=== PATIENT | female | born 1970 | race Asian ===

== ENCOUNTER 2017-08-31 12:21 | Inpatient (IN) | payer MEDICARE, MEDICAID ==
[~2017-08-31] VITALS: Ht 154.9 cm; Wt 65.3 kg
[2017-08-31] MEDS ORDERED: ChlorproMAZINE HCL 50 MG TABLET PO PRN (19:00)
[2017-08-31] MEDS: BusPIRone HCL 10 MG TABLET PO SCH (20:40)
[2017-08-31] MEDS: RisperiDONE 1 MG TABLET PO SCH (20:40)
[2017-08-31] MEDS ORDERED: INFLUENZA VIRUS VACCINE QVS 2017-18 (3YR+)/PF 60 MCG/0.5 ML SYRINGE IM ONE (21:15)
[2017-08-31] MEDS ORDERED: PNEUMOCOCCAL VACCINE POLYVALENT 0.5 ML VIAL [PPSV23] IM ONE (21:15)
[2017-08-31 21:21] VITALS: BP 141/93
[2017-09-01 06:21] VITALS: BP 138/91
[2017-09-01 06:29] LABS: BASOPHILS % (AUTO) 1.5 % (0.0-2.0); EOSINOPHILS % (AUTO) 3.6 % (1.0-6.0); HEMATOCRIT 33.2 % (36-46); HEMOGLOBIN 11.2 g/dL (12.0-16.0); LYMPHOCYTES % (AUTO) 33.2 % (22.0-44.0); MEAN CORPUSCULAR HEMOGLOBIN 28.4 pg (26.0-34.0); MEAN CORPUSCULAR HGB CONC 33.9 G/dL (31.0-37.0); MEAN CORPUSCULAR VOLUME 84 fL (80-100); MONOCYTES # (AUTO) 0.4 K/uL (0.1-1.0); MONOCYTES % (AUTO) 6.9 % (2.0-9.0); NEUTROPHILS # (AUTO) 3.2 K/uL (1.8-7.7); NEUTROPHILS % (AUTO) 54.8 % (40.0-70.0); PLATELET COUNT (AUTO) 488 K/uL (150-450); RED BLOOD CELL COUNT(AUTO) 3.95 MIL/uL (4.00-5.20); RED CELL DISTRIBUTION WIDTH 14.4 % (11.5-14.5)
[2017-09-01 07:01] LABS: HEMOGLOBIN A1C 8.2 % (4.5-6.2)
[2017-09-01 07:22] LABS: CHOL/HDL RATIO 3.3 (3.9-5.7); FREE T4 (FREE THYROXINE) 0.97 ng/dL (0.76-1.46); THYROID STIMULATING HORMONE 4.61 uIU/mL (0.36-3.74)
[2017-09-01] MEDS ORDERED: BENZOCAINE/MENTHOL LOZENGE [8 LOZENGES/PACKET] MM PRN (08:00)
[2017-09-01] MEDS ORDERED: CloNIDine HCL 0.1 MG TABLET PO PRN (08:00)
[2017-09-01] MEDS ORDERED: ALBUTEROL SULFATE HFA 90 MCG/PUFF 8 GM INHALER IH PRN (08:00)
[2017-09-01] MEDS ORDERED: MAGNESIUM HYDROXIDE SUSPENSION 30 ML UDCUP PO PRN (08:00)
[2017-09-01] MEDS ORDERED: BACITRACIN 28.4 GM OINTMENT TP PRN (08:00)
[2017-09-01] MEDS ORDERED: ONDANSETRON HCL 4 MG TABLET PO PRN (08:00)
[2017-09-01] MEDS ORDERED: IBUPROFEN 600 MG TABLET PO PRN (08:00)
[2017-09-01] MEDS ORDERED: MAG HYDROX/AL HYDROX/SIMETH ES 30 ML SUSPENSION UDCUP PO PRN (08:00)
[2017-09-01] MEDS ORDERED: LOPERAMIDE HCL 2 MG CAPSULE PO PRN (08:00)
[2017-09-01] MEDS ORDERED: PETROLATUM,WHITE 71 GM JELLY TP PRN (08:00)
[2017-09-01] MEDS ORDERED: ACETAMINOPHEN 325 MG TABLET PO PRN (08:00)
[2017-09-01] MEDS ORDERED: DEXTROSE 50%-WATER 25 GM/50 ML SYRINGE IVP PRN (08:00)
[2017-09-01 08:52] VITALS: BP 147/93
[2017-09-01] MEDS: FLUoxetine HCL 10 MG CAPSULE PO SCH (09:15)
[2017-09-01] MEDS: MetFORMIN HCL 500 MG TABLET PO SCH ×2 (09:15→17:14)
[2017-09-01] MEDS: BusPIRone HCL 10 MG TABLET PO SCH ×2 (09:15→16:11)
[2017-09-01] MEDS: NYSTATIN 30 GM CREAM TP SCH (09:37)
[2017-09-01] MEDS: GlipiZIDE 10 MG TABLET PO SCH ×2 (09:44→16:11)
[2017-09-01] MEDS: INSULIN ASPART 100 UNITS/ML SQ PRN (12:51)
[2017-09-01 12:53] LABS: GLUCOMETER DEV NAME(LOC) 3EI B; GLUCOSE,POINT OF CARE 89 MG/DL (70-110)
[2017-09-01 16:17] LABS: GLUCOMETER DEV NAME(LOC) 3EI B; GLUCOSE,POINT OF CARE 108 MG/DL (70-110)
[2017-09-01 16:30] VITALS: BP 132/75
[2017-09-01] MEDS: RisperiDONE 1 MG TABLET PO SCH (20:44)
[2017-09-01 20:47] LABS: GLUCOMETER DEV NAME(LOC) 3EI B; GLUCOSE,POINT OF CARE 96 MG/DL (70-110)
[2017-09-02 05:37] VITALS: BP 130/71
[2017-09-02 05:49] LABS: GLUCOMETER DEV NAME(LOC) 3EI B; GLUCOSE,POINT OF CARE 112 MG/DL (70-110)
[2017-09-02] MEDS: GlipiZIDE 10 MG TABLET PO SCH ×2 (06:48→16:21)
[2017-09-02] MEDS: LEVOTHYROXINE SODIUM 25 MCG TABLET PO SCH (06:48)
[2017-09-02] MEDS: MetFORMIN HCL 500 MG TABLET PO SCH ×2 (06:48→17:04)
[2017-09-02 08:44] VITALS: BP 144/82
[2017-09-02] MEDS: FLUoxetine HCL 10 MG CAPSULE PO SCH (09:35)
[2017-09-02] MEDS: BusPIRone HCL 10 MG TABLET PO SCH ×2 (09:35→16:21)
[2017-09-02 11:27] LABS: GLUCOMETER DEV NAME(LOC) 3EI B; GLUCOSE,POINT OF CARE 98 MG/DL (70-110)
[2017-09-02 16:27] LABS: GLUCOMETER DEV NAME(LOC) 3EI B; GLUCOSE,POINT OF CARE 142 MG/DL (70-110)
[2017-09-02] MEDS: NYSTATIN 30 GM CREAM TP SCH (17:04)
[2017-09-02] MEDS: INSULIN ASPART 100 UNITS/ML SQ PRN (17:30)
[2017-09-02 19:29] VITALS: BP 140/91
[2017-09-02] MEDS: LORazepam 0.5 MG TABLET PO PRN (20:31)
[2017-09-02] MEDS: RisperiDONE 2 MG TABLET PO SCH (20:32)
[2017-09-02 20:37] LABS: GLUCOMETER DEV NAME(LOC) 3EI B; GLUCOSE,POINT OF CARE 134 MG/DL (70-110)
[2017-09-03 01:40] VITALS: BP 126/96
[2017-09-03 06:18] LABS: GLUCOMETER DEV NAME(LOC) 3EI B; GLUCOSE,POINT OF CARE 138 MG/DL (70-110)
[2017-09-03] MEDS: GlipiZIDE 10 MG TABLET PO SCH ×2 (06:36→16:12)
[2017-09-03] MEDS: LEVOTHYROXINE SODIUM 25 MCG TABLET PO SCH (06:36)
[2017-09-03] MEDS: MetFORMIN HCL 500 MG TABLET PO SCH ×2 (06:36→17:38)
[2017-09-03] MEDS: ASPIRIN 81 MG EC TABLET PO SCH (06:36)
[2017-09-03 06:37] LABS: HEMATOCRIT 34.6 % (36-46); HEMOGLOBIN 11.6 g/dL (12.0-16.0); MEAN CORPUSCULAR HEMOGLOBIN 28.1 pg (26.0-34.0); MEAN CORPUSCULAR HGB CONC 33.4 G/dL (31.0-37.0); MEAN CORPUSCULAR VOLUME 84 fL (80-100); PLATELET COUNT (AUTO) 515 K/uL (150-450); RED BLOOD CELL COUNT(AUTO) 4.11 MIL/uL (4.00-5.20); RED CELL DISTRIBUTION WIDTH 14.3 % (11.5-14.5)
[2017-09-03 07:03] LABS: ANION GAP 8 mmol/L (8-16); CARBON DIOXIDE 28 mmol/L (22-29); CHLORIDE 100 mmol/L (98-107); CREATININE 0.43 mg/dL (0.60-1.30); GLOMERULAR FILTR. RATE CALC > 60 mL/min (>60); GLUCOSE,RANDOM 145 mg/dL (70-110); PHOSPHORUS 3.7 mg/dL (2.5-4.9); POTASSIUM 4.3 mmol/L (3.5-5.1); SODIUM SERUM 136 mmol/L (136-145); UREA NITROGEN, BLOOD 14 mg/dL (7-18)
[2017-09-03 08:38] VITALS: BP 154/97
[2017-09-03 08:50] LABS: BAND NEUTROPHILS % (MANUAL) 2 % (1-5); EOSINOPHILS % (MANUAL) 1 % (1-6); LYMPHOCYTES % (MANUAL) 27 % (22-44); MONOCYTES % (MANUAL) 8 % (2-9); SEGMENTED NEUTROPHILS % 62 % (40-70)
[2017-09-03 08:58] LABS: BILIRUBIN,URINE NEGATIVE (NEGATIVE); GLUCOSE, URINE (UA) NEGATIVE (NEGATIVE); KETONES,URINE NEGATIVE (NEGATIVE); LEUKOCYTE ESTERASE ,URINE NEGATIVE (NEGATIVE); NITRATE,URINE NEGATIVE (NEGATIVE); OCCULT BLOOD,URINE LARGE (NEGATIVE); PH,URINE 5.5 (5.0-8.0); PROTEIN,URINE NEGATIVE (NEGATIVE); UROBILINOGEN,URINE 0.2 mg/dL (<=1.0)
[2017-09-03 08:59] LABS: APPEARANCE,URINE HAZY (CLEAR)
[2017-09-03] MEDS: MULTIVITAMINS WITH IRON TABLET PO SCH (09:09)
[2017-09-03] MEDS: BusPIRone HCL 10 MG TABLET PO SCH ×2 (09:09→16:11)
[2017-09-03] MEDS: FLUoxetine HCL 10 MG CAPSULE PO SCH (09:09)
[2017-09-03] MEDS: NYSTATIN 30 GM CREAM TP SCH ×2 (09:10→16:11)
[2017-09-03 09:27] LABS: BACTERIA,URINE Moderate /HPF (None Seen); SQUAMOUS EPITHELIAL CELL,UR Few /LPF (None Seen)
[2017-09-03 09:35] LABS: HCG,QUAL RESULT NEGATIVE (NEGATIVE)
[2017-09-03 11:13] LABS: GLUCOMETER DEV NAME(LOC) 3EI B; GLUCOSE,POINT OF CARE 118 MG/DL (70-110)
[2017-09-03] MEDS: CIPROFLOXACIN HCL 500 MG TABLET PO SCH (16:12)
[2017-09-03 16:18] LABS: GLUCOMETER DEV NAME(LOC) 3EI B; GLUCOSE,POINT OF CARE 134 MG/DL (70-110)
[2017-09-03 18:00] VITALS: BP 131/88
[2017-09-03] MEDS: RisperiDONE 2 MG TABLET PO SCH (20:26)
[2017-09-03] MEDS: INSULIN ASPART 100 UNITS/ML SQ PRN (20:27)
[2017-09-03 20:28] LABS: GLUCOMETER DEV NAME(LOC) 3EI B; GLUCOSE,POINT OF CARE 152 MG/DL (70-110)
[2017-09-03] MEDS: LORazepam 0.5 MG TABLET PO PRN (20:28)
[2017-09-04 03:00] VITALS: BP 125/95
[2017-09-04 05:17] LABS: GLUCOMETER DEV NAME(LOC) 3EI B; GLUCOSE,POINT OF CARE 134 MG/DL (70-110)
[2017-09-04] MEDS: GlipiZIDE 10 MG TABLET PO SCH ×2 (06:53→16:18)
[2017-09-04] MEDS: LEVOTHYROXINE SODIUM 25 MCG TABLET PO SCH (06:54)
[2017-09-04] MEDS: MetFORMIN HCL 500 MG TABLET PO SCH ×2 (06:54→17:09)
[2017-09-04] MEDS: ASPIRIN 81 MG EC TABLET PO SCH (06:54)
[2017-09-04] MEDS: MULTIVITAMINS WITH IRON TABLET PO SCH (08:38)
[2017-09-04] MEDS: FLUoxetine HCL 10 MG CAPSULE PO SCH (08:38)
[2017-09-04] MEDS: BusPIRone HCL 10 MG TABLET PO SCH ×2 (08:38→16:19)
[2017-09-04] MEDS: CIPROFLOXACIN HCL 500 MG TABLET PO SCH ×2 (08:38→16:19)
[2017-09-04] MEDS: NYSTATIN 30 GM CREAM TP SCH ×2 (08:39→16:20)
[2017-09-04] MEDS: INSULIN ASPART 100 UNITS/ML SQ PRN (11:09)
[2017-09-04 11:13] LABS: GLUCOMETER DEV NAME(LOC) 3EI B; GLUCOSE,POINT OF CARE 144 MG/DL (70-110)
[2017-09-04 11:21] VITALS: BP 144/85
[2017-09-04 17:12] LABS: GLUCOMETER DEV NAME(LOC) 3EI B; GLUCOSE,POINT OF CARE 133 MG/DL (70-110)
[2017-09-04] MEDS: RisperiDONE 3 MG TABLET PO SCH (20:06)
[2017-09-04 20:13] LABS: GLUCOMETER DEV NAME(LOC) 3EI B; GLUCOSE,POINT OF CARE 106 MG/DL (70-110)
[2017-09-04 22:56] VITALS: BP 133/82
[2017-09-05 04:09] VITALS: BP 126/82
[2017-09-05 05:58] LABS: GLUCOMETER DEV NAME(LOC) 3EI B; GLUCOSE,POINT OF CARE 138 MG/DL (70-110)
[2017-09-05] MEDS: GlipiZIDE 10 MG TABLET PO SCH ×2 (06:53→16:17)
[2017-09-05] MEDS: LEVOTHYROXINE SODIUM 25 MCG TABLET PO SCH (06:53)
[2017-09-05] MEDS: ASPIRIN 81 MG EC TABLET PO SCH (06:53)
[2017-09-05] MEDS: MetFORMIN HCL 500 MG TABLET PO SCH ×2 (06:53→16:49)
[2017-09-05 08:15] VITALS: BP 138/94
[2017-09-05] MEDS: CIPROFLOXACIN HCL 500 MG TABLET PO SCH ×2 (08:43→16:16)
[2017-09-05] MEDS: MULTIVITAMINS WITH IRON TABLET PO SCH (08:43)
[2017-09-05] MEDS: FLUoxetine HCL 10 MG CAPSULE PO SCH (08:43)
[2017-09-05] MEDS: BusPIRone HCL 10 MG TABLET PO SCH ×2 (08:44→16:17)
[2017-09-05] MEDS: NYSTATIN 30 GM CREAM TP SCH ×2 (08:44→16:18)
[2017-09-05 11:49] LABS: GLUCOMETER DEV NAME(LOC) 3EI B; GLUCOSE,POINT OF CARE 132 MG/DL (70-110)
[2017-09-05 16:28] LABS: GLUCOMETER DEV NAME(LOC) 3EI B; GLUCOSE,POINT OF CARE 128 MG/DL (70-110)
[2017-09-05 19:57] VITALS: BP 145/97
[2017-09-05] MEDS: RisperiDONE 3 MG TABLET PO SCH (20:38)
[2017-09-05 20:48] LABS: GLUCOMETER DEV NAME(LOC) 3EI B; GLUCOSE,POINT OF CARE 79 MG/DL (70-110)
[2017-09-06 04:33] VITALS: BP 126/76
[2017-09-06 05:34] LABS: GLUCOMETER DEV NAME(LOC) 3EI B; GLUCOSE,POINT OF CARE 113 MG/DL (70-110)
[2017-09-06] MEDS: ASPIRIN 81 MG EC TABLET PO SCH (06:34)
[2017-09-06] MEDS: LEVOTHYROXINE SODIUM 25 MCG TABLET PO SCH (06:34)
[2017-09-06] MEDS: MetFORMIN HCL 500 MG TABLET PO SCH ×2 (06:34→17:30)
[2017-09-06] MEDS: GlipiZIDE 10 MG TABLET PO SCH ×2 (06:34→16:23)
[2017-09-06 08:15] VITALS: BP 144/79
[2017-09-06] MEDS: FLUoxetine HCL 20 MG CAPSULE PO SCH (10:00)
[2017-09-06] MEDS: CIPROFLOXACIN HCL 500 MG TABLET PO SCH ×2 (10:00→16:23)
[2017-09-06] MEDS: MULTIVITAMINS WITH IRON TABLET PO SCH (10:00)
[2017-09-06] MEDS: BusPIRone HCL 15 MG TABLET PO SCH ×2 (10:01→16:23)
[2017-09-06] MEDS: NYSTATIN 30 GM CREAM TP SCH ×2 (10:01→16:23)
[2017-09-06 11:58] LABS: GLUCOMETER DEV NAME(LOC) 3EI B; GLUCOSE,POINT OF CARE 76 MG/DL (70-110)
[2017-09-06 16:17] LABS: GLUCOMETER DEV NAME(LOC) 3EI B; GLUCOSE,POINT OF CARE 152 MG/DL (70-110)
[2017-09-06] MEDS: INSULIN ASPART 100 UNITS/ML SQ PRN (17:31)
[2017-09-06] MEDS: RisperiDONE 4 MG TABLET PO SCH (21:30)
[2017-09-06 21:48] VITALS: BP 132/76
[2017-09-06 21:58] LABS: GLUCOMETER DEV NAME(LOC) 3EI B; GLUCOSE,POINT OF CARE 88 MG/DL (70-110)
[2017-09-07 03:37] VITALS: BP 156/98
[2017-09-07 05:33] LABS: GLUCOMETER DEV NAME(LOC) 3EI B; GLUCOSE,POINT OF CARE 138 MG/DL (70-110)
[2017-09-07] MEDS: LEVOTHYROXINE SODIUM 25 MCG TABLET PO SCH (06:50)
[2017-09-07] MEDS: GlipiZIDE 10 MG TABLET PO SCH ×2 (06:51→17:24)
[2017-09-07] MEDS: INSULIN ASPART 100 UNITS/ML SQ PRN ×2 (06:51→12:35)
[2017-09-07] MEDS: ASPIRIN 81 MG EC TABLET PO SCH (06:51)
[2017-09-07] MEDS: MetFORMIN HCL 500 MG TABLET PO SCH ×2 (06:51→18:39)
[2017-09-07 08:40] VITALS: BP 154/118
[2017-09-07] MEDS: BusPIRone HCL 15 MG TABLET PO SCH ×2 (08:45→17:24)
[2017-09-07] MEDS: FLUoxetine HCL 20 MG CAPSULE PO SCH (08:45)
[2017-09-07] MEDS: MULTIVITAMINS WITH IRON TABLET PO SCH (08:45)
[2017-09-07] MEDS: CIPROFLOXACIN HCL 500 MG TABLET PO SCH ×2 (08:45→17:25)
[2017-09-07 09:45] VITALS: BP 115/66
[2017-09-07] MEDS: NYSTATIN 30 GM CREAM TP SCH ×2 (10:53→17:25)
[2017-09-07 11:37] LABS: GLUCOMETER DEV NAME(LOC) 3EI B; GLUCOSE,POINT OF CARE 168 MG/DL (70-110)
[2017-09-07 16:47] LABS: GLUCOMETER DEV NAME(LOC) 3EI B; GLUCOSE,POINT OF CARE 127 MG/DL (70-110)
[2017-09-07 17:06] VITALS: BP 131/76
[2017-09-07] MEDS: RisperiDONE 4 MG TABLET PO SCH (21:02)
[2017-09-07 21:12] LABS: GLUCOMETER DEV NAME(LOC) 3EI B; GLUCOSE,POINT OF CARE 120 MG/DL (70-110)
[2017-09-08 05:28] LABS: GLUCOMETER DEV NAME(LOC) 3EI B; GLUCOSE,POINT OF CARE 114 MG/DL (70-110)
[2017-09-08] MEDS: LEVOTHYROXINE SODIUM 25 MCG TABLET PO SCH (06:54)
[2017-09-08] MEDS: GlipiZIDE 10 MG TABLET PO SCH ×2 (06:54→16:23)
[2017-09-08] MEDS: MetFORMIN HCL 500 MG TABLET PO SCH ×2 (06:54→17:10)
[2017-09-08] MEDS: ASPIRIN 81 MG EC TABLET PO SCH ×2 (06:54→07:45)
[2017-09-08] MEDS: INSULIN ASPART 100 UNITS/ML SQ PRN (07:04)
[2017-09-08] MEDS: FLUoxetine HCL 20 MG CAPSULE PO SCH (07:45)
[2017-09-08] MEDS: LEVOFLOXACIN 250 MG TABLET PO SCH (07:45)
[2017-09-08] MEDS: NYSTATIN 30 GM CREAM TP SCH ×2 (07:46→16:23)
[2017-09-08] MEDS: BusPIRone HCL 15 MG TABLET PO SCH ×2 (07:46→16:22)
[2017-09-08] MEDS: MULTIVITAMINS WITH IRON TABLET PO SCH (07:46)
[2017-09-08 09:31] VITALS: BP 144/86
[2017-09-08 11:13] LABS: GLUCOMETER DEV NAME(LOC) 3EI B; GLUCOSE,POINT OF CARE 138 MG/DL (70-110)
[2017-09-08 15:53] LABS: GLUCOMETER DEV NAME(LOC) 3EI B; GLUCOSE,POINT OF CARE 131 MG/DL (70-110)
[2017-09-08] MEDS: LORazepam 0.5 MG TABLET PO PRN (17:25)
[2017-09-08] MEDS: RisperiDONE 4 MG TABLET PO SCH (20:56)
[2017-09-08 21:17] VITALS: BP 142/91
[2017-09-08 21:37] LABS: GLUCOMETER DEV NAME(LOC) 3EI B; GLUCOSE,POINT OF CARE 136 MG/DL (70-110)
[2017-09-09] MEDS: LORazepam 0.5 MG TABLET PO PRN (02:32)
[2017-09-09 05:57] LABS: GLUCOMETER DEV NAME(LOC) 3EI B; GLUCOSE,POINT OF CARE 123 MG/DL (70-110)
[2017-09-09] MEDS: GlipiZIDE 10 MG TABLET PO SCH (06:39)
[2017-09-09] MEDS: MetFORMIN HCL 500 MG TABLET PO SCH (06:39)
[2017-09-09] MEDS: LEVOTHYROXINE SODIUM 25 MCG TABLET PO SCH (06:41)
[2017-09-09] MEDS: ASPIRIN 81 MG EC TABLET PO SCH ×2 (06:48→07:30)
[2017-09-09 08:05] VITALS: BP 162/87
[2017-09-09] MEDS: MULTIVITAMINS WITH IRON TABLET PO SCH (08:39)
[2017-09-09] MEDS: FLUoxetine HCL 20 MG CAPSULE PO SCH (08:39)
[2017-09-09] MEDS: NYSTATIN 30 GM CREAM TP SCH (08:40)
[2017-09-09] MEDS: BusPIRone HCL 15 MG TABLET PO SCH (08:40)
[2017-09-09] MEDS: LEVOFLOXACIN 250 MG TABLET PO SCH (08:40)
[2017-09-09 11:23] LABS: GLUCOMETER DEV NAME(LOC) 3EI B; GLUCOSE,POINT OF CARE 101 MG/DL (70-110)
[2017-09-09] MEDS ORDERED: BUSP15 PO (12:26)
[2017-09-09] MEDS ORDERED: ASPI-1182 PO (12:26)
[2017-09-09] MEDS ORDERED: FLUO-191 PO (12:26)
[2017-09-09] MEDS ORDERED: GLIP10 PO (12:27)
[2017-09-09] MEDS ORDERED: LEVO250 PO (12:27)
[2017-09-09] MEDS ORDERED: LEVO25TA9 PO (12:28)
[2017-09-09] MEDS ORDERED: METF500T4 PO (12:29)
[2017-09-09] MEDS ORDERED: MV-M1TAB2 PO (12:29)
[2017-09-09] MEDS ORDERED: RISP4 PO (12:29)
[2017-09-09] MEDS ORDERED: NYST30CR9 TP (12:30)
== END 2017-09-09 14:00 | disposition home or self-care (01) | DRG 885 ==
LOC: 3EI 18:15
PROVIDERS: ADMIT Psychiatry & Neurology Psychiatry; ATTEND Psychiatry & Neurology Psychiatry
DX: F25.0 Schizoaffective disorder, bipolar type (principal); R45.851 Suicidal ideations; E11.65 Type 2 diabetes mellitus with hyperglycemia; B35.6 Tinea cruris; D64.9 Anemia, unspecified; D47.3 Essential (hemorrhagic) thrombocythemia; N39.0 Urinary tract infection, site not specified; E03.9 Hypothyroidism, unspecified; E78.5 Hyperlipidemia, unspecified; K21.9 Gastro-esophageal reflux disease without esophagitis; K59.00 Constipation, unspecified; I10 Essential (primary) hypertension; G47.00 Insomnia, unspecified; F41.9 Anxiety disorder, unspecified; Z59.0 Homelessness; Z91.19 Patient's noncompliance with other medical treatment and regimen
CPT/HCPCS: 82306; 82962; 83036; 83735; 84100; 84439; 84443; 85007; 85049; 87086

== ENCOUNTER 2017-10-17 16:19 | Inpatient (IN) | payer MEDICARE, MEDICAID ==
[~2017-10-17] VITALS: Ht 154.9 cm; Wt 67.0 kg
[~2017-10-17 16:19] MED LIST: ASPI-1182 PO; BUSP15 PO; FLUO-191 PO; GLIP10 PO; LEVO250 PO; LEVO25TA9 PO; METF500T4 PO; MV-M1TAB2 PO; NYST30CR9 TP; RISP4 PO
[2017-10-17] MEDS ORDERED: HALOPERIDOL 5 MG TABLET PO PRN (21:15)
[2017-10-17] MEDS ORDERED: ZOLPIDEM TARTRATE 10 MG TABLET PO PRN (21:15)
[2017-10-17 21:28] VITALS: BP 139/89
[2017-10-17] MEDS ORDERED: INFLUENZA VIRUS VACCINE QVS 2017-18 (3YR+)/PF 60 MCG/0.5 ML SYRINGE IM ONE (21:30)
[2017-10-17] MEDS ORDERED: PNEUMOCOCCAL VACCINE POLYVALENT 0.5 ML VIAL [PPSV23] IM ONE (21:30)
[2017-10-17] MEDS ORDERED: GLUCAGON,HUMAN RECOMBINANT 1 MG VIAL IM PRN (22:15)
[2017-10-17 22:17] LABS: GLUCOMETER DEV NAME(LOC) BV2S; GLUCOSE,POINT OF CARE 192 MG/DL (70-110)
[2017-10-17] MEDS: INSULIN LISPRO 100 UNITS/ML SQ PRN (22:21)
[2017-10-18] VITALS: BP 138/81
[2017-10-18] MEDS: LEVOTHYROXINE SODIUM 25 MCG TABLET PO SCH (06:03)
[2017-10-18 06:39] LABS: GLUCOMETER DEV NAME(LOC) BV2S; GLUCOSE,POINT OF CARE 193 MG/DL (70-110)
[2017-10-18] MEDS: MetFORMIN HCL 500 MG TABLET PO SCH ×2 (06:44→17:12)
[2017-10-18] MEDS: GlipiZIDE 10 MG TABLET PO SCH ×2 (06:44→16:51)
[2017-10-18] MEDS: INSULIN LISPRO 100 UNITS/ML SQ PRN (06:47)
[2017-10-18 08:21] LABS: BASOPHILS % (AUTO) 0.7 % (0.0-2.0); EOSINOPHILS % (AUTO) 2.7 % (1.0-6.0); HEMATOCRIT 34.6 % (36-46); HEMOGLOBIN 11.5 g/dL (12.0-16.0); LYMPHOCYTES # (AUTO) 1.4 K/uL (1.0-4.8); LYMPHOCYTES % (AUTO) 27.4 % (22.0-44.0); MEAN CORPUSCULAR HEMOGLOBIN 27.9 pg (26.0-34.0); MEAN CORPUSCULAR HGB CONC 33.4 G/dL (31.0-37.0); MEAN CORPUSCULAR VOLUME 84 fL (80-100); MONOCYTES # (AUTO) 0.4 K/uL (0.1-1.0); MONOCYTES % (AUTO) 7.5 % (2.0-9.0); NEUTROPHILS # (AUTO) 3.2 K/uL (1.8-7.7); NEUTROPHILS % (AUTO) 61.7 % (40.0-70.0); PLATELET COUNT (AUTO) 382 K/uL (150-450); RED BLOOD CELL COUNT(AUTO) 4.14 MIL/uL (4.00-5.20); RED CELL DISTRIBUTION WIDTH 14.6 % (11.5-14.5)
[2017-10-18 08:35] VITALS: BP 137/81
[2017-10-18 08:58] LABS: ALANINE AMINOTRANSFERASE 17 U/L (12-78); ALBUMIN 3.4 g/dL (3.4-5.0); ALKALINE PHOSPHATASE 76 U/L (46-116); ANION GAP 8 mmol/L (8-16); ASPARTATE AMINOTRANSFERASE 12 U/L (15-37); BILIRUBIN,TOTAL 0.2 mg/dL (0.1-1.0); CARBON DIOXIDE 29 mmol/L (22-29); CHLORIDE 98 mmol/L (98-107); CHOL/HDL RATIO 3.2 (3.9-5.7); CHOLESTEROL 189 mg/dL (131-200); CREATININE 0.49 mg/dL (0.60-1.30); FREE T4 (FREE THYROXINE) 1.03 ng/dL (0.76-1.46); GLOMERULAR FILTR. RATE CALC > 60 mL/min (>60); GLUCOSE,RANDOM 183 mg/dL (70-110); HCG,QUANTITATIVE < 1 mIU/mL (0-6); HDL CHOLESTEROL 60 mg/dL (40-60); LDL CHOL (CALC.) 97 mg/dL (0-130); SODIUM SERUM 135 mmol/L (136-145); THYROID STIMULATING HORMONE 2.24 uIU/mL (0.36-3.74); TOTAL PROTEIN, SERUM 7.4 g/dL (6.4-8.2); TRIGLYCERIDES 158 mg/dL (15-150); UREA NITROGEN, BLOOD 13 mg/dL (7-18)
[2017-10-18] MEDS: MULTIVITAMINS WITH MINERALS, THERAPEUTIC TABLET PO SCH (09:05)
[2017-10-18] MEDS: ASPIRIN 81 MG CHEWABLE TABLET PO SCH (09:05)
[2017-10-18] MEDS: BusPIRone HCL 5 MG TABLET PO SCH ×2 (09:05→17:12)
[2017-10-18] MEDS: FLUoxetine HCL 20 MG CAPSULE PO SCH (09:05)
[2017-10-18 11:52] LABS: GLUCOMETER DEV NAME(LOC) BV2S; GLUCOSE,POINT OF CARE 74 MG/DL (70-110)
[2017-10-18 16:09] VITALS: BP 126/77
[2017-10-18 16:12] LABS: GLUCOMETER DEV NAME(LOC) BV2S; GLUCOSE,POINT OF CARE 131 MG/DL (70-110)
[2017-10-18] MEDS ORDERED: PETROLATUM,WHITE 71 GM JELLY TP PRN (17:15)
[2017-10-18] MEDS ORDERED: ALBUTEROL SULFATE HFA 90 MCG/PUFF 8 GM INHALER IH PRN (17:15)
[2017-10-18] MEDS ORDERED: MAGNESIUM HYDROXIDE SUSPENSION 30 ML UDCUP PO PRN (17:15)
[2017-10-18] MEDS ORDERED: MAG HYDROX/AL HYDROX/SIMETH ES 30 ML SUSPENSION UDCUP PO PRN (17:15)
[2017-10-18] MEDS ORDERED: ONDANSETRON HCL 4 MG TABLET PO PRN (17:15)
[2017-10-18] MEDS ORDERED: LOPERAMIDE HCL 2 MG CAPSULE PO PRN (17:15)
[2017-10-18] MEDS ORDERED: IBUPROFEN 600 MG TABLET PO PRN (17:15)
[2017-10-18] MEDS ORDERED: ACETAMINOPHEN 325 MG TABLET PO PRN (17:15)
[2017-10-18] MEDS ORDERED: BACITRACIN 28.4 GM OINTMENT TP PRN (17:15)
[2017-10-18] MEDS ORDERED: BENZOCAINE/MENTHOL LOZENGE MM PRN (17:15)
[2017-10-18] MEDS ORDERED: CloNIDine HCL 0.1 MG TABLET PO PRN (17:15)
[2017-10-18 20:27] LABS: GLUCOMETER DEV NAME(LOC) BV2S; GLUCOSE,POINT OF CARE 163 MG/DL (70-110)
[2017-10-18] MEDS ORDERED: INSULIN GLARGINE,HUM.REC.ANLOG 100 UNITS/ML SQ SCH (21:00)
[2017-10-18] MEDS: INSULIN GLARGINE,HUM.REC.ANLOG 100 UNITS/ML SQ SCH (21:00)
[2017-10-18] MEDS: RisperiDONE 4 MG TABLET PO SCH (21:30)
[2017-10-19 00:01] VITALS: BP 135/96
[2017-10-19] MEDS: LORazepam 2 MG TABLET PO PRN (00:01)
[2017-10-19] MEDS: LEVOTHYROXINE SODIUM 25 MCG TABLET PO SCH (06:03)
[2017-10-19] MEDS: GlipiZIDE 10 MG TABLET PO SCH ×2 (06:03→16:33)
[2017-10-19] MEDS: MetFORMIN HCL 500 MG TABLET PO SCH ×2 (06:03→16:33)
[2017-10-19 06:07] LABS: GLUCOMETER DEV NAME(LOC) BV2S; GLUCOSE,POINT OF CARE 126 MG/DL (70-110)
[2017-10-19] MEDS: ASPIRIN 81 MG CHEWABLE TABLET PO SCH (08:22)
[2017-10-19] MEDS: BusPIRone HCL 5 MG TABLET PO SCH ×2 (08:22→16:34)
[2017-10-19] MEDS: MULTIVITAMINS WITH MINERALS, THERAPEUTIC TABLET PO SCH (08:22)
[2017-10-19] MEDS: OMEPRAZOLE 20 MG CAPSULE PO SCH (08:22)
[2017-10-19] MEDS: DOCUSATE SODIUM 100 MG CAPSULE PO SCH (08:22)
[2017-10-19] MEDS: FLUoxetine HCL 20 MG CAPSULE PO SCH (08:22)
[2017-10-19 08:36] VITALS: BP 132/79
[2017-10-19] MEDS: INSULIN LISPRO 100 UNITS/ML SQ PRN ×3 (11:05→20:43)
[2017-10-19 11:07] LABS: GLUCOMETER DEV NAME(LOC) BV2S; GLUCOSE,POINT OF CARE 240 MG/DL (70-110)
[2017-10-19 16:11] VITALS: BP 128/74
[2017-10-19 16:22] LABS: GLUCOMETER DEV NAME(LOC) BV2S; GLUCOSE,POINT OF CARE 168 MG/DL (70-110)
[2017-10-19] MEDS ORDERED: SODIUM CHLORIDE 1 GM TABLET PO ONE (19:30)
[2017-10-19 20:22] LABS: GLUCOMETER DEV NAME(LOC) BV2S; GLUCOSE,POINT OF CARE 195 MG/DL (70-110)
[2017-10-19] MEDS: RisperiDONE 4 MG TABLET PO SCH (20:33)
[2017-10-19] MEDS: INSULIN GLARGINE,HUM.REC.ANLOG 100 UNITS/ML SQ SCH (20:42)
[2017-10-20 00:37] VITALS: BP 133/91
[2017-10-20 05:48] LABS: GLUCOMETER DEV NAME(LOC) BV2S; GLUCOSE,POINT OF CARE 97 MG/DL (70-110)
[2017-10-20 06:29] VITALS: BP 128/82
[2017-10-20] MEDS: LEVOTHYROXINE SODIUM 25 MCG TABLET PO SCH (06:31)
[2017-10-20] MEDS: MetFORMIN HCL 500 MG TABLET PO SCH ×2 (06:31→16:22)
[2017-10-20] MEDS: GlipiZIDE 10 MG TABLET PO SCH ×2 (06:31→16:22)
[2017-10-20] MEDS: OMEGA-3/DHA/EPA/FISH OIL 1,000 MG CAPSULE PO SCH (06:43)
[2017-10-20] MEDS: BusPIRone HCL 5 MG TABLET PO SCH ×2 (08:07→16:22)
[2017-10-20] MEDS: CHOLECALCIFEROL (VIT D3) 1,000 UNITS TABLET PO SCH (08:07)
[2017-10-20] MEDS: FLUoxetine HCL 20 MG CAPSULE PO SCH (08:07)
[2017-10-20] MEDS: ASPIRIN 81 MG CHEWABLE TABLET PO SCH (08:07)
[2017-10-20] MEDS: DOCUSATE SODIUM 100 MG CAPSULE PO SCH (08:07)
[2017-10-20] MEDS: MULTIVITAMINS WITH MINERALS, THERAPEUTIC TABLET PO SCH (08:07)
[2017-10-20] MEDS: OMEPRAZOLE 20 MG CAPSULE PO SCH (08:07)
[2017-10-20 08:11] VITALS: BP 152/90
[2017-10-20 09:34] VITALS: BP 128/85
[2017-10-20 10:30] LABS: CHOL/HDL RATIO 3.3 (3.9-5.7); THYROID STIMULATING HORMONE 1.71 uIU/mL (0.36-3.74)
[2017-10-20 10:42] LABS: % IRON SATURATION 12.2 % (22-44)
[2017-10-20 11:02] LABS: GLUCOMETER DEV NAME(LOC) BV2S; GLUCOSE,POINT OF CARE 123 MG/DL (70-110)
[2017-10-20 16:15] VITALS: BP 138/84
[2017-10-20 16:23] LABS: GLUCOMETER DEV NAME(LOC) BV2S; GLUCOSE,POINT OF CARE 137 MG/DL (70-110)
[2017-10-20] MEDS: RisperiDONE 4 MG TABLET PO SCH (20:35)
[2017-10-20] MEDS: INSULIN GLARGINE,HUM.REC.ANLOG 100 UNITS/ML SQ SCH (20:46)
[2017-10-20] MEDS: INSULIN LISPRO 100 UNITS/ML SQ PRN (20:46)
[2017-10-20 20:47] LABS: GLUCOMETER DEV NAME(LOC) BV2S; GLUCOSE,POINT OF CARE 176 MG/DL (70-110)
[2017-10-20] MEDS: LORazepam 2 MG TABLET PO PRN (22:38)
[2017-10-21 00:30] VITALS: BP 138/76
[2017-10-21 06:18] LABS: GLUCOMETER DEV NAME(LOC) BV2S; GLUCOSE,POINT OF CARE 131 MG/DL (70-110)
[2017-10-21] MEDS: LEVOTHYROXINE SODIUM 25 MCG TABLET PO SCH (06:30)
[2017-10-21] MEDS: GlipiZIDE 10 MG TABLET PO SCH ×2 (06:30→16:38)
[2017-10-21] MEDS: MetFORMIN HCL 500 MG TABLET PO SCH ×2 (06:31→16:38)
[2017-10-21] MEDS: OMEGA-3/DHA/EPA/FISH OIL 1,000 MG CAPSULE PO SCH (06:31)
[2017-10-21 08:00] VITALS: BP 141/90
[2017-10-21] MEDS: OMEPRAZOLE 20 MG CAPSULE PO SCH (08:02)
[2017-10-21] MEDS: CHOLECALCIFEROL (VIT D3) 1,000 UNITS TABLET PO SCH (08:02)
[2017-10-21] MEDS: BusPIRone HCL 5 MG TABLET PO SCH ×2 (08:02→16:38)
[2017-10-21] MEDS: ASPIRIN 81 MG CHEWABLE TABLET PO SCH (08:02)
[2017-10-21] MEDS: DOCUSATE SODIUM 100 MG CAPSULE PO SCH (08:02)
[2017-10-21] MEDS: FLUoxetine HCL 20 MG CAPSULE PO SCH (08:02)
[2017-10-21] MEDS: MULTIVITAMINS WITH MINERALS, THERAPEUTIC TABLET PO SCH (08:03)
[2017-10-21] MEDS: INSULIN LISPRO 100 UNITS/ML SQ PRN ×3 (11:07→20:43)
[2017-10-21 11:08] LABS: GLUCOMETER DEV NAME(LOC) BV2S; GLUCOSE,POINT OF CARE 180 MG/DL (70-110)
[2017-10-21 13:39] VITALS: BP 133/76
[2017-10-21 16:17] VITALS: BP 136/81
[2017-10-21 16:43] LABS: GLUCOMETER DEV NAME(LOC) BV2S; GLUCOSE,POINT OF CARE 181 MG/DL (70-110)
[2017-10-21 20:33] LABS: GLUCOMETER DEV NAME(LOC) BV2S; GLUCOSE,POINT OF CARE 159 MG/DL (70-110)
[2017-10-21] MEDS: RisperiDONE 4 MG TABLET PO SCH (20:33)
[2017-10-21] MEDS: INSULIN GLARGINE,HUM.REC.ANLOG 100 UNITS/ML SQ SCH (20:43)
[2017-10-22 00:57] VITALS: BP 130/90
[2017-10-22] MEDS: LEVOTHYROXINE SODIUM 25 MCG TABLET PO SCH (06:17)
[2017-10-22] MEDS: GlipiZIDE 10 MG TABLET PO SCH ×2 (06:17→16:36)
[2017-10-22] MEDS: OMEGA-3/DHA/EPA/FISH OIL 1,000 MG CAPSULE PO SCH (06:17)
[2017-10-22] MEDS: MetFORMIN HCL 500 MG TABLET PO SCH ×2 (06:17→16:36)
[2017-10-22 06:23] LABS: GLUCOMETER DEV NAME(LOC) BV2S; GLUCOSE,POINT OF CARE 138 MG/DL (70-110)
[2017-10-22] MEDS: MULTIVITAMINS WITH IRON TABLET PO SCH (06:34)
[2017-10-22 08:44] VITALS: BP 141/83
[2017-10-22] MEDS: CHOLECALCIFEROL (VIT D3) 1,000 UNITS TABLET PO SCH (08:51)
[2017-10-22] MEDS: OMEPRAZOLE 20 MG CAPSULE PO SCH (08:51)
[2017-10-22] MEDS: FLUoxetine HCL 20 MG CAPSULE PO SCH (08:52)
[2017-10-22] MEDS: DOCUSATE SODIUM 100 MG CAPSULE PO SCH (08:52)
[2017-10-22] MEDS: ASPIRIN 81 MG CHEWABLE TABLET PO SCH (08:52)
[2017-10-22] MEDS: BusPIRone HCL 5 MG TABLET PO SCH ×2 (08:52→16:36)
[2017-10-22] MEDS: INSULIN LISPRO 100 UNITS/ML SQ PRN ×3 (11:02→21:51)
[2017-10-22 11:07] LABS: GLUCOMETER DEV NAME(LOC) BV2S; GLUCOSE,POINT OF CARE 241 MG/DL (70-110)
[2017-10-22] MEDS: HYDROCORTISONE 0.5% 30 GM CREAM TP PRN (15:39)
[2017-10-22 16:23] LABS: GLUCOMETER DEV NAME(LOC) BV2S; GLUCOSE,POINT OF CARE 164 MG/DL (70-110)
[2017-10-22 17:19] VITALS: BP 136/89
[2017-10-22 20:22] LABS: GLUCOMETER DEV NAME(LOC) BV2S; GLUCOSE,POINT OF CARE 182 MG/DL (70-110)
[2017-10-22] MEDS: RisperiDONE 4 MG TABLET PO SCH (20:31)
[2017-10-22] MEDS: INSULIN GLARGINE,HUM.REC.ANLOG 100 UNITS/ML SQ SCH (20:42)
[2017-10-23 06:19] VITALS: BP 139/74
[2017-10-23] MEDS: LEVOTHYROXINE SODIUM 25 MCG TABLET PO SCH (06:23)
[2017-10-23] MEDS: OMEGA-3/DHA/EPA/FISH OIL 1,000 MG CAPSULE PO SCH (06:23)
[2017-10-23] MEDS: MetFORMIN HCL 500 MG TABLET PO SCH ×2 (06:23→16:59)
[2017-10-23] MEDS: MULTIVITAMINS WITH IRON TABLET PO SCH (06:23)
[2017-10-23] MEDS: GlipiZIDE 10 MG TABLET PO SCH ×2 (06:42→16:37)
[2017-10-23 06:47] LABS: GLUCOMETER DEV NAME(LOC) BV2S; GLUCOSE,POINT OF CARE 98 MG/DL (70-110)
[2017-10-23 08:00] VITALS: BP 135/93
[2017-10-23] MEDS: DOCUSATE SODIUM 100 MG CAPSULE PO SCH (08:06)
[2017-10-23] MEDS: CHOLECALCIFEROL (VIT D3) 1,000 UNITS TABLET PO SCH (08:07)
[2017-10-23] MEDS: BusPIRone HCL 5 MG TABLET PO SCH ×2 (08:07→16:59)
[2017-10-23] MEDS: FLUoxetine HCL 20 MG CAPSULE PO SCH (08:07)
[2017-10-23] MEDS: OMEPRAZOLE 20 MG CAPSULE PO SCH (08:07)
[2017-10-23] MEDS: ASPIRIN 81 MG CHEWABLE TABLET PO SCH (08:07)
[2017-10-23] MEDS ORDERED: GuaiFENesin/D-METHORPHAN/PHENYLEPH 5 ML LIQUID ORAL.SYG PO PRN (09:00)
[2017-10-23] MEDS: INSULIN LISPRO 100 UNITS/ML SQ PRN ×2 (11:12→16:49)
[2017-10-23 11:27] LABS: GLUCOMETER DEV NAME(LOC) BV2S; GLUCOSE,POINT OF CARE 229 MG/DL (70-110)
[2017-10-23] MEDS: HYDROCORTISONE 0.5% 30 GM CREAM TP PRN (12:42)
[2017-10-23 16:15] VITALS: BP 139/79
[2017-10-23 17:03] LABS: GLUCOMETER DEV NAME(LOC) BV2S; GLUCOSE,POINT OF CARE 203 MG/DL (70-110)
[2017-10-23] MEDS: RisperiDONE 4 MG TABLET PO SCH (20:18)
[2017-10-23] MEDS: INSULIN GLARGINE,HUM.REC.ANLOG 100 UNITS/ML SQ SCH (20:20)
[2017-10-23 20:32] LABS: GLUCOMETER DEV NAME(LOC) BV2S; GLUCOSE,POINT OF CARE 128 MG/DL (70-110)
[2017-10-24 01:53] VITALS: BP 129/81
[2017-10-24 05:48] LABS: GLUCOMETER DEV NAME(LOC) BV2S; GLUCOSE,POINT OF CARE 139 MG/DL (70-110)
[2017-10-24] MEDS: LEVOTHYROXINE SODIUM 25 MCG TABLET PO SCH (06:17)
[2017-10-24] MEDS: OMEGA-3/DHA/EPA/FISH OIL 1,000 MG CAPSULE PO SCH (06:17)
[2017-10-24] MEDS: MetFORMIN HCL 500 MG TABLET PO SCH ×2 (06:17→16:38)
[2017-10-24] MEDS: TRIAMCINOLONE 0.1% 15 GM OINTMENT TP PRN (06:22)
[2017-10-24] MEDS: GlipiZIDE 10 MG TABLET PO SCH ×2 (06:50→16:38)
[2017-10-24 08:36] VITALS: BP 142/88
[2017-10-24] MEDS: CHOLECALCIFEROL (VIT D3) 1,000 UNITS TABLET PO SCH (08:46)
[2017-10-24] MEDS: ASPIRIN 81 MG CHEWABLE TABLET PO SCH (08:46)
[2017-10-24] MEDS: OMEPRAZOLE 20 MG CAPSULE PO SCH (08:46)
[2017-10-24] MEDS: BusPIRone HCL 5 MG TABLET PO SCH ×2 (08:46→16:38)
[2017-10-24] MEDS: FLUoxetine HCL 20 MG CAPSULE PO SCH (08:46)
[2017-10-24] MEDS: DOCUSATE SODIUM 100 MG CAPSULE PO SCH (08:46)
[2017-10-24] MEDS: MULTIVITAMINS WITH IRON TABLET PO SCH (08:47)
[2017-10-24] MEDS: INSULIN LISPRO 100 UNITS/ML SQ PRN ×3 (11:01→20:29)
[2017-10-24 11:08] LABS: GLUCOMETER DEV NAME(LOC) BV2S; GLUCOSE,POINT OF CARE 200 MG/DL (70-110)
[2017-10-24 16:11] VITALS: BP 142/91
[2017-10-24 17:08] LABS: GLUCOMETER DEV NAME(LOC) BV2S; GLUCOSE,POINT OF CARE 159 MG/DL (70-110)
[2017-10-24 18:26] VITALS: BP 128/76
[2017-10-24] MEDS: RisperiDONE 4 MG TABLET PO SCH (20:07)
[2017-10-24] MEDS: INSULIN GLARGINE,HUM.REC.ANLOG 100 UNITS/ML SQ SCH (20:29)
[2017-10-24 21:13] LABS: GLUCOMETER DEV NAME(LOC) BV2S; GLUCOSE,POINT OF CARE 150 MG/DL (70-110)
[2017-10-25 00:28] VITALS: BP 128/77
[2017-10-25 06:32] LABS: GLUCOMETER DEV NAME(LOC) BV2S; GLUCOSE,POINT OF CARE 126 MG/DL (70-110)
[2017-10-25] MEDS: LEVOTHYROXINE SODIUM 25 MCG TABLET PO SCH (06:43)
[2017-10-25] MEDS: GlipiZIDE 10 MG TABLET PO SCH ×2 (06:46→16:38)
[2017-10-25] MEDS: OMEGA-3/DHA/EPA/FISH OIL 1,000 MG CAPSULE PO SCH (06:46)
[2017-10-25] MEDS: MULTIVITAMINS WITH IRON TABLET PO SCH (06:46)
[2017-10-25] MEDS: MetFORMIN HCL 500 MG TABLET PO SCH ×2 (06:46→16:38)
[2017-10-25] MEDS: CHOLECALCIFEROL (VIT D3) 1,000 UNITS TABLET PO SCH (08:10)
[2017-10-25] MEDS: BusPIRone HCL 5 MG TABLET PO SCH ×2 (08:10→16:38)
[2017-10-25] MEDS: FLUoxetine HCL 20 MG CAPSULE PO SCH (08:10)
[2017-10-25] MEDS: DOCUSATE SODIUM 100 MG CAPSULE PO SCH (08:10)
[2017-10-25] MEDS: OMEPRAZOLE 20 MG CAPSULE PO SCH (08:11)
[2017-10-25] MEDS: ASPIRIN 81 MG CHEWABLE TABLET PO SCH (08:11)
[2017-10-25 08:19] VITALS: BP 123/67
[2017-10-25 11:07] LABS: GLUCOMETER DEV NAME(LOC) BV2S; GLUCOSE,POINT OF CARE 140 MG/DL (70-110)
[2017-10-25 16:07] VITALS: BP 137/85
[2017-10-25 16:17] LABS: GLUCOMETER DEV NAME(LOC) BV2S; GLUCOSE,POINT OF CARE 240 MG/DL (70-110)
[2017-10-25] MEDS: INSULIN LISPRO 100 UNITS/ML SQ PRN ×2 (16:40→20:42)
[2017-10-25 20:17] LABS: GLUCOMETER DEV NAME(LOC) BV2S; GLUCOSE,POINT OF CARE 169 MG/DL (70-110)
[2017-10-25] MEDS: RisperiDONE 4 MG TABLET PO SCH (20:37)
[2017-10-25] MEDS: INSULIN GLARGINE,HUM.REC.ANLOG 100 UNITS/ML SQ SCH (20:42)
[2017-10-26 01:10] VITALS: BP 126/76
[2017-10-26] MEDS: TRIAMCINOLONE 0.1% 15 GM OINTMENT TP PRN (02:59)
[2017-10-26 06:13] LABS: GLUCOMETER DEV NAME(LOC) BV2S; GLUCOSE,POINT OF CARE 131 MG/DL (70-110)
[2017-10-26] MEDS: GlipiZIDE 10 MG TABLET PO SCH (06:36)
[2017-10-26] MEDS: MULTIVITAMINS WITH IRON TABLET PO SCH (06:36)
[2017-10-26] MEDS: LEVOTHYROXINE SODIUM 25 MCG TABLET PO SCH (06:36)
[2017-10-26] MEDS: OMEGA-3/DHA/EPA/FISH OIL 1,000 MG CAPSULE PO SCH (06:36)
[2017-10-26] MEDS: MetFORMIN HCL 500 MG TABLET PO SCH (06:36)
[2017-10-26] MEDS: OMEPRAZOLE 20 MG CAPSULE PO SCH (08:15)
[2017-10-26] MEDS: ASPIRIN 81 MG CHEWABLE TABLET PO SCH (08:15)
[2017-10-26] MEDS: BusPIRone HCL 5 MG TABLET PO SCH (08:15)
[2017-10-26] MEDS: FLUoxetine HCL 20 MG CAPSULE PO SCH (08:15)
[2017-10-26] MEDS: DOCUSATE SODIUM 100 MG CAPSULE PO SCH (08:16)
[2017-10-26] MEDS: CHOLECALCIFEROL (VIT D3) 1,000 UNITS TABLET PO SCH (08:16)
[2017-10-26 08:23] VITALS: BP 141/89
[2017-10-26] MEDS ORDERED: BUSP5TAB20 PO (08:39)
== END 2017-10-26 10:00 | disposition home or self-care (01) | DRG 885 ==
LOC: B2X 21:05
DX: F25.1 Schizoaffective disorder, depressive type (principal); E11.65 Type 2 diabetes mellitus with hyperglycemia; E03.9 Hypothyroidism, unspecified; E78.5 Hyperlipidemia, unspecified; D64.9 Anemia, unspecified; E55.9 Vitamin D deficiency, unspecified; F41.1 Generalized anxiety disorder; G47.00 Insomnia, unspecified; I10 Essential (primary) hypertension; K21.9 Gastro-esophageal reflux disease without esophagitis; Z59.0 Homelessness; Z79.899 Other long term (current) drug therapy; Z28.21 Immunization not carried out because of patient refusal
CPT/HCPCS: 82306; 82962; 83036; 83540; 83550; 84295; 84439; 84443; J1815; J3535

== ENCOUNTER 2018-02-21 05:52 | Emergency (ER) | payer MEDICARE, OTHER ==
[~2018-02-21] VITALS: Ht 154.9 cm; Wt 75.9 kg
[~2018-02-21 05:52] MED LIST changes: -BUSP15 PO; +BUSP5TAB20 PO; -LEVO250 PO; -METF500T4 PO; +METF500T6 PO; -MV-M1TAB2 PO; -NYST30CR9 TP
[2018-02-21] MEDS ORDERED: SIMV40TA5 PO (06:11)
[2018-02-21] MEDS ORDERED: METF850T2 PO (06:11)
[2018-02-21] MEDS ORDERED: DOXY100C2 PO (06:11)
[2018-02-21 06:14] LABS: GLUCOSE,POINT OF CARE 331 MG/DL (70-110)
[2018-02-21] MEDS ORDERED: SODIUM CHLORIDE 0.9% 1,000 ML IV ONE (07:30)
[2018-02-21 07:50] LABS: BASOPHILS % (AUTO) 1.1 % (0.0-2.0); EOSINOPHILS % (AUTO) 1.5 % (1.0-6.0); HEMATOCRIT 34.8 % (36-46); HEMOGLOBIN 11.8 g/dL (12.0-16.0); LYMPHOCYTES # (AUTO) 1.2 K/uL (1.0-4.8); LYMPHOCYTES % (AUTO) 16.2 % (22.0-44.0); MEAN CORPUSCULAR HEMOGLOBIN 27.4 pg (26.0-34.0); MEAN CORPUSCULAR HGB CONC 33.8 G/dL (31.0-37.0); MEAN CORPUSCULAR VOLUME 81 fL (80-100); MONOCYTES # (AUTO) 0.4 K/uL (0.1-1.0); MONOCYTES % (AUTO) 5.6 % (2.0-9.0); NEUTROPHILS # (AUTO) 5.5 K/uL (1.8-7.7); NEUTROPHILS % (AUTO) 75.6 % (40.0-70.0); PLATELET COUNT (AUTO) 452 K/uL (150-450); RED BLOOD CELL COUNT(AUTO) 4.29 MIL/uL (4.00-5.20); RED CELL DISTRIBUTION WIDTH 16.7 % (11.5-14.5)
[2018-02-21 08:05] LABS: ANION GAP 10 mmol/L (8-16); CALCIUM, TOTAL 8.8 mg/dL (8.8-10.5); CARBON DIOXIDE 26 mmol/L (22-29); CHLORIDE 99 mmol/L (98-107); CREATININE 0.64 mg/dL (0.60-1.30); GLOMERULAR FILTR. RATE CALC > 60 mL/min (>60); GLUCOSE,RANDOM 271 mg/dL (70-110); POTASSIUM 3.6 mmol/L (3.5-5.1); SODIUM SERUM 135 mmol/L (136-145); UREA NITROGEN, BLOOD 7 mg/dL (7-18)
[2018-02-21 08:09] LABS: ALANINE AMINOTRANSFERASE 22 U/L (12-78); ALBUMIN 3.6 g/dL (3.4-5.0); ALKALINE PHOSPHATASE 94 U/L (46-116); ASPARTATE AMINOTRANSFERASE 15 U/L (15-37); BILIRUBIN,TOTAL 0.3 mg/dL (0.1-1.0)
[2018-02-21] MEDS ORDERED: MetFORMIN HCL 850 MG TABLET PO ONE (08:30)
[2018-02-21] MEDS ORDERED: GlipiZIDE 5 MG TABLET PO ONE (08:30)
[2018-02-21 09:24] LABS: THYROID STIMULATING HORMONE 1.47 uIU/mL (0.36-3.74)
[2018-02-21 10:38] LABS: GLUCOSE,POINT OF CARE 192 MG/DL (70-110)
[2018-02-21 10:46] VITALS: BP 145/99
[2018-02-21 11:25] LABS: AMPHET/METH SCREEN,URINE NEGATIVE (NEGATIVE); BARBITURATE SCREEN, URINE NEGATIVE (NEGATIVE); BENZODIAZEPINES SCREEN,URINE NEGATIVE (NEGATIVE); CANNABINOID SCREEN,URINE NEGATIVE (NEGATIVE); COCAINE SCREEN,URINE NEGATIVE (NEGATIVE); METHADONE SCREEN, URINE NEGATIVE (NEGATIVE); OPIATE SCREEN,URINE NEGATIVE (NEGATIVE)
[2018-02-21 11:26] LABS: PHENCYCLIDINE SCREEN,URINE NEGATIVE (NEGATIVE)
[2018-02-21 11:39] LABS: APPEARANCE,URINE CLOUDY (CLEAR); BILIRUBIN,URINE NEGATIVE (NEGATIVE); GLUCOSE, URINE (UA) >=1000 mg/dL (NEGATIVE); KETONES,URINE TRACE mg/dL (NEGATIVE); LEUKOCYTE ESTERASE ,URINE SMALL (NEGATIVE); NITRATE,URINE NEGATIVE (NEGATIVE); OCCULT BLOOD,URINE NEGATIVE (NEGATIVE); PROTEIN,URINE POS 1+ (NEGATIVE); UROBILINOGEN,URINE 0.2 mg/dL (<=1.0)
[2018-02-21 11:49] LABS: BACTERIA,URINE Moderate /HPF (None Seen); SQUAMOUS EPITHELIAL CELL,UR Moderate /LPF (None Seen)
== END 2018-02-21 11:00 | disposition home or self-care (01) ==
LOC: EMS 05:53
DX: F41.9 Anxiety disorder, unspecified (principal); F32.9 Major depressive disorder, single episode, unspecified; E11.65 Type 2 diabetes mellitus with hyperglycemia; I10 Essential (primary) hypertension; M21.42 Flat foot [pes planus] (acquired), left foot; M21.41 Flat foot [pes planus] (acquired), right foot; F31.9 Bipolar disorder, unspecified; E78.00 Pure hypercholesterolemia, unspecified; Z91.14 Patient's other noncompliance with medication regimen; Z79.82 Long term (current) use of aspirin; Z79.84 Long term (current) use of oral hypoglycemic drugs
CPT/HCPCS: 36415; 80053; 80307; 81001; 82962; 84443; 85025; 87077; 87086; 87186; 99284; G0480; J7030

== ENCOUNTER 2018-06-13 13:38 | Inpatient (IN) | payer MEDICARE, MEDICAID ==
[~2018-06-13] VITALS: Ht 154.9 cm; Wt 64.9 kg
[~2018-06-13 13:38] MED LIST changes: +DOXY100C2 PO; +METF-445 PO; -METF500T6 PO; +SIMV40TA5 PO
[2018-06-13 13:54] LABS: GLUCOSE,POINT OF CARE 370 MG/DL (70-110)
[2018-06-13 14:37] LABS: BASOPHILS % (AUTO) 0.9 % (0.0-2.0); EOSINOPHILS % (AUTO) 1.2 % (1.0-6.0); HEMATOCRIT 34.8 % (36-46); HEMOGLOBIN 11.5 g/dL (12.0-16.0); LYMPHOCYTES # (AUTO) 1.5 K/uL (1.0-4.8); LYMPHOCYTES % (AUTO) 20.7 % (22.0-44.0); MEAN CORPUSCULAR HEMOGLOBIN 27.3 pg (26.0-34.0); MEAN CORPUSCULAR VOLUME 83 fL (80-100); MONOCYTES # (AUTO) 0.4 K/uL (0.1-1.0); MONOCYTES % (AUTO) 6.1 % (2.0-9.0); NEUTROPHILS # (AUTO) 5.2 K/uL (1.8-7.7); NEUTROPHILS % (AUTO) 71.1 % (40.0-70.0); PLATELET COUNT (AUTO) 487 K/uL (150-450); RED BLOOD CELL COUNT(AUTO) 4.21 MIL/uL (4.00-5.20); RED CELL DISTRIBUTION WIDTH 14.9 % (11.5-14.5)
[2018-06-13 14:54] LABS: ALANINE AMINOTRANSFERASE 22 U/L (12-78); ALBUMIN 3.5 g/dL (3.4-5.0); ALKALINE PHOSPHATASE 164 U/L (46-116); ANION GAP 11 mmol/L (8-16); ASPARTATE AMINOTRANSFERASE 11 U/L (15-37); BILIRUBIN,TOTAL 0.2 mg/dL (0.1-1.0); CARBON DIOXIDE 27 mmol/L (22-29); CHLORIDE 95 mmol/L (98-107); CREATININE 0.73 mg/dL (0.60-1.30); GLOMERULAR FILTR. RATE CALC > 60 mL/min (>60); POTASSIUM 3.8 mmol/L (3.5-5.1); SODIUM SERUM 133 mmol/L (136-145); UREA NITROGEN, BLOOD 8 mg/dL (7-18)
[2018-06-13 14:59] LABS: GLUCOSE,RANDOM 407 mg/dL (70-110)
[2018-06-13] MEDS ORDERED: MetFORMIN HCL 850 MG TABLET PO ONE (15:15)
[2018-06-13] MEDS ORDERED: GlipiZIDE 10 MG TABLET PO ONE (15:15)
[2018-06-13] MEDS ORDERED: GlipiZIDE 5 MG TABLET PO ONE (15:15)
[2018-06-13 15:21] LABS: BILIRUBIN,URINE NEGATIVE (NEGATIVE); GLUCOSE, URINE (UA) >=1000 mg/dL (NEGATIVE); KETONES,URINE NEGATIVE (NEGATIVE); LEUKOCYTE ESTERASE ,URINE NEGATIVE (NEGATIVE); NITRATE,URINE POSITIVE (NEGATIVE); OCCULT BLOOD,URINE NEGATIVE (NEGATIVE); PH,URINE 5.5 (5.0-8.0); PROTEIN,URINE NEGATIVE (NEGATIVE); UROBILINOGEN,URINE 0.2 mg/dL (<=1.0)
[2018-06-13 15:26] LABS: AMPHET/METH SCREEN,URINE NEGATIVE (NEGATIVE); BARBITURATE SCREEN, URINE NEGATIVE (NEGATIVE); BENZODIAZEPINES SCREEN,URINE NEGATIVE (NEGATIVE); CANNABINOID SCREEN,URINE NEGATIVE (NEGATIVE); COCAINE SCREEN,URINE NEGATIVE (NEGATIVE); METHADONE SCREEN, URINE NEGATIVE (NEGATIVE); OPIATE SCREEN,URINE NEGATIVE (NEGATIVE)
[2018-06-13 15:27] LABS: PHENCYCLIDINE SCREEN,URINE NEGATIVE (NEGATIVE)
[2018-06-13 15:41] LABS: APPEARANCE,URINE HAZY (CLEAR)
[2018-06-13 15:42] LABS: BACTERIA,URINE Many /HPF (None Seen); RBC,URINE None Seen /HPF (0-2)
[2018-06-13] MEDS ORDERED: HydrOXYzine PAMOATE 50 MG CAPSULE PO PRN (16:45)
[2018-06-13] MEDS ORDERED: PROMETHAZINE HCL 25 MG TABLET PO PRN (16:45)
[2018-06-13] MEDS ORDERED: LORazepam 2 MG TABLET PO PRN (16:45)
[2018-06-13] MEDS ORDERED: LOPERAMIDE HCL 2 MG CAPSULE PO PRN (16:45)
[2018-06-13] MEDS ORDERED: OLANZapine 5 MG RAPDIS TABLET PO PRN (16:45)
[2018-06-13] MEDS ORDERED: ZOLPIDEM TARTRATE 10 MG TABLET PO PRN (16:45)
[2018-06-13] MEDS ORDERED: TUBERCULIN, PURIFIED PROTEIN DERIVATIVE 5 TU/0.1 ML SYG ID ONE (16:45)
[2018-06-13] MEDS ORDERED: MAG HYDROX/AL HYDROX/SIMETH ES 30 ML SUSPENSION UDCUP PO PRN (16:45)
[2018-06-13] MEDS ORDERED: GuaiFENesin/D-METHORPHAN [SUGAR-FREE] 200-20MG/10 ML SYRUP UDCUP PO PRN (16:45)
[2018-06-13 17:15] LABS: HCG,QUANTITATIVE < 1 mIU/mL (0-6)
[2018-06-13] MEDS ORDERED: CEPHALEXIN MONOHYDRATE 500 MG CAPSULE PO ONE (17:15)
[2018-06-13 17:19] LABS: GLUCOSE,POINT OF CARE 244 MG/DL (70-110)
[2018-06-13 18:13] LABS: GLUCOSE,POINT OF CARE 204 MG/DL (70-110)
[2018-06-13] MEDS ORDERED: OLANZapine 5 MG RAPDIS TABLET PO SCH (21:00)
[2018-06-13 21:23] VITALS: BP 151/91
[2018-06-13] MEDS: THIAMINE HCL 100 MG TABLET PO SCH (21:23)
[2018-06-13 21:39] LABS: GLUCOMETER DEV NAME(LOC) 3EI C; GLUCOSE,POINT OF CARE 132 MG/DL (70-110)
[2018-06-13] MEDS ORDERED: DEXTROSE 50%-WATER 25 GM/50 ML SYRINGE IVP PRN (22:00)
[2018-06-13] MEDS: LISINOPRIL 5 MG TABLET PO SCH (22:17)
[2018-06-14 02:15] VITALS: BP 125/82
[2018-06-14 06:14] LABS: GLUCOMETER DEV NAME(LOC) 3EX 1; GLUCOSE,POINT OF CARE 269 MG/DL (70-110)
[2018-06-14] MEDS: MetFORMIN HCL 500 MG TABLET PO SCH ×2 (06:47→16:27)
[2018-06-14] MEDS: INSULIN LISPRO 100 UNITS/ML SQ PRN ×2 (06:57→16:32)
[2018-06-14 07:27] LABS: BASOPHILS % (AUTO) 0.7 % (0.0-2.0); EOSINOPHILS % (AUTO) 1.9 % (1.0-6.0); HEMATOCRIT 32.6 % (36-46); LYMPHOCYTES # (AUTO) 1.6 K/uL (1.0-4.8); LYMPHOCYTES % (AUTO) 22.8 % (22.0-44.0); MEAN CORPUSCULAR HEMOGLOBIN 27.6 pg (26.0-34.0); MEAN CORPUSCULAR HGB CONC 33.8 G/dL (31.0-37.0); MEAN CORPUSCULAR VOLUME 82 fL (80-100); MONOCYTES # (AUTO) 0.4 K/uL (0.1-1.0); MONOCYTES % (AUTO) 5.2 % (2.0-9.0); NEUTROPHILS % (AUTO) 69.4 % (40.0-70.0); PLATELET COUNT (AUTO) 501 K/uL (150-450)
[2018-06-14 07:49] LABS: ALANINE AMINOTRANSFERASE 21 U/L (12-78); ALBUMIN 3.1 g/dL (3.4-5.0); ALKALINE PHOSPHATASE 105 U/L (46-116); ANION GAP 7 mmol/L (8-16); ASPARTATE AMINOTRANSFERASE 13 U/L (15-37); BILIRUBIN,TOTAL 0.3 mg/dL (0.1-1.0); CALCIUM, TOTAL 8.5 mg/dL (8.8-10.5); CARBON DIOXIDE 29 mmol/L (22-29); CHLORIDE 99 mmol/L (98-107); CHOL/HDL RATIO 3.2 (3.9-5.7); CHOLESTEROL 171 mg/dL (131-200); CREATININE 0.68 mg/dL (0.60-1.30); FREE T4 (FREE THYROXINE) 0.91 ng/dL (0.76-1.46); GLOMERULAR FILTR. RATE CALC > 60 mL/min (>60); GLUCOSE,RANDOM 278 mg/dL (70-110); HDL CHOLESTEROL 53 mg/dL (40-60); LDL CHOL (CALC.) 105 mg/dL (0-130); POTASSIUM 3.8 mmol/L (3.5-5.1); SODIUM SERUM 135 mmol/L (136-145); THYROID STIMULATING HORMONE 0.73 uIU/mL (0.36-3.74); TOTAL PROTEIN, SERUM 7.2 g/dL (6.4-8.2); TRIGLYCERIDES 63 mg/dL (15-150); UREA NITROGEN, BLOOD 12 mg/dL (7-18)
[2018-06-14 08:17] LABS: HEMOGLOBIN A1C 11.5 % (4.5-6.2)
[2018-06-14 08:30] VITALS: BP 113/76
[2018-06-14] MEDS: MULTIVITAMINS WITH MINERALS, THERAPEUTIC TABLET PO SCH (09:28)
[2018-06-14] MEDS: LISINOPRIL 5 MG TABLET PO SCH (09:29)
[2018-06-14] MEDS: FOLIC ACID 1 MG TABLET PO SCH (09:29)
[2018-06-14] MEDS: NALTREXONE HCL 50 MG TABLET PO SCH (09:29)
[2018-06-14] MEDS: SIMVASTATIN 20 MG TABLET PO SCH (09:29)
[2018-06-14] MEDS: FLUoxetine HCL 20 MG CAPSULE PO SCH (09:29)
[2018-06-14] MEDS: THIAMINE HCL 100 MG TABLET PO SCH ×2 (09:29→16:28)
[2018-06-14 10:30] VITALS: BP 134/74
[2018-06-14] MEDS: ACETAMINOPHEN 325 MG TABLET PO PRN (10:35)
[2018-06-14 16:19] VITALS: BP 126/77
[2018-06-14 16:23] LABS: GLUCOMETER DEV NAME(LOC) 3EI C; GLUCOSE,POINT OF CARE 363 MG/DL (70-110)
[2018-06-14] MEDS ORDERED: RisperiDONE 2 MG TABLET PO SCH (21:00)
[2018-06-15 02:17] VITALS: BP 118/75
[2018-06-15] MEDS: ACETAMINOPHEN 325 MG TABLET PO PRN ×2 (02:19→16:07)
[2018-06-15 05:34] LABS: GLUCOMETER DEV NAME(LOC) 3EX 1; GLUCOSE,POINT OF CARE 268 MG/DL (70-110)
[2018-06-15] MEDS: MetFORMIN HCL 500 MG TABLET PO SCH ×2 (07:02→17:14)
[2018-06-15] MEDS: INSULIN LISPRO 100 UNITS/ML SQ PRN (07:10)
[2018-06-15 08:05] VITALS: BP 139/77
[2018-06-15] MEDS: BusPIRone HCL 10 MG TABLET PO SCH ×2 (08:42→16:05)
[2018-06-15] MEDS: FLUoxetine HCL 20 MG CAPSULE PO SCH (08:42)
[2018-06-15] MEDS: MULTIVITAMINS WITH MINERALS, THERAPEUTIC TABLET PO SCH (08:42)
[2018-06-15] MEDS: FOLIC ACID 1 MG TABLET PO SCH (08:43)
[2018-06-15] MEDS: NALTREXONE HCL 50 MG TABLET PO SCH (08:43)
[2018-06-15] MEDS: LISINOPRIL 5 MG TABLET PO SCH (08:43)
[2018-06-15] MEDS: SIMVASTATIN 20 MG TABLET PO SCH (08:43)
[2018-06-15] MEDS: THIAMINE HCL 100 MG TABLET PO SCH ×2 (08:43→16:06)
[2018-06-15] MEDS: SULFAMETHOX/TRIMETH DS 800-160 MG/TABLET PO SCH (16:05)
[2018-06-15] MEDS: GlipiZIDE 10 MG TABLET PO SCH (16:06)
[2018-06-15 16:07] VITALS: BP 137/84
[2018-06-15 16:49] VITALS: BP 137/84
[2018-06-15] MEDS: RisperiDONE 3 MG TABLET PO SCH (20:21)
[2018-06-15 21:33] LABS: GLUCOMETER DEV NAME(LOC) 3EI C; GLUCOSE,POINT OF CARE 284 MG/DL (70-110)
[2018-06-16 00:05] VITALS: BP 122/82
[2018-06-16 05:49] LABS: GLUCOMETER DEV NAME(LOC) 3EX 1; GLUCOSE,POINT OF CARE 263 MG/DL (70-110)
[2018-06-16] MEDS: INSULIN LISPRO 100 UNITS/ML SQ PRN ×4 (06:48→20:39)
[2018-06-16] MEDS: MetFORMIN HCL 500 MG TABLET PO SCH ×2 (07:02→16:54)
[2018-06-16] MEDS: GlipiZIDE 10 MG TABLET PO SCH ×2 (07:02→16:54)
[2018-06-16 08:00] VITALS: BP 145/93
[2018-06-16] MEDS: THIAMINE HCL 100 MG TABLET PO SCH ×2 (08:48→16:54)
[2018-06-16] MEDS: FOLIC ACID 1 MG TABLET PO SCH (08:48)
[2018-06-16] MEDS: SIMVASTATIN 20 MG TABLET PO SCH (08:48)
[2018-06-16] MEDS: MULTIVITAMINS WITH MINERALS, THERAPEUTIC TABLET PO SCH (08:48)
[2018-06-16] MEDS: NALTREXONE HCL 50 MG TABLET PO SCH (08:49)
[2018-06-16] MEDS: SULFAMETHOX/TRIMETH DS 800-160 MG/TABLET PO SCH (08:49)
[2018-06-16] MEDS: BusPIRone HCL 10 MG TABLET PO SCH ×2 (08:49→16:54)
[2018-06-16] MEDS: FLUoxetine HCL 20 MG CAPSULE PO SCH (08:49)
[2018-06-16] MEDS: LISINOPRIL 5 MG TABLET PO SCH (08:49)
[2018-06-16 11:28] LABS: GLUCOMETER DEV NAME(LOC) 3EI C; GLUCOSE,POINT OF CARE 235 MG/DL (70-110)
[2018-06-16 16:39] VITALS: BP 142/76
[2018-06-16] MEDS ORDERED: NALT50TA PO (16:50)
[2018-06-16] MEDS ORDERED: RISP3 PO (16:50)
[2018-06-16] MEDS ORDERED: BUSP10TA23 PO (16:50)
[2018-06-16] MEDS ORDERED: FLUO-191 PO (16:50)
[2018-06-16] MEDS: CIPROFLOXACIN HCL 500 MG TABLET PO SCH (16:54)
[2018-06-16 17:34] LABS: GLUCOMETER DEV NAME(LOC) 3EI C; GLUCOSE,POINT OF CARE 165 MG/DL (70-110)
[2018-06-16] MEDS: RisperiDONE 3 MG TABLET PO SCH (20:31)
[2018-06-16 20:44] LABS: GLUCOMETER DEV NAME(LOC) 3EI C; GLUCOSE,POINT OF CARE 181 MG/DL (70-110)
[2018-06-17 01:21] VITALS: BP 125/84
[2018-06-17 04:43] VITALS: BP 118/69
[2018-06-17] MEDS: ACETAMINOPHEN 325 MG TABLET PO PRN (04:46)
[2018-06-17 05:49] LABS: GLUCOMETER DEV NAME(LOC) 3EX 1; GLUCOSE,POINT OF CARE 248 MG/DL (70-110)
[2018-06-17] MEDS: INSULIN LISPRO 100 UNITS/ML SQ PRN ×2 (06:55→11:25)
[2018-06-17] MEDS: GlipiZIDE 10 MG TABLET PO SCH (07:03)
[2018-06-17] MEDS: MetFORMIN HCL 500 MG TABLET PO SCH (07:03)
[2018-06-17] MEDS: LISINOPRIL 5 MG TABLET PO SCH (08:17)
[2018-06-17] MEDS: FLUoxetine HCL 20 MG CAPSULE PO SCH (08:17)
[2018-06-17] MEDS: FOLIC ACID 1 MG TABLET PO SCH (08:17)
[2018-06-17] MEDS: BusPIRone HCL 10 MG TABLET PO SCH (08:17)
[2018-06-17] MEDS: THIAMINE HCL 100 MG TABLET PO SCH (08:17)
[2018-06-17] MEDS: SIMVASTATIN 20 MG TABLET PO SCH (08:17)
[2018-06-17] MEDS: MULTIVITAMINS WITH MINERALS, THERAPEUTIC TABLET PO SCH (08:17)
[2018-06-17] MEDS: NALTREXONE HCL 50 MG TABLET PO SCH (08:17)
[2018-06-17] MEDS: CIPROFLOXACIN HCL 500 MG TABLET PO SCH (08:18)
[2018-06-17] MEDS ORDERED: METF-960 PO (09:47)
[2018-06-17] MEDS ORDERED: CIPR-278 PO (09:47)
[2018-06-17] MEDS ORDERED: LISI-660 PO (09:47)
[2018-06-17] MEDS ORDERED: SIMV-260 PO (09:51)
[2018-06-17 10:05] VITALS: BP 153/103
[2018-06-17 11:23] LABS: GLUCOMETER DEV NAME(LOC) 3EI C; GLUCOSE,POINT OF CARE 199 MG/DL (70-110)
[2018-06-21 17:04] LABS: GLUCOMETER DEV NAME(LOC) 3EX 1; GLUCOSE,POINT OF CARE 120 MG/DL (70-110)
== END 2018-06-17 11:45 | disposition home or self-care (01) | DRG 885 ==
LOC: EMS 13:40 → 3EX 19:30
PROVIDERS: ADMIT Psychiatry & Neurology Psychiatry; ATTEND Psychiatry & Neurology Psychiatry
DX: F25.9 Schizoaffective disorder, unspecified (principal); R45.851 Suicidal ideations; N39.0 Urinary tract infection, site not specified; E78.5 Hyperlipidemia, unspecified; E78.00 Pure hypercholesterolemia, unspecified; E11.9 Type 2 diabetes mellitus without complications; E03.9 Hypothyroidism, unspecified; I25.2 Old myocardial infarction; F41.9 Anxiety disorder, unspecified; B96.1 Klebsiella pneumoniae [K. pneumoniae] as the cause of diseases classified elsewhere; I10 Essential (primary) hypertension; Z59.0 Homelessness; Z79.84 Long term (current) use of oral hypoglycemic drugs; Z79.899 Other long term (current) drug therapy; Z91.19 Patient's noncompliance with other medical treatment and regimen; Z23 Encounter for immunization
CPT/HCPCS: 83036; 84439; 84443; 86592; 87086; 90686; G0378; G0480

== ENCOUNTER 2018-07-21 20:17 | Inpatient (IN) | payer MEDICARE, MEDICAID ==
[~2018-07-21] VITALS: Ht 154.9 cm; Wt 67.6 kg
[~2018-07-21 20:17] MED LIST changes: -ASPI-1182 PO; -BUSP5TAB20 PO; -DOXY100C2 PO; +GLIM4 PO; -GLIP10 PO; -LEVO25TA9 PO; +LISI-660 PO; -METF-445 PO; +METF-960 PO; +NALT50TA PO; +OLAN5TAB2 PO; +OLAN5TAB30 PO; -RISP4 PO; +SIMV-260 PO; -SIMV40TA5 PO
[2018-07-21 20:40] VITALS: BP 146/85
[2018-07-21] MEDS ORDERED: LORazepam 2 MG TABLET PO PRN (20:45)
[2018-07-21] MEDS ORDERED: ZOLPIDEM TARTRATE 10 MG TABLET PO PRN (20:45)
[2018-07-21] MEDS ORDERED: OLANZapine 5 MG RAPDIS TABLET PO PRN (20:45)
[2018-07-21 20:52] VITALS: BP 141/81
[2018-07-21] MEDS: OLANZapine 7.5 MG TABLET PO SCH (21:32)
[2018-07-21 21:44] LABS: GLUCOMETER DEV NAME(LOC) BV2S.; GLUCOSE,POINT OF CARE 315 MG/DL (70-110)
[2018-07-21 21:49] LABS: GLUCOMETER DEV NAME(LOC) BV2S.; GLUCOSE,POINT OF CARE 112 MG/DL (70-110)
[2018-07-22 02:38] VITALS: BP 142/97
[2018-07-22] MEDS ORDERED: GLUCAGON,HUMAN RECOMBINANT 1 MG VIAL IM PRN (05:15)
[2018-07-22 06:29] LABS: GLUCOMETER DEV NAME(LOC) BV2S.; GLUCOSE,POINT OF CARE 282 MG/DL (70-110)
[2018-07-22] MEDS: INSULIN LISPRO 100 UNITS/ML SQ PRN ×3 (07:00→20:31)
[2018-07-22 08:29] LABS: BASOPHILS % (AUTO) 1.3 % (0.0-2.0); EOSINOPHILS % (AUTO) 2.3 % (1.0-6.0); HEMATOCRIT 38.6 % (36-46); HEMOGLOBIN 12.9 g/dL (12.0-16.0); LYMPHOCYTES # (AUTO) 2.4 K/uL (1.0-4.8); LYMPHOCYTES % (AUTO) 38.5 % (22.0-44.0); MEAN CORPUSCULAR HEMOGLOBIN 27.4 pg (26.0-34.0); MEAN CORPUSCULAR HGB CONC 33.4 G/dL (31.0-37.0); MEAN CORPUSCULAR VOLUME 82 fL (80-100); MONOCYTES # (AUTO) 0.5 K/uL (0.1-1.0); MONOCYTES % (AUTO) 8.4 % (2.0-9.0); NEUTROPHILS # (AUTO) 3.1 K/uL (1.8-7.7); NEUTROPHILS % (AUTO) 49.5 % (40.0-70.0); PLATELET COUNT (AUTO) 430 K/uL (150-450); RED BLOOD CELL COUNT(AUTO) 4.71 MIL/uL (4.00-5.20); RED CELL DISTRIBUTION WIDTH 15.3 % (11.5-14.5)
[2018-07-22 08:41] VITALS: BP 146/87
[2018-07-22] MEDS: FLUoxetine HCL 20 MG CAPSULE PO SCH (08:49)
[2018-07-22 08:53] LABS: ALANINE AMINOTRANSFERASE 29 U/L (12-78); ALBUMIN 4.2 g/dL (3.4-5.0); ALKALINE PHOSPHATASE 114 U/L (46-116); ANION GAP 10 mmol/L (8-16); ASPARTATE AMINOTRANSFERASE 20 U/L (15-37); BILIRUBIN,TOTAL 0.5 mg/dL (0.1-1.0); CALCIUM, TOTAL 9.5 mg/dL (8.8-10.5); CARBON DIOXIDE 29 mmol/L (22-29); CHLORIDE 96 mmol/L (98-107); CHOL/HDL RATIO 3.6 (3.9-5.7); CHOLESTEROL 235 mg/dL (131-200); CREATININE 0.59 mg/dL (0.60-1.30); FREE T4 (FREE THYROXINE) 1.07 ng/dL (0.76-1.46); GLOMERULAR FILTR. RATE CALC > 60 mL/min (>60); GLUCOSE,RANDOM 309 mg/dL (70-110); HCG,QUANTITATIVE < 1 mIU/mL (0-6); HDL CHOLESTEROL 65 mg/dL (40-60); LDL CHOL (CALC.) 144 mg/dL (0-130); POTASSIUM 3.9 mmol/L (3.5-5.1); SODIUM SERUM 135 mmol/L (136-145); THYROID STIMULATING HORMONE 2.73 uIU/mL (0.36-3.74); TOTAL PROTEIN, SERUM 8.4 g/dL (6.4-8.2); TRIGLYCERIDES 128 mg/dL (15-150); UREA NITROGEN, BLOOD 10 mg/dL (7-18)
[2018-07-22 08:57] LABS: HEMOGLOBIN A1C 11.8 % (4.5-6.2)
[2018-07-22] MEDS ORDERED: NALTREXONE HCL 50 MG TABLET PO SCH (09:00)
[2018-07-22] MEDS ORDERED: PROMETHAZINE HCL 25 MG TABLET PO PRN (11:15)
[2018-07-22] MEDS ORDERED: MAG HYDROX/AL HYDROX/SIMETH ES 30 ML SUSPENSION UDCUP PO PRN (11:15)
[2018-07-22] MEDS ORDERED: HydrOXYzine PAMOATE 50 MG CAPSULE PO PRN (11:15)
[2018-07-22] MEDS ORDERED: ACETAMINOPHEN 325 MG TABLET PO PRN (11:15)
[2018-07-22] MEDS ORDERED: INSULIN LISPRO 100 UNITS/ML SQ ONE ×2 (11:15→14:00)
[2018-07-22] MEDS ORDERED: GuaiFENesin/D-METHORPHAN [SUGAR-FREE] 200-20MG/10 ML SYRUP UDCUP PO PRN (11:15)
[2018-07-22] MEDS ORDERED: MAGNESIUM HYDROXIDE SUSPENSION 30 ML UDCUP PO PRN (11:15)
[2018-07-22] MEDS ORDERED: LOPERAMIDE HCL 2 MG CAPSULE PO PRN (11:15)
[2018-07-22 11:24] VITALS: BP 117/85
[2018-07-22] MEDS: LISINOPRIL 10 MG TABLET PO SCH (12:18)
[2018-07-22] MEDS: SODIUM CHLORIDE 1 GM TABLET PO SCH ×2 (12:18→17:03)
[2018-07-22 13:05] LABS: GLUCOMETER DEV NAME(LOC) BV2S.; GLUCOSE,POINT OF CARE 426 MG/DL (70-110)
[2018-07-22 13:05] LABS: GLUCOMETER DEV NAME(LOC) BV2S.; GLUCOSE,POINT OF CARE 385 MG/DL (70-110)
[2018-07-22 13:05] LABS: GLUCOMETER DEV NAME(LOC) BV2S.; GLUCOSE,POINT OF CARE 449 MG/DL (70-110)
[2018-07-22 16:00] VITALS: BP 110/85
[2018-07-22 16:54] LABS: GLUCOMETER DEV NAME(LOC) BV2S.; GLUCOSE,POINT OF CARE 272 MG/DL (70-110)
[2018-07-22] MEDS: MetFORMIN HCL 500 MG TABLET PO SCH (17:03)
[2018-07-22] MEDS: THIAMINE HCL 100 MG TABLET PO SCH (17:03)
[2018-07-22 20:15] VITALS: BP 117/88
[2018-07-22] MEDS: OLANZapine 7.5 MG TABLET PO SCH (20:19)
[2018-07-22] MEDS: ROPINIRole HCL 1 MG TABLET PO SCH (20:19)
[2018-07-22] MEDS: PROPRANOLOL HCL 60 MG SR CAPSULE PO SCH (20:19)
[2018-07-22] MEDS: INSULIN GLARGINE,HUM.REC.ANLOG 100 UNITS/ML SQ SCH (20:31)
[2018-07-22 21:10] LABS: GLUCOMETER DEV NAME(LOC) BV2S.; GLUCOSE,POINT OF CARE 353 MG/DL (70-110)
[2018-07-23 01:12] VITALS: BP 120/86
[2018-07-23 06:49] LABS: GLUCOMETER DEV NAME(LOC) BV2S.; GLUCOSE,POINT OF CARE 250 MG/DL (70-110)
[2018-07-23] MEDS: MetFORMIN HCL 500 MG TABLET PO SCH ×2 (06:56→16:50)
[2018-07-23] MEDS: INSULIN LISPRO 100 UNITS/ML SQ PRN ×4 (06:57→20:31)
[2018-07-23] MEDS: THIAMINE HCL 100 MG TABLET PO SCH ×2 (08:10→16:50)
[2018-07-23] MEDS: FLUoxetine HCL 20 MG CAPSULE PO SCH (08:10)
[2018-07-23] MEDS: LISINOPRIL 10 MG TABLET PO SCH (08:11)
[2018-07-23] MEDS: NALTREXONE HCL 50 MG TABLET PO SCH (08:11)
[2018-07-23] MEDS: FOLIC ACID 1 MG TABLET PO SCH (08:11)
[2018-07-23] MEDS: SODIUM CHLORIDE 1 GM TABLET PO SCH ×3 (08:11→16:50)
[2018-07-23] MEDS: MULTIVITAMINS WITH MINERALS, THERAPEUTIC TABLET PO SCH (08:11)
[2018-07-23 08:22] VITALS: BP 120/74
[2018-07-23 11:09] LABS: GLUCOMETER DEV NAME(LOC) BV2S.; GLUCOSE,POINT OF CARE 320 MG/DL (70-110)
[2018-07-23 16:18] VITALS: BP 106/74
[2018-07-23 16:40] LABS: GLUCOMETER DEV NAME(LOC) BV2S.; GLUCOSE,POINT OF CARE 261 MG/DL (70-110)
[2018-07-23 20:20] VITALS: BP 114/72
[2018-07-23] MEDS: PROPRANOLOL HCL 60 MG SR CAPSULE PO SCH (20:23)
[2018-07-23] MEDS: OLANZapine 7.5 MG TABLET PO SCH (20:23)
[2018-07-23] MEDS: ROPINIRole HCL 1 MG TABLET PO SCH (20:23)
[2018-07-23] MEDS: INSULIN GLARGINE,HUM.REC.ANLOG 100 UNITS/ML SQ SCH (20:31)
[2018-07-23 20:55] LABS: GLUCOMETER DEV NAME(LOC) BV2S.; GLUCOSE,POINT OF CARE 243 MG/DL (70-110)
[2018-07-24 00:20] VITALS: BP 120/86
[2018-07-24] MEDS: MetFORMIN HCL 500 MG TABLET PO SCH ×2 (06:43→16:59)
[2018-07-24] MEDS: INSULIN LISPRO 100 UNITS/ML SQ PRN ×4 (06:48→20:29)
[2018-07-24 06:54] LABS: GLUCOMETER DEV NAME(LOC) BV2S.; GLUCOSE,POINT OF CARE 272 MG/DL (70-110)
[2018-07-24 08:29] VITALS: BP 147/78
[2018-07-24] MEDS: NALTREXONE HCL 50 MG TABLET PO SCH (08:32)
[2018-07-24] MEDS: ATORVASTATIN CALCIUM 40 MG TABLET PO SCH (08:32)
[2018-07-24] MEDS: THIAMINE HCL 100 MG TABLET PO SCH ×2 (08:32→16:59)
[2018-07-24] MEDS: LISINOPRIL 10 MG TABLET PO SCH (08:32)
[2018-07-24] MEDS: MULTIVITAMINS WITH MINERALS, THERAPEUTIC TABLET PO SCH (08:32)
[2018-07-24] MEDS: FLUoxetine HCL 20 MG CAPSULE PO SCH (08:32)
[2018-07-24] MEDS: FOLIC ACID 1 MG TABLET PO SCH (08:32)
[2018-07-24 09:05] LABS: ANION GAP 4 mmol/L (8-16); CALCIUM, TOTAL 9.1 mg/dL (8.8-10.5); CARBON DIOXIDE 33 mmol/L (22-29); CHLORIDE 99 mmol/L (98-107); CREATININE 0.49 mg/dL (0.60-1.30); GLOMERULAR FILTR. RATE CALC > 60 mL/min (>60); GLUCOSE,RANDOM 251 mg/dL (70-110); POTASSIUM 4.3 mmol/L (3.5-5.1); SODIUM SERUM 136 mmol/L (136-145); UREA NITROGEN, BLOOD 12 mg/dL (7-18)
[2018-07-24 09:17] VITALS: BP 116/75
[2018-07-24 11:04] LABS: GLUCOMETER DEV NAME(LOC) BV2S.; GLUCOSE,POINT OF CARE 327 MG/DL (70-110)
[2018-07-24 16:17] VITALS: BP 110/61
[2018-07-24 16:44] LABS: GLUCOMETER DEV NAME(LOC) BV2S.; GLUCOSE,POINT OF CARE 237 MG/DL (70-110)
[2018-07-24 20:20] VITALS: BP 118/80
[2018-07-24] MEDS: ROPINIRole HCL 1 MG TABLET PO SCH (20:22)
[2018-07-24] MEDS: PROPRANOLOL HCL 60 MG SR CAPSULE PO SCH (20:22)
[2018-07-24] MEDS: OLANZapine 7.5 MG TABLET PO SCH (20:22)
[2018-07-24] MEDS: INSULIN GLARGINE,HUM.REC.ANLOG 100 UNITS/ML SQ SCH (20:29)
[2018-07-24 20:53] LABS: GLUCOMETER DEV NAME(LOC) BV2S.; GLUCOSE,POINT OF CARE 298 MG/DL (70-110)
[2018-07-25 04:00] VITALS: BP 133/89
[2018-07-25] MEDS: MetFORMIN HCL 500 MG TABLET PO SCH ×2 (06:46→16:36)
[2018-07-25] MEDS: INSULIN LISPRO 100 UNITS/ML SQ PRN ×4 (06:47→20:46)
[2018-07-25 06:54] LABS: GLUCOMETER DEV NAME(LOC) BV2S.; GLUCOSE,POINT OF CARE 182 MG/DL (70-110)
[2018-07-25 08:12] VITALS: BP 113/88
[2018-07-25] MEDS: MULTIVITAMINS WITH MINERALS, THERAPEUTIC TABLET PO SCH (08:27)
[2018-07-25] MEDS: FOLIC ACID 1 MG TABLET PO SCH (08:27)
[2018-07-25] MEDS: NALTREXONE HCL 50 MG TABLET PO SCH (08:27)
[2018-07-25] MEDS: LISINOPRIL 10 MG TABLET PO SCH (08:27)
[2018-07-25] MEDS: FLUoxetine HCL 20 MG CAPSULE PO SCH (08:27)
[2018-07-25] MEDS: ATORVASTATIN CALCIUM 40 MG TABLET PO SCH (08:27)
[2018-07-25] MEDS: THIAMINE HCL 100 MG TABLET PO SCH ×2 (08:27→16:36)
[2018-07-25 11:44] LABS: GLUCOMETER DEV NAME(LOC) BV2S.; GLUCOSE,POINT OF CARE 266 MG/DL (70-110)
[2018-07-25] MEDS ORDERED: PROP60SR PO (14:32)
[2018-07-25] MEDS ORDERED: NALT50TA PO (14:32)
[2018-07-25] MEDS ORDERED: ROPI1TAB38 PO (14:32)
[2018-07-25] MEDS ORDERED: FLUO-191 PO (14:32)
[2018-07-25] MEDS ORDERED: OLAN7.5T9 PO (14:32)
[2018-07-25 16:00] VITALS: BP 114/65
[2018-07-25 16:15] LABS: GLUCOMETER DEV NAME(LOC) BV2S.; GLUCOSE,POINT OF CARE 277 MG/DL (70-110)
[2018-07-25 20:23] LABS: GLUCOMETER DEV NAME(LOC) BV2S.; GLUCOSE,POINT OF CARE 274 MG/DL (70-110)
[2018-07-25 20:37] VITALS: BP 124/72
[2018-07-25] MEDS: ROPINIRole HCL 1 MG TABLET PO SCH (20:38)
[2018-07-25] MEDS: PROPRANOLOL HCL 60 MG SR CAPSULE PO SCH (20:38)
[2018-07-25] MEDS: OLANZapine 7.5 MG TABLET PO SCH (20:39)
[2018-07-25] MEDS: INSULIN GLARGINE,HUM.REC.ANLOG 100 UNITS/ML SQ SCH (20:46)
[2018-07-26 01:42] VITALS: BP 123/76
[2018-07-26 06:24] LABS: GLUCOMETER DEV NAME(LOC) BV2S.; GLUCOSE,POINT OF CARE 161 MG/DL (70-110)
[2018-07-26] MEDS: MetFORMIN HCL 500 MG TABLET PO SCH (06:47)
[2018-07-26] MEDS: INSULIN LISPRO 100 UNITS/ML SQ PRN (06:48)
[2018-07-26] MEDS ORDERED: PROP20TA18 PO (08:09)
[2018-07-26] MEDS ORDERED: ATOR40TA28 PO (08:09)
[2018-07-26] MEDS ORDERED: INSLAN SQ (08:10)
[2018-07-26 08:32] VITALS: BP 123/78
[2018-07-26] MEDS: MULTIVITAMINS WITH MINERALS, THERAPEUTIC TABLET PO SCH (08:53)
[2018-07-26] MEDS: LISINOPRIL 10 MG TABLET PO SCH (08:53)
[2018-07-26] MEDS: FLUoxetine HCL 20 MG CAPSULE PO SCH (08:53)
[2018-07-26] MEDS: ATORVASTATIN CALCIUM 40 MG TABLET PO SCH (08:53)
[2018-07-26] MEDS: THIAMINE HCL 100 MG TABLET PO SCH (08:53)
[2018-07-26] MEDS: FOLIC ACID 1 MG TABLET PO SCH (08:53)
[2018-07-26] MEDS: NALTREXONE HCL 50 MG TABLET PO SCH (08:53)
== END 2018-07-26 10:15 | disposition home or self-care (01) | DRG 885 ==
LOC: B2X 20:36
PROVIDERS: ADMIT Psychiatry & Neurology Psychiatry; ATTEND Psychiatry & Neurology Psychiatry
DX: F25.0 Schizoaffective disorder, bipolar type (principal); E78.5 Hyperlipidemia, unspecified; F41.9 Anxiety disorder, unspecified; F17.200 Nicotine dependence, unspecified, uncomplicated; E11.9 Type 2 diabetes mellitus without complications
CPT/HCPCS: 83036; 84439; 84443; 87081; J1815

== ENCOUNTER 2018-08-08 14:11 | Emergency (ER) | payer MEDICARE, MEDICAID ==
[~2018-08-08] VITALS: Ht 154.9 cm; Wt 68.2 kg
[~2018-08-08 14:11] MED LIST changes: +ATOR40TA28 PO; -GLIM4 PO; +INSLAN SQ; -OLAN5TAB2 PO; -OLAN5TAB30 PO; +OLAN7.5T9 PO; +PROP60SR PO; +ROPI1TAB38 PO; -SIMV-260 PO
[2018-08-08 14:48] LABS: GLUCOSE,POINT OF CARE 284 MG/DL (70-110)
[2018-08-08 14:57] LABS: BASOPHILS % (AUTO) 0.9 % (0.0-2.0); EOSINOPHILS % (AUTO) 1.5 % (1.0-6.0); HEMATOCRIT 34.6 % (36-46); HEMOGLOBIN 11.5 g/dL (12.0-16.0); LYMPHOCYTES # (AUTO) 1.6 K/uL (1.0-4.8); LYMPHOCYTES % (AUTO) 20.7 % (22.0-44.0); MEAN CORPUSCULAR HEMOGLOBIN 27.3 pg (26.0-34.0); MEAN CORPUSCULAR HGB CONC 33.3 G/dL (31.0-37.0); MEAN CORPUSCULAR VOLUME 82 fL (80-100); MONOCYTES # (AUTO) 0.5 K/uL (0.1-1.0); MONOCYTES % (AUTO) 6.8 % (2.0-9.0); NEUTROPHILS # (AUTO) 5.5 K/uL (1.8-7.7); NEUTROPHILS % (AUTO) 70.1 % (40.0-70.0); PLATELET COUNT (AUTO) 369 K/uL (150-450); RED BLOOD CELL COUNT(AUTO) 4.22 MIL/uL (4.00-5.20); RED CELL DISTRIBUTION WIDTH 14.7 % (11.5-14.5)
[2018-08-08 15:10] LABS: ANION GAP 7 mmol/L (8-16); CALCIUM, TOTAL 8.9 mg/dL (8.8-10.5); CARBON DIOXIDE 30 mmol/L (22-29); CHLORIDE 97 mmol/L (98-107); CREATININE 0.55 mg/dL (0.60-1.30); GLOMERULAR FILTR. RATE CALC > 60 mL/min (>60); GLUCOSE,RANDOM 324 mg/dL (70-110); POTASSIUM 3.9 mmol/L (3.5-5.1); SODIUM SERUM 134 mmol/L (136-145); UREA NITROGEN, BLOOD 10 mg/dL (7-18)
[2018-08-08 15:23] LABS: ALANINE AMINOTRANSFERASE 23 U/L (12-78); ALBUMIN 3.2 g/dL (3.4-5.0); ALKALINE PHOSPHATASE 111 U/L (46-116); ASPARTATE AMINOTRANSFERASE 12 U/L (15-37); BILIRUBIN,TOTAL 0.2 mg/dL (0.1-1.0); HCG,QUANTITATIVE 1 mIU/mL (0-6); LIPASE 165 U/L (73-393); TOTAL PROTEIN, SERUM 7.5 g/dL (6.4-8.2)
[2018-08-08 15:34] LABS: APPEARANCE,URINE CLEAR (CLEAR); BILIRUBIN,URINE NEGATIVE (NEGATIVE); GLUCOSE, URINE (UA) >=1000 mg/dL (NEGATIVE); KETONES,URINE NEGATIVE (NEGATIVE); LEUKOCYTE ESTERASE ,URINE NEGATIVE (NEGATIVE); NITRATE,URINE NEGATIVE (NEGATIVE); OCCULT BLOOD,URINE NEGATIVE (NEGATIVE); PROTEIN,URINE NEGATIVE (NEGATIVE); UROBILINOGEN,URINE 0.2 mg/dL (<=1.0)
[2018-08-08 15:54] LABS: BACTERIA,URINE Moderate /HPF (None Seen); RBC,URINE None Seen /HPF (0-2); SQUAMOUS EPITHELIAL CELL,UR Few /LPF (None Seen)
[2018-08-08 16:10] VITALS: BP 121/88
== END 2018-08-08 17:18 | disposition left against medical advice (07) ==
LOC: EMS 14:12
DX: R10.13 Epigastric pain (principal); F25.9 Schizoaffective disorder, unspecified; R11.0 Nausea; F41.9 Anxiety disorder, unspecified; F31.9 Bipolar disorder, unspecified; E11.9 Type 2 diabetes mellitus without complications; E78.00 Pure hypercholesterolemia, unspecified; I10 Essential (primary) hypertension; Z79.4 Long term (current) use of insulin; Z79.84 Long term (current) use of oral hypoglycemic drugs; Z79.899 Other long term (current) drug therapy; Z53.21 Procedure and treatment not carried out due to patient leaving prior to being seen by health care provider
CPT/HCPCS: 87086

== ENCOUNTER 2018-09-19 19:25 | Inpatient (IN) | payer MEDICARE, MEDICAID ==
[~2018-09-19] VITALS: Ht 154.9 cm; Wt 154.0 kg
[~2018-09-19 19:25] MED LIST changes: +BUSP5TAB3 PO; +CLON0.5T12 PO; -INSLAN SQ; -NALT50TA PO; -OLAN7.5T9 PO; +PIOG45TA64 PO
[2018-09-19] MEDS ORDERED: LISI-661 PO (19:56)
[2018-09-19 19:58] VITALS: BP 131/54
[2018-09-19] MEDS ORDERED: LORazepam 2 MG TABLET PO PRN (20:00)
[2018-09-19] MEDS ORDERED: OLANZapine 5 MG RAPDIS TABLET PO PRN (20:00)
[2018-09-19] MEDS ORDERED: ZOLPIDEM TARTRATE 10 MG TABLET PO PRN (20:00)
[2018-09-19 21:38] LABS: GLUCOMETER DEV NAME(LOC) BV2X.; GLUCOSE,POINT OF CARE 193 MG/DL (70-110)
[2018-09-19 21:39] VITALS: BP 145/89
[2018-09-19] MEDS: OLANZapine 7.5 MG TABLET PO SCH (21:43)
[2018-09-19] MEDS: ROPINIRole HCL 1 MG TABLET PO SCH (21:44)
[2018-09-20 07:00] VITALS: BP 140/68
[2018-09-20] MEDS: ClonazePAM 0.5 MG TABLET PO SCH (08:12)
[2018-09-20 08:14] VITALS: BP 122/70
[2018-09-20 08:53] LABS: BASOPHILS % (AUTO) 1.9 % (0.0-2.0); EOSINOPHILS % (AUTO) 3.8 % (1.0-6.0); HEMATOCRIT 34.6 % (36-46); HEMOGLOBIN 11.4 g/dL (12.0-16.0); LYMPHOCYTES # (AUTO) 1.9 K/uL (1.0-4.8); LYMPHOCYTES % (AUTO) 46.3 % (22.0-44.0); MEAN CORPUSCULAR HEMOGLOBIN 26.6 pg (26.0-34.0); MEAN CORPUSCULAR HGB CONC 32.9 G/dL (31.0-37.0); MEAN CORPUSCULAR VOLUME 81 fL (80-100); MONOCYTES # (AUTO) 0.4 K/uL (0.1-1.0); MONOCYTES % (AUTO) 9.5 % (2.0-9.0); NEUTROPHILS # (AUTO) 1.6 K/uL (1.8-7.7); NEUTROPHILS % (AUTO) 38.5 % (40.0-70.0); PLATELET COUNT (AUTO) 379 K/uL (150-450); RED BLOOD CELL COUNT(AUTO) 4.28 MIL/uL (4.00-5.20)
[2018-09-20] MEDS ORDERED: BusPIRone HCL 5 MG TABLET PO SCH (09:00)
[2018-09-20] MEDS ORDERED: FLUoxetine HCL 20 MG CAPSULE PO SCH (09:00)
[2018-09-20 09:08] LABS: HEMOGLOBIN A1C 10.3 % (4.5-6.2)
[2018-09-20 10:00] LABS: ALANINE AMINOTRANSFERASE 16 U/L (12-78); ALBUMIN 3.2 g/dL (3.4-5.0); ALKALINE PHOSPHATASE 89 U/L (46-116); ANION GAP 9 mmol/L (8-16); ASPARTATE AMINOTRANSFERASE 18 U/L (15-37); BILIRUBIN,TOTAL 0.2 mg/dL (0.1-1.0); CALCIUM, TOTAL 8.8 mg/dL (8.8-10.5); CARBON DIOXIDE 28 mmol/L (22-29); CHLORIDE 102 mmol/L (98-107); CHOL/HDL RATIO 3.1 (3.9-5.7); CHOLESTEROL 157 mg/dL (131-200); CREATININE 0.58 mg/dL (0.60-1.30); FREE T4 (FREE THYROXINE) 1.04 ng/dL (0.76-1.46); GLOMERULAR FILTR. RATE CALC > 60 mL/min (>60); GLUCOSE,RANDOM 118 mg/dL (70-110); HDL CHOLESTEROL 50 mg/dL (40-60); LDL CHOL (CALC.) 89 mg/dL (0-130); SODIUM SERUM 139 mmol/L (136-145); THYROID STIMULATING HORMONE 2.26 uIU/mL (0.36-3.74); TOTAL PROTEIN, SERUM 6.9 g/dL (6.4-8.2); TRIGLYCERIDES 90 mg/dL (15-150); UREA NITROGEN, BLOOD 6 mg/dL (7-18)
[2018-09-20] MEDS ORDERED: LOPERAMIDE HCL 2 MG CAPSULE PO PRN (13:00)
[2018-09-20] MEDS ORDERED: PROMETHAZINE HCL 25 MG TABLET PO PRN (13:00)
[2018-09-20] MEDS ORDERED: MAG HYDROX/AL HYDROX/SIMETH ES 30 ML SUSPENSION UDCUP PO PRN (13:00)
[2018-09-20] MEDS ORDERED: MAGNESIUM HYDROXIDE SUSPENSION 30 ML UDCUP PO PRN (13:00)
[2018-09-20] MEDS ORDERED: HydrOXYzine PAMOATE 50 MG CAPSULE PO PRN (13:00)
[2018-09-20] MEDS ORDERED: ACETAMINOPHEN 325 MG TABLET PO PRN (13:00)
[2018-09-20] MEDS ORDERED: GuaiFENesin/D-METHORPHAN [SUGAR-FREE] 200-20MG/10 ML SYRUP UDCUP PO PRN (13:00)
[2018-09-20 16:03] VITALS: BP 119/83
[2018-09-20] MEDS: GABAPENTIN 100 MG CAPSULE PO SCH (16:15)
[2018-09-20] MEDS: THIAMINE HCL 100 MG TABLET PO SCH (16:16)
[2018-09-20] MEDS ORDERED: DEXTROSE 50%-WATER 25 GM/50 ML SYRINGE IVP PRN (16:45)
[2018-09-20] MEDS ORDERED: GLUCAGON,HUMAN RECOMBINANT 1 MG VIAL IM PRN (17:00)
[2018-09-20] MEDS: MetFORMIN HCL 500 MG TABLET PO SCH (17:08)
[2018-09-20 17:10] LABS: GLUCOMETER DEV NAME(LOC) BV2X.; GLUCOSE,POINT OF CARE 204 MG/DL (70-110)
[2018-09-20] MEDS: INSULIN LISPRO 100 UNITS/ML SQ PRN ×2 (17:12→22:14)
[2018-09-20] MEDS: OLANZapine 7.5 MG TABLET PO SCH (19:36)
[2018-09-20] MEDS: ROPINIRole HCL 1 MG TABLET PO SCH (19:36)
[2018-09-20] MEDS: INSULIN GLARGINE,HUM.REC.ANLOG 100 UNITS/ML SQ SCH (21:17)
[2018-09-20 21:44] LABS: GLUCOMETER DEV NAME(LOC) BV2X.; GLUCOSE,POINT OF CARE 248 MG/DL (70-110)
[2018-09-21 00:44] VITALS: BP 124/74
[2018-09-21 06:29] LABS: GLUCOMETER DEV NAME(LOC) BV2X.; GLUCOSE,POINT OF CARE 138 MG/DL (70-110)
[2018-09-21] MEDS: MetFORMIN HCL 500 MG TABLET PO SCH ×2 (07:23→16:31)
[2018-09-21] MEDS: FOLIC ACID 1 MG TABLET PO SCH (08:20)
[2018-09-21] MEDS: ClonazePAM 0.5 MG TABLET PO SCH (08:20)
[2018-09-21] MEDS: MULTIVITAMINS WITH MINERALS, THERAPEUTIC TABLET PO SCH (08:20)
[2018-09-21] MEDS: THIAMINE HCL 100 MG TABLET PO SCH ×2 (08:21→16:31)
[2018-09-21] MEDS: GABAPENTIN 100 MG CAPSULE PO SCH ×3 (08:22→16:31)
[2018-09-21] MEDS: CHOLECALCIFEROL (VIT D3) 5,000 UNITS CAPSULE PO SCH (08:22)
[2018-09-21] MEDS ORDERED: DULoxetine HCL 20 MG CAPSULE PO SCH (09:00)
[2018-09-21 09:03] VITALS: BP 124/77
[2018-09-21 11:08] LABS: GLUCOMETER DEV NAME(LOC) BV2X.; GLUCOSE,POINT OF CARE 173 MG/DL (70-110)
[2018-09-21] MEDS: INSULIN LISPRO 100 UNITS/ML SQ PRN ×3 (11:26→20:52)
[2018-09-21 16:42] VITALS: BP 122/81
[2018-09-21 16:59] LABS: GLUCOMETER DEV NAME(LOC) BV2X.; GLUCOSE,POINT OF CARE 170 MG/DL (70-110)
[2018-09-21] MEDS: ROPINIRole HCL 1 MG TABLET PO SCH (20:44)
[2018-09-21] MEDS: OLANZapine 7.5 MG TABLET PO SCH (20:45)
[2018-09-21] MEDS: INSULIN GLARGINE,HUM.REC.ANLOG 100 UNITS/ML SQ SCH (20:51)
[2018-09-21 21:08] LABS: GLUCOMETER DEV NAME(LOC) BV2X.; GLUCOSE,POINT OF CARE 260 MG/DL (70-110)
[2018-09-21 21:56] VITALS: BP 145/87
[2018-09-22 00:45] VITALS: BP 118/70
[2018-09-22] MEDS: MetFORMIN HCL 500 MG TABLET PO SCH ×2 (06:33→16:37)
[2018-09-22] MEDS: INSULIN LISPRO 100 UNITS/ML SQ PRN ×4 (06:34→21:07)
[2018-09-22 06:59] LABS: GLUCOMETER DEV NAME(LOC) BV2X.; GLUCOSE,POINT OF CARE 186 MG/DL (70-110)
[2018-09-22 08:29] VITALS: BP 124/90
[2018-09-22] MEDS: ClonazePAM 0.5 MG TABLET PO SCH (08:38)
[2018-09-22] MEDS: FOLIC ACID 1 MG TABLET PO SCH (08:38)
[2018-09-22] MEDS: DULoxetine HCL 20 MG CAPSULE PO SCH (08:38)
[2018-09-22] MEDS: MULTIVITAMINS WITH MINERALS, THERAPEUTIC TABLET PO SCH (08:38)
[2018-09-22] MEDS: THIAMINE HCL 100 MG TABLET PO SCH ×2 (08:38→16:36)
[2018-09-22] MEDS: CHOLECALCIFEROL (VIT D3) 5,000 UNITS CAPSULE PO SCH (08:38)
[2018-09-22] MEDS: GABAPENTIN 100 MG CAPSULE PO SCH ×3 (08:38→16:36)
[2018-09-22] MEDS ORDERED: CLON.5 PO (13:58)
[2018-09-22] MEDS ORDERED: OLAN7.5T9 PO (13:58)
[2018-09-22] MEDS ORDERED: ROPI1TAB11 PO (13:58)
[2018-09-22] MEDS ORDERED: DULO20CA30 PO (13:58)
[2018-09-22] MEDS ORDERED: GABA-529 PO (13:58)
[2018-09-22 14:49] LABS: GLUCOMETER DEV NAME(LOC) BV2X.; GLUCOSE,POINT OF CARE 251 MG/DL (70-110)
[2018-09-22 16:03] VITALS: BP 123/77
[2018-09-22 18:03] LABS: GLUCOMETER DEV NAME(LOC) BV2X.; GLUCOSE,POINT OF CARE 200 MG/DL (70-110)
[2018-09-22] MEDS: ROPINIRole HCL 1 MG TABLET PO SCH (20:08)
[2018-09-22] MEDS: OLANZapine 7.5 MG TABLET PO SCH (20:08)
[2018-09-22] MEDS: INSULIN GLARGINE,HUM.REC.ANLOG 100 UNITS/ML SQ SCH (21:08)
[2018-09-23 00:45] VITALS: BP 118/72
[2018-09-23 01:08] LABS: GLUCOMETER DEV NAME(LOC) BV2X.; GLUCOSE,POINT OF CARE 182 MG/DL (70-110)
[2018-09-23] MEDS: MetFORMIN HCL 500 MG TABLET PO SCH (06:36)
[2018-09-23] MEDS: INSULIN LISPRO 100 UNITS/ML SQ PRN (06:42)
[2018-09-23 06:59] LABS: GLUCOMETER DEV NAME(LOC) BV2X.; GLUCOSE,POINT OF CARE 143 MG/DL (70-110)
[2018-09-23] MEDS ORDERED: METF-960 PO (08:07)
[2018-09-23] MEDS ORDERED: CHOL50004 PO (08:10)
[2018-09-23] MEDS ORDERED: INSLAN SQ (08:10)
[2018-09-23 08:23] VITALS: BP 131/83
[2018-09-23] MEDS: THIAMINE HCL 100 MG TABLET PO SCH (09:19)
[2018-09-23] MEDS: MULTIVITAMINS WITH MINERALS, THERAPEUTIC TABLET PO SCH (09:19)
[2018-09-23] MEDS: FOLIC ACID 1 MG TABLET PO SCH (09:19)
[2018-09-23] MEDS: ClonazePAM 0.5 MG TABLET PO SCH (09:20)
[2018-09-23] MEDS: DULoxetine HCL 20 MG CAPSULE PO SCH (09:20)
[2018-09-23] MEDS: CHOLECALCIFEROL (VIT D3) 5,000 UNITS CAPSULE PO SCH (09:20)
[2018-09-23] MEDS: GABAPENTIN 100 MG CAPSULE PO SCH (09:20)
== END 2018-09-23 09:45 | disposition home or self-care (01) | DRG 885 ==
LOC: B2S 19:55 → EDSTATUS 19:58
PROVIDERS: ADMIT Psychiatry & Neurology Psychiatry; ATTEND Psychiatry & Neurology Psychiatry
DX: F20.9 Schizophrenia, unspecified (principal); D64.9 Anemia, unspecified; E03.9 Hypothyroidism, unspecified; E78.5 Hyperlipidemia, unspecified; F41.0 Panic disorder [episodic paroxysmal anxiety]; I10 Essential (primary) hypertension; Z91.19 Patient's noncompliance with other medical treatment and regimen; Z79.84 Long term (current) use of oral hypoglycemic drugs; Z79.899 Other long term (current) drug therapy; Z81.8 Family history of other mental and behavioral disorders
CPT/HCPCS: 83036; 84439; 84443; J1815

== ENCOUNTER 2018-10-24 12:39 | Emergency (ER) | payer MEDICARE, OTHER ==
[~2018-10-24] VITALS: Ht 154.9 cm; Wt 69.1 kg
[~2018-10-24 12:39] MED LIST changes: -BUSP5TAB3 PO; +CHOL50004 PO; +CLON.5 PO; -CLON0.5T12 PO; +DULO20CA30 PO; -FLUO-191 PO; +INSLAN SQ; -LISI-660 PO; +LISI-661 PO; +METO25 PO; +OLAN10TA20 PO; +OLAN7.5T9 PO; -PIOG45TA64 PO; -PROP60SR PO; -ROPI1TAB38 PO
[2018-10-24 12:54] LABS: GLUCOSE,POINT OF CARE 526 MG/DL (70-110)
[2018-10-24] MEDS ORDERED: INSULIN REGULAR, HUMAN 100 UNITS/ML IVP ONE (13:15)
[2018-10-24] MEDS ORDERED: SODIUM CHLORIDE 0.9% 1,000 ML IV ONE (13:15)
[2018-10-24 13:59] LABS: ANION GAP 10 mmol/L (8-16); CALCIUM, TOTAL 9.8 mg/dL (8.8-10.5); CARBON DIOXIDE 30 mmol/L (22-29); CHLORIDE 93 mmol/L (98-107); CREATININE 0.96 mg/dL (0.60-1.30); GLOMERULAR FILTR. RATE CALC > 60 mL/min (>60); SODIUM SERUM 133 mmol/L (136-145); UREA NITROGEN, BLOOD 15 mg/dL (7-18)
[2018-10-24 14:02] LABS: GLUCOSE,RANDOM 488 mg/dL (70-110)
[2018-10-24 14:54] LABS: GLUCOSE,POINT OF CARE 285 MG/DL (70-110)
[2018-10-24 15:18] VITALS: BP 129/77
== END 2018-10-24 15:18 | disposition home or self-care (01) ==
LOC: EMS 12:41
DX: E11.65 Type 2 diabetes mellitus with hyperglycemia (principal); E78.00 Pure hypercholesterolemia, unspecified; I10 Essential (primary) hypertension; F41.9 Anxiety disorder, unspecified; F31.9 Bipolar disorder, unspecified; Z79.899 Other long term (current) drug therapy; Z79.4 Long term (current) use of insulin; Z88.1 Allergy status to other antibiotic agents
CPT/HCPCS: 36415; 80048; 82962; 96361; 96374; 99283; J1815; J7030

== ENCOUNTER 2018-12-27 15:16 | Inpatient (IN) | payer MEDICARE, MEDICAID ==
[~2018-12-27] VITALS: Ht 154.9 cm; Wt 68.5 kg
[~2018-12-27 15:16] MED LIST changes: -OLAN10TA20 PO
[2018-12-27] MEDS ORDERED: MAGNESIUM HYDROXIDE SUSPENSION 30 ML UDCUP PO PRN (17:15)
[2018-12-27] MEDS ORDERED: LORazepam 2 MG TABLET PO PRN (17:15)
[2018-12-27] MEDS ORDERED: ZOLPIDEM TARTRATE 10 MG TABLET PO PRN (17:15)
[2018-12-27] MEDS ORDERED: MAG HYDROX/AL HYDROX/SIMETH ES 30 ML SUSPENSION UDCUP PO PRN (17:15)
[2018-12-27] MEDS ORDERED: GuaiFENesin/D-METHORPHAN [SUGAR-FREE] 200-20MG/10 ML SYRUP UDCUP PO PRN (17:15)
[2018-12-27] MEDS ORDERED: HydrOXYzine PAMOATE 50 MG CAPSULE PO PRN (17:15)
[2018-12-27] MEDS ORDERED: LOPERAMIDE HCL 2 MG CAPSULE PO PRN (17:15)
[2018-12-27] MEDS ORDERED: PROMETHAZINE HCL 25 MG TABLET PO PRN (17:15)
[2018-12-27] MEDS ORDERED: ACETAMINOPHEN 325 MG TABLET PO PRN (17:15)
[2018-12-27 17:48] VITALS: BP 142/93
[2018-12-27 18:17] VITALS: BP 173/99
[2018-12-27] MEDS ORDERED: GLUCAGON,HUMAN RECOMBINANT 1 MG VIAL IM PRN (19:00)
[2018-12-27] MEDS ORDERED: INSULIN LISPRO 100 UNITS/ML SQ PRN (19:00)
[2018-12-27] MEDS: THIAMINE HCL 100 MG TABLET PO SCH (19:57)
[2018-12-27] MEDS: LISINOPRIL 10 MG TABLET PO SCH (19:57)
[2018-12-27] MEDS: GABAPENTIN 100 MG CAPSULE PO SCH (19:57)
[2018-12-27 20:45] VITALS: BP 140/89
[2018-12-27] MEDS: INSULIN GLARGINE,HUM.REC.ANLOG 100 UNITS/ML SQ SCH (21:00)
[2018-12-27] MEDS: ROPINIRole HCL 1 MG TABLET PO SCH ×2 (21:00→21:44)
[2018-12-27] MEDS: OLANZapine 5 MG RAPDIS TABLET PO SCH (21:23)
[2018-12-27] MEDS: METOPROLOL TARTRATE 25 MG TABLET PO SCH (21:23)
[2018-12-28] MEDS ORDERED: DEXTROSE 50%-WATER 25 GM/50 ML SYG IVP PRN (01:45)
[2018-12-28 06:27] LABS: BASOPHILS % (AUTO) 0.6 % (0.0-2.0); EOSINOPHILS % (AUTO) 1.5 % (1.0-6.0); HEMATOCRIT 36.1 % (36-46); LYMPHOCYTES # (AUTO) 2.1 K/uL (1.0-4.8); LYMPHOCYTES % (AUTO) 33.2 % (22.0-44.0); MEAN CORPUSCULAR HGB CONC 33.3 G/dL (31.0-37.0); MEAN CORPUSCULAR VOLUME 81 fL (80-100); MONOCYTES # (AUTO) 0.5 K/uL (0.1-1.0); MONOCYTES % (AUTO) 7.1 % (2.0-9.0); NEUTROPHILS # (AUTO) 3.7 K/uL (1.8-7.7); NEUTROPHILS % (AUTO) 57.6 % (40.0-70.0); PLATELET COUNT (AUTO) 412 K/uL (150-450); RED BLOOD CELL COUNT(AUTO) 4.45 MIL/uL (4.00-5.20); RED CELL DISTRIBUTION WIDTH 15.7 % (11.5-14.5)
[2018-12-28 06:54] LABS: GLUCOMETER DEV NAME(LOC) 3E.C; GLUCOSE,POINT OF CARE 252 MG/DL (70-110)
[2018-12-28] MEDS: INSULIN LISPRO 100 UNITS/ML SQ PRN ×4 (06:59→21:55)
[2018-12-28 07:00] LABS: HEMOGLOBIN A1C 10.1 % (4.5-6.2)
[2018-12-28] MEDS: MetFORMIN HCL 500 MG TABLET PO SCH ×2 (07:00→16:18)
[2018-12-28 07:15] LABS: ALANINE AMINOTRANSFERASE 22 U/L (12-78); ALBUMIN 3.3 g/dL (3.4-5.0); ALKALINE PHOSPHATASE 84 U/L (46-116); ANION GAP 11 mmol/L (8-16); ASPARTATE AMINOTRANSFERASE 17 U/L (15-37); BILIRUBIN,TOTAL 0.3 mg/dL (0.1-1.0); CALCIUM, TOTAL 8.8 mg/dL (8.8-10.5); CARBON DIOXIDE 29 mmol/L (22-29); CHLORIDE 101 mmol/L (98-107); CHOL/HDL RATIO 4.3 (3.9-5.7); CHOLESTEROL 220 mg/dL (131-200); CREATININE 0.59 mg/dL (0.60-1.30); FREE T4 (FREE THYROXINE) 1.31 ng/dL (0.76-1.46); GLOMERULAR FILTR. RATE CALC > 60 mL/min (>60); GLUCOSE,RANDOM 253 mg/dL (70-110); HDL CHOLESTEROL 51 mg/dL (40-60); LDL CHOL (CALC.) 144 mg/dL (0-130); POTASSIUM 3.4 mmol/L (3.5-5.1); SODIUM SERUM 141 mmol/L (136-145); THYROID STIMULATING HORMONE 1.59 uIU/mL (0.36-3.74); TOTAL PROTEIN, SERUM 7.3 g/dL (6.4-8.2); TRIGLYCERIDES 123 mg/dL (15-150); UREA NITROGEN, BLOOD 13 mg/dL (7-18)
[2018-12-28] MEDS ORDERED: DULoxetine HCL 30 MG CAPSULE PO SCH (09:00)
[2018-12-28] MEDS: LISINOPRIL 10 MG TABLET PO SCH (09:11)
[2018-12-28] MEDS: GABAPENTIN 100 MG CAPSULE PO SCH ×3 (09:11→16:18)
[2018-12-28] MEDS: ATORVASTATIN CALCIUM 40 MG TABLET PO SCH (09:11)
[2018-12-28] MEDS: MULTIVITAMINS WITH MINERALS, THERAPEUTIC TABLET PO SCH (09:11)
[2018-12-28] MEDS: ClonazePAM 0.5 MG TABLET PO SCH (09:11)
[2018-12-28] MEDS: FOLIC ACID 1 MG TABLET PO SCH (09:12)
[2018-12-28] MEDS: CHOLECALCIFEROL (VIT D3) 5,000 UNITS CAPSULE PO SCH (09:13)
[2018-12-28] MEDS: THIAMINE HCL 100 MG TABLET PO SCH ×2 (09:20→16:18)
[2018-12-28 09:54] VITALS: BP 146/63
[2018-12-28 12:30] LABS: GLUCOMETER DEV NAME(LOC) 3E.C; GLUCOSE,POINT OF CARE 289 MG/DL (70-110)
[2018-12-28 17:00] LABS: GLUCOMETER DEV NAME(LOC) 3E.C; GLUCOSE,POINT OF CARE 295 MG/DL (70-110)
[2018-12-28] MEDS: OLANZapine 5 MG RAPDIS TABLET PO SCH (20:20)
[2018-12-28] MEDS: ROPINIRole HCL 1 MG TABLET PO SCH (20:21)
[2018-12-28] MEDS: METOPROLOL TARTRATE 25 MG TABLET PO SCH (20:21)
[2018-12-28 20:37] VITALS: BP 136/80
[2018-12-28] MEDS: INSULIN GLARGINE,HUM.REC.ANLOG 100 UNITS/ML SQ SCH (21:55)
[2018-12-28 21:59] LABS: GLUCOMETER DEV NAME(LOC) 3E.C; GLUCOSE,POINT OF CARE 306 MG/DL (70-110)
[2018-12-29 03:20] VITALS: BP 100/66
[2018-12-29 06:14] LABS: GLUCOMETER DEV NAME(LOC) 3E.C; GLUCOSE,POINT OF CARE 331 MG/DL (70-110)
[2018-12-29] MEDS: MetFORMIN HCL 500 MG TABLET PO SCH ×2 (06:56→16:47)
[2018-12-29] MEDS: INSULIN LISPRO 100 UNITS/ML SQ PRN ×4 (07:04→20:42)
[2018-12-29 08:00] VITALS: BP 135/73
[2018-12-29] MEDS: ClonazePAM 0.5 MG TABLET PO SCH (09:27)
[2018-12-29] MEDS: FOLIC ACID 1 MG TABLET PO SCH (09:27)
[2018-12-29] MEDS: THIAMINE HCL 100 MG TABLET PO SCH ×2 (09:27→16:39)
[2018-12-29] MEDS: CHOLECALCIFEROL (VIT D3) 5,000 UNITS CAPSULE PO SCH (09:28)
[2018-12-29] MEDS: DULoxetine HCL 60 MG CAPSULE PO SCH (09:28)
[2018-12-29] MEDS: ATORVASTATIN CALCIUM 40 MG TABLET PO SCH (09:28)
[2018-12-29] MEDS: GABAPENTIN 100 MG CAPSULE PO SCH ×3 (09:28→16:39)
[2018-12-29] MEDS: MULTIVITAMINS WITH MINERALS, THERAPEUTIC TABLET PO SCH (09:28)
[2018-12-29] MEDS: LISINOPRIL 10 MG TABLET PO SCH (09:29)
[2018-12-29 11:44] LABS: GLUCOMETER DEV NAME(LOC) 3E.C; GLUCOSE,POINT OF CARE 234 MG/DL (70-110)
[2018-12-29] MEDS ORDERED: FLUCONAZOLE 200 MG TABLET PO ONE (13:00)
[2018-12-29 16:35] VITALS: BP 116/69
[2018-12-29 17:44] LABS: GLUCOMETER DEV NAME(LOC) 3E.C; GLUCOSE,POINT OF CARE 295 MG/DL (70-110)
[2018-12-29] MEDS: METOPROLOL TARTRATE 25 MG TABLET PO SCH (20:34)
[2018-12-29] MEDS: OLANZapine 5 MG RAPDIS TABLET PO SCH (20:34)
[2018-12-29] MEDS: ROPINIRole HCL 1 MG TABLET PO SCH (20:34)
[2018-12-29 20:39] LABS: GLUCOMETER DEV NAME(LOC) 3E.C; GLUCOSE,POINT OF CARE 294 MG/DL (70-110)
[2018-12-29] MEDS: INSULIN GLARGINE,HUM.REC.ANLOG 100 UNITS/ML SQ SCH (20:41)
[2018-12-30 04:17] VITALS: BP 118/72
[2018-12-30 06:25] LABS: GLUCOMETER DEV NAME(LOC) 3E.C; GLUCOSE,POINT OF CARE 245 MG/DL (70-110)
[2018-12-30] MEDS: MetFORMIN HCL 500 MG TABLET PO SCH ×2 (07:05→16:39)
[2018-12-30] MEDS: INSULIN LISPRO 100 UNITS/ML SQ PRN ×4 (07:07→22:28)
[2018-12-30 08:15] VITALS: BP 123/86
[2018-12-30] MEDS: CHOLECALCIFEROL (VIT D3) 5,000 UNITS CAPSULE PO SCH (08:41)
[2018-12-30] MEDS: LISINOPRIL 10 MG TABLET PO SCH (08:41)
[2018-12-30] MEDS: THIAMINE HCL 100 MG TABLET PO SCH ×2 (08:41→16:39)
[2018-12-30] MEDS: ATORVASTATIN CALCIUM 40 MG TABLET PO SCH (08:41)
[2018-12-30] MEDS: MULTIVITAMINS WITH MINERALS, THERAPEUTIC TABLET PO SCH (08:41)
[2018-12-30] MEDS: GABAPENTIN 100 MG CAPSULE PO SCH ×2 (08:41→12:46)
[2018-12-30] MEDS: ClonazePAM 0.5 MG TABLET PO SCH (08:41)
[2018-12-30] MEDS: DULoxetine HCL 60 MG CAPSULE PO SCH (08:41)
[2018-12-30] MEDS: FOLIC ACID 1 MG TABLET PO SCH (08:41)
[2018-12-30 11:44] LABS: GLUCOMETER DEV NAME(LOC) 3E.C; GLUCOSE,POINT OF CARE 290 MG/DL (70-110)
[2018-12-30] MEDS: GABAPENTIN 300 MG CAPSULE PO SCH (16:39)
[2018-12-30 16:45] VITALS: BP 114/73
[2018-12-30 16:48] LABS: GLUCOMETER DEV NAME(LOC) 3E.C; GLUCOSE,POINT OF CARE 338 MG/DL (70-110)
[2018-12-30] MEDS: METOPROLOL TARTRATE 25 MG TABLET PO SCH (20:10)
[2018-12-30] MEDS: ROPINIRole HCL 1 MG TABLET PO SCH (20:10)
[2018-12-30] MEDS: OLANZapine 5 MG RAPDIS TABLET PO SCH (20:10)
[2018-12-30 20:28] LABS: GLUCOMETER DEV NAME(LOC) 3E.C; GLUCOSE,POINT OF CARE 291 MG/DL (70-110)
[2018-12-30] MEDS: INSULIN GLARGINE,HUM.REC.ANLOG 100 UNITS/ML SQ SCH (21:30)
[2018-12-31 05:19] VITALS: BP 135/79
[2018-12-31 06:19] LABS: GLUCOMETER DEV NAME(LOC) 3E.C; GLUCOSE,POINT OF CARE 187 MG/DL (70-110)
[2018-12-31] MEDS: MetFORMIN HCL 500 MG TABLET PO SCH ×2 (07:03→16:41)
[2018-12-31] MEDS: INSULIN LISPRO 100 UNITS/ML SQ PRN ×4 (07:07→21:41)
[2018-12-31] MEDS: CHOLECALCIFEROL (VIT D3) 5,000 UNITS CAPSULE PO SCH (09:07)
[2018-12-31] MEDS: FOLIC ACID 1 MG TABLET PO SCH (09:08)
[2018-12-31] MEDS: DULoxetine HCL 60 MG CAPSULE PO SCH (09:08)
[2018-12-31] MEDS: ATORVASTATIN CALCIUM 40 MG TABLET PO SCH (09:08)
[2018-12-31] MEDS: ClonazePAM 0.5 MG TABLET PO SCH (09:08)
[2018-12-31] MEDS: GABAPENTIN 300 MG CAPSULE PO SCH ×3 (09:10→16:41)
[2018-12-31] MEDS: LISINOPRIL 10 MG TABLET PO SCH (09:10)
[2018-12-31] MEDS: MULTIVITAMINS WITH MINERALS, THERAPEUTIC TABLET PO SCH (09:10)
[2018-12-31] MEDS: THIAMINE HCL 100 MG TABLET PO SCH ×2 (09:11→16:41)
[2018-12-31 09:52] VITALS: BP 132/109
[2018-12-31 11:59] LABS: GLUCOMETER DEV NAME(LOC) 3E.C; GLUCOSE,POINT OF CARE 279 MG/DL (70-110)
[2018-12-31 16:28] VITALS: BP 123/75
[2018-12-31 16:39] LABS: GLUCOMETER DEV NAME(LOC) 3E.C; GLUCOSE,POINT OF CARE 370 MG/DL (70-110)
[2018-12-31] MEDS: OLANZapine 5 MG RAPDIS TABLET PO SCH (20:10)
[2018-12-31] MEDS: METOPROLOL TARTRATE 25 MG TABLET PO SCH (20:10)
[2018-12-31] MEDS: ROPINIRole HCL 1 MG TABLET PO SCH (20:10)
[2018-12-31 20:13] LABS: GLUCOMETER DEV NAME(LOC) 3E.C; GLUCOSE,POINT OF CARE 283 MG/DL (70-110)
[2018-12-31] MEDS: INSULIN GLARGINE,HUM.REC.ANLOG 100 UNITS/ML SQ SCH (21:41)
[2019-01-01 06:24] LABS: GLUCOMETER DEV NAME(LOC) 3E.C; GLUCOSE,POINT OF CARE 223 MG/DL (70-110)
[2019-01-01] MEDS: MetFORMIN HCL 500 MG TABLET PO SCH ×2 (07:09→16:50)
[2019-01-01] MEDS: INSULIN LISPRO 100 UNITS/ML SQ PRN ×4 (07:11→20:27)
[2019-01-01] MEDS: THIAMINE HCL 100 MG TABLET PO SCH ×2 (07:44→16:50)
[2019-01-01] MEDS: OLANZapine 5 MG RAPDIS TABLET PO PRN (07:44)
[2019-01-01] MEDS: FOLIC ACID 1 MG TABLET PO SCH (07:44)
[2019-01-01] MEDS: GABAPENTIN 300 MG CAPSULE PO SCH ×3 (07:44→16:50)
[2019-01-01] MEDS: ATORVASTATIN CALCIUM 40 MG TABLET PO SCH (07:44)
[2019-01-01] MEDS: ClonazePAM 0.5 MG TABLET PO SCH (07:44)
[2019-01-01] MEDS: DULoxetine HCL 60 MG CAPSULE PO SCH (07:44)
[2019-01-01] MEDS: CHOLECALCIFEROL (VIT D3) 5,000 UNITS CAPSULE PO SCH (07:44)
[2019-01-01] MEDS: MULTIVITAMINS WITH MINERALS, THERAPEUTIC TABLET PO SCH (07:44)
[2019-01-01] MEDS: LISINOPRIL 10 MG TABLET PO SCH (07:44)
[2019-01-01 09:22] VITALS: BP 118/76
[2019-01-01 11:39] LABS: GLUCOMETER DEV NAME(LOC) 3E.C; GLUCOSE,POINT OF CARE 237 MG/DL (70-110)
[2019-01-01 16:54] LABS: GLUCOMETER DEV NAME(LOC) 3E.C; GLUCOSE,POINT OF CARE 288 MG/DL (70-110)
[2019-01-01 18:25] VITALS: BP 110/79
[2019-01-01] MEDS: ROPINIRole HCL 1 MG TABLET PO SCH (20:08)
[2019-01-01] MEDS: OLANZapine 5 MG RAPDIS TABLET PO SCH (20:08)
[2019-01-01] MEDS: METOPROLOL TARTRATE 25 MG TABLET PO SCH (20:13)
[2019-01-01 20:24] LABS: GLUCOMETER DEV NAME(LOC) 3E.C; GLUCOSE,POINT OF CARE 255 MG/DL (70-110)
[2019-01-01] MEDS: INSULIN GLARGINE,HUM.REC.ANLOG 100 UNITS/ML SQ SCH (20:27)
[2019-01-02 06:35] LABS: GLUCOMETER DEV NAME(LOC) 3E.C; GLUCOSE,POINT OF CARE 194 MG/DL (70-110)
[2019-01-02] MEDS: MetFORMIN HCL 500 MG TABLET PO SCH (06:43)
[2019-01-02] MEDS: INSULIN LISPRO 100 UNITS/ML SQ PRN ×2 (06:47→11:51)
[2019-01-02] MEDS: OLANZapine 5 MG RAPDIS TABLET PO PRN (08:20)
[2019-01-02] MEDS: MULTIVITAMINS WITH MINERALS, THERAPEUTIC TABLET PO SCH (08:20)
[2019-01-02] MEDS: DULoxetine HCL 60 MG CAPSULE PO SCH (08:20)
[2019-01-02] MEDS: LISINOPRIL 10 MG TABLET PO SCH (08:20)
[2019-01-02] MEDS: ATORVASTATIN CALCIUM 40 MG TABLET PO SCH (08:20)
[2019-01-02] MEDS: THIAMINE HCL 100 MG TABLET PO SCH (08:20)
[2019-01-02] MEDS: FOLIC ACID 1 MG TABLET PO SCH (08:20)
[2019-01-02] MEDS: ClonazePAM 0.5 MG TABLET PO SCH (08:20)
[2019-01-02] MEDS: GABAPENTIN 300 MG CAPSULE PO SCH ×2 (08:21→14:04)
[2019-01-02] MEDS: CHOLECALCIFEROL (VIT D3) 5,000 UNITS CAPSULE PO SCH (08:22)
[2019-01-02 09:09] VITALS: BP 143/88
[2019-01-02 11:35] LABS: GLUCOMETER DEV NAME(LOC) 3E.C; GLUCOSE,POINT OF CARE 285 MG/DL (70-110)
[2019-01-02] MEDS ORDERED: CLON.5 PO (12:59)
[2019-01-02] MEDS ORDERED: GABA-531 PO (12:59)
[2019-01-02] MEDS ORDERED: ROPI1TAB11 PO (12:59)
[2019-01-02] MEDS ORDERED: DULO60CA44 PO (12:59)
[2019-01-02] MEDS ORDERED: OLAN5TAB30 PO (12:59)
[2019-01-02] MEDS ORDERED: CHOL50004 PO (13:43)
[2019-01-02] MEDS ORDERED: FOLI1 PO (13:44)
[2019-01-02] MEDS ORDERED: LISI-661 PO (13:44)
[2019-01-02] MEDS ORDERED: INSLAN SQ (13:44)
[2019-01-02] MEDS ORDERED: MULT-1239 PO (13:47)
[2019-01-02] MEDS ORDERED: METO25 PO (13:47)
[2019-01-02] MEDS ORDERED: THIA100T67 PO (13:48)
[2019-01-02] MEDS ORDERED: METF-960 PO (13:48)
== END 2019-01-02 15:15 | disposition home or self-care (01) | DRG 885 ==
LOC: B3A 17:28 → 3EC 21:39
PROVIDERS: ADMIT Psychiatry & Neurology Psychiatry; ATTEND Psychiatry & Neurology Psychiatry
DX: F25.1 Schizoaffective disorder, depressive type (principal); E78.5 Hyperlipidemia, unspecified; E11.9 Type 2 diabetes mellitus without complications; E03.9 Hypothyroidism, unspecified; I10 Essential (primary) hypertension; Z79.4 Long term (current) use of insulin; Z79.899 Other long term (current) drug therapy; Z91.19 Patient's noncompliance with other medical treatment and regimen; Z88.1 Allergy status to other antibiotic agents
CPT/HCPCS: 82306; 83036; 84439; 84443; 86592; J1815

== ENCOUNTER 2019-01-09 10:13 | Inpatient (IN) | payer MEDICARE, MEDICAID ==
[~2019-01-09] VITALS: Ht 154.9 cm; Wt 67.1 kg
[~2019-01-09 10:13] MED LIST changes: -DULO20CA30 PO; +DULO60CA44 PO; +GABA-531 PO; +OLAN5TAB30 PO; -OLAN7.5T9 PO; +ROPI1TAB11 PO
[2019-01-09 10:34] VITALS: BP 141/94
[2019-01-09] MEDS ORDERED: LOPERAMIDE HCL 2 MG CAPSULE PO PRN (11:00)
[2019-01-09] MEDS ORDERED: ZOLPIDEM TARTRATE 10 MG TABLET PO PRN (11:00)
[2019-01-09] MEDS ORDERED: PROMETHAZINE HCL 25 MG TABLET PO PRN (11:00)
[2019-01-09] MEDS ORDERED: MAGNESIUM HYDROXIDE SUSPENSION 30 ML UDCUP PO PRN (11:00)
[2019-01-09] MEDS ORDERED: HydrOXYzine PAMOATE 50 MG CAPSULE PO PRN (11:00)
[2019-01-09] MEDS ORDERED: MAG HYDROX/AL HYDROX/SIMETH ES 30 ML SUSPENSION UDCUP PO PRN (11:00)
[2019-01-09] MEDS ORDERED: GuaiFENesin/D-METHORPHAN [SUGAR-FREE] 200-20MG/10 ML SYRUP UDCUP PO PRN (11:00)
[2019-01-09] MEDS ORDERED: ACETAMINOPHEN 325 MG TABLET PO PRN (11:00)
[2019-01-09] MEDS ORDERED: OLANZapine 5 MG RAPDIS TABLET PO PRN (11:00)
[2019-01-09 12:33] VITALS: BP 144/90
[2019-01-09 13:24] LABS: GLUCOMETER DEV NAME(LOC) BV2S.; GLUCOSE,POINT OF CARE 291 MG/DL (70-110)
[2019-01-09] MEDS: GABAPENTIN 300 MG CAPSULE PO SCH ×2 (13:31→16:35)
[2019-01-09] MEDS ORDERED: GLUCAGON,HUMAN RECOMBINANT 1 MG VIAL IM PRN (14:30)
[2019-01-09] MEDS: LISINOPRIL 10 MG TABLET PO SCH (14:38)
[2019-01-09 16:00] VITALS: BP 124/72
[2019-01-09 16:22] VITALS: BP 124/72
[2019-01-09 16:30] LABS: GLUCOMETER DEV NAME(LOC) BV2S.; GLUCOSE,POINT OF CARE 260 MG/DL (70-110)
[2019-01-09] MEDS: MetFORMIN HCL 500 MG TABLET PO SCH (16:35)
[2019-01-09] MEDS: THIAMINE HCL 100 MG TABLET PO SCH (16:35)
[2019-01-09] MEDS: INSULIN LISPRO 100 UNITS/ML SQ PRN ×2 (16:37→21:06)
[2019-01-09 20:19] LABS: GLUCOMETER DEV NAME(LOC) BV2S.; GLUCOSE,POINT OF CARE 303 MG/DL (70-110)
[2019-01-09] MEDS: ROPINIRole HCL 1 MG TABLET PO SCH (20:41)
[2019-01-09] MEDS: METOPROLOL TARTRATE 25 MG TABLET PO SCH (20:41)
[2019-01-09 20:53] VITALS: BP 121/89
[2019-01-09] MEDS ORDERED: OLANZapine 5 MG RAPDIS TABLET PO SCH (21:00)
[2019-01-09] MEDS: INSULIN GLARGINE,HUM.REC.ANLOG 100 UNITS/ML SQ SCH (21:05)
[2019-01-10 00:01] VITALS: BP 117/66
[2019-01-10] MEDS: LORazepam 2 MG TABLET PO PRN (00:13)
[2019-01-10] MEDS ORDERED: PNEUMOCOCCAL VACCINE POLYVALENT 0.5 ML VIAL [PPSV23] IM ONE (00:15)
[2019-01-10 00:20] VITALS: BP 117/66
[2019-01-10] MEDS: INSULIN LISPRO 100 UNITS/ML SQ PRN ×4 (06:42→20:19)
[2019-01-10] MEDS: MetFORMIN HCL 500 MG TABLET PO SCH ×2 (06:53→17:03)
[2019-01-10 06:54] LABS: GLUCOMETER DEV NAME(LOC) BV2S.; GLUCOSE,POINT OF CARE 236 MG/DL (70-110)
[2019-01-10 07:50] LABS: BASOPHILS % (AUTO) 0.6 % (0.0-2.0); EOSINOPHILS % (AUTO) 1.1 % (1.0-6.0); HEMATOCRIT 34.7 % (36-46); HEMOGLOBIN 11.5 g/dL (12.0-16.0); LYMPHOCYTES # (AUTO) 1.6 K/uL (1.0-4.8); LYMPHOCYTES % (AUTO) 31.9 % (22.0-44.0); MEAN CORPUSCULAR VOLUME 82 fL (80-100); MONOCYTES # (AUTO) 0.3 K/uL (0.1-1.0); MONOCYTES % (AUTO) 5.2 % (2.0-9.0); NEUTROPHILS # (AUTO) 3.1 K/uL (1.8-7.7); NEUTROPHILS % (AUTO) 61.2 % (40.0-70.0); PLATELET COUNT (AUTO) 464 K/uL (150-450); RED BLOOD CELL COUNT(AUTO) 4.24 MIL/uL (4.00-5.20); RED CELL DISTRIBUTION WIDTH 15.7 % (11.5-14.5)
[2019-01-10] MEDS: THIAMINE HCL 100 MG TABLET PO SCH ×2 (08:10→17:03)
[2019-01-10] MEDS: CHOLECALCIFEROL (VIT D3) 5,000 UNITS CAPSULE PO SCH (08:10)
[2019-01-10] MEDS: DULoxetine HCL 60 MG CAPSULE PO SCH (08:10)
[2019-01-10] MEDS: ATORVASTATIN CALCIUM 40 MG TABLET PO SCH (08:10)
[2019-01-10] MEDS: ClonazePAM 0.5 MG TABLET PO SCH (08:10)
[2019-01-10] MEDS: MULTIVITAMINS WITH MINERALS, THERAPEUTIC TABLET PO SCH (08:10)
[2019-01-10] MEDS: GABAPENTIN 300 MG CAPSULE PO SCH ×3 (08:10→17:03)
[2019-01-10] MEDS: FOLIC ACID 1 MG TABLET PO SCH (08:10)
[2019-01-10] MEDS: LISINOPRIL 10 MG TABLET PO SCH (08:10)
[2019-01-10 08:12] VITALS: BP 126/89
[2019-01-10 08:34] LABS: ALANINE AMINOTRANSFERASE 20 U/L (12-78); ALBUMIN 3.1 g/dL (3.4-5.0); ALKALINE PHOSPHATASE 97 U/L (46-116); ANION GAP 8 mmol/L (8-16); ASPARTATE AMINOTRANSFERASE 14 U/L (15-37); BILIRUBIN,TOTAL 0.2 mg/dL (0.1-1.0); CALCIUM, TOTAL 9.1 mg/dL (8.8-10.5); CARBON DIOXIDE 28 mmol/L (22-29); CHLORIDE 102 mmol/L (98-107); CHOL/HDL RATIO 4.5 (3.9-5.7); CHOLESTEROL 196 mg/dL (131-200); CREATININE 0.55 mg/dL (0.60-1.30); FREE T4 (FREE THYROXINE) 1.06 ng/dL (0.76-1.46); GLOMERULAR FILTR. RATE CALC > 60 mL/min (>60); GLUCOSE,RANDOM 233 mg/dL (70-110); HDL CHOLESTEROL 44 mg/dL (40-60); LDL CHOL (CALC.) 117 mg/dL (0-130); POTASSIUM 4.6 mmol/L (3.5-5.1); SODIUM SERUM 138 mmol/L (136-145); THYROID STIMULATING HORMONE 1.23 uIU/mL (0.36-3.74); TOTAL PROTEIN, SERUM 6.5 g/dL (6.4-8.2); TRIGLYCERIDES 176 mg/dL (15-150); UREA NITROGEN, BLOOD 12 mg/dL (7-18)
[2019-01-10 10:59] LABS: GLUCOMETER DEV NAME(LOC) BV2S.; GLUCOSE,POINT OF CARE 286 MG/DL (70-110)
[2019-01-10] MEDS ORDERED: PALIPERIDONE 1.5 MG ER TABLET PO PRN (16:00)
[2019-01-10 16:23] VITALS: BP 138/81
[2019-01-10 18:49] LABS: GLUCOMETER DEV NAME(LOC) BV2S.; GLUCOSE,POINT OF CARE 240 MG/DL (70-110)
[2019-01-10 20:15] VITALS: BP 142/80
[2019-01-10] MEDS: METOPROLOL TARTRATE 25 MG TABLET PO SCH (20:17)
[2019-01-10] MEDS: ROPINIRole HCL 1 MG TABLET PO SCH (20:17)
[2019-01-10] MEDS: INSULIN GLARGINE,HUM.REC.ANLOG 100 UNITS/ML SQ SCH (20:19)
[2019-01-10 20:32] LABS: GLUCOMETER DEV NAME(LOC) BV2S.; GLUCOSE,POINT OF CARE 292 MG/DL (70-110)
[2019-01-10] MEDS ORDERED: PALIPERIDONE PALMITATE 234 MG/1.5 ML SYRINGE IM ONE (21:00)
[2019-01-10] MEDS ORDERED: PALIPERIDONE 3 MG ER TABLET PO SCH (21:00)
[2019-01-11 00:20] VITALS: BP 128/85
[2019-01-11 05:54] LABS: GLUCOMETER DEV NAME(LOC) BV2S.; GLUCOSE,POINT OF CARE 215 MG/DL (70-110)
[2019-01-11] MEDS: MetFORMIN HCL 500 MG TABLET PO SCH ×2 (06:29→17:01)
[2019-01-11] MEDS: INSULIN LISPRO 100 UNITS/ML SQ PRN ×4 (06:30→20:14)
[2019-01-11 08:05] LABS: AMPHET/METH SCREEN,URINE NEGATIVE (NEGATIVE); BARBITURATE SCREEN, URINE NEGATIVE (NEGATIVE); BENZODIAZEPINES SCREEN,URINE NEGATIVE (NEGATIVE); CANNABINOID SCREEN,URINE NEGATIVE (NEGATIVE); COCAINE SCREEN,URINE NEGATIVE (NEGATIVE); METHADONE SCREEN, URINE NEGATIVE (NEGATIVE); OPIATE SCREEN,URINE NEGATIVE (NEGATIVE)
[2019-01-11 08:29] LABS: PHENCYCLIDINE SCREEN,URINE NEGATIVE (NEGATIVE)
[2019-01-11] MEDS: MULTIVITAMINS WITH MINERALS, THERAPEUTIC TABLET PO SCH (08:36)
[2019-01-11] MEDS: GABAPENTIN 300 MG CAPSULE PO SCH ×3 (08:36→17:01)
[2019-01-11] MEDS: ClonazePAM 0.5 MG TABLET PO SCH (08:36)
[2019-01-11] MEDS: CHOLECALCIFEROL (VIT D3) 5,000 UNITS CAPSULE PO SCH (08:36)
[2019-01-11] MEDS: ATORVASTATIN CALCIUM 40 MG TABLET PO SCH (08:36)
[2019-01-11] MEDS: LISINOPRIL 10 MG TABLET PO SCH (08:36)
[2019-01-11] MEDS: THIAMINE HCL 100 MG TABLET PO SCH ×2 (08:36→17:01)
[2019-01-11] MEDS: DULoxetine HCL 60 MG CAPSULE PO SCH (08:36)
[2019-01-11] MEDS: FOLIC ACID 1 MG TABLET PO SCH (08:36)
[2019-01-11 08:43] VITALS: BP 126/30
[2019-01-11 08:48] LABS: APPEARANCE,URINE CLEAR (CLEAR); BILIRUBIN,URINE NEGATIVE (NEGATIVE); GLUCOSE, URINE (UA) >=1000 mg/dL (NEGATIVE); KETONES,URINE NEGATIVE (NEGATIVE); LEUKOCYTE ESTERASE ,URINE NEGATIVE (NEGATIVE); NITRATE,URINE NEGATIVE (NEGATIVE); OCCULT BLOOD,URINE NEGATIVE (NEGATIVE); PH,URINE 5.5 (5.0-8.0); PROTEIN,URINE NEGATIVE (NEGATIVE); UROBILINOGEN,URINE 0.2 mg/dL (<=1.0)
[2019-01-11 09:09] LABS: BACTERIA,URINE None Seen /HPF (None Seen); RBC,URINE None Seen /HPF (0-2); SQUAMOUS EPITHELIAL CELL,UR Rare /LPF (None Seen); WBC,URINE 0-2 /HPF (0-5)
[2019-01-11 11:04] LABS: GLUCOMETER DEV NAME(LOC) BV2S.; GLUCOSE,POINT OF CARE 213 MG/DL (70-110)
[2019-01-11 16:04] VITALS: BP 115/74
[2019-01-11 16:44] LABS: GLUCOMETER DEV NAME(LOC) BV2S.; GLUCOSE,POINT OF CARE 386 MG/DL (70-110)
[2019-01-11 20:10] VITALS: BP 122/88
[2019-01-11] MEDS: METOPROLOL TARTRATE 25 MG TABLET PO SCH (20:12)
[2019-01-11] MEDS: ROPINIRole HCL 1 MG TABLET PO SCH (20:12)
[2019-01-11] MEDS: INSULIN GLARGINE,HUM.REC.ANLOG 100 UNITS/ML SQ SCH (20:14)
[2019-01-11 20:44] LABS: GLUCOMETER DEV NAME(LOC) BV2S.; GLUCOSE,POINT OF CARE 371 MG/DL (70-110)
[2019-01-12 01:05] VITALS: BP 109/73
[2019-01-12 06:05] LABS: GLUCOMETER DEV NAME(LOC) BV2S.; GLUCOSE,POINT OF CARE 262 MG/DL (70-110)
[2019-01-12] MEDS: MetFORMIN HCL 500 MG TABLET PO SCH ×2 (06:26→16:48)
[2019-01-12] MEDS: INSULIN LISPRO 100 UNITS/ML SQ PRN ×4 (06:33→20:42)
[2019-01-12 08:22] VITALS: BP 133/85
[2019-01-12] MEDS: GABAPENTIN 300 MG CAPSULE PO SCH ×3 (08:23→16:48)
[2019-01-12] MEDS: ATORVASTATIN CALCIUM 40 MG TABLET PO SCH (08:23)
[2019-01-12] MEDS: FOLIC ACID 1 MG TABLET PO SCH (08:23)
[2019-01-12] MEDS: MULTIVITAMINS WITH MINERALS, THERAPEUTIC TABLET PO SCH (08:23)
[2019-01-12] MEDS: LISINOPRIL 10 MG TABLET PO SCH (08:23)
[2019-01-12] MEDS: ClonazePAM 0.5 MG TABLET PO SCH (08:24)
[2019-01-12] MEDS: ATOMOXETINE HCL 10 MG CAPSULE PO SCH (08:24)
[2019-01-12] MEDS: DULoxetine HCL 60 MG CAPSULE PO SCH (08:24)
[2019-01-12] MEDS: THIAMINE HCL 100 MG TABLET PO SCH ×2 (08:24→16:48)
[2019-01-12] MEDS: CHOLECALCIFEROL (VIT D3) 5,000 UNITS CAPSULE PO SCH (08:24)
[2019-01-12 11:03] LABS: GLUCOMETER DEV NAME(LOC) BV2S.; GLUCOSE,POINT OF CARE 297 MG/DL (70-110)
[2019-01-12 16:37] VITALS: BP 121/69
[2019-01-12 16:39] LABS: GLUCOMETER DEV NAME(LOC) BV2S.; GLUCOSE,POINT OF CARE 323 MG/DL (70-110)
[2019-01-12 20:19] LABS: GLUCOMETER DEV NAME(LOC) BV2X.; GLUCOSE,POINT OF CARE 399 MG/DL (70-110)
[2019-01-12 20:40] VITALS: BP 118/71
[2019-01-12] MEDS: METOPROLOL TARTRATE 25 MG TABLET PO SCH (20:41)
[2019-01-12] MEDS: ROPINIRole HCL 1 MG TABLET PO SCH (20:41)
[2019-01-12] MEDS: INSULIN GLARGINE,HUM.REC.ANLOG 100 UNITS/ML SQ SCH (20:42)
[2019-01-13 01:10] VITALS: BP 116/78
[2019-01-13] MEDS: MetFORMIN HCL 500 MG TABLET PO SCH ×2 (06:42→17:05)
[2019-01-13 06:44] LABS: GLUCOMETER DEV NAME(LOC) BV2S.; GLUCOSE,POINT OF CARE 268 MG/DL (70-110)
[2019-01-13] MEDS: INSULIN LISPRO 100 UNITS/ML SQ PRN ×4 (06:55→20:52)
[2019-01-13] MEDS: ATOMOXETINE HCL 10 MG CAPSULE PO SCH (08:36)
[2019-01-13] MEDS: DULoxetine HCL 60 MG CAPSULE PO SCH (08:36)
[2019-01-13] MEDS: ATORVASTATIN CALCIUM 40 MG TABLET PO SCH (08:36)
[2019-01-13] MEDS: CHOLECALCIFEROL (VIT D3) 5,000 UNITS CAPSULE PO SCH (08:36)
[2019-01-13] MEDS: THIAMINE HCL 100 MG TABLET PO SCH ×2 (08:36→17:05)
[2019-01-13] MEDS: MULTIVITAMINS WITH MINERALS, THERAPEUTIC TABLET PO SCH (08:36)
[2019-01-13] MEDS: LISINOPRIL 10 MG TABLET PO SCH (08:36)
[2019-01-13] MEDS: ClonazePAM 0.5 MG TABLET PO SCH (08:36)
[2019-01-13] MEDS: FOLIC ACID 1 MG TABLET PO SCH (08:36)
[2019-01-13] MEDS: GABAPENTIN 300 MG CAPSULE PO SCH ×3 (08:36→17:05)
[2019-01-13 08:52] VITALS: BP 117/73
[2019-01-13 11:04] LABS: GLUCOMETER DEV NAME(LOC) BV2S.; GLUCOSE,POINT OF CARE 278 MG/DL (70-110)
[2019-01-13 16:49] VITALS: BP 109/71
[2019-01-13 16:54] LABS: GLUCOMETER DEV NAME(LOC) BV2S.; GLUCOSE,POINT OF CARE 299 MG/DL (70-110)
[2019-01-13 20:50] VITALS: BP 114/71
[2019-01-13] MEDS: ROPINIRole HCL 1 MG TABLET PO SCH (20:50)
[2019-01-13] MEDS: METOPROLOL TARTRATE 25 MG TABLET PO SCH (20:50)
[2019-01-13] MEDS: INSULIN GLARGINE,HUM.REC.ANLOG 100 UNITS/ML SQ SCH (20:53)
[2019-01-13 21:08] LABS: GLUCOMETER DEV NAME(LOC) BV2S.; GLUCOSE,POINT OF CARE 315 MG/DL (70-110)
[2019-01-14 00:44] VITALS: BP 129/60
[2019-01-14] MEDS: MetFORMIN HCL 500 MG TABLET PO SCH ×2 (06:54→16:51)
[2019-01-14] MEDS: INSULIN LISPRO 100 UNITS/ML SQ PRN ×4 (07:12→20:23)
[2019-01-14 07:13] LABS: GLUCOMETER DEV NAME(LOC) BV2S.; GLUCOSE,POINT OF CARE 221 MG/DL (70-110)
[2019-01-14] MEDS: ClonazePAM 0.5 MG TABLET PO SCH (08:32)
[2019-01-14] MEDS: GABAPENTIN 300 MG CAPSULE PO SCH ×3 (08:32→16:51)
[2019-01-14] MEDS: ATORVASTATIN CALCIUM 40 MG TABLET PO SCH (08:32)
[2019-01-14] MEDS: CHOLECALCIFEROL (VIT D3) 5,000 UNITS CAPSULE PO SCH (08:32)
[2019-01-14] MEDS: MULTIVITAMINS WITH MINERALS, THERAPEUTIC TABLET PO SCH (08:32)
[2019-01-14] MEDS: THIAMINE HCL 100 MG TABLET PO SCH ×2 (08:32→16:51)
[2019-01-14] MEDS: ATOMOXETINE HCL 25 MG CAPSULE PO SCH (08:32)
[2019-01-14] MEDS: LISINOPRIL 10 MG TABLET PO SCH (08:32)
[2019-01-14] MEDS: FOLIC ACID 1 MG TABLET PO SCH (08:32)
[2019-01-14] MEDS: DULoxetine HCL 60 MG CAPSULE PO SCH (08:32)
[2019-01-14 08:37] VITALS: BP 122/69
[2019-01-14] MEDS ORDERED: PALIPERIDONE PALMITATE 156 MG/ML SYRINGE IM ONE (09:00)
[2019-01-14 11:09] LABS: GLUCOMETER DEV NAME(LOC) BV2S.; GLUCOSE,POINT OF CARE 296 MG/DL (70-110)
[2019-01-14 16:33] VITALS: BP 118/79
[2019-01-14 20:20] VITALS: BP 104/67
[2019-01-14] MEDS: METOPROLOL TARTRATE 25 MG TABLET PO SCH (20:21)
[2019-01-14] MEDS: ROPINIRole HCL 1 MG TABLET PO SCH (20:21)
[2019-01-14] MEDS: INSULIN GLARGINE,HUM.REC.ANLOG 100 UNITS/ML SQ SCH (20:23)
[2019-01-14 20:54] LABS: GLUCOMETER DEV NAME(LOC) BV2S.; GLUCOSE,POINT OF CARE 319 MG/DL (70-110)
[2019-01-14 20:54] LABS: GLUCOMETER DEV NAME(LOC) BV2S.; GLUCOSE,POINT OF CARE 265 MG/DL (70-110)
[2019-01-15 01:47] VITALS: BP 110/68
[2019-01-15 06:04] LABS: GLUCOMETER DEV NAME(LOC) BV2S.; GLUCOSE,POINT OF CARE 202 MG/DL (70-110)
[2019-01-15] MEDS: MetFORMIN HCL 500 MG TABLET PO SCH ×2 (07:02→16:51)
[2019-01-15] MEDS: INSULIN LISPRO 100 UNITS/ML SQ PRN ×4 (07:05→20:41)
[2019-01-15] MEDS: DULoxetine HCL 60 MG CAPSULE PO SCH (08:12)
[2019-01-15] MEDS: MULTIVITAMINS WITH MINERALS, THERAPEUTIC TABLET PO SCH (08:12)
[2019-01-15] MEDS: ATOMOXETINE HCL 25 MG CAPSULE PO SCH (08:12)
[2019-01-15] MEDS: LISINOPRIL 10 MG TABLET PO SCH (08:12)
[2019-01-15] MEDS: FOLIC ACID 1 MG TABLET PO SCH (08:12)
[2019-01-15] MEDS: THIAMINE HCL 100 MG TABLET PO SCH ×2 (08:12→16:51)
[2019-01-15] MEDS: ATORVASTATIN CALCIUM 40 MG TABLET PO SCH (08:12)
[2019-01-15] MEDS: CHOLECALCIFEROL (VIT D3) 5,000 UNITS CAPSULE PO SCH (08:12)
[2019-01-15] MEDS: ClonazePAM 0.5 MG TABLET PO SCH (08:12)
[2019-01-15] MEDS: GABAPENTIN 300 MG CAPSULE PO SCH ×3 (08:12→16:51)
[2019-01-15 08:13] VITALS: BP 134/80
[2019-01-15 11:03] LABS: GLUCOMETER DEV NAME(LOC) BV2S.; GLUCOSE,POINT OF CARE 279 MG/DL (70-110)
[2019-01-15 16:10] VITALS: BP 115/72
[2019-01-15 16:49] LABS: GLUCOMETER DEV NAME(LOC) BV2S.; GLUCOSE,POINT OF CARE 313 MG/DL (70-110)
[2019-01-15] MEDS: ROPINIRole HCL 1 MG TABLET PO SCH (20:29)
[2019-01-15] MEDS: METOPROLOL TARTRATE 25 MG TABLET PO SCH (20:29)
[2019-01-15] MEDS: INSULIN GLARGINE,HUM.REC.ANLOG 100 UNITS/ML SQ SCH (20:41)
[2019-01-15 21:14] LABS: GLUCOMETER DEV NAME(LOC) BV2S.; GLUCOSE,POINT OF CARE 337 MG/DL (70-110)
[2019-01-16 01:51] VITALS: BP 105/69
[2019-01-16 06:14] LABS: GLUCOMETER DEV NAME(LOC) BV2S.; GLUCOSE,POINT OF CARE 285 MG/DL (70-110)
[2019-01-16] MEDS: MetFORMIN HCL 500 MG TABLET PO SCH ×2 (06:31→16:34)
[2019-01-16] MEDS: INSULIN LISPRO 100 UNITS/ML SQ PRN ×4 (06:33→20:48)
[2019-01-16 08:29] VITALS: BP 140/83
[2019-01-16] MEDS: ATOMOXETINE HCL 25 MG CAPSULE PO SCH (09:31)
[2019-01-16] MEDS: FOLIC ACID 1 MG TABLET PO SCH (09:32)
[2019-01-16] MEDS: ClonazePAM 0.5 MG TABLET PO SCH (09:32)
[2019-01-16] MEDS: DULoxetine HCL 60 MG CAPSULE PO SCH (09:32)
[2019-01-16] MEDS: ATORVASTATIN CALCIUM 40 MG TABLET PO SCH (09:32)
[2019-01-16] MEDS: CHOLECALCIFEROL (VIT D3) 5,000 UNITS CAPSULE PO SCH (09:32)
[2019-01-16] MEDS: GABAPENTIN 300 MG CAPSULE PO SCH ×3 (09:32→16:34)
[2019-01-16] MEDS: THIAMINE HCL 100 MG TABLET PO SCH ×2 (09:32→16:34)
[2019-01-16] MEDS: LISINOPRIL 10 MG TABLET PO SCH (09:32)
[2019-01-16] MEDS: MULTIVITAMINS WITH MINERALS, THERAPEUTIC TABLET PO SCH (09:33)
[2019-01-16 11:55] LABS: GLUCOMETER DEV NAME(LOC) BV2S.; GLUCOSE,POINT OF CARE 203 MG/DL (70-110)
[2019-01-16] MEDS ORDERED: ROPI1TAB11 PO (15:30)
[2019-01-16] MEDS ORDERED: CLON.5 PO (15:30)
[2019-01-16] MEDS ORDERED: DULO60CA44 PO (15:30)
[2019-01-16] MEDS ORDERED: ATOM25 PO ×2 (15:30→23:46)
[2019-01-16] MEDS ORDERED: PALI117D IM (15:30)
[2019-01-16] MEDS ORDERED: GABA-531 PO (15:30)
[2019-01-16 16:26] VITALS: BP 132/83
[2019-01-16 17:14] LABS: GLUCOMETER DEV NAME(LOC) BV2S.; GLUCOSE,POINT OF CARE 316 MG/DL (70-110)
[2019-01-16] MEDS: LORazepam 2 MG TABLET PO PRN (17:54)
[2019-01-16] MEDS: METOPROLOL TARTRATE 25 MG TABLET PO SCH (20:35)
[2019-01-16] MEDS: ROPINIRole HCL 1 MG TABLET PO SCH (20:35)
[2019-01-16] MEDS: INSULIN GLARGINE,HUM.REC.ANLOG 100 UNITS/ML SQ SCH (20:47)
[2019-01-16 21:29] LABS: GLUCOMETER DEV NAME(LOC) BV2S.; GLUCOSE,POINT OF CARE 348 MG/DL (70-110)
[2019-01-17 00:10] VITALS: BP 142/79
[2019-01-17 06:29] LABS: GLUCOMETER DEV NAME(LOC) BV2S.; GLUCOSE,POINT OF CARE 254 MG/DL (70-110)
[2019-01-17] MEDS: INSULIN LISPRO 100 UNITS/ML SQ PRN (06:58)
[2019-01-17] MEDS: MetFORMIN HCL 500 MG TABLET PO SCH (07:01)
== END 2019-01-17 07:23 | disposition home or self-care (01) | DRG 885 ==
LOC: B2S 11:46
PROVIDERS: ADMIT Psychiatry & Neurology Psychiatry; ATTEND Psychiatry & Neurology Psychiatry
PROC: 3E0234Z Introduction of Serum, Toxoid and Vaccine into Muscle, Percutaneous Approach (ICD-10-PCS; principal; 2019-01-10)
DX: F25.1 Schizoaffective disorder, depressive type (principal); E78.5 Hyperlipidemia, unspecified; R41.843 Psychomotor deficit; E11.9 Type 2 diabetes mellitus without complications; E03.9 Hypothyroidism, unspecified; G47.00 Insomnia, unspecified; Z79.899 Other long term (current) drug therapy; Z91.19 Patient's noncompliance with other medical treatment and regimen; Z91.14 Patient's other noncompliance with medication regimen; Z23 Encounter for immunization; Z88.0 Allergy status to penicillin; Z88.1 Allergy status to other antibiotic agents
CPT/HCPCS: 80307; 84439; 84443; 87081; 90732; J1815

== ENCOUNTER 2019-01-21 08:46 | Inpatient (IN) | payer MEDICARE, MEDICAID ==
[~2019-01-21] VITALS: Ht 154.9 cm; Wt 70.3 kg
[~2019-01-21 08:46] MED LIST changes: +ATOM25 PO; -CHOL50004 PO; -OLAN5TAB30 PO; +PALI117D IM
[2019-01-21 11:00] VITALS: BP 142/104
[2019-01-21] MEDS ORDERED: ZOLPIDEM TARTRATE 10 MG TABLET PO PRN (11:15)
[2019-01-21] MEDS ORDERED: OLANZapine 5 MG RAPDIS TABLET PO PRN (11:15)
[2019-01-21] MEDS: ATOMOXETINE HCL 25 MG CAPSULE PO SCH (11:30)
[2019-01-21 12:54] LABS: GLUCOMETER DEV NAME(LOC) BV2X.; GLUCOSE,POINT OF CARE 455 MG/DL (70-110)
[2019-01-21] MEDS: DULoxetine HCL 60 MG CAPSULE PO SCH (13:15)
[2019-01-21] MEDS: ClonazePAM 0.5 MG TABLET PO SCH (13:15)
[2019-01-21] MEDS: GABAPENTIN 300 MG CAPSULE PO SCH ×2 (13:17→16:45)
[2019-01-21 13:22] VITALS: BP 144/88
[2019-01-21] MEDS ORDERED: GLUCAGON,HUMAN RECOMBINANT 1 MG VIAL IM PRN (13:30)
[2019-01-21] MEDS ORDERED: INSULIN LISPRO 100 UNITS/ML SQ ONE ×2 (13:30→21:00)
[2019-01-21] MEDS: FOLIC ACID 1 MG TABLET PO SCH (14:22)
[2019-01-21] MEDS: MULTIVITAMINS WITH IRON TABLET PO SCH (14:23)
[2019-01-21] MEDS: LISINOPRIL 10 MG TABLET PO SCH (14:23)
[2019-01-21] MEDS: ATORVASTATIN CALCIUM 40 MG TABLET PO SCH (15:08)
[2019-01-21] MEDS: CHOLECALCIFEROL (VIT D3) 5,000 UNITS CAPSULE PO SCH (16:16)
[2019-01-21 16:33] VITALS: BP 134/80
[2019-01-21 16:43] LABS: GLUCOMETER DEV NAME(LOC) BV2X.; GLUCOSE,POINT OF CARE 366 MG/DL (70-110)
[2019-01-21] MEDS: THIAMINE HCL 100 MG TABLET PO SCH (16:45)
[2019-01-21] MEDS: MetFORMIN HCL 500 MG TABLET PO SCH (16:45)
[2019-01-21] MEDS: INSULIN LISPRO 100 UNITS/ML SQ PRN (16:51)
[2019-01-21 20:34] LABS: GLUCOMETER DEV NAME(LOC) BV2X.; GLUCOSE,POINT OF CARE 441 MG/DL (70-110)
[2019-01-21 20:48] VITALS: BP 119/74
[2019-01-21] MEDS: METOPROLOL TARTRATE 25 MG TABLET PO SCH (20:53)
[2019-01-21] MEDS: ROPINIRole HCL 1 MG TABLET PO SCH (20:53)
[2019-01-21] MEDS ORDERED: INSULIN GLARGINE,HUM.REC.ANLOG 100 UNITS/ML SQ SCH (21:00)
[2019-01-22 00:50] VITALS: BP 108/67
[2019-01-22] MEDS: INSULIN LISPRO 100 UNITS/ML SQ PRN ×4 (06:17→21:03)
[2019-01-22 06:20] LABS: GLUCOMETER DEV NAME(LOC) BV2X.; GLUCOSE,POINT OF CARE 268 MG/DL (70-110)
[2019-01-22] MEDS: MetFORMIN HCL 500 MG TABLET PO SCH ×2 (07:09→16:42)
[2019-01-22 07:51] LABS: BASOPHILS % (AUTO) 0.8 % (0.0-2.0); HEMATOCRIT 34.1 % (36-46); HEMOGLOBIN 11.2 g/dL (12.0-16.0); LYMPHOCYTES # (AUTO) 1.6 K/uL (1.0-4.8); LYMPHOCYTES % (AUTO) 26.7 % (22.0-44.0); MEAN CORPUSCULAR HEMOGLOBIN 27.6 pg (26.0-34.0); MEAN CORPUSCULAR HGB CONC 32.8 G/dL (31.0-37.0); MEAN CORPUSCULAR VOLUME 84 fL (80-100); MONOCYTES # (AUTO) 0.3 K/uL (0.1-1.0); MONOCYTES % (AUTO) 5.4 % (2.0-9.0); NEUTROPHILS # (AUTO) 3.9 K/uL (1.8-7.7); NEUTROPHILS % (AUTO) 65.1 % (40.0-70.0); PLATELET COUNT (AUTO) 421 K/uL (150-450); RED BLOOD CELL COUNT(AUTO) 4.07 MIL/uL (4.00-5.20); RED CELL DISTRIBUTION WIDTH 15.8 % (11.5-14.5)
[2019-01-22 08:03] LABS: HEMOGLOBIN A1C 11.4 % (4.5-6.2)
[2019-01-22 08:12] LABS: ALANINE AMINOTRANSFERASE 24 U/L (12-78); ALBUMIN 3.1 g/dL (3.4-5.0); ALKALINE PHOSPHATASE 134 U/L (46-116); ANION GAP 9 mmol/L (8-16); ASPARTATE AMINOTRANSFERASE 12 U/L (15-37); BILIRUBIN,TOTAL 0.3 mg/dL (0.1-1.0); CARBON DIOXIDE 28 mmol/L (22-29); CHLORIDE 99 mmol/L (98-107); CHOL/HDL RATIO 2.7 (3.9-5.7); CHOLESTEROL 173 mg/dL (131-200); CREATININE 0.57 mg/dL (0.60-1.30); GLOMERULAR FILTR. RATE CALC > 60 mL/min (>60); GLUCOSE,RANDOM 263 mg/dL (70-110); HCG,QUANTITATIVE < 1 mIU/mL (0-6); HDL CHOLESTEROL 63 mg/dL (40-60); LDL CHOL (CALC.) 100 mg/dL (0-130); SODIUM SERUM 136 mmol/L (136-145); TOTAL PROTEIN, SERUM 7.3 g/dL (6.4-8.2); TRIGLYCERIDES 50 mg/dL (15-150); UREA NITROGEN, BLOOD 12 mg/dL (7-18)
[2019-01-22] MEDS: ATORVASTATIN CALCIUM 40 MG TABLET PO SCH (08:36)
[2019-01-22] MEDS: LISINOPRIL 10 MG TABLET PO SCH (08:36)
[2019-01-22] MEDS: ClonazePAM 0.5 MG TABLET PO SCH (08:36)
[2019-01-22] MEDS: MULTIVITAMINS WITH IRON TABLET PO SCH (08:36)
[2019-01-22] MEDS: FOLIC ACID 1 MG TABLET PO SCH (08:36)
[2019-01-22] MEDS: ATOMOXETINE HCL 25 MG CAPSULE PO SCH (08:37)
[2019-01-22] MEDS: GABAPENTIN 300 MG CAPSULE PO SCH ×3 (08:37→16:41)
[2019-01-22] MEDS: THIAMINE HCL 100 MG TABLET PO SCH ×2 (08:37→16:41)
[2019-01-22] MEDS: CHOLECALCIFEROL (VIT D3) 5,000 UNITS CAPSULE PO SCH (08:37)
[2019-01-22] MEDS: DULoxetine HCL 60 MG CAPSULE PO SCH (08:37)
[2019-01-22 08:39] VITALS: BP 107/60
[2019-01-22 12:49] LABS: GLUCOMETER DEV NAME(LOC) BV2X.; GLUCOSE,POINT OF CARE 333 MG/DL (70-110)
[2019-01-22 16:14] LABS: GLUCOMETER DEV NAME(LOC) BV2X.; GLUCOSE,POINT OF CARE 358 MG/DL (70-110)
[2019-01-22 16:30] VITALS: BP 114/67
[2019-01-22 20:54] LABS: GLUCOMETER DEV NAME(LOC) BV2X.; GLUCOSE,POINT OF CARE 327 MG/DL (70-110)
[2019-01-22] MEDS: ROPINIRole HCL 1 MG TABLET PO SCH (20:59)
[2019-01-22] MEDS: METOPROLOL TARTRATE 25 MG TABLET PO SCH (20:59)
[2019-01-22] MEDS: INSULIN GLARGINE,HUM.REC.ANLOG 100 UNITS/ML SQ SCH (21:04)
[2019-01-23 00:13] VITALS: BP 112/68
[2019-01-23 06:14] LABS: GLUCOMETER DEV NAME(LOC) BV2X.; GLUCOSE,POINT OF CARE 248 MG/DL (70-110)
[2019-01-23] MEDS: MetFORMIN HCL 500 MG TABLET PO SCH ×2 (07:00→17:17)
[2019-01-23] MEDS: INSULIN LISPRO 100 UNITS/ML SQ PRN ×3 (07:01→18:35)
[2019-01-23 08:33] VITALS: BP 109/68
[2019-01-23] MEDS: THIAMINE HCL 100 MG TABLET PO SCH ×2 (09:00→17:12)
[2019-01-23] MEDS: FOLIC ACID 1 MG TABLET PO SCH (09:00)
[2019-01-23] MEDS: GABAPENTIN 300 MG CAPSULE PO SCH ×3 (09:00→17:12)
[2019-01-23] MEDS: LISINOPRIL 10 MG TABLET PO SCH (09:00)
[2019-01-23] MEDS: ClonazePAM 0.5 MG TABLET PO SCH (09:00)
[2019-01-23] MEDS: MULTIVITAMINS WITH IRON TABLET PO SCH (09:00)
[2019-01-23] MEDS: CHOLECALCIFEROL (VIT D3) 5,000 UNITS CAPSULE PO SCH (09:01)
[2019-01-23] MEDS: DULoxetine HCL 60 MG CAPSULE PO SCH (09:01)
[2019-01-23] MEDS: ATOMOXETINE HCL 25 MG CAPSULE PO SCH (09:01)
[2019-01-23] MEDS: ATORVASTATIN CALCIUM 40 MG TABLET PO SCH (09:01)
[2019-01-23 11:09] LABS: GLUCOMETER DEV NAME(LOC) BV2X.; GLUCOSE,POINT OF CARE 359 MG/DL (70-110)
[2019-01-23] MEDS ORDERED: OLANZapine 5 MG RAPDIS TABLET PO PRN (13:00)
[2019-01-23 16:00] VITALS: BP 115/68
[2019-01-23 19:03] LABS: GLUCOMETER DEV NAME(LOC) BV2X.; GLUCOSE,POINT OF CARE 385 MG/DL (70-110)
[2019-01-23] MEDS: OLANZapine 5 MG RAPDIS TABLET PO SCH (20:35)
[2019-01-23] MEDS: METOPROLOL TARTRATE 25 MG TABLET PO SCH (20:35)
[2019-01-23 20:39] LABS: GLUCOMETER DEV NAME(LOC) BV2X.; GLUCOSE,POINT OF CARE 385 MG/DL (70-110)
[2019-01-23] MEDS: ROPINIRole HCL 1 MG TABLET PO SCH (20:41)
[2019-01-23] MEDS: INSULIN GLARGINE,HUM.REC.ANLOG 100 UNITS/ML SQ SCH (20:46)
[2019-01-23] MEDS: LORazepam 2 MG TABLET PO PRN (23:05)
[2019-01-24 01:51] VITALS: BP 116/74
[2019-01-24 06:10] LABS: GLUCOMETER DEV NAME(LOC) BV2X.; GLUCOSE,POINT OF CARE 179 MG/DL (70-110)
[2019-01-24] MEDS: MetFORMIN HCL 500 MG TABLET PO SCH ×2 (06:55→16:58)
[2019-01-24] MEDS: INSULIN LISPRO 100 UNITS/ML SQ PRN ×4 (06:56→21:46)
[2019-01-24 08:17] VITALS: BP 115/72
[2019-01-24] MEDS: LISINOPRIL 10 MG TABLET PO SCH (09:16)
[2019-01-24] MEDS: GABAPENTIN 300 MG CAPSULE PO SCH ×3 (09:16→16:58)
[2019-01-24] MEDS: ClonazePAM 0.5 MG TABLET PO SCH (09:16)
[2019-01-24] MEDS: FOLIC ACID 1 MG TABLET PO SCH (09:16)
[2019-01-24] MEDS: MULTIVITAMINS WITH IRON TABLET PO SCH (09:16)
[2019-01-24] MEDS: THIAMINE HCL 100 MG TABLET PO SCH ×2 (09:16→16:58)
[2019-01-24] MEDS: ATOMOXETINE HCL 25 MG CAPSULE PO SCH (09:17)
[2019-01-24] MEDS: CHOLECALCIFEROL (VIT D3) 5,000 UNITS CAPSULE PO SCH (09:17)
[2019-01-24] MEDS: DULoxetine HCL 60 MG CAPSULE PO SCH (09:21)
[2019-01-24] MEDS: ATORVASTATIN CALCIUM 40 MG TABLET PO SCH (09:23)
[2019-01-24 12:20] LABS: GLUCOMETER DEV NAME(LOC) BV2X.; GLUCOSE,POINT OF CARE 299 MG/DL (70-110)
[2019-01-24 16:09] VITALS: BP 124/80
[2019-01-24 16:14] LABS: GLUCOMETER DEV NAME(LOC) BV2X.; GLUCOSE,POINT OF CARE 355 MG/DL (70-110)
[2019-01-24] MEDS: LORazepam 2 MG TABLET PO PRN (16:58)
[2019-01-24] MEDS: INSULIN GLARGINE,HUM.REC.ANLOG 100 UNITS/ML SQ SCH (21:46)
[2019-01-24] MEDS: ROPINIRole HCL 1 MG TABLET PO SCH (21:49)
[2019-01-24] MEDS: METOPROLOL TARTRATE 25 MG TABLET PO SCH (21:49)
[2019-01-24] MEDS: OLANZapine 5 MG RAPDIS TABLET PO SCH (21:49)
[2019-01-25 00:26] VITALS: BP 112/76
[2019-01-25 00:50] LABS: GLUCOMETER DEV NAME(LOC) BV2X.; GLUCOSE,POINT OF CARE 297 MG/DL (70-110)
[2019-01-25 06:19] LABS: GLUCOMETER DEV NAME(LOC) BV2X.; GLUCOSE,POINT OF CARE 201 MG/DL (70-110)
[2019-01-25] MEDS: MetFORMIN HCL 500 MG TABLET PO SCH ×2 (07:10→16:52)
[2019-01-25] MEDS: INSULIN LISPRO 100 UNITS/ML SQ PRN ×4 (07:13→21:58)
[2019-01-25 08:24] VITALS: BP 123/74
[2019-01-25] MEDS: GABAPENTIN 300 MG CAPSULE PO SCH ×3 (08:51→16:52)
[2019-01-25] MEDS: LISINOPRIL 10 MG TABLET PO SCH (08:51)
[2019-01-25] MEDS: FOLIC ACID 1 MG TABLET PO SCH (08:51)
[2019-01-25] MEDS: ClonazePAM 0.5 MG TABLET PO SCH (08:51)
[2019-01-25] MEDS: DULoxetine HCL 60 MG CAPSULE PO SCH (08:51)
[2019-01-25] MEDS: MULTIVITAMINS WITH IRON TABLET PO SCH (08:51)
[2019-01-25] MEDS: THIAMINE HCL 100 MG TABLET PO SCH ×2 (08:52→16:52)
[2019-01-25] MEDS: CHOLECALCIFEROL (VIT D3) 5,000 UNITS CAPSULE PO SCH (08:52)
[2019-01-25] MEDS: ATOMOXETINE HCL 25 MG CAPSULE PO SCH (08:52)
[2019-01-25] MEDS: ATORVASTATIN CALCIUM 40 MG TABLET PO SCH (08:54)
[2019-01-25 12:00] LABS: GLUCOMETER DEV NAME(LOC) BV2X.; GLUCOSE,POINT OF CARE 344 MG/DL (70-110)
[2019-01-25 16:11] VITALS: BP 103/79
[2019-01-25 16:59] LABS: GLUCOMETER DEV NAME(LOC) BV2X.; GLUCOSE,POINT OF CARE 337 MG/DL (70-110)
[2019-01-25] MEDS ORDERED: OLAN5TAB30 PO (17:43)
[2019-01-25] MEDS ORDERED: CLON.5 PO (17:43)
[2019-01-25] MEDS ORDERED: ATOM25 PO (17:43)
[2019-01-25] MEDS ORDERED: DULO60CA44 PO (17:43)
[2019-01-25] MEDS ORDERED: GABA-531 PO (17:43)
[2019-01-25] MEDS ORDERED: ROPI1TAB11 PO (17:43)
[2019-01-25] MEDS: OLANZapine 5 MG RAPDIS TABLET PO SCH (21:01)
[2019-01-25] MEDS: METOPROLOL TARTRATE 25 MG TABLET PO SCH (21:01)
[2019-01-25] MEDS: ROPINIRole HCL 1 MG TABLET PO SCH (21:01)
[2019-01-25 21:09] LABS: GLUCOMETER DEV NAME(LOC) BV2X.; GLUCOSE,POINT OF CARE 401 MG/DL (70-110)
[2019-01-25] MEDS: INSULIN GLARGINE,HUM.REC.ANLOG 100 UNITS/ML SQ SCH (21:35)
[2019-01-25 22:39] LABS: GLUCOMETER DEV NAME(LOC) BV2X.; GLUCOSE,POINT OF CARE 305 MG/DL (70-110)
[2019-01-26 00:34] VITALS: BP 121/71
[2019-01-26] MEDS: LORazepam 2 MG TABLET PO PRN (01:06)
[2019-01-26 06:25] LABS: GLUCOMETER DEV NAME(LOC) BV2X.; GLUCOSE,POINT OF CARE 131 MG/DL (70-110)
[2019-01-26] MEDS: MetFORMIN HCL 500 MG TABLET PO SCH (06:41)
[2019-01-26] MEDS ORDERED: INSLAN SQ (08:02)
[2019-01-26 08:28] VITALS: BP 127/73
[2019-01-26] MEDS ORDERED: OLAN5TAB40 PO ×2 (08:28→08:29)
[2019-01-26] MEDS: ATOMOXETINE HCL 25 MG CAPSULE PO SCH (08:58)
[2019-01-26] MEDS: LISINOPRIL 10 MG TABLET PO SCH (08:58)
[2019-01-26] MEDS: THIAMINE HCL 100 MG TABLET PO SCH (08:58)
[2019-01-26] MEDS: ClonazePAM 0.5 MG TABLET PO SCH (09:00)
[2019-01-26] MEDS: GABAPENTIN 300 MG CAPSULE PO SCH (09:00)
[2019-01-26] MEDS: MULTIVITAMINS WITH IRON TABLET PO SCH (09:00)
[2019-01-26] MEDS: CHOLECALCIFEROL (VIT D3) 5,000 UNITS CAPSULE PO SCH (09:00)
[2019-01-26] MEDS: FOLIC ACID 1 MG TABLET PO SCH (09:00)
[2019-01-26] MEDS: DULoxetine HCL 60 MG CAPSULE PO SCH (09:00)
[2019-01-26] MEDS: ATORVASTATIN CALCIUM 40 MG TABLET PO SCH (09:02)
[2019-01-26 11:59] LABS: GLUCOMETER DEV NAME(LOC) BV2X.; GLUCOSE,POINT OF CARE 252 MG/DL (70-110)
[2019-01-26] MEDS: INSULIN LISPRO 100 UNITS/ML SQ PRN (12:55)
== END 2019-01-26 12:50 | disposition home or self-care (01) | DRG 885 ==
LOC: B2X 11:24
PROVIDERS: ADMIT Psychiatry & Neurology Psychiatry; ATTEND Psychiatry & Neurology Psychiatry
DX: F25.1 Schizoaffective disorder, depressive type (principal); R45.851 Suicidal ideations; E11.9 Type 2 diabetes mellitus without complications; E78.5 Hyperlipidemia, unspecified; I10 Essential (primary) hypertension; Z91.14 Patient's other noncompliance with medication regimen; Z91.19 Patient's noncompliance with other medical treatment and regimen
CPT/HCPCS: 83036; J1815

== ENCOUNTER 2019-01-28 13:42 | Emergency (ER) | payer MEDICARE, OTHER ==
[~2019-01-28] VITALS: Ht 154.9 cm; Wt 155.0 kg
[~2019-01-28 13:42] MED LIST changes: +OLAN5TAB30 PO; +OLAN5TAB40 PO
[2019-01-28 14:28] LABS: BASOPHILS % (AUTO) 0.7 % (0.0-2.0); EOSINOPHILS % (AUTO) 2.3 % (1.0-6.0); HEMATOCRIT 34.4 % (36-46); LYMPHOCYTES # (AUTO) 1.5 K/uL (1.0-4.8); LYMPHOCYTES % (AUTO) 19.9 % (22.0-44.0); MEAN CORPUSCULAR HEMOGLOBIN 27.2 pg (26.0-34.0); MEAN CORPUSCULAR HGB CONC 31.9 G/dL (31.0-37.0); MEAN CORPUSCULAR VOLUME 85 fL (80-100); MONOCYTES # (AUTO) 0.6 K/uL (0.1-1.0); MONOCYTES % (AUTO) 7.4 % (2.0-9.0); NEUTROPHILS # (AUTO) 5.4 K/uL (1.8-7.7); NEUTROPHILS % (AUTO) 69.7 % (40.0-70.0); PLATELET COUNT (AUTO) 368 K/uL (150-450); RED BLOOD CELL COUNT(AUTO) 4.02 MIL/uL (4.00-5.20); RED CELL DISTRIBUTION WIDTH 16.2 % (11.5-14.5)
[2019-01-28 14:39] LABS: ANION GAP 7 mmol/L (8-16); CALCIUM, TOTAL 8.7 mg/dL (8.8-10.5); CARBON DIOXIDE 27 mmol/L (22-29); CHLORIDE 100 mmol/L (98-107); CREATININE 0.63 mg/dL (0.60-1.30); GLOMERULAR FILTR. RATE CALC > 60 mL/min (>60); GLUCOSE,RANDOM 354 mg/dL (70-110); POTASSIUM 4.1 mmol/L (3.5-5.1); SODIUM SERUM 134 mmol/L (136-145); UREA NITROGEN, BLOOD 11 mg/dL (7-18)
[2019-01-28 15:04] LABS: ALANINE AMINOTRANSFERASE 26 U/L (12-78); ALBUMIN 3.2 g/dL (3.4-5.0); ALKALINE PHOSPHATASE 151 U/L (46-116); ASPARTATE AMINOTRANSFERASE 18 U/L (15-37); BILIRUBIN,TOTAL 0.2 mg/dL (0.1-1.0); CREATINE KINASE, TOTAL ONLY 284 U/L (26-192); HCG,QUANTITATIVE 1 mIU/mL (0-6); TOTAL PROTEIN, SERUM 7.4 g/dL (6.4-8.2)
[2019-01-28 15:46] LABS: AMPHET/METH SCREEN,URINE NEGATIVE (NEGATIVE); BARBITURATE SCREEN, URINE NEGATIVE (NEGATIVE); BENZODIAZEPINES SCREEN,URINE NEGATIVE (NEGATIVE); CANNABINOID SCREEN,URINE NEGATIVE (NEGATIVE); COCAINE SCREEN,URINE NEGATIVE (NEGATIVE); METHADONE SCREEN, URINE NEGATIVE (NEGATIVE); OPIATE SCREEN,URINE NEGATIVE (NEGATIVE)
[2019-01-28 15:51] LABS: PHENCYCLIDINE SCREEN,URINE NEGATIVE (NEGATIVE)
[2019-01-28 15:52] LABS: APPEARANCE,URINE CLEAR (CLEAR); BILIRUBIN,URINE NEGATIVE (NEGATIVE); GLUCOSE, URINE (UA) >=1000 mg/dL (NEGATIVE); KETONES,URINE NEGATIVE (NEGATIVE); LEUKOCYTE ESTERASE ,URINE NEGATIVE (NEGATIVE); NITRATE,URINE NEGATIVE (NEGATIVE); OCCULT BLOOD,URINE NEGATIVE (NEGATIVE); PROTEIN,URINE NEGATIVE (NEGATIVE); UROBILINOGEN,URINE 0.2 mg/dL (<=1.0)
[2019-01-28 16:01] LABS: BACTERIA,URINE None Seen /HPF (None Seen); RBC,URINE None Seen /HPF (0-2); SQUAMOUS EPITHELIAL CELL,UR Few /LPF (None Seen)
[2019-01-28] MEDS ORDERED: LORazepam 1 MG TABLET PO ONE (17:00)
[2019-01-28 18:59] VITALS: BP 120/63
== END 2019-01-28 19:04 | disposition home or self-care (01) ==
LOC: EMS 13:46
DX: F41.9 Anxiety disorder, unspecified (principal); F25.9 Schizoaffective disorder, unspecified; R06.02 Shortness of breath; F31.9 Bipolar disorder, unspecified; I10 Essential (primary) hypertension; E78.00 Pure hypercholesterolemia, unspecified; E11.9 Type 2 diabetes mellitus without complications; Z88.0 Allergy status to penicillin; Z79.4 Long term (current) use of insulin; Z79.899 Other long term (current) drug therapy; Z79.84 Long term (current) use of oral hypoglycemic drugs
CPT/HCPCS: 36415; 80053; 80307; 81001; 82550; 84484; 84702; 85025; 99284; G0480

== ENCOUNTER 2019-01-31 11:11 | Emergency (ER) | payer MEDICARE, OTHER ==
[~2019-01-31] VITALS: Ht 154.9 cm; Wt 69.0 kg
[~2019-01-31 11:11] MED LIST changes: -OLAN5TAB30 PO; -PALI117D IM
[2019-01-31 12:45] LABS: GLUCOSE,POINT OF CARE 311 MG/DL (70-110)
[2019-01-31 13:27] LABS: BASOPHILS % (AUTO) 0.6 % (0.0-2.0); EOSINOPHILS % (AUTO) 1.5 % (1.0-6.0); HEMATOCRIT 38.4 % (36-46); HEMOGLOBIN 12.3 g/dL (12.0-16.0); LYMPHOCYTES # (AUTO) 1.5 K/uL (1.0-4.8); LYMPHOCYTES % (AUTO) 21.1 % (22.0-44.0); MEAN CORPUSCULAR HEMOGLOBIN 27.3 pg (26.0-34.0); MEAN CORPUSCULAR VOLUME 85 fL (80-100); MONOCYTES # (AUTO) 0.3 K/uL (0.1-1.0); MONOCYTES % (AUTO) 4.8 % (2.0-9.0); NEUTROPHILS # (AUTO) 5.3 K/uL (1.8-7.7); PLATELET COUNT (AUTO) 384 K/uL (150-450); RED BLOOD CELL COUNT(AUTO) 4.51 MIL/uL (4.00-5.20); RED CELL DISTRIBUTION WIDTH 15.6 % (11.5-14.5)
[2019-01-31 13:38] LABS: ANION GAP 9 mmol/L (8-16); CALCIUM, TOTAL 9.7 mg/dL (8.8-10.5); CARBON DIOXIDE 28 mmol/L (22-29); CHLORIDE 97 mmol/L (98-107); CREATININE 0.76 mg/dL (0.60-1.30); GLOMERULAR FILTR. RATE CALC > 60 mL/min (>60); GLUCOSE,RANDOM 298 mg/dL (70-110); POTASSIUM 3.7 mmol/L (3.5-5.1); SODIUM SERUM 134 mmol/L (136-145); UREA NITROGEN, BLOOD 9 mg/dL (7-18)
[2019-01-31 13:43] LABS: ALANINE AMINOTRANSFERASE 31 U/L (12-78); ALBUMIN 3.4 g/dL (3.4-5.0); ALKALINE PHOSPHATASE 134 U/L (46-116); ASPARTATE AMINOTRANSFERASE 18 U/L (15-37); BILIRUBIN,TOTAL 0.3 mg/dL (0.1-1.0)
[2019-01-31 14:08] LABS: AMPHET/METH SCREEN,URINE NEGATIVE (NEGATIVE); BARBITURATE SCREEN, URINE NEGATIVE (NEGATIVE); BENZODIAZEPINES SCREEN,URINE NEGATIVE (NEGATIVE); CANNABINOID SCREEN,URINE NEGATIVE (NEGATIVE); COCAINE SCREEN,URINE NEGATIVE (NEGATIVE); METHADONE SCREEN, URINE NEGATIVE (NEGATIVE); OPIATE SCREEN,URINE NEGATIVE (NEGATIVE)
[2019-01-31 14:10] LABS: PHENCYCLIDINE SCREEN,URINE NEGATIVE (NEGATIVE)
[2019-01-31] MEDS ORDERED: LORazepam 1 MG TABLET PO ONE (14:45)
[2019-01-31 16:00] VITALS: BP 131/84
== END 2019-01-31 16:19 | disposition home or self-care (01) ==
LOC: EMS 11:13
DX: F41.9 Anxiety disorder, unspecified (principal); F31.9 Bipolar disorder, unspecified; E11.9 Type 2 diabetes mellitus without complications; E78.00 Pure hypercholesterolemia, unspecified; I10 Essential (primary) hypertension; Z88.0 Allergy status to penicillin; Z79.84 Long term (current) use of oral hypoglycemic drugs; Z79.899 Other long term (current) drug therapy; Z79.4 Long term (current) use of insulin
CPT/HCPCS: 36415; 80053; 80307; 82962; 85025; 99284; G0480

== ENCOUNTER 2019-02-01 20:21 | Inpatient (IN) | payer MEDICARE, MEDICAID ==
[~2019-02-01] VITALS: Ht 154.9 cm; Wt 72.6 kg
[2019-02-01] MEDS ORDERED: OLANZapine 5 MG RAPDIS TABLET PO PRN (21:00)
[2019-02-01 21:28] VITALS: BP 123/70
[2019-02-01 22:02] VITALS: BP 125/80
[2019-02-01] MEDS: ROPINIRole HCL 1 MG TABLET PO SCH (22:04)
[2019-02-01 22:09] LABS: GLUCOMETER DEV NAME(LOC) BV2S.; GLUCOSE,POINT OF CARE 395 MG/DL (70-110)
[2019-02-02] MEDS ORDERED: GLUCAGON,HUMAN RECOMBINANT 1 MG VIAL IM PRN (01:15)
[2019-02-02 01:56] VITALS: BP 136/75
[2019-02-02] MEDS ORDERED: PNEUMOCOCCAL VACCINE POLYVALENT 0.5 ML VIAL [PPSV23] IM ONE (02:15)
[2019-02-02 06:10] LABS: GLUCOMETER DEV NAME(LOC) BV2S.; GLUCOSE,POINT OF CARE 299 MG/DL (70-110)
[2019-02-02] MEDS: MetFORMIN HCL 500 MG TABLET PO SCH ×2 (06:43→16:57)
[2019-02-02] MEDS: INSULIN LISPRO 100 UNITS/ML SQ PRN ×4 (06:44→20:39)
[2019-02-02] MEDS: THIAMINE HCL 100 MG TABLET PO SCH ×2 (08:04→16:57)
[2019-02-02] MEDS: ATORVASTATIN CALCIUM 10 MG TABLET PO SCH (08:04)
[2019-02-02] MEDS: MULTIVITAMINS WITH IRON TABLET PO SCH (08:04)
[2019-02-02] MEDS: CHOLECALCIFEROL (VIT D3) 5,000 UNITS CAPSULE PO SCH (08:04)
[2019-02-02] MEDS: LISINOPRIL 10 MG TABLET PO SCH (08:04)
[2019-02-02] MEDS: GABAPENTIN 300 MG CAPSULE PO SCH ×3 (08:04→16:57)
[2019-02-02] MEDS: DULoxetine HCL 60 MG CAPSULE PO SCH (08:04)
[2019-02-02] MEDS: FOLIC ACID 1 MG TABLET PO SCH (08:04)
[2019-02-02] MEDS: ATOMOXETINE HCL 25 MG CAPSULE PO SCH (08:04)
[2019-02-02 08:05] VITALS: BP 118/76
[2019-02-02 08:15] LABS: BASOPHILS % (AUTO) 0.9 % (0.0-2.0); EOSINOPHILS % (AUTO) 2.1 % (1.0-6.0); HEMATOCRIT 36.5 % (36-46); HEMOGLOBIN 11.8 g/dL (12.0-16.0); LYMPHOCYTES # (AUTO) 1.6 K/uL (1.0-4.8); LYMPHOCYTES % (AUTO) 24.2 % (22.0-44.0); MEAN CORPUSCULAR HEMOGLOBIN 27.6 pg (26.0-34.0); MEAN CORPUSCULAR HGB CONC 32.4 G/dL (31.0-37.0); MEAN CORPUSCULAR VOLUME 85 fL (80-100); MONOCYTES # (AUTO) 0.4 K/uL (0.1-1.0); MONOCYTES % (AUTO) 5.4 % (2.0-9.0); NEUTROPHILS # (AUTO) 4.6 K/uL (1.8-7.7); NEUTROPHILS % (AUTO) 67.4 % (40.0-70.0); PLATELET COUNT (AUTO) 385 K/uL (150-450); RED BLOOD CELL COUNT(AUTO) 4.28 MIL/uL (4.00-5.20); RED CELL DISTRIBUTION WIDTH 15.5 % (11.5-14.5)
[2019-02-02 08:35] LABS: HEMOGLOBIN A1C 11.3 % (4.5-6.2)
[2019-02-02 08:46] LABS: ALANINE AMINOTRANSFERASE 25 U/L (12-78); ALBUMIN 3.3 g/dL (3.4-5.0); ALKALINE PHOSPHATASE 175 U/L (46-116); ANION GAP 8 mmol/L (8-16); ASPARTATE AMINOTRANSFERASE 11 U/L (15-37); BILIRUBIN,TOTAL 0.3 mg/dL (0.1-1.0); CALCIUM, TOTAL 9.2 mg/dL (8.8-10.5); CARBON DIOXIDE 28 mmol/L (22-29); CHLORIDE 96 mmol/L (98-107); CHOLESTEROL 183 mg/dL (131-200); CREATININE 0.55 mg/dL (0.60-1.30); FREE T4 (FREE THYROXINE) 1.06 ng/dL (0.76-1.46); GLOMERULAR FILTR. RATE CALC > 60 mL/min (>60); GLUCOSE,RANDOM 289 mg/dL (70-110); HDL CHOLESTEROL 61 mg/dL (40-60); LDL CHOL (CALC.) 101 mg/dL (0-130); POTASSIUM 3.9 mmol/L (3.5-5.1); SODIUM SERUM 132 mmol/L (136-145); TOTAL PROTEIN, SERUM 7.8 g/dL (6.4-8.2); TRIGLYCERIDES 105 mg/dL (15-150); UREA NITROGEN, BLOOD 13 mg/dL (7-18)
[2019-02-02 10:59] LABS: GLUCOMETER DEV NAME(LOC) BV2S.; GLUCOSE,POINT OF CARE 254 MG/DL (70-110)
[2019-02-02 16:25] VITALS: BP 131/86
[2019-02-02 16:39] LABS: GLUCOMETER DEV NAME(LOC) BV2S.; GLUCOSE,POINT OF CARE 259 MG/DL (70-110)
[2019-02-02 20:35] VITALS: BP 126/62
[2019-02-02] MEDS: LORazepam 2 MG TABLET PO PRN (20:37)
[2019-02-02] MEDS: METOPROLOL TARTRATE 25 MG TABLET PO SCH (20:37)
[2019-02-02] MEDS: ROPINIRole HCL 1 MG TABLET PO SCH (20:37)
[2019-02-02] MEDS: INSULIN GLARGINE,HUM.REC.ANLOG 100 UNITS/ML SQ SCH (20:38)
[2019-02-02 20:59] LABS: GLUCOMETER DEV NAME(LOC) BV2S.; GLUCOSE,POINT OF CARE 359 MG/DL (70-110)
[2019-02-03 00:29] VITALS: BP 112/68
[2019-02-03] MEDS: ZOLPIDEM TARTRATE 10 MG TABLET PO PRN (01:22)
[2019-02-03] MEDS: MetFORMIN HCL 500 MG TABLET PO SCH ×2 (06:13→16:57)
[2019-02-03 06:14] LABS: GLUCOMETER DEV NAME(LOC) BV2S.; GLUCOSE,POINT OF CARE 238 MG/DL (70-110)
[2019-02-03] MEDS: INSULIN LISPRO 100 UNITS/ML SQ PRN ×4 (06:36→20:27)
[2019-02-03] MEDS: ATOMOXETINE HCL 25 MG CAPSULE PO SCH (08:07)
[2019-02-03] MEDS: ATORVASTATIN CALCIUM 10 MG TABLET PO SCH (08:07)
[2019-02-03] MEDS: CHOLECALCIFEROL (VIT D3) 5,000 UNITS CAPSULE PO SCH (08:07)
[2019-02-03] MEDS: MULTIVITAMINS WITH IRON TABLET PO SCH (08:08)
[2019-02-03] MEDS: THIAMINE HCL 100 MG TABLET PO SCH ×2 (08:08→16:57)
[2019-02-03] MEDS: DULoxetine HCL 60 MG CAPSULE PO SCH (08:08)
[2019-02-03] MEDS: LISINOPRIL 10 MG TABLET PO SCH (08:08)
[2019-02-03] MEDS: FOLIC ACID 1 MG TABLET PO SCH (08:08)
[2019-02-03] MEDS: GABAPENTIN 300 MG CAPSULE PO SCH ×3 (08:08→16:57)
[2019-02-03 08:17] VITALS: BP 123/76
[2019-02-03 11:14] LABS: GLUCOMETER DEV NAME(LOC) BV2S.; GLUCOSE,POINT OF CARE 365 MG/DL (70-110)
[2019-02-03 16:10] VITALS: BP 105/66
[2019-02-03 17:20] LABS: GLUCOMETER DEV NAME(LOC) BV2S.; GLUCOSE,POINT OF CARE 322 MG/DL (70-110)
[2019-02-03 20:25] VITALS: BP 116/77
[2019-02-03] MEDS: ROPINIRole HCL 1 MG TABLET PO SCH (20:26)
[2019-02-03] MEDS: METOPROLOL TARTRATE 25 MG TABLET PO SCH (20:26)
[2019-02-03] MEDS: INSULIN GLARGINE,HUM.REC.ANLOG 100 UNITS/ML SQ SCH (20:26)
[2019-02-03 20:44] LABS: GLUCOMETER DEV NAME(LOC) BV2S.; GLUCOSE,POINT OF CARE 260 MG/DL (70-110)
[2019-02-04] VITALS: BP 105/67
[2019-02-04 06:29] LABS: GLUCOMETER DEV NAME(LOC) BV2S.; GLUCOSE,POINT OF CARE 218 MG/DL (70-110)
[2019-02-04] MEDS: MetFORMIN HCL 500 MG TABLET PO SCH ×2 (06:56→17:05)
[2019-02-04] MEDS: INSULIN LISPRO 100 UNITS/ML SQ PRN ×4 (06:58→20:15)
[2019-02-04 08:30] VITALS: BP 116/75
[2019-02-04] MEDS: ATORVASTATIN CALCIUM 10 MG TABLET PO SCH (08:30)
[2019-02-04] MEDS: FOLIC ACID 1 MG TABLET PO SCH (08:30)
[2019-02-04] MEDS: CHOLECALCIFEROL (VIT D3) 5,000 UNITS CAPSULE PO SCH (08:30)
[2019-02-04] MEDS: MULTIVITAMINS WITH IRON TABLET PO SCH (08:30)
[2019-02-04] MEDS: THIAMINE HCL 100 MG TABLET PO SCH ×2 (08:30→17:05)
[2019-02-04] MEDS: GABAPENTIN 300 MG CAPSULE PO SCH ×3 (08:30→17:05)
[2019-02-04] MEDS: LISINOPRIL 10 MG TABLET PO SCH (08:30)
[2019-02-04] MEDS: DULoxetine HCL 60 MG CAPSULE PO SCH (08:30)
[2019-02-04] MEDS: ATOMOXETINE HCL 25 MG CAPSULE PO SCH (08:30)
[2019-02-04 11:05] LABS: GLUCOMETER DEV NAME(LOC) BV2S.; GLUCOSE,POINT OF CARE 261 MG/DL (70-110)
[2019-02-04 16:15] VITALS: BP 101/73
[2019-02-04 16:34] LABS: GLUCOMETER DEV NAME(LOC) BV2S.; GLUCOSE,POINT OF CARE 209 MG/DL (70-110)
[2019-02-04 20:10] VITALS: BP 104/69
[2019-02-04] MEDS: METOPROLOL TARTRATE 25 MG TABLET PO SCH (20:12)
[2019-02-04] MEDS: ROPINIRole HCL 1 MG TABLET PO SCH (20:12)
[2019-02-04] MEDS: INSULIN GLARGINE,HUM.REC.ANLOG 100 UNITS/ML SQ SCH (20:14)
[2019-02-04 20:39] LABS: GLUCOMETER DEV NAME(LOC) BV2S.; GLUCOSE,POINT OF CARE 288 MG/DL (70-110)
[2019-02-05 00:39] VITALS: BP 114/64
[2019-02-05 06:14] LABS: GLUCOMETER DEV NAME(LOC) BV2S.; GLUCOSE,POINT OF CARE 128 MG/DL (70-110)
[2019-02-05] MEDS: MetFORMIN HCL 500 MG TABLET PO SCH ×2 (06:44→17:09)
[2019-02-05] MEDS: THIAMINE HCL 100 MG TABLET PO SCH ×2 (08:23→17:09)
[2019-02-05] MEDS: DULoxetine HCL 60 MG CAPSULE PO SCH (08:23)
[2019-02-05] MEDS: GABAPENTIN 300 MG CAPSULE PO SCH ×3 (08:24→17:09)
[2019-02-05] MEDS: ATORVASTATIN CALCIUM 10 MG TABLET PO SCH (08:24)
[2019-02-05] MEDS: FOLIC ACID 1 MG TABLET PO SCH (08:24)
[2019-02-05] MEDS: CHOLECALCIFEROL (VIT D3) 5,000 UNITS CAPSULE PO SCH (08:24)
[2019-02-05] MEDS: ATOMOXETINE HCL 25 MG CAPSULE PO SCH (08:24)
[2019-02-05] MEDS: MULTIVITAMINS WITH IRON TABLET PO SCH (08:24)
[2019-02-05 08:26] VITALS: BP 102/61
[2019-02-05 08:30] VITALS: BP 129/77
[2019-02-05] MEDS: LISINOPRIL 10 MG TABLET PO SCH (08:30)
[2019-02-05] MEDS: INSULIN LISPRO 100 UNITS/ML SQ PRN ×3 (10:55→20:11)
[2019-02-05 11:05] LABS: GLUCOMETER DEV NAME(LOC) BV2S.; GLUCOSE,POINT OF CARE 313 MG/DL (70-110)
[2019-02-05] MEDS: LORazepam 2 MG TABLET PO PRN (12:24)
[2019-02-05 16:38] VITALS: BP 122/69
[2019-02-05 16:40] LABS: GLUCOMETER DEV NAME(LOC) BV2S.; GLUCOSE,POINT OF CARE 281 MG/DL (70-110)
[2019-02-05 20:05] VITALS: BP 139/82
[2019-02-05] MEDS: ROPINIRole HCL 1 MG TABLET PO SCH (20:07)
[2019-02-05] MEDS: METOPROLOL TARTRATE 25 MG TABLET PO SCH (20:07)
[2019-02-05] MEDS: INSULIN GLARGINE,HUM.REC.ANLOG 100 UNITS/ML SQ SCH (20:11)
[2019-02-05 20:24] LABS: GLUCOMETER DEV NAME(LOC) BV2S.; GLUCOSE,POINT OF CARE 335 MG/DL (70-110)
[2019-02-06 00:19] VITALS: BP 120/77
[2019-02-06 06:20] LABS: GLUCOMETER DEV NAME(LOC) BV2S.; GLUCOSE,POINT OF CARE 167 MG/DL (70-110)
[2019-02-06] MEDS: MetFORMIN HCL 500 MG TABLET PO SCH ×2 (06:36→17:16)
[2019-02-06] MEDS: INSULIN LISPRO 100 UNITS/ML SQ PRN ×4 (06:38→21:39)
[2019-02-06 08:28] VITALS: BP 139/85
[2019-02-06] MEDS: THIAMINE HCL 100 MG TABLET PO SCH ×2 (09:11→17:16)
[2019-02-06] MEDS: FOLIC ACID 1 MG TABLET PO SCH (09:11)
[2019-02-06] MEDS: LISINOPRIL 10 MG TABLET PO SCH (09:11)
[2019-02-06] MEDS: MULTIVITAMINS WITH IRON TABLET PO SCH (09:11)
[2019-02-06] MEDS: DULoxetine HCL 60 MG CAPSULE PO SCH (09:12)
[2019-02-06] MEDS: ATOMOXETINE HCL 25 MG CAPSULE PO SCH (09:12)
[2019-02-06] MEDS: CHOLECALCIFEROL (VIT D3) 5,000 UNITS CAPSULE PO SCH (09:12)
[2019-02-06] MEDS: GABAPENTIN 300 MG CAPSULE PO SCH ×3 (09:12→17:16)
[2019-02-06] MEDS: ATORVASTATIN CALCIUM 10 MG TABLET PO SCH (09:12)
[2019-02-06 11:35] LABS: GLUCOMETER DEV NAME(LOC) BV2S.; GLUCOSE,POINT OF CARE 292 MG/DL (70-110)
[2019-02-06 16:43] VITALS: BP 122/89
[2019-02-06 17:25] LABS: GLUCOMETER DEV NAME(LOC) BV2S.; GLUCOSE,POINT OF CARE 324 MG/DL (70-110)
[2019-02-06] MEDS: METOPROLOL TARTRATE 25 MG TABLET PO SCH (20:48)
[2019-02-06] MEDS: ROPINIRole HCL 1 MG TABLET PO SCH (21:05)
[2019-02-06 21:14] LABS: GLUCOMETER DEV NAME(LOC) BV2S.; GLUCOSE,POINT OF CARE 326 MG/DL (70-110)
[2019-02-06] MEDS: INSULIN GLARGINE,HUM.REC.ANLOG 100 UNITS/ML SQ SCH (21:37)
[2019-02-07 01:16] VITALS: BP 100/64
[2019-02-07 06:40] LABS: GLUCOMETER DEV NAME(LOC) BV2S.; GLUCOSE,POINT OF CARE 184 MG/DL (70-110)
[2019-02-07] MEDS: MetFORMIN HCL 500 MG TABLET PO SCH ×2 (07:01→17:02)
[2019-02-07] MEDS: INSULIN LISPRO 100 UNITS/ML SQ PRN ×4 (07:02→21:29)
[2019-02-07] MEDS: ATORVASTATIN CALCIUM 10 MG TABLET PO SCH (08:47)
[2019-02-07] MEDS: ATOMOXETINE HCL 25 MG CAPSULE PO SCH (08:47)
[2019-02-07] MEDS: MULTIVITAMINS WITH IRON TABLET PO SCH (08:47)
[2019-02-07] MEDS: THIAMINE HCL 100 MG TABLET PO SCH ×2 (08:47→17:02)
[2019-02-07] MEDS: GABAPENTIN 300 MG CAPSULE PO SCH ×3 (08:47→17:03)
[2019-02-07] MEDS: FOLIC ACID 1 MG TABLET PO SCH (08:47)
[2019-02-07] MEDS: LISINOPRIL 10 MG TABLET PO SCH (08:47)
[2019-02-07] MEDS: CHOLECALCIFEROL (VIT D3) 5,000 UNITS CAPSULE PO SCH (08:47)
[2019-02-07] MEDS: DULoxetine HCL 60 MG CAPSULE PO SCH (08:56)
[2019-02-07 09:06] VITALS: BP 112/71
[2019-02-07 12:50] LABS: GLUCOMETER DEV NAME(LOC) BV2S.; GLUCOSE,POINT OF CARE 261 MG/DL (70-110)
[2019-02-07 16:28] VITALS: BP 103/68
[2019-02-07 17:15] LABS: GLUCOMETER DEV NAME(LOC) BV2S.; GLUCOSE,POINT OF CARE 233 MG/DL (70-110)
[2019-02-07] MEDS: ROPINIRole HCL 1 MG TABLET PO SCH (21:15)
[2019-02-07] MEDS: METOPROLOL TARTRATE 25 MG TABLET PO SCH (21:15)
[2019-02-07 21:19] LABS: GLUCOMETER DEV NAME(LOC) BV2S.; GLUCOSE,POINT OF CARE 263 MG/DL (70-110)
[2019-02-07] MEDS: INSULIN GLARGINE,HUM.REC.ANLOG 100 UNITS/ML SQ SCH (21:39)
[2019-02-08 05:55] VITALS: BP 123/79
[2019-02-08] MEDS: MetFORMIN HCL 500 MG TABLET PO SCH ×2 (06:02→17:06)
[2019-02-08 06:05] LABS: GLUCOMETER DEV NAME(LOC) BV2S.; GLUCOSE,POINT OF CARE 125 MG/DL (70-110)
[2019-02-08 08:40] VITALS: BP 110/70
[2019-02-08] MEDS: DULoxetine HCL 60 MG CAPSULE PO SCH (08:42)
[2019-02-08] MEDS: THIAMINE HCL 100 MG TABLET PO SCH ×2 (08:42→17:06)
[2019-02-08] MEDS: ATORVASTATIN CALCIUM 10 MG TABLET PO SCH (08:42)
[2019-02-08] MEDS: FOLIC ACID 1 MG TABLET PO SCH (08:42)
[2019-02-08] MEDS: GABAPENTIN 300 MG CAPSULE PO SCH ×3 (08:42→17:05)
[2019-02-08] MEDS: CHOLECALCIFEROL (VIT D3) 5,000 UNITS CAPSULE PO SCH (08:42)
[2019-02-08] MEDS: ATOMOXETINE HCL 25 MG CAPSULE PO SCH (08:42)
[2019-02-08] MEDS: MULTIVITAMINS WITH IRON TABLET PO SCH (08:42)
[2019-02-08] MEDS: LISINOPRIL 10 MG TABLET PO SCH (08:42)
[2019-02-08 08:49] VITALS: BP 106/70
[2019-02-08] MEDS: INSULIN LISPRO 100 UNITS/ML SQ PRN ×3 (10:58→21:11)
[2019-02-08 11:55] LABS: GLUCOMETER DEV NAME(LOC) BV2S.; GLUCOSE,POINT OF CARE 269 MG/DL (70-110)
[2019-02-08 16:43] VITALS: BP 120/77
[2019-02-08 16:49] LABS: GLUCOMETER DEV NAME(LOC) BV2S.; GLUCOSE,POINT OF CARE 314 MG/DL (70-110)
[2019-02-08 20:43] VITALS: BP 104/63
[2019-02-08] MEDS: ROPINIRole HCL 1 MG TABLET PO SCH (20:59)
[2019-02-08] MEDS: METOPROLOL TARTRATE 25 MG TABLET PO SCH (21:00)
[2019-02-08 21:04] LABS: GLUCOMETER DEV NAME(LOC) BV2S.; GLUCOSE,POINT OF CARE 267 MG/DL (70-110)
[2019-02-08] MEDS: INSULIN GLARGINE,HUM.REC.ANLOG 100 UNITS/ML SQ SCH (21:12)
[2019-02-09 03:12] VITALS: BP_SYST 135; BP_DIAS 83; BP_DIAS 84
[2019-02-09] MEDS: LORazepam 2 MG TABLET PO PRN (04:59)
[2019-02-09 06:40] LABS: GLUCOMETER DEV NAME(LOC) BV2S.; GLUCOSE,POINT OF CARE 186 MG/DL (70-110)
[2019-02-09] MEDS: MetFORMIN HCL 500 MG TABLET PO SCH ×2 (06:54→16:07)
[2019-02-09] MEDS: INSULIN LISPRO 100 UNITS/ML SQ PRN ×4 (06:55→21:16)
[2019-02-09 08:27] VITALS: BP 134/76
[2019-02-09] MEDS: LISINOPRIL 10 MG TABLET PO SCH (09:32)
[2019-02-09] MEDS: GABAPENTIN 300 MG CAPSULE PO SCH ×3 (09:32→16:07)
[2019-02-09] MEDS: MULTIVITAMINS WITH IRON TABLET PO SCH (09:32)
[2019-02-09] MEDS: CHOLECALCIFEROL (VIT D3) 5,000 UNITS CAPSULE PO SCH (09:32)
[2019-02-09] MEDS: THIAMINE HCL 100 MG TABLET PO SCH ×2 (09:33→16:07)
[2019-02-09] MEDS: DULoxetine HCL 60 MG CAPSULE PO SCH (09:33)
[2019-02-09] MEDS: ATOMOXETINE HCL 25 MG CAPSULE PO SCH (09:33)
[2019-02-09] MEDS: FOLIC ACID 1 MG TABLET PO SCH (09:33)
[2019-02-09] MEDS: ATORVASTATIN CALCIUM 10 MG TABLET PO SCH (10:26)
[2019-02-09 11:19] LABS: GLUCOMETER DEV NAME(LOC) BV2S.; GLUCOSE,POINT OF CARE 224 MG/DL (70-110)
[2019-02-09 16:25] VITALS: BP 120/76
[2019-02-09 16:30] LABS: GLUCOMETER DEV NAME(LOC) BV2S.; GLUCOSE,POINT OF CARE 238 MG/DL (70-110)
[2019-02-09] MEDS: ROPINIRole HCL 1 MG TABLET PO SCH (21:05)
[2019-02-09] MEDS: METOPROLOL TARTRATE 25 MG TABLET PO SCH (21:05)
[2019-02-09 21:09] LABS: GLUCOMETER DEV NAME(LOC) BV2S.; GLUCOSE,POINT OF CARE 295 MG/DL (70-110)
[2019-02-09] MEDS: INSULIN GLARGINE,HUM.REC.ANLOG 100 UNITS/ML SQ SCH (21:16)
[2019-02-10 00:40] VITALS: BP 109/72
[2019-02-10 06:25] LABS: GLUCOMETER DEV NAME(LOC) BV2S.; GLUCOSE,POINT OF CARE 239 MG/DL (70-110)
[2019-02-10] MEDS: INSULIN LISPRO 100 UNITS/ML SQ PRN ×4 (06:48→20:31)
[2019-02-10] MEDS: MetFORMIN HCL 500 MG TABLET PO SCH ×2 (06:48→16:47)
[2019-02-10 08:56] VITALS: BP 139/89
[2019-02-10] MEDS: THIAMINE HCL 100 MG TABLET PO SCH ×2 (09:09→16:47)
[2019-02-10] MEDS: DULoxetine HCL 60 MG CAPSULE PO SCH (09:09)
[2019-02-10] MEDS: MULTIVITAMINS WITH IRON TABLET PO SCH (09:09)
[2019-02-10] MEDS: CHOLECALCIFEROL (VIT D3) 5,000 UNITS CAPSULE PO SCH (09:10)
[2019-02-10] MEDS: GABAPENTIN 300 MG CAPSULE PO SCH ×3 (09:10→16:47)
[2019-02-10] MEDS: FOLIC ACID 1 MG TABLET PO SCH (09:10)
[2019-02-10] MEDS: ATOMOXETINE HCL 25 MG CAPSULE PO SCH (09:10)
[2019-02-10] MEDS: LISINOPRIL 10 MG TABLET PO SCH (09:10)
[2019-02-10] MEDS: ATORVASTATIN CALCIUM 10 MG TABLET PO SCH (09:10)
[2019-02-10 11:40] LABS: GLUCOMETER DEV NAME(LOC) BV2S.; GLUCOSE,POINT OF CARE 316 MG/DL (70-110)
[2019-02-10 16:26] VITALS: BP 135/94
[2019-02-10 17:05] LABS: GLUCOMETER DEV NAME(LOC) BV2S.; GLUCOSE,POINT OF CARE 267 MG/DL (70-110)
[2019-02-10 20:25] VITALS: BP 121/78
[2019-02-10] MEDS: METOPROLOL TARTRATE 25 MG TABLET PO SCH (20:25)
[2019-02-10] MEDS: ROPINIRole HCL 1 MG TABLET PO SCH (20:25)
[2019-02-10] MEDS: INSULIN GLARGINE,HUM.REC.ANLOG 100 UNITS/ML SQ SCH (20:32)
[2019-02-10 20:43] LABS: GLUCOMETER DEV NAME(LOC) BV2S.; GLUCOSE,POINT OF CARE 287 MG/DL (70-110)
[2019-02-11] MEDS: INSULIN LISPRO 100 UNITS/ML SQ PRN ×4 (06:07→20:19)
[2019-02-11 06:14] LABS: GLUCOMETER DEV NAME(LOC) BV2S.; GLUCOSE,POINT OF CARE 177 MG/DL (70-110)
[2019-02-11 06:25] VITALS: BP 117/70
[2019-02-11] MEDS: MetFORMIN HCL 500 MG TABLET PO SCH ×2 (07:17→16:21)
[2019-02-11 08:34] VITALS: BP 121/60
[2019-02-11] MEDS: ATOMOXETINE HCL 25 MG CAPSULE PO SCH (08:46)
[2019-02-11] MEDS: GABAPENTIN 300 MG CAPSULE PO SCH ×3 (08:47→16:21)
[2019-02-11] MEDS: LISINOPRIL 10 MG TABLET PO SCH (08:47)
[2019-02-11] MEDS: DULoxetine HCL 60 MG CAPSULE PO SCH (08:47)
[2019-02-11] MEDS: MULTIVITAMINS WITH IRON TABLET PO SCH (08:47)
[2019-02-11] MEDS: CHOLECALCIFEROL (VIT D3) 5,000 UNITS CAPSULE PO SCH (08:47)
[2019-02-11] MEDS: ATORVASTATIN CALCIUM 10 MG TABLET PO SCH (08:47)
[2019-02-11] MEDS: FOLIC ACID 1 MG TABLET PO SCH (08:47)
[2019-02-11] MEDS: THIAMINE HCL 100 MG TABLET PO SCH ×2 (08:47→16:21)
[2019-02-11 08:54] VITALS: BP 119/78
[2019-02-11 11:05] LABS: GLUCOMETER DEV NAME(LOC) BV2S.; GLUCOSE,POINT OF CARE 281 MG/DL (70-110)
[2019-02-11 16:25] LABS: GLUCOMETER DEV NAME(LOC) BV2S.; GLUCOSE,POINT OF CARE 255 MG/DL (70-110)
[2019-02-11 16:30] VITALS: BP 110/68
[2019-02-11 19:55] VITALS: BP 110/67
[2019-02-11 20:10] LABS: GLUCOMETER DEV NAME(LOC) BV2S.; GLUCOSE,POINT OF CARE 246 MG/DL (70-110)
[2019-02-11] MEDS: ROPINIRole HCL 1 MG TABLET PO SCH (20:18)
[2019-02-11] MEDS: INSULIN GLARGINE,HUM.REC.ANLOG 100 UNITS/ML SQ SCH (20:19)
[2019-02-11] MEDS: METOPROLOL TARTRATE 25 MG TABLET PO SCH (20:21)
[2019-02-12 00:21] VITALS: BP 116/66
[2019-02-12] MEDS: ZOLPIDEM TARTRATE 10 MG TABLET PO PRN (00:27)
[2019-02-12 06:25] LABS: GLUCOMETER DEV NAME(LOC) BV2S.; GLUCOSE,POINT OF CARE 202 MG/DL (70-110)
[2019-02-12] MEDS: INSULIN LISPRO 100 UNITS/ML SQ PRN ×4 (06:27→20:44)
[2019-02-12] MEDS: MetFORMIN HCL 500 MG TABLET PO SCH ×2 (06:46→16:03)
[2019-02-12 08:19] VITALS: BP 118/67
[2019-02-12] MEDS: LISINOPRIL 10 MG TABLET PO SCH (08:43)
[2019-02-12] MEDS: ATOMOXETINE HCL 25 MG CAPSULE PO SCH (08:43)
[2019-02-12] MEDS: CHOLECALCIFEROL (VIT D3) 5,000 UNITS CAPSULE PO SCH (08:43)
[2019-02-12] MEDS: MULTIVITAMINS WITH IRON TABLET PO SCH (08:43)
[2019-02-12] MEDS: GABAPENTIN 300 MG CAPSULE PO SCH ×3 (08:43→16:03)
[2019-02-12] MEDS: DULoxetine HCL 60 MG CAPSULE PO SCH (08:43)
[2019-02-12] MEDS: FOLIC ACID 1 MG TABLET PO SCH (08:43)
[2019-02-12] MEDS: THIAMINE HCL 100 MG TABLET PO SCH ×2 (08:43→16:03)
[2019-02-12] MEDS: ATORVASTATIN CALCIUM 10 MG TABLET PO SCH (08:43)
[2019-02-12 11:24] LABS: GLUCOMETER DEV NAME(LOC) BV2S.; GLUCOSE,POINT OF CARE 215 MG/DL (70-110)
[2019-02-12 16:09] LABS: GLUCOMETER DEV NAME(LOC) BV2S.; GLUCOSE,POINT OF CARE 178 MG/DL (70-110)
[2019-02-12 16:34] VITALS: BP 138/63
[2019-02-12] MEDS: ROPINIRole HCL 1 MG TABLET PO SCH (20:36)
[2019-02-12] MEDS: METOPROLOL TARTRATE 25 MG TABLET PO SCH (20:36)
[2019-02-12 20:45] LABS: GLUCOMETER DEV NAME(LOC) BV2S.; GLUCOSE,POINT OF CARE 220 MG/DL (70-110)
[2019-02-12] MEDS: INSULIN GLARGINE,HUM.REC.ANLOG 100 UNITS/ML SQ SCH (20:45)
[2019-02-13 01:15] VITALS: BP 119/73
[2019-02-13] MEDS: ZOLPIDEM TARTRATE 10 MG TABLET PO PRN (01:15)
[2019-02-13 06:01] LABS: GLUCOMETER DEV NAME(LOC) BV2S.; GLUCOSE,POINT OF CARE 224 MG/DL (70-110)
[2019-02-13] MEDS: MetFORMIN HCL 500 MG TABLET PO SCH ×2 (06:01→16:50)
[2019-02-13] MEDS: INSULIN LISPRO 100 UNITS/ML SQ PRN ×3 (06:37→17:00)
[2019-02-13] MEDS: ATORVASTATIN CALCIUM 10 MG TABLET PO SCH (08:15)
[2019-02-13] MEDS: THIAMINE HCL 100 MG TABLET PO SCH ×2 (08:15→16:50)
[2019-02-13] MEDS: GABAPENTIN 300 MG CAPSULE PO SCH ×3 (08:15→16:50)
[2019-02-13] MEDS: LISINOPRIL 10 MG TABLET PO SCH (08:15)
[2019-02-13] MEDS: DULoxetine HCL 60 MG CAPSULE PO SCH (08:15)
[2019-02-13] MEDS: FOLIC ACID 1 MG TABLET PO SCH (08:15)
[2019-02-13] MEDS: ATOMOXETINE HCL 25 MG CAPSULE PO SCH (08:16)
[2019-02-13] MEDS: CHOLECALCIFEROL (VIT D3) 5,000 UNITS CAPSULE PO SCH (08:16)
[2019-02-13 08:19] VITALS: BP 117/60
[2019-02-13] MEDS: MULTIVITAMINS WITH IRON TABLET PO SCH (08:50)
[2019-02-13] MEDS ORDERED: ATOR10TA84 PO ×2 (09:11→09:18)
[2019-02-13] MEDS ORDERED: THIA100T67 PO (09:18)
[2019-02-13] MEDS ORDERED: DULO30CA2 PO (09:18)
[2019-02-13] MEDS ORDERED: CHOL50004 PO (09:18)
[2019-02-13] MEDS ORDERED: MULT-1078 PO (09:18)
[2019-02-13] MEDS ORDERED: ROPI1TAB11 PO (11:05)
[2019-02-13] MEDS ORDERED: ATOM25 PO (11:05)
[2019-02-13] MEDS ORDERED: DULO60CA44 PO ×2 (11:05→16:04)
[2019-02-13] MEDS ORDERED: GABA-531 PO (11:05)
[2019-02-13] MEDS ORDERED: PALI117D IM ×2 (11:05→16:09)
[2019-02-13 11:25] LABS: GLUCOMETER DEV NAME(LOC) BV2S.; GLUCOSE,POINT OF CARE 176 MG/DL (70-110)
[2019-02-13] MEDS ORDERED: PALIPERIDONE PALMITATE 117 MG/0.75 ML SYRINGE IM ONE (16:00)
[2019-02-13 16:21] VITALS: BP 115/71
[2019-02-13 17:00] LABS: GLUCOMETER DEV NAME(LOC) BV2S.; GLUCOSE,POINT OF CARE 258 MG/DL (70-110)
== END 2019-02-13 17:16 | disposition home or self-care (01) | DRG 885 ==
LOC: B2S 21:27
PROVIDERS: ADMIT Psychiatry & Neurology Psychiatry; ATTEND Psychiatry & Neurology Psychiatry
DX: F25.1 Schizoaffective disorder, depressive type (principal); E78.00 Pure hypercholesterolemia, unspecified; E55.9 Vitamin D deficiency, unspecified; E11.9 Type 2 diabetes mellitus without complications; I10 Essential (primary) hypertension; Z88.0 Allergy status to penicillin; Z79.4 Long term (current) use of insulin; Z91.19 Patient's noncompliance with other medical treatment and regimen; Z65.3 Problems related to other legal circumstances; Z59.9 Problem related to housing and economic circumstances, unspecified
CPT/HCPCS: 83036; 84439; 84443; 87081; 90732; G0480; J1815

== ENCOUNTER 2019-04-10 18:03 | Emergency (ER) | payer MEDICARE, OTHER ==
[~2019-04-10] VITALS: Ht 154.9 cm; Wt 74.5 kg
[~2019-04-10 18:03] MED LIST changes: +ATOR10TA84 PO; -ATOR40TA28 PO; +CHOL50004 PO; -CLON.5 PO; -METF-960 PO; +MULT-1078 PO; -OLAN5TAB40 PO; +THIA100T67 PO
[2019-04-10 18:20] LABS: GLUCOSE,POINT OF CARE 240 MG/DL (70-110)
[2019-04-10 18:53] LABS: APPEARANCE,URINE CLEAR (CLEAR); BILIRUBIN,URINE NEGATIVE (NEGATIVE); GLUCOSE, URINE (UA) NEGATIVE (NEGATIVE); KETONES,URINE NEGATIVE (NEGATIVE); LEUKOCYTE ESTERASE ,URINE NEGATIVE (NEGATIVE); NITRATE,URINE NEGATIVE (NEGATIVE); OCCULT BLOOD,URINE NEGATIVE (NEGATIVE); PROTEIN,URINE NEGATIVE (NEGATIVE); UROBILINOGEN,URINE 0.2 mg/dL (<=1.0)
[2019-04-10] MEDS ORDERED: FLUCONAZOLE 150 MG TABLET PO ONE (19:15)
[2019-04-10] MEDS ORDERED: ACETAMINOPHEN 500 MG TABLET PO ONE (19:15)
[2019-04-10 19:25] VITALS: BP 128/86
== END 2019-04-10 19:43 | disposition home or self-care (01) ==
LOC: EMS 18:05
DX: N89.8 Other specified noninflammatory disorders of vagina (principal); F41.9 Anxiety disorder, unspecified; F31.9 Bipolar disorder, unspecified; E11.9 Type 2 diabetes mellitus without complications; E78.00 Pure hypercholesterolemia, unspecified; I10 Essential (primary) hypertension; Z88.0 Allergy status to penicillin; Z79.4 Long term (current) use of insulin; Z79.899 Other long term (current) drug therapy

== ENCOUNTER 2019-04-17 13:17 | Emergency (ER) | payer MEDICARE, OTHER ==
[~2019-04-17] VITALS: Ht 162.6 cm; Wt 72.7 kg
[~2019-04-17 13:17] MED LIST changes: -ATOM25 PO; +ATOM25CA8 PO; -THIA100T67 PO
[2019-04-17] MEDS ORDERED: METF-960 PO (13:23)
[2019-04-17 14:04] LABS: EOSINOPHILS % (AUTO) 2.3 % (1.0-6.0); HEMATOCRIT 35.9 % (36-46); LYMPHOCYTES # (AUTO) 1.6 K/uL (1.0-4.8); LYMPHOCYTES % (AUTO) 23.6 % (22.0-44.0); MEAN CORPUSCULAR HEMOGLOBIN 27.9 pg (26.0-34.0); MEAN CORPUSCULAR HGB CONC 33.5 G/dL (31.0-37.0); MEAN CORPUSCULAR VOLUME 83 fL (80-100); MONOCYTES # (AUTO) 0.4 K/uL (0.1-1.0); MONOCYTES % (AUTO) 6.1 % (2.0-9.0); NEUTROPHILS # (AUTO) 4.4 K/uL (1.8-7.7); PLATELET COUNT (AUTO) 386 K/uL (150-450); RED BLOOD CELL COUNT(AUTO) 4.31 MIL/uL (4.00-5.20); RED CELL DISTRIBUTION WIDTH 14.5 % (11.5-14.5)
[2019-04-17 14:15] LABS: ANION GAP 9 mmol/L (8-16); CALCIUM, TOTAL 8.7 mg/dL (8.8-10.5); CARBON DIOXIDE 28 mmol/L (22-29); CHLORIDE 97 mmol/L (98-107); CREATININE 0.72 mg/dL (0.60-1.30); GLOMERULAR FILTR. RATE CALC > 60 mL/min (>60); GLUCOSE,RANDOM 311 mg/dL (70-110); POTASSIUM 3.9 mmol/L (3.5-5.1); SODIUM SERUM 134 mmol/L (136-145); UREA NITROGEN, BLOOD 9 mg/dL (7-18)
[2019-04-17 14:20] LABS: ALANINE AMINOTRANSFERASE 24 U/L (12-78); ALBUMIN 3.7 g/dL (3.4-5.0); ALKALINE PHOSPHATASE 121 U/L (46-116); ASPARTATE AMINOTRANSFERASE 16 U/L (15-37); BILIRUBIN,TOTAL 0.3 mg/dL (0.1-1.0); TOTAL PROTEIN, SERUM 7.9 g/dL (6.4-8.2)
[2019-04-17 15:10] VITALS: BP 125/77
== END 2019-04-17 15:18 | disposition home or self-care (01) ==
LOC: EMS 13:18
DX: M94.0 Chondrocostal junction syndrome [Tietze] (principal); E11.65 Type 2 diabetes mellitus with hyperglycemia; F41.9 Anxiety disorder, unspecified; F31.9 Bipolar disorder, unspecified; I10 Essential (primary) hypertension; E78.00 Pure hypercholesterolemia, unspecified; F25.9 Schizoaffective disorder, unspecified; Z79.899 Other long term (current) drug therapy; Z79.4 Long term (current) use of insulin; Z79.84 Long term (current) use of oral hypoglycemic drugs; Z88.0 Allergy status to penicillin
CPT/HCPCS: 93005

== ENCOUNTER 2019-05-02 18:35 | Inpatient (IN) | payer MEDICARE, MEDICAID ==
[~2019-05-02] VITALS: Ht 154.9 cm; Wt 75.8 kg
[~2019-05-02 18:35] MED LIST changes: +ATOM25 PO; -ATOM25CA8 PO; +METF-960 PO
[2019-05-02 19:36] VITALS: BP 121/84
[2019-05-02] MEDS ORDERED: OLANZapine 5 MG RAPDIS TABLET PO PRN (19:45)
[2019-05-02] MEDS ORDERED: ZOLPIDEM TARTRATE 10 MG TABLET PO PRN (19:45)
[2019-05-02] MEDS ORDERED: LORazepam 1 MG TABLET PO PRN (19:45)
[2019-05-02] MEDS ORDERED: INFLUENZA VIRUS VACCINE QVS 2019-20 (3YR+)/PF 60 MCG/0.5 ML SYRINGE IM ONE (20:30)
[2019-05-02 21:00] LABS: GLUCOMETER DEV NAME(LOC) BV2X.; GLUCOSE,POINT OF CARE 277 MG/DL (70-110)
[2019-05-02] MEDS: GABAPENTIN 300 MG CAPSULE PO SCH (21:13)
[2019-05-02] MEDS: ROPINIRole HCL 1 MG TABLET PO SCH (21:54)
[2019-05-03 03:52] VITALS: BP 120/81
[2019-05-03 06:25] LABS: GLUCOMETER DEV NAME(LOC) BV2X.; GLUCOSE,POINT OF CARE 206 MG/DL (70-110)
[2019-05-03] MEDS: MetFORMIN HCL 500 MG TABLET PO SCH ×2 (06:37→16:33)
[2019-05-03] MEDS: INSULIN LISPRO 100 UNITS/ML SQ PRN ×4 (06:38→21:06)
[2019-05-03 07:58] LABS: BASOPHILS % (AUTO) 0.9 % (0.0-2.0); EOSINOPHILS % (AUTO) 3.1 % (1.0-6.0); HEMATOCRIT 36.3 % (36-46); MEAN CORPUSCULAR HEMOGLOBIN 27.3 pg (26.0-34.0); MEAN CORPUSCULAR VOLUME 83 fL (80-100); MONOCYTES # (AUTO) 0.4 K/uL (0.1-1.0); MONOCYTES % (AUTO) 8.8 % (2.0-9.0); NEUTROPHILS % (AUTO) 65.2 % (40.0-70.0); PLATELET COUNT (AUTO) 350 K/uL (150-450); RED BLOOD CELL COUNT(AUTO) 4.39 MIL/uL (4.00-5.20); RED CELL DISTRIBUTION WIDTH 15.1 % (11.5-14.5)
[2019-05-03 08:18] LABS: HEMOGLOBIN A1C 11.8 % (4.5-6.2)
[2019-05-03 08:22] LABS: ALANINE AMINOTRANSFERASE 41 U/L (12-78); ALBUMIN 3.3 g/dL (3.4-5.0); ALKALINE PHOSPHATASE 126 U/L (46-116); ANION GAP 7 mmol/L (8-16); ASPARTATE AMINOTRANSFERASE 35 U/L (15-37); BILIRUBIN,TOTAL 0.3 mg/dL (0.1-1.0); CALCIUM, TOTAL 8.7 mg/dL (8.8-10.5); CARBON DIOXIDE 29 mmol/L (22-29); CHLORIDE 98 mmol/L (98-107); CHOL/HDL RATIO 3.4 (3.9-5.7); CHOLESTEROL 117 mg/dL (131-200); CREATININE 0.57 mg/dL (0.60-1.30); GLOMERULAR FILTR. RATE CALC > 60 mL/min (>60); GLUCOSE,RANDOM 306 mg/dL (70-110); HCG,QUANTITATIVE 2 mIU/mL (0-6); HDL CHOLESTEROL 34 mg/dL (40-60); LDL CHOL (CALC.) 66 mg/dL (0-130); POTASSIUM 3.8 mmol/L (3.5-5.1); SODIUM SERUM 134 mmol/L (136-145); TOTAL PROTEIN, SERUM 7.2 g/dL (6.4-8.2); TRIGLYCERIDES 84 mg/dL (15-150); UREA NITROGEN, BLOOD 10 mg/dL (7-18)
[2019-05-03] MEDS: LISINOPRIL 10 MG TABLET PO SCH (08:31)
[2019-05-03] MEDS: ATORVASTATIN CALCIUM 10 MG TABLET PO SCH (08:31)
[2019-05-03] MEDS: DULoxetine HCL 60 MG CAPSULE PO SCH (08:31)
[2019-05-03] MEDS: GABAPENTIN 300 MG CAPSULE PO SCH ×3 (08:31→16:33)
[2019-05-03] MEDS: NYSTATIN 15 GM POWDER BOTTLE TP SCH ×2 (08:32→16:33)
[2019-05-03] MEDS: CHOLECALCIFEROL (VIT D3) 5,000 UNITS CAPSULE PO SCH (08:32)
[2019-05-03 08:35] VITALS: BP 137/94
[2019-05-03 12:56] LABS: GLUCOMETER DEV NAME(LOC) BV2X.; GLUCOSE,POINT OF CARE 335 MG/DL (70-110)
[2019-05-03 16:02] VITALS: BP 110/65
[2019-05-03 16:32] LABS: GLUCOMETER DEV NAME(LOC) BV2X.; GLUCOSE,POINT OF CARE 327 MG/DL (70-110)
[2019-05-03 20:51] LABS: GLUCOMETER DEV NAME(LOC) BV2X.; GLUCOSE,POINT OF CARE 374 MG/DL (70-110)
[2019-05-03 20:57] VITALS: BP 122/78
[2019-05-03] MEDS: ROPINIRole HCL 1 MG TABLET PO SCH (20:58)
[2019-05-03] MEDS: METOPROLOL TARTRATE 25 MG TABLET PO SCH (20:58)
[2019-05-03] MEDS ORDERED: ROPINIRole HCL 1 MG TABLET PO SCH (21:00)
[2019-05-03] MEDS: INSULIN GLARGINE,HUM.REC.ANLOG 100 UNITS/ML SQ SCH (21:57)
[2019-05-04 03:51] VITALS: BP 120/81
[2019-05-04 06:26] LABS: GLUCOMETER DEV NAME(LOC) BV2X.; GLUCOSE,POINT OF CARE 312 MG/DL (70-110)
[2019-05-04] MEDS: MetFORMIN HCL 500 MG TABLET PO SCH ×2 (07:18→16:00)
[2019-05-04] MEDS: INSULIN LISPRO 100 UNITS/ML SQ PRN ×4 (07:19→21:15)
[2019-05-04 08:12] VITALS: BP 133/80
[2019-05-04] MEDS: GABAPENTIN 300 MG CAPSULE PO SCH ×3 (08:31→16:00)
[2019-05-04] MEDS: DULoxetine HCL 60 MG CAPSULE PO SCH (08:31)
[2019-05-04] MEDS: LISINOPRIL 10 MG TABLET PO SCH (08:31)
[2019-05-04] MEDS: ATORVASTATIN CALCIUM 10 MG TABLET PO SCH (08:31)
[2019-05-04] MEDS: CHOLECALCIFEROL (VIT D3) 5,000 UNITS CAPSULE PO SCH (08:31)
[2019-05-04] MEDS: NYSTATIN 15 GM POWDER BOTTLE TP SCH ×2 (08:33→16:58)
[2019-05-04 11:51] LABS: GLUCOMETER DEV NAME(LOC) BV2X.; GLUCOSE,POINT OF CARE 313 MG/DL (70-110)
[2019-05-04 16:03] VITALS: BP 115/67
[2019-05-04 17:12] LABS: GLUCOMETER DEV NAME(LOC) BV2X.; GLUCOSE,POINT OF CARE 392 MG/DL (70-110)
[2019-05-04] MEDS: METOPROLOL TARTRATE 25 MG TABLET PO SCH (20:15)
[2019-05-04] MEDS: ROPINIRole HCL 1 MG TABLET PO SCH (20:15)
[2019-05-04] MEDS: INSULIN GLARGINE,HUM.REC.ANLOG 100 UNITS/ML SQ SCH (21:11)
[2019-05-04 21:21] LABS: GLUCOMETER DEV NAME(LOC) BV2X.; GLUCOSE,POINT OF CARE 306 MG/DL (70-110)
[2019-05-05 00:57] VITALS: BP 112/73
[2019-05-05 06:27] LABS: GLUCOMETER DEV NAME(LOC) BV2X.; GLUCOSE,POINT OF CARE 296 MG/DL (70-110)
[2019-05-05] MEDS: MetFORMIN HCL 500 MG TABLET PO SCH ×2 (06:38→16:06)
[2019-05-05] MEDS: INSULIN LISPRO 100 UNITS/ML SQ PRN ×3 (06:41→16:48)
[2019-05-05 08:09] VITALS: BP 135/88
[2019-05-05] MEDS: LISINOPRIL 10 MG TABLET PO SCH (08:12)
[2019-05-05] MEDS: DULoxetine HCL 60 MG CAPSULE PO SCH (08:12)
[2019-05-05] MEDS: ATORVASTATIN CALCIUM 10 MG TABLET PO SCH (08:12)
[2019-05-05] MEDS: CHOLECALCIFEROL (VIT D3) 5,000 UNITS CAPSULE PO SCH (08:12)
[2019-05-05] MEDS: GABAPENTIN 300 MG CAPSULE PO SCH ×3 (08:12→16:06)
[2019-05-05] MEDS: NYSTATIN 15 GM POWDER BOTTLE TP SCH ×2 (08:13→16:06)
[2019-05-05 11:25] LABS: GLUCOMETER DEV NAME(LOC) BV2X.; GLUCOSE,POINT OF CARE 348 MG/DL (70-110)
[2019-05-05 16:00] VITALS: BP 122/60
[2019-05-05 16:19] LABS: GLUCOMETER DEV NAME(LOC) BV2X.; GLUCOSE,POINT OF CARE 366 MG/DL (70-110)
[2019-05-05 20:20] LABS: GLUCOMETER DEV NAME(LOC) BV2X.; GLUCOSE,POINT OF CARE 365 MG/DL (70-110)
[2019-05-05] MEDS: INSULIN GLARGINE,HUM.REC.ANLOG 100 UNITS/ML SQ SCH (20:57)
[2019-05-05] MEDS: METOPROLOL TARTRATE 25 MG TABLET PO SCH (21:01)
[2019-05-05] MEDS: ROPINIRole HCL 1 MG TABLET PO SCH (21:02)
[2019-05-06 01:10] VITALS: BP 119/60
[2019-05-06] MEDS: INSULIN LISPRO 100 UNITS/ML SQ PRN ×4 (06:14→20:33)
[2019-05-06 06:21] LABS: GLUCOMETER DEV NAME(LOC) BV2X.; GLUCOSE,POINT OF CARE 300 MG/DL (70-110)
[2019-05-06] MEDS: MetFORMIN HCL 500 MG TABLET PO SCH ×2 (07:13→16:03)
[2019-05-06] MEDS: DULoxetine HCL 60 MG CAPSULE PO SCH (08:19)
[2019-05-06] MEDS: GABAPENTIN 300 MG CAPSULE PO SCH ×3 (08:19→16:03)
[2019-05-06] MEDS: ATORVASTATIN CALCIUM 10 MG TABLET PO SCH (08:19)
[2019-05-06] MEDS: LISINOPRIL 10 MG TABLET PO SCH (08:19)
[2019-05-06] MEDS: CHOLECALCIFEROL (VIT D3) 5,000 UNITS CAPSULE PO SCH (08:20)
[2019-05-06] MEDS: NYSTATIN 15 GM POWDER BOTTLE TP SCH ×2 (08:20→16:09)
[2019-05-06] MEDS: DOCUSATE SODIUM 250 MG CAPSULE PO SCH (08:24)
[2019-05-06 08:39] VITALS: BP 121/78
[2019-05-06 11:16] LABS: GLUCOMETER DEV NAME(LOC) BV2X.; GLUCOSE,POINT OF CARE 409 MG/DL (70-110)
[2019-05-06 16:01] VITALS: BP 119/77
[2019-05-06 16:10] LABS: GLUCOMETER DEV NAME(LOC) BV2X.; GLUCOSE,POINT OF CARE 347 MG/DL (70-110)
[2019-05-06] MEDS: METOPROLOL TARTRATE 25 MG TABLET PO SCH (20:00)
[2019-05-06] MEDS: ROPINIRole HCL 1 MG TABLET PO SCH (20:00)
[2019-05-06] MEDS: INSULIN GLARGINE,HUM.REC.ANLOG 100 UNITS/ML SQ SCH (20:29)
[2019-05-06 20:31] LABS: GLUCOMETER DEV NAME(LOC) BV2X.; GLUCOSE,POINT OF CARE 334 MG/DL (70-110)
[2019-05-07 06:22] LABS: GLUCOMETER DEV NAME(LOC) BV2X.; GLUCOSE,POINT OF CARE 165 MG/DL (70-110)
[2019-05-07] MEDS: MetFORMIN HCL 500 MG TABLET PO SCH ×2 (06:53→16:22)
[2019-05-07] MEDS: INSULIN LISPRO 100 UNITS/ML SQ PRN ×4 (06:55→21:29)
[2019-05-07] MEDS: INSULIN GLARGINE,HUM.REC.ANLOG 100 UNITS/ML SQ SCH ×2 (06:58→21:29)
[2019-05-07 07:22] VITALS: BP 114/72
[2019-05-07 08:15] VITALS: BP 122/78
[2019-05-07] MEDS: NYSTATIN 15 GM POWDER BOTTLE TP SCH (08:20)
[2019-05-07] MEDS: GABAPENTIN 300 MG CAPSULE PO SCH ×3 (08:20→16:22)
[2019-05-07] MEDS: CHOLECALCIFEROL (VIT D3) 5,000 UNITS CAPSULE PO SCH (08:20)
[2019-05-07] MEDS: DULoxetine HCL 60 MG CAPSULE PO SCH (08:20)
[2019-05-07] MEDS: LISINOPRIL 10 MG TABLET PO SCH (08:20)
[2019-05-07] MEDS: ATORVASTATIN CALCIUM 10 MG TABLET PO SCH (08:20)
[2019-05-07] MEDS: DOCUSATE SODIUM 250 MG CAPSULE PO SCH (09:00)
[2019-05-07] MEDS ORDERED: FLUCONAZOLE 200 MG TABLET PO ONE (10:30)
[2019-05-07 11:26] LABS: GLUCOMETER DEV NAME(LOC) BV2X.; GLUCOSE,POINT OF CARE 326 MG/DL (70-110)
[2019-05-07 16:02] VITALS: BP 118/73
[2019-05-07 16:21] LABS: GLUCOMETER DEV NAME(LOC) BV2X.; GLUCOSE,POINT OF CARE 310 MG/DL (70-110)
[2019-05-07] MEDS: ACETAMINOPHEN 325 MG TABLET PO PRN (17:24)
[2019-05-07] MEDS: NYSTATIN 30 GM CREAM TP SCH (17:25)
[2019-05-07 20:21] LABS: GLUCOMETER DEV NAME(LOC) BV2X.; GLUCOSE,POINT OF CARE 333 MG/DL (70-110)
[2019-05-07] MEDS: METOPROLOL TARTRATE 25 MG TABLET PO SCH (21:22)
[2019-05-07] MEDS: ROPINIRole HCL 1 MG TABLET PO SCH (21:22)
[2019-05-08 01:06] VITALS: BP 102/58
[2019-05-08] MEDS: INSULIN LISPRO 100 UNITS/ML SQ PRN ×3 (06:46→16:25)
[2019-05-08] MEDS: MetFORMIN HCL 500 MG TABLET PO SCH ×2 (06:48→16:25)
[2019-05-08 06:52] LABS: GLUCOMETER DEV NAME(LOC) BV2X.; GLUCOSE,POINT OF CARE 233 MG/DL (70-110)
[2019-05-08] MEDS: INSULIN GLARGINE,HUM.REC.ANLOG 100 UNITS/ML SQ SCH (06:52)
[2019-05-08 08:00] VITALS: BP 142/92
[2019-05-08] MEDS: NYSTATIN 30 GM CREAM TP SCH (08:17)
[2019-05-08] MEDS: DOCUSATE SODIUM 250 MG CAPSULE PO SCH (08:17)
[2019-05-08] MEDS: ATORVASTATIN CALCIUM 10 MG TABLET PO SCH (08:17)
[2019-05-08] MEDS: DULoxetine HCL 60 MG CAPSULE PO SCH (08:17)
[2019-05-08] MEDS: GABAPENTIN 300 MG CAPSULE PO SCH ×3 (08:21→16:25)
[2019-05-08] MEDS: CHOLECALCIFEROL (VIT D3) 5,000 UNITS CAPSULE PO SCH (08:21)
[2019-05-08] MEDS: LISINOPRIL 10 MG TABLET PO SCH (08:22)
[2019-05-08] MEDS: ACETAMINOPHEN 325 MG TABLET PO PRN (09:39)
[2019-05-08 11:41] LABS: GLUCOMETER DEV NAME(LOC) BV2X.; GLUCOSE,POINT OF CARE 251 MG/DL (70-110)
[2019-05-08] MEDS ORDERED: PALI117D IM (13:44)
[2019-05-08] MEDS ORDERED: DULO60CA44 PO (13:44)
[2019-05-08] MEDS ORDERED: GABA-531 PO (13:44)
[2019-05-08] MEDS ORDERED: ROPI1TAB11 PO (13:44)
[2019-05-08 16:02] VITALS: BP 125/73
[2019-05-08 16:16] LABS: GLUCOMETER DEV NAME(LOC) BV2X.; GLUCOSE,POINT OF CARE 337 MG/DL (70-110)
[2019-05-08] MEDS ORDERED: NYST30CR9 TP (16:28)
[2019-05-08] MEDS ORDERED: INSLAN SQ (16:28)
[2019-05-08] MEDS ORDERED: DOCU-342 PO (16:28)
[2019-06-02] MEDS ORDERED: PALIPERIDONE PALMITATE 117 MG/0.75 ML SYRINGE IM SCH (09:00)
== END 2019-05-08 17:30 | disposition home or self-care (01) | DRG 885 ==
LOC: B2X 20:00
PROVIDERS: ADMIT Psychiatry & Neurology Psychiatry; ATTEND Psychiatry & Neurology Psychiatry
DX: F25.1 Schizoaffective disorder, depressive type (principal); E46 Unspecified protein-calorie malnutrition; R32 Unspecified urinary incontinence; E11.9 Type 2 diabetes mellitus without complications; Z79.899 Other long term (current) drug therapy; Z68.31 Body mass index [BMI] 31.0-31.9, adult
CPT/HCPCS: 83036; J1815

== ENCOUNTER 2019-06-03 17:23 | Emergency (ER) | payer MEDICARE, OTHER ==
[~2019-06-03] VITALS: Ht 154.9 cm; Wt 73.6 kg
[~2019-06-03 17:23] MED LIST changes: -ATOM25 PO; +DOCU-342 PO; -MULT-1078 PO; +NYST30CR9 TP; +PALI117D IM
[2019-06-03 17:35] VITALS: BP 139/85
[2019-06-03 17:44] LABS: GLUCOSE,POINT OF CARE 412 MG/DL (70-110)
== END 2019-06-03 19:00 | disposition left against medical advice (07) ==
LOC: EMS 17:30
DX: Z53.21 Procedure and treatment not carried out due to patient leaving prior to being seen by health care provider (principal)

== ENCOUNTER 2019-06-07 17:16 | Inpatient (IN) | payer MEDICARE, MEDICAID ==
[~2019-06-07] VITALS: Ht 154.9 cm; Wt 73.6 kg
[2019-06-07] MEDS ORDERED: GABA-531 PO (17:22)
[2019-06-07] MEDS ORDERED: ROPI1TAB11 PO (17:22)
[2019-06-07] MEDS ORDERED: GuaiFENesin/D-METHORPHAN [SUGAR-FREE] 200-20MG/10 ML SYRUP UDCUP PO PRN (18:00)
[2019-06-07] MEDS ORDERED: PALIPERIDONE 3 MG ER TABLET PO PRN (18:00)
[2019-06-07] MEDS ORDERED: ZOLPIDEM TARTRATE 10 MG TABLET PO PRN (18:00)
[2019-06-07] MEDS ORDERED: LOPERAMIDE HCL 2 MG CAPSULE PO PRN (18:00)
[2019-06-07] MEDS ORDERED: LORazepam 2 MG TABLET PO PRN (18:00)
[2019-06-07] MEDS ORDERED: CYANOCOBALAMIN 1,000 MCG/ML VIAL IM ONE (18:00)
[2019-06-07] MEDS ORDERED: HydrOXYzine PAMOATE 50 MG CAPSULE PO PRN (18:00)
[2019-06-07] MEDS ORDERED: MAGNESIUM HYDROXIDE SUSPENSION 30 ML UDCUP PO PRN (18:00)
[2019-06-07] MEDS ORDERED: PROMETHAZINE HCL 25 MG TABLET PO PRN (18:00)
[2019-06-07] MEDS ORDERED: MAG HYDROX/AL HYDROX/SIMETH ES 30 ML SUSPENSION UDCUP PO PRN (18:00)
[2019-06-07 18:18] VITALS: BP 130/89
[2019-06-07 20:33] VITALS: BP 118/71
[2019-06-07] MEDS: THIAMINE HCL 100 MG TABLET PO SCH (20:37)
[2019-06-07] MEDS: ROPINIRole HCL 1 MG TABLET PO SCH (20:37)
[2019-06-07] MEDS: GABAPENTIN 300 MG CAPSULE PO SCH (20:37)
[2019-06-07] MEDS ORDERED: PALIPERIDONE PALMITATE 234 MG/1.5 ML SYRINGE IM ONE (21:00)
[2019-06-07] MEDS ORDERED: GLUCAGON,HUMAN RECOMBINANT 1 MG VIAL IM PRN (21:00)
[2019-06-07 21:03] LABS: GLUCOMETER DEV NAME(LOC) BV2X.; GLUCOSE,POINT OF CARE 450 MG/DL (70-110)
[2019-06-07] MEDS: INSULIN GLARGINE,HUM.REC.ANLOG 100 UNITS/ML SQ SCH (21:45)
[2019-06-08 01:07] VITALS: BP 114/67
[2019-06-08 06:19] LABS: GLUCOMETER DEV NAME(LOC) BV2X.; GLUCOSE,POINT OF CARE 188 MG/DL (70-110)
[2019-06-08] MEDS: MetFORMIN HCL 500 MG TABLET PO SCH ×2 (06:32→16:36)
[2019-06-08] MEDS: INSULIN LISPRO 100 UNITS/ML SQ PRN ×4 (06:40→20:28)
[2019-06-08] MEDS: GABAPENTIN 300 MG CAPSULE PO SCH ×3 (08:13→16:37)
[2019-06-08] MEDS: MULTIVITAMINS WITH MINERALS, THERAPEUTIC TABLET PO SCH (08:13)
[2019-06-08] MEDS: THIAMINE HCL 100 MG TABLET PO SCH ×2 (08:13→16:37)
[2019-06-08] MEDS: DULoxetine HCL 20 MG CAPSULE PO SCH (08:13)
[2019-06-08] MEDS: ATORVASTATIN CALCIUM 10 MG TABLET PO SCH (08:13)
[2019-06-08] MEDS: DOCUSATE SODIUM 250 MG CAPSULE PO SCH (08:13)
[2019-06-08] MEDS: FOLIC ACID 1 MG TABLET PO SCH (08:13)
[2019-06-08 08:15] VITALS: BP 148/95
[2019-06-08 08:54] LABS: BASOPHILS % (AUTO) 0.8 % (0.0-2.0); EOSINOPHILS % (AUTO) 2.6 % (1.0-6.0); HEMATOCRIT 38.9 % (36-46); HEMOGLOBIN 12.8 g/dL (12.0-16.0); LYMPHOCYTES # (AUTO) 1.3 K/uL (1.0-4.8); LYMPHOCYTES % (AUTO) 22.8 % (22.0-44.0); MEAN CORPUSCULAR HEMOGLOBIN 27.2 pg (26.0-34.0); MEAN CORPUSCULAR VOLUME 82 fL (80-100); MONOCYTES # (AUTO) 0.4 K/uL (0.1-1.0); MONOCYTES % (AUTO) 6.2 % (2.0-9.0); NEUTROPHILS % (AUTO) 67.6 % (40.0-70.0); PLATELET COUNT (AUTO) 381 K/uL (150-450); RED BLOOD CELL COUNT(AUTO) 4.73 MIL/uL (4.00-5.20); RED CELL DISTRIBUTION WIDTH 14.8 % (11.5-14.5)
[2019-06-08 09:17] LABS: ALANINE AMINOTRANSFERASE 24 U/L (12-78); ALBUMIN 3.4 g/dL (3.4-5.0); ALKALINE PHOSPHATASE 116 U/L (46-116); ANION GAP 9 mmol/L (8-16); ASPARTATE AMINOTRANSFERASE 15 U/L (15-37); BILIRUBIN,TOTAL 0.4 mg/dL (0.1-1.0); CALCIUM, TOTAL 8.8 mg/dL (8.8-10.5); CARBON DIOXIDE 28 mmol/L (22-29); CHLORIDE 100 mmol/L (98-107); CHOL/HDL RATIO 3.1 (3.9-5.7); CHOLESTEROL 150 mg/dL (131-200); CREATININE 0.55 mg/dL (0.60-1.30); GLOMERULAR FILTR. RATE CALC > 60 mL/min (>60); GLUCOSE,RANDOM 229 mg/dL (70-110); HDL CHOLESTEROL 49 mg/dL (40-60); LDL CHOL (CALC.) 88 mg/dL (0-130); POTASSIUM 3.6 mmol/L (3.5-5.1); SODIUM SERUM 137 mmol/L (136-145); TOTAL PROTEIN, SERUM 7.7 g/dL (6.4-8.2); TRIGLYCERIDES 67 mg/dL (15-150); UREA NITROGEN, BLOOD 10 mg/dL (7-18)
[2019-06-08 09:37] LABS: FREE T4 (FREE THYROXINE) 1.06 ng/dL (0.76-1.46); THYROID STIMULATING HORMONE 1.66 uIU/mL (0.36-3.74)
[2019-06-08 11:15] LABS: GLUCOMETER DEV NAME(LOC) BV2X.; GLUCOSE,POINT OF CARE 348 MG/DL (70-110)
[2019-06-08 16:04] VITALS: BP 121/90
[2019-06-08 16:20] LABS: GLUCOMETER DEV NAME(LOC) BV2X.; GLUCOSE,POINT OF CARE 300 MG/DL (70-110)
[2019-06-08 20:26] VITALS: BP 118/71
[2019-06-08] MEDS: ROPINIRole HCL 1 MG TABLET PO SCH (20:27)
[2019-06-08] MEDS: METOPROLOL TARTRATE 25 MG TABLET PO SCH (20:27)
[2019-06-08] MEDS: INSULIN GLARGINE,HUM.REC.ANLOG 100 UNITS/ML SQ SCH (20:28)
[2019-06-08 20:37] LABS: GLUCOMETER DEV NAME(LOC) BV2X.; GLUCOSE,POINT OF CARE 315 MG/DL (70-110)
[2019-06-09 02:40] VITALS: BP 136/79
[2019-06-09] MEDS: MetFORMIN HCL 500 MG TABLET PO SCH ×2 (06:40→16:04)
[2019-06-09 06:42] LABS: GLUCOMETER DEV NAME(LOC) BV2X.; GLUCOSE,POINT OF CARE 249 MG/DL (70-110)
[2019-06-09] MEDS: INSULIN LISPRO 100 UNITS/ML SQ PRN ×4 (06:52→21:15)
[2019-06-09] MEDS: MULTIVITAMINS WITH MINERALS, THERAPEUTIC TABLET PO SCH (08:15)
[2019-06-09] MEDS: THIAMINE HCL 100 MG TABLET PO SCH ×2 (08:15→16:04)
[2019-06-09] MEDS: DULoxetine HCL 20 MG CAPSULE PO SCH (08:15)
[2019-06-09] MEDS: ATORVASTATIN CALCIUM 10 MG TABLET PO SCH (08:15)
[2019-06-09] MEDS: GABAPENTIN 300 MG CAPSULE PO SCH (08:15)
[2019-06-09] MEDS: DOCUSATE SODIUM 250 MG CAPSULE PO SCH (08:15)
[2019-06-09] MEDS: FOLIC ACID 1 MG TABLET PO SCH (08:15)
[2019-06-09 08:16] VITALS: BP 138/80
[2019-06-09] MEDS: CHOLECALCIFEROL (VIT D3) 5,000 UNITS CAPSULE PO SCH (08:16)
[2019-06-09 11:33] LABS: GLUCOMETER DEV NAME(LOC) BV2X.; GLUCOSE,POINT OF CARE 256 MG/DL (70-110)
[2019-06-09] MEDS: GABAPENTIN 400 MG CAPSULE PO SCH ×2 (12:16→16:04)
[2019-06-09 16:04] VITALS: BP 119/75
[2019-06-09 16:24] LABS: GLUCOMETER DEV NAME(LOC) BV2X.; GLUCOSE,POINT OF CARE 293 MG/DL (70-110)
[2019-06-09 20:57] LABS: GLUCOMETER DEV NAME(LOC) BV2X.; GLUCOSE,POINT OF CARE 353 MG/DL (70-110)
[2019-06-09] MEDS: METOPROLOL TARTRATE 25 MG TABLET PO SCH (21:13)
[2019-06-09] MEDS: ROPINIRole HCL 1 MG TABLET PO SCH (21:13)
[2019-06-09] MEDS: INSULIN GLARGINE,HUM.REC.ANLOG 100 UNITS/ML SQ SCH (21:16)
[2019-06-10 00:18] VITALS: BP 112/71
[2019-06-10 05:15] VITALS: BP 120/81
[2019-06-10] MEDS: ACETAMINOPHEN 325 MG TABLET PO PRN (05:16)
[2019-06-10] MEDS: MetFORMIN HCL 500 MG TABLET PO SCH ×2 (06:41→16:30)
[2019-06-10] MEDS: INSULIN LISPRO 100 UNITS/ML SQ PRN ×4 (06:45→20:29)
[2019-06-10 06:48] LABS: GLUCOMETER DEV NAME(LOC) BV2X.; GLUCOSE,POINT OF CARE 217 MG/DL (70-110)
[2019-06-10 08:24] VITALS: BP 120/94
[2019-06-10] MEDS: MULTIVITAMINS WITH MINERALS, THERAPEUTIC TABLET PO SCH (08:35)
[2019-06-10] MEDS: THIAMINE HCL 100 MG TABLET PO SCH ×2 (08:35→16:30)
[2019-06-10] MEDS: ATORVASTATIN CALCIUM 10 MG TABLET PO SCH (08:35)
[2019-06-10] MEDS: DULoxetine HCL 20 MG CAPSULE PO SCH (08:36)
[2019-06-10] MEDS: GABAPENTIN 400 MG CAPSULE PO SCH ×3 (08:36→16:30)
[2019-06-10] MEDS: FOLIC ACID 1 MG TABLET PO SCH (08:36)
[2019-06-10] MEDS: DOCUSATE SODIUM 250 MG CAPSULE PO SCH (08:36)
[2019-06-10] MEDS: CHOLECALCIFEROL (VIT D3) 5,000 UNITS CAPSULE PO SCH (08:36)
[2019-06-10 11:19] LABS: GLUCOMETER DEV NAME(LOC) BV2X.; GLUCOSE,POINT OF CARE 382 MG/DL (70-110)
[2019-06-10 16:26] VITALS: BP 120/82
[2019-06-10 18:11] LABS: GLUCOMETER DEV NAME(LOC) BV2X.; GLUCOSE,POINT OF CARE 289 MG/DL (70-110)
[2019-06-10 20:20] LABS: GLUCOMETER DEV NAME(LOC) BV2X.; GLUCOSE,POINT OF CARE 333 MG/DL (70-110)
[2019-06-10 20:21] VITALS: BP 123/78
[2019-06-10] MEDS: METOPROLOL TARTRATE 25 MG TABLET PO SCH (20:23)
[2019-06-10] MEDS: ROPINIRole HCL 1 MG TABLET PO SCH (20:23)
[2019-06-10] MEDS: INSULIN GLARGINE,HUM.REC.ANLOG 100 UNITS/ML SQ SCH (20:30)
[2019-06-11 00:05] VITALS: BP 117/74
[2019-06-11 06:19] LABS: GLUCOMETER DEV NAME(LOC) BV2X.; GLUCOSE,POINT OF CARE 152 MG/DL (70-110)
[2019-06-11] MEDS: INSULIN LISPRO 100 UNITS/ML SQ PRN ×4 (06:41→20:34)
[2019-06-11] MEDS: MetFORMIN HCL 500 MG TABLET PO SCH ×2 (06:42→16:18)
[2019-06-11 08:11] VITALS: BP 136/99
[2019-06-11] MEDS: CHOLECALCIFEROL (VIT D3) 5,000 UNITS CAPSULE PO SCH (08:32)
[2019-06-11] MEDS: THIAMINE HCL 100 MG TABLET PO SCH ×2 (08:32→16:18)
[2019-06-11] MEDS: GABAPENTIN 400 MG CAPSULE PO SCH ×3 (08:32→16:18)
[2019-06-11] MEDS: FOLIC ACID 1 MG TABLET PO SCH (08:32)
[2019-06-11] MEDS: MULTIVITAMINS WITH MINERALS, THERAPEUTIC TABLET PO SCH (08:32)
[2019-06-11] MEDS: DULoxetine HCL 20 MG CAPSULE PO SCH (08:32)
[2019-06-11] MEDS: DOCUSATE SODIUM 250 MG CAPSULE PO SCH (08:32)
[2019-06-11] MEDS: ATORVASTATIN CALCIUM 10 MG TABLET PO SCH (08:32)
[2019-06-11] MEDS ORDERED: PALIPERIDONE PALMITATE 156 MG/ML SYRINGE IM ONE (09:00)
[2019-06-11 11:43] LABS: GLUCOMETER DEV NAME(LOC) BV2X.; GLUCOSE,POINT OF CARE 301 MG/DL (70-110)
[2019-06-11 16:13] VITALS: BP 121/79
[2019-06-11 16:29] LABS: GLUCOMETER DEV NAME(LOC) BV2X.; GLUCOSE,POINT OF CARE 301 MG/DL (70-110)
[2019-06-11] MEDS: ROPINIRole HCL 1 MG TABLET PO SCH (20:28)
[2019-06-11 20:33] LABS: GLUCOMETER DEV NAME(LOC) BV2X.; GLUCOSE,POINT OF CARE 303 MG/DL (70-110)
[2019-06-11] MEDS: INSULIN GLARGINE,HUM.REC.ANLOG 100 UNITS/ML SQ SCH (20:37)
[2019-06-11] MEDS: METOPROLOL TARTRATE 25 MG TABLET PO SCH (21:00)
[2019-06-12 00:15] VITALS: BP 119/60
[2019-06-12] MEDS: INSULIN LISPRO 100 UNITS/ML SQ PRN ×4 (06:24→20:40)
[2019-06-12] MEDS: MetFORMIN HCL 500 MG TABLET PO SCH ×2 (06:24→16:34)
[2019-06-12 06:46] LABS: GLUCOMETER DEV NAME(LOC) BV2X.; GLUCOSE,POINT OF CARE 211 MG/DL (70-110)
[2019-06-12 08:20] VITALS: BP 122/82
[2019-06-12] MEDS: CHOLECALCIFEROL (VIT D3) 5,000 UNITS CAPSULE PO SCH (08:35)
[2019-06-12] MEDS: DULoxetine HCL 20 MG CAPSULE PO SCH (08:35)
[2019-06-12] MEDS: ATORVASTATIN CALCIUM 10 MG TABLET PO SCH (08:35)
[2019-06-12] MEDS: GABAPENTIN 400 MG CAPSULE PO SCH ×3 (08:35→16:34)
[2019-06-12] MEDS: DOCUSATE SODIUM 250 MG CAPSULE PO SCH (08:35)
[2019-06-12] MEDS: FOLIC ACID 1 MG TABLET PO SCH (08:36)
[2019-06-12] MEDS: THIAMINE HCL 100 MG TABLET PO SCH ×2 (08:36→16:34)
[2019-06-12] MEDS: MULTIVITAMINS WITH MINERALS, THERAPEUTIC TABLET PO SCH (08:36)
[2019-06-12 11:41] LABS: GLUCOMETER DEV NAME(LOC) BV2X.; GLUCOSE,POINT OF CARE 310 MG/DL (70-110)
[2019-06-12 16:20] VITALS: BP 125/76
[2019-06-12 16:31] LABS: GLUCOMETER DEV NAME(LOC) BV2X.; GLUCOSE,POINT OF CARE 313 MG/DL (70-110)
[2019-06-12 20:28] LABS: GLUCOMETER DEV NAME(LOC) BV2X.; GLUCOSE,POINT OF CARE 300 MG/DL (70-110)
[2019-06-12 20:29] VITALS: BP 134/83
[2019-06-12] MEDS: ROPINIRole HCL 1 MG TABLET PO SCH (20:30)
[2019-06-12] MEDS: METOPROLOL TARTRATE 25 MG TABLET PO SCH (20:30)
[2019-06-12] MEDS: INSULIN GLARGINE,HUM.REC.ANLOG 100 UNITS/ML SQ SCH (20:40)
[2019-06-13 02:53] VITALS: BP 139/97
[2019-06-13 06:29] LABS: GLUCOMETER DEV NAME(LOC) BV2X.; GLUCOSE,POINT OF CARE 207 MG/DL (70-110)
[2019-06-13] MEDS: INSULIN LISPRO 100 UNITS/ML SQ PRN ×4 (06:53→21:07)
[2019-06-13] MEDS: MetFORMIN HCL 500 MG TABLET PO SCH ×2 (07:02→16:30)
[2019-06-13 08:11] VITALS: BP 140/76
[2019-06-13 08:13] LABS: BASOPHILS % (AUTO) 0.8 % (0.0-2.0); EOSINOPHILS % (AUTO) 1.9 % (1.0-6.0); HEMATOCRIT 38.7 % (36-46); HEMOGLOBIN 13.1 g/dL (12.0-16.0); LYMPHOCYTES # (AUTO) 1.5 K/uL (1.0-4.8); LYMPHOCYTES % (AUTO) 26.6 % (22.0-44.0); MEAN CORPUSCULAR HEMOGLOBIN 28.1 pg (26.0-34.0); MEAN CORPUSCULAR HGB CONC 33.9 G/dL (31.0-37.0); MEAN CORPUSCULAR VOLUME 83 fL (80-100); MONOCYTES # (AUTO) 0.4 K/uL (0.1-1.0); MONOCYTES % (AUTO) 7.4 % (2.0-9.0); NEUTROPHILS # (AUTO) 3.5 K/uL (1.8-7.7); NEUTROPHILS % (AUTO) 63.3 % (40.0-70.0); PLATELET COUNT (AUTO) 374 K/uL (150-450); RED BLOOD CELL COUNT(AUTO) 4.66 MIL/uL (4.00-5.20); RED CELL DISTRIBUTION WIDTH 14.9 % (11.5-14.5)
[2019-06-13 08:48] LABS: ALBUMIN 3.5 g/dL (3.4-5.0); BILIRUBIN,DIRECT 0.1 mg/dL (0.00-0.20); BILIRUBIN,TOTAL 0.2 mg/dL (0.1-1.0); THYROID STIMULATING HORMONE 2.55 uIU/mL (0.36-3.74); TOTAL PROTEIN, SERUM 8.1 g/dL (6.4-8.2)
[2019-06-13] MEDS: CHOLECALCIFEROL (VIT D3) 5,000 UNITS CAPSULE PO SCH (08:56)
[2019-06-13] MEDS: DOCUSATE SODIUM 250 MG CAPSULE PO SCH (09:01)
[2019-06-13] MEDS: MULTIVITAMINS WITH MINERALS, THERAPEUTIC TABLET PO SCH (09:01)
[2019-06-13] MEDS: FOLIC ACID 1 MG TABLET PO SCH (09:02)
[2019-06-13] MEDS: ATORVASTATIN CALCIUM 10 MG TABLET PO SCH (09:02)
[2019-06-13] MEDS: THIAMINE HCL 100 MG TABLET PO SCH ×2 (09:02→16:30)
[2019-06-13] MEDS: GABAPENTIN 400 MG CAPSULE PO SCH ×3 (09:02→16:30)
[2019-06-13] MEDS: DULoxetine HCL 20 MG CAPSULE PO SCH (09:49)
[2019-06-13 11:28] LABS: GLUCOMETER DEV NAME(LOC) BV2X.; GLUCOSE,POINT OF CARE 239 MG/DL (70-110)
[2019-06-13 16:12] VITALS: BP 123/63
[2019-06-13 16:21] LABS: GLUCOMETER DEV NAME(LOC) BV2X.; GLUCOSE,POINT OF CARE 334 MG/DL (70-110)
[2019-06-13 20:25] LABS: GLUCOMETER DEV NAME(LOC) BV2X.; GLUCOSE,POINT OF CARE 313 MG/DL (70-110)
[2019-06-13] MEDS: METOPROLOL TARTRATE 25 MG TABLET PO SCH (20:38)
[2019-06-13] MEDS: ROPINIRole HCL 1 MG TABLET PO SCH (20:39)
[2019-06-13 20:45] VITALS: BP 116/76
[2019-06-13] MEDS: INSULIN GLARGINE,HUM.REC.ANLOG 100 UNITS/ML SQ SCH (21:07)
[2019-06-14 00:57] VITALS: BP 123/77
[2019-06-14 05:15] VITALS: BP 128/80
[2019-06-14] MEDS: ACETAMINOPHEN 325 MG TABLET PO PRN (05:19)
[2019-06-14] MEDS: MetFORMIN HCL 500 MG TABLET PO SCH (06:42)
[2019-06-14 06:43] LABS: GLUCOMETER DEV NAME(LOC) BV2X.; GLUCOSE,POINT OF CARE 267 MG/DL (70-110)
[2019-06-14] MEDS: INSULIN LISPRO 100 UNITS/ML SQ PRN (06:46)
[2019-06-14 08:09] VITALS: BP 108/72
[2019-06-14] MEDS: DULoxetine HCL 20 MG CAPSULE PO SCH (08:49)
[2019-06-14] MEDS: FOLIC ACID 1 MG TABLET PO SCH (08:49)
[2019-06-14] MEDS: GABAPENTIN 400 MG CAPSULE PO SCH (08:49)
[2019-06-14] MEDS: ATORVASTATIN CALCIUM 10 MG TABLET PO SCH (08:49)
[2019-06-14] MEDS: CHOLECALCIFEROL (VIT D3) 5,000 UNITS CAPSULE PO SCH (08:49)
[2019-06-14] MEDS: DOCUSATE SODIUM 250 MG CAPSULE PO SCH (08:49)
[2019-06-14] MEDS: THIAMINE HCL 100 MG TABLET PO SCH (08:49)
[2019-06-14] MEDS: MULTIVITAMINS WITH MINERALS, THERAPEUTIC TABLET PO SCH (08:49)
[2019-06-14] MEDS ORDERED: MULT-1239 PO (09:39)
[2019-06-14] MEDS ORDERED: DULO20CA30 PO (09:39)
[2019-06-14] MEDS ORDERED: FOLI1 PO (09:39)
[2019-06-14] MEDS ORDERED: GABA-533 PO (09:39)
[2019-06-14] MEDS ORDERED: THIA100T67 PO (09:45)
[2019-06-14] MEDS ORDERED: INSLAN SQ (09:47)
== END 2019-06-14 10:45 | disposition home or self-care (01) | DRG 885 ==
LOC: B2X 18:16
PROVIDERS: ADMIT Psychiatry & Neurology Psychiatry; ATTEND Psychiatry & Neurology Psychiatry
DX: F25.0 Schizoaffective disorder, bipolar type (principal); R45.851 Suicidal ideations; F41.9 Anxiety disorder, unspecified; R32 Unspecified urinary incontinence; E11.42 Type 2 diabetes mellitus with diabetic polyneuropathy; Z82.49 Family history of ischemic heart disease and other diseases of the circulatory system; Z91.19 Patient's noncompliance with other medical treatment and regimen; Z83.3 Family history of diabetes mellitus; Z88.1 Allergy status to other antibiotic agents
CPT/HCPCS: 83036; 84439; 84443; 86592; 93005; J1815; J3420

== ENCOUNTER 2019-10-26 13:53 | Inpatient (IN) | payer MEDICARE, MEDICAID ==
[~2019-10-26] VITALS: Ht 162.6 cm; Wt 76.2 kg
[~2019-10-26 13:53] MED LIST changes: +CHOL125C2 PO; -CHOL50004 PO; +DULO20CA30 PO; -DULO60CA44 PO; +FOLI1 PO; -GABA-531 PO; +GABA-533 PO; -LISI-661 PO; +MULT-1239 PO; -NYST30CR9 TP; -PALI117D IM; -ROPI1TAB11 PO; +ROPI1TAB13 PO; +THIA100T67 PO
[2019-10-26] MEDS ORDERED: LORazepam 2 MG/ML VIAL IVP ONE (14:30)
[2019-10-26] MEDS ORDERED: ACETAMINOPHEN 500 MG TABLET PO ONE (14:30)
[2019-10-26] MEDS ORDERED: SODIUM CHLORIDE 0.9% 1,000 ML IV ONE (14:30)
[2019-10-26] MEDS ORDERED: INSULIN REGULAR, HUMAN 100 UNITS/ML IVP ONE (14:30)
[2019-10-26 14:47] LABS: EOSINOPHILS % (AUTO) 2.2 % (1.0-6.0); HEMATOCRIT 35.5 % (36-46); HEMOGLOBIN 11.6 g/dL (12.0-16.0); LYMPHOCYTES # (AUTO) 1.7 K/uL (1.0-4.8); LYMPHOCYTES % (AUTO) 26.8 % (22.0-44.0); MEAN CORPUSCULAR HEMOGLOBIN 27.2 pg (26.0-34.0); MEAN CORPUSCULAR HGB CONC 32.6 G/dL (31.0-37.0); MEAN CORPUSCULAR VOLUME 83 fL (80-100); MONOCYTES # (AUTO) 0.4 K/uL (0.1-1.0); MONOCYTES % (AUTO) 6.5 % (2.0-9.0); NEUTROPHILS # (AUTO) 4.1 K/uL (1.8-7.7); NEUTROPHILS % (AUTO) 63.5 % (40.0-70.0); PLATELET COUNT (AUTO) 359 K/uL (150-450); RED BLOOD CELL COUNT(AUTO) 4.26 MIL/uL (4.00-5.20); RED CELL DISTRIBUTION WIDTH 14.8 % (11.5-14.5)
[2019-10-26 15:04] LABS: GLUCOSE,POINT OF CARE 441 MG/DL (70-110)
[2019-10-26 15:07] LABS: ALANINE AMINOTRANSFERASE 23 U/L (12-78); ALBUMIN 3.3 g/dL (3.4-5.0); ALKALINE PHOSPHATASE 162 U/L (46-116); ANION GAP 8 mmol/L (8-16); ASPARTATE AMINOTRANSFERASE 14 U/L (15-37); BILIRUBIN,TOTAL 0.1 mg/dL (0.1-1.0); CALCIUM, TOTAL 8.6 mg/dL (8.8-10.5); CARBON DIOXIDE 28 mmol/L (22-29); CHLORIDE 97 mmol/L (98-107); CREATININE 0.74 mg/dL (0.60-1.30); GLOMERULAR FILTR. RATE CALC > 60 mL/min (>60); HCG,QUANTITATIVE 1 mIU/mL (0-6); LIPASE 174 U/L (73-393); SODIUM SERUM 133 mmol/L (136-145); UREA NITROGEN, BLOOD 12 mg/dL (7-18)
[2019-10-26 15:14] LABS: GLUCOSE,RANDOM 456 mg/dL (70-110)
[2019-10-26 15:20] LABS: APPEARANCE,URINE CLEAR (CLEAR); BILIRUBIN,URINE NEGATIVE (NEGATIVE); GLUCOSE, URINE (UA) >=1000 mg/dL (NEGATIVE); KETONES,URINE NEGATIVE (NEGATIVE); LEUKOCYTE ESTERASE ,URINE NEGATIVE (NEGATIVE); NITRATE,URINE NEGATIVE (NEGATIVE); OCCULT BLOOD,URINE SMALL (NEGATIVE); PROTEIN,URINE NEGATIVE (NEGATIVE); UROBILINOGEN,URINE 0.2 mg/dL (<=1.0)
[2019-10-26 15:33] LABS: WBC,URINE 0-2 /HPF (0-5)
[2019-10-26 15:34] LABS: BACTERIA,URINE None Seen /HPF (None Seen); SQUAMOUS EPITHELIAL CELL,UR Rare /LPF (None Seen)
[2019-10-26 15:36] LABS: AMPHET/METH SCREEN,URINE NEGATIVE (NEGATIVE); BARBITURATE SCREEN, URINE NEGATIVE (NEGATIVE); BENZODIAZEPINES SCREEN,URINE NEGATIVE (NEGATIVE); CANNABINOID SCREEN,URINE NEGATIVE (NEGATIVE); COCAINE SCREEN,URINE NEGATIVE (NEGATIVE); METHADONE SCREEN, URINE NEGATIVE (NEGATIVE); OPIATE SCREEN,URINE NEGATIVE (NEGATIVE)
[2019-10-26 15:40] LABS: PHENCYCLIDINE SCREEN,URINE NEGATIVE (NEGATIVE)
[2019-10-26] MEDS ORDERED: MAG HYDROX/AL HYDROX/SIMETH ES 30 ML SUSPENSION UDCUP PO PRN (16:45)
[2019-10-26] MEDS ORDERED: ZOLPIDEM TARTRATE 10 MG TABLET PO PRN (16:45)
[2019-10-26] MEDS ORDERED: GuaiFENesin/D-METHORPHAN [SUGAR-FREE] 200-20MG/10 ML SYRUP UDCUP PO PRN (16:45)
[2019-10-26] MEDS ORDERED: PROMETHAZINE HCL 25 MG TABLET PO PRN (16:45)
[2019-10-26] MEDS ORDERED: LOPERAMIDE HCL 2 MG CAPSULE PO PRN (16:45)
[2019-10-26] MEDS ORDERED: HydrOXYzine PAMOATE 50 MG CAPSULE PO PRN (16:45)
[2019-10-26] MEDS ORDERED: MAGNESIUM HYDROXIDE SUSPENSION 30 ML UDCUP PO PRN (16:45)
[2019-10-26] MEDS ORDERED: LORazepam 2 MG TABLET PO PRN (16:45)
[2019-10-26] MEDS ORDERED: ACETAMINOPHEN 325 MG TABLET PO PRN (16:45)
[2019-10-26 17:26] LABS: GLUCOSE,POINT OF CARE 343 MG/DL (70-110)
[2019-10-26] MEDS ORDERED: PALIPERIDONE PALMITATE 234 MG/1.5 ML SYRINGE IM ONE (20:00)
[2019-10-26 20:13] LABS: GLUCOSE,POINT OF CARE 291 MG/DL (70-110)
[2019-10-26] MEDS: THIAMINE HCL 100 MG TABLET PO SCH (20:31)
[2019-10-26] MEDS: GABAPENTIN 300 MG CAPSULE PO SCH (20:31)
[2019-10-26] MEDS: ROPINIRole HCL 1 MG TABLET PO SCH (20:32)
[2019-10-26 20:52] VITALS: BP 153/98
[2019-10-26] MEDS ORDERED: GLUCAGON,HUMAN RECOMBINANT 1 MG VIAL IM PRN (21:00)
[2019-10-26] MEDS ORDERED: INSULIN GLARGINE,HUM.REC.ANLOG 100 UNITS/ML SQ SCH (21:00)
[2019-10-26 21:13] LABS: GLUCOMETER DEV NAME(LOC) 3EX.; GLUCOSE,POINT OF CARE 296 MG/DL (70-110)
[2019-10-26] MEDS: METOPROLOL TARTRATE 25 MG TABLET PO SCH (21:18)
[2019-10-26] MEDS: INSULIN LISPRO 100 UNITS/ML SQ PRN (21:20)
[2019-10-26] MEDS ORDERED: -PHARMACY VACCINE NOTE- MISC ONE (23:30)
[2019-10-26] MEDS ORDERED: INFLUENZA VIRUS VACCINE QVS 2019-20 (3YR+)/PF 60 MCG/0.5 ML SYRINGE IM ONE (23:30)
[2019-10-27 01:00] VITALS: BP 148/92
[2019-10-27 06:03] LABS: GLUCOMETER DEV NAME(LOC) 3E.I 2; GLUCOSE,POINT OF CARE 289 MG/DL (70-110)
[2019-10-27] MEDS: MetFORMIN HCL 500 MG TABLET PO SCH ×2 (07:01→16:43)
[2019-10-27] MEDS: INSULIN LISPRO 100 UNITS/ML SQ PRN ×5 (07:15→20:49)
[2019-10-27 08:00] VITALS: BP 126/67
[2019-10-27] MEDS: GABAPENTIN 300 MG CAPSULE PO SCH ×3 (08:54→16:21)
[2019-10-27] MEDS: THIAMINE HCL 100 MG TABLET PO SCH ×2 (08:54→16:21)
[2019-10-27] MEDS: DULoxetine HCL 20 MG CAPSULE PO SCH (08:54)
[2019-10-27] MEDS: MULTIVITAMINS WITH MINERALS, THERAPEUTIC TABLET PO SCH (08:54)
[2019-10-27] MEDS: FOLIC ACID 1 MG TABLET PO SCH (08:54)
[2019-10-27 11:15] LABS: GLUCOMETER DEV NAME(LOC) 3EX.; GLUCOSE,POINT OF CARE 317 MG/DL (70-110)
[2019-10-27] MEDS ORDERED: DEXTROSE 50%-WATER 25 GM/50 ML SYRINGE IVP PRN (14:00)
[2019-10-27] MEDS: CHOLECALCIFEROL (VIT D3) 5,000 [125 MCG] UNITS CAPSULE PO SCH (15:07)
[2019-10-27 16:55] LABS: GLUCOMETER DEV NAME(LOC) 3EX.; GLUCOSE,POINT OF CARE 302 MG/DL (70-110)
[2019-10-27 19:18] VITALS: BP 139/77
[2019-10-27 20:50] VITALS: BP 131/81
[2019-10-27] MEDS: METOPROLOL TARTRATE 25 MG TABLET PO SCH (20:57)
[2019-10-27] MEDS: ROPINIRole HCL 1 MG TABLET PO SCH (20:58)
[2019-10-27] MEDS ORDERED: INSULIN GLARGINE,HUM.REC.ANLOG 100 UNITS/ML SQ SCH (21:00)
[2019-10-27 21:22] LABS: GLUCOMETER DEV NAME(LOC) 3EX.; GLUCOSE,POINT OF CARE 273 MG/DL (70-110)
[2019-10-28 04:47] VITALS: BP 144/94
[2019-10-28 05:59] LABS: GLUCOMETER DEV NAME(LOC) 3E.I 2; GLUCOSE,POINT OF CARE 221 MG/DL (70-110)
[2019-10-28] MEDS: INSULIN LISPRO 100 UNITS/ML SQ PRN ×4 (06:28→20:48)
[2019-10-28] MEDS: MetFORMIN HCL 500 MG TABLET PO SCH ×2 (06:36→17:04)
[2019-10-28] MEDS: GABAPENTIN 300 MG CAPSULE PO SCH ×3 (09:29→17:03)
[2019-10-28] MEDS: CHOLECALCIFEROL (VIT D3) 5,000 [125 MCG] UNITS CAPSULE PO SCH (09:30)
[2019-10-28] MEDS: DULoxetine HCL 20 MG CAPSULE PO SCH (09:30)
[2019-10-28] MEDS: THIAMINE HCL 100 MG TABLET PO SCH ×2 (09:30→17:02)
[2019-10-28] MEDS: FOLIC ACID 1 MG TABLET PO SCH (09:30)
[2019-10-28] MEDS: MULTIVITAMINS WITH MINERALS, THERAPEUTIC TABLET PO SCH (09:31)
[2019-10-28 10:04] VITALS: BP 149/75
[2019-10-28 11:35] LABS: GLUCOMETER DEV NAME(LOC) 3EX.; GLUCOSE,POINT OF CARE 268 MG/DL (70-110)
[2019-10-28 17:33] LABS: GLUCOMETER DEV NAME(LOC) 3EX.; GLUCOSE,POINT OF CARE 273 MG/DL (70-110)
[2019-10-28 18:16] VITALS: BP 131/79
[2019-10-28] MEDS: INSULIN GLARGINE,HUM.REC.ANLOG 100 UNITS/ML SQ SCH (20:48)
[2019-10-28] MEDS: METOPROLOL TARTRATE 25 MG TABLET PO SCH (20:49)
[2019-10-28] MEDS: ROPINIRole HCL 1 MG TABLET PO SCH (20:49)
[2019-10-28 21:11] LABS: GLUCOMETER DEV NAME(LOC) 3EX.; GLUCOSE,POINT OF CARE 267 MG/DL (70-110)
[2019-10-29 04:35] VITALS: BP 130/73
[2019-10-29 05:31] LABS: GLUCOMETER DEV NAME(LOC) 3E.I 2; GLUCOSE,POINT OF CARE 149 MG/DL (70-110)
[2019-10-29] MEDS: MetFORMIN HCL 500 MG TABLET PO SCH ×2 (06:49→16:45)
[2019-10-29] MEDS: FOLIC ACID 1 MG TABLET PO SCH (07:56)
[2019-10-29] MEDS: GABAPENTIN 300 MG CAPSULE PO SCH ×3 (07:56→16:45)
[2019-10-29] MEDS: THIAMINE HCL 100 MG TABLET PO SCH ×2 (07:56→16:45)
[2019-10-29] MEDS: MULTIVITAMINS WITH MINERALS, THERAPEUTIC TABLET PO SCH (07:56)
[2019-10-29] MEDS: DULoxetine HCL 20 MG CAPSULE PO SCH (07:56)
[2019-10-29] MEDS: CHOLECALCIFEROL (VIT D3) 5,000 [125 MCG] UNITS CAPSULE PO SCH (07:56)
[2019-10-29 10:25] VITALS: BP 130/82
[2019-10-29] MEDS: INSULIN LISPRO 100 UNITS/ML SQ PRN ×3 (11:59→20:58)
[2019-10-29 12:04] LABS: GLUCOMETER DEV NAME(LOC) 3EX.; GLUCOSE,POINT OF CARE 264 MG/DL (70-110)
[2019-10-29 17:49] VITALS: BP 129/88
[2019-10-29] MEDS: ROPINIRole HCL 1 MG TABLET PO SCH (20:51)
[2019-10-29] MEDS: METOPROLOL TARTRATE 25 MG TABLET PO SCH (20:51)
[2019-10-29] MEDS: INSULIN GLARGINE,HUM.REC.ANLOG 100 UNITS/ML SQ SCH (20:57)
[2019-10-30 06:16] LABS: GLUCOMETER DEV NAME(LOC) 3E.I 2; GLUCOSE,POINT OF CARE 218 MG/DL (70-110)
[2019-10-30] MEDS: MetFORMIN HCL 500 MG TABLET PO SCH ×2 (06:39→16:48)
[2019-10-30] MEDS: INSULIN LISPRO 100 UNITS/ML SQ PRN ×4 (06:57→21:13)
[2019-10-30] MEDS ORDERED: PALIPERIDONE PALMITATE 156 MG/ML SYRINGE IM ONE (09:00)
[2019-10-30] MEDS: DULoxetine HCL 20 MG CAPSULE PO SCH (10:02)
[2019-10-30] MEDS: GABAPENTIN 300 MG CAPSULE PO SCH ×3 (10:03→16:26)
[2019-10-30] MEDS: MULTIVITAMINS WITH MINERALS, THERAPEUTIC TABLET PO SCH (10:03)
[2019-10-30] MEDS: FOLIC ACID 1 MG TABLET PO SCH (10:03)
[2019-10-30] MEDS: CHOLECALCIFEROL (VIT D3) 5,000 [125 MCG] UNITS CAPSULE PO SCH (10:04)
[2019-10-30] MEDS: THIAMINE HCL 100 MG TABLET PO SCH ×2 (10:04→16:27)
[2019-10-30 10:46] VITALS: BP 114/76
[2019-10-30 12:48] LABS: GLUCOMETER DEV NAME(LOC) 3EX.; GLUCOSE,POINT OF CARE 227 MG/DL (70-110)
[2019-10-30 16:50] VITALS: BP 129/78
[2019-10-30 21:00] VITALS: BP 117/77
[2019-10-30] MEDS ORDERED: INSULIN GLARGINE,HUM.REC.ANLOG 100 UNITS/ML SQ SCH (21:00)
[2019-10-30] MEDS: METOPROLOL TARTRATE 25 MG TABLET PO SCH (21:04)
[2019-10-30] MEDS: ROPINIRole HCL 1 MG TABLET PO SCH (21:05)
[2019-10-30] MEDS ORDERED: DULO20CA30 PO (21:15)
[2019-10-30] MEDS ORDERED: PALI117D IM (21:15)
[2019-10-30] MEDS ORDERED: GABA-531 PO (21:15)
[2019-10-30] MEDS ORDERED: ROPI1TAB13 PO (21:15)
[2019-10-30 21:16] LABS: GLUCOMETER DEV NAME(LOC) 3EX.; GLUCOSE,POINT OF CARE 265 MG/DL (70-110)
[2019-10-30 21:16] LABS: GLUCOMETER DEV NAME(LOC) 3EX.; GLUCOSE,POINT OF CARE 233 MG/DL (70-110)
[2019-10-31] MEDS: MetFORMIN HCL 500 MG TABLET PO SCH (06:38)
[2019-10-31 06:42] LABS: GLUCOMETER DEV NAME(LOC) 3E.I 2; GLUCOSE,POINT OF CARE 230 MG/DL (70-110)
[2019-10-31] MEDS: INSULIN LISPRO 100 UNITS/ML SQ PRN (06:47)
[2019-10-31 08:00] VITALS: BP 116/72
[2019-10-31] MEDS ORDERED: INSLAN SQ (09:31)
[2019-10-31] MEDS ORDERED: METO25 PO (09:32)
[2019-10-31] MEDS ORDERED: METF-960 PO (09:33)
[2019-10-31] MEDS: FOLIC ACID 1 MG TABLET PO SCH (09:55)
[2019-10-31] MEDS: DULoxetine HCL 20 MG CAPSULE PO SCH (09:55)
[2019-10-31] MEDS: CHOLECALCIFEROL (VIT D3) 5,000 [125 MCG] UNITS CAPSULE PO SCH (09:56)
[2019-10-31] MEDS: THIAMINE HCL 100 MG TABLET PO SCH (09:56)
[2019-10-31] MEDS: MULTIVITAMINS WITH MINERALS, THERAPEUTIC TABLET PO SCH (09:56)
[2019-10-31] MEDS: GABAPENTIN 300 MG CAPSULE PO SCH (09:56)
== END 2019-10-31 11:45 | disposition home or self-care (01) | DRG 885 ==
LOC: EMS 13:56 → 3EX 18:20
PROVIDERS: ADMIT Psychiatry & Neurology Psychiatry; ATTEND Psychiatry & Neurology Psychiatry
DX: F25.9 Schizoaffective disorder, unspecified (principal); E11.65 Type 2 diabetes mellitus with hyperglycemia; I10 Essential (primary) hypertension; E78.00 Pure hypercholesterolemia, unspecified; E55.9 Vitamin D deficiency, unspecified; E11.42 Type 2 diabetes mellitus with diabetic polyneuropathy; E78.5 Hyperlipidemia, unspecified; K59.00 Constipation, unspecified; F41.9 Anxiety disorder, unspecified; D64.9 Anemia, unspecified; Z79.4 Long term (current) use of insulin; Z91.14 Patient's other noncompliance with medication regimen; Z28.21 Immunization not carried out because of patient refusal
CPT/HCPCS: 82948; 83036; 83735; 93005; G0378; J1815; J2060; J7030

== ENCOUNTER 2019-11-26 20:19 | Emergency (ER) | payer MEDICARE, OTHER ==
[~2019-11-26] VITALS: Ht 154.9 cm; Wt 77.3 kg
[~2019-11-26 20:19] MED LIST changes: -ATOR10TA84 PO; -CHOL125C2 PO; -DOCU-342 PO; -FOLI1 PO; +GABA-531 PO; -GABA-533 PO; -MULT-1239 PO; +PALI117D IM; -THIA100T67 PO
[2019-11-26 21:15] VITALS: BP 132/98
[2019-11-26] MEDS ORDERED: LORazepam 1 MG TABLET PO ONE (21:30)
== END 2019-11-26 21:41 | disposition home or self-care (01) ==
LOC: EMS 20:19
DX: F41.9 Anxiety disorder, unspecified (principal); R20.0 Anesthesia of skin; F31.9 Bipolar disorder, unspecified; E11.9 Type 2 diabetes mellitus without complications; E78.00 Pure hypercholesterolemia, unspecified; I10 Essential (primary) hypertension; Z79.4 Long term (current) use of insulin; Z88.1 Allergy status to other antibiotic agents; Z79.84 Long term (current) use of oral hypoglycemic drugs

== ENCOUNTER 2019-12-09 14:54 | Emergency (ER) | payer MEDICARE, OTHER ==
[~2019-12-09] VITALS: Ht 157.5 cm; Wt 75.0 kg
[~2019-12-09 14:54] MED LIST changes: +GABA-1181 PO; +ROPI2 PO
[2019-12-09 15:40] LABS: BASOPHILS % (AUTO) 0.6 % (0.0-2.0); EOSINOPHILS % (AUTO) 0.8 % (1.0-6.0); HEMATOCRIT 38.2 % (36-46); HEMOGLOBIN 12.7 g/dL (12.0-16.0); LYMPHOCYTES # (AUTO) 1.7 K/uL (1.0-4.8); LYMPHOCYTES % (AUTO) 15.5 % (22.0-44.0); MEAN CORPUSCULAR HEMOGLOBIN 27.4 pg (26.0-34.0); MEAN CORPUSCULAR HGB CONC 33.2 G/dL (31.0-37.0); MEAN CORPUSCULAR VOLUME 82 fL (80-100); MONOCYTES # (AUTO) 0.5 K/uL (0.1-1.0); MONOCYTES % (AUTO) 4.7 % (2.0-9.0); NEUTROPHILS # (AUTO) 8.5 K/uL (1.8-7.7); NEUTROPHILS % (AUTO) 78.4 % (40.0-70.0); PLATELET COUNT (AUTO) 423 K/uL (150-450); RED BLOOD CELL COUNT(AUTO) 4.63 MIL/uL (4.00-5.20); RED CELL DISTRIBUTION WIDTH 14.4 % (11.5-14.5)
[2019-12-09 16:01] LABS: ANION GAP 11 mmol/L (8-16); CALCIUM, TOTAL 9.7 mg/dL (8.8-10.5); CARBON DIOXIDE 28 mmol/L (22-29); CHLORIDE 94 mmol/L (98-107); CREATININE 0.74 mg/dL (0.60-1.30); GLOMERULAR FILTR. RATE CALC > 60 mL/min (>60); GLUCOSE,RANDOM 209 mg/dL (70-110); POTASSIUM 3.7 mmol/L (3.5-5.1); SODIUM SERUM 133 mmol/L (136-145); UREA NITROGEN, BLOOD 8 mg/dL (7-18)
[2019-12-09 16:26] LABS: ALANINE AMINOTRANSFERASE 34 U/L (12-78); ALKALINE PHOSPHATASE 139 U/L (46-116); ASPARTATE AMINOTRANSFERASE 15 U/L (15-37); BILIRUBIN,TOTAL 0.3 mg/dL (0.1-1.0); CREATINE KINASE, TOTAL ONLY 191 U/L (26-192); HCG,QUANTITATIVE 3 mIU/mL (0-6); LIPASE 90 U/L (73-393); TOTAL PROTEIN, SERUM 9.2 g/dL (6.4-8.2)
[2019-12-09 16:32] LABS: ALBUMIN 4.3 g/dL (3.4-5.0)
[2019-12-09] MEDS ORDERED: IOVERSOL 350 MG/ML 150 ML VIAL ONE (16:53)
[2019-12-09] MEDS ORDERED: SODIUM CHLORIDE 0.9% 100 ML ONE (16:53)
[2019-12-09 21:00] VITALS: BP 131/80
== END 2019-12-09 22:10 | disposition home or self-care (01) ==
LOC: EMS 14:59
DX: R07.9 Chest pain, unspecified (principal); R11.0 Nausea; F41.9 Anxiety disorder, unspecified; F31.9 Bipolar disorder, unspecified; E11.9 Type 2 diabetes mellitus without complications; E78.00 Pure hypercholesterolemia, unspecified; I10 Essential (primary) hypertension; F25.9 Schizoaffective disorder, unspecified; Z88.0 Allergy status to penicillin; Z79.84 Long term (current) use of oral hypoglycemic drugs; Z79.4 Long term (current) use of insulin
CPT/HCPCS: 36415; 71045; 71275; 74175; 80053; 82550; 83690; 84484; 84702; 85025; 93005; 99285; J7050; Q9967

== ENCOUNTER 2019-12-20 17:21 | Emergency (ER) | payer MEDICARE, OTHER ==
[~2019-12-20] VITALS: Ht 157.5 cm; Wt 77.3 kg
[~2019-12-20 17:21] MED LIST changes: -ROPI2 PO; +ROPI2TAB26 PO
[2019-12-20] MEDS ORDERED: LISI-660 PO (17:27)
[2019-12-20] MEDS ORDERED: GABA-1181 PO (17:27)
[2019-12-20 17:58] LABS: BASOPHILS % (AUTO) 1.1 % (0.0-2.0); EOSINOPHILS % (AUTO) 3.9 % (1.0-6.0); HEMOGLOBIN 11.4 g/dL (12.0-16.0); LYMPHOCYTES # (AUTO) 1.9 K/uL (1.0-4.8); LYMPHOCYTES % (AUTO) 30.4 % (22.0-44.0); MEAN CORPUSCULAR HEMOGLOBIN 26.4 pg (26.0-34.0); MEAN CORPUSCULAR HGB CONC 31.7 G/dL (31.0-37.0); MEAN CORPUSCULAR VOLUME 83 fL (80-100); MONOCYTES # (AUTO) 0.4 K/uL (0.1-1.0); MONOCYTES % (AUTO) 6.1 % (2.0-9.0); NEUTROPHILS # (AUTO) 3.6 K/uL (1.8-7.7); NEUTROPHILS % (AUTO) 58.5 % (40.0-70.0); PLATELET COUNT (AUTO) 392 K/uL (150-450); RED BLOOD CELL COUNT(AUTO) 4.33 MIL/uL (4.00-5.20); RED CELL DISTRIBUTION WIDTH 14.3 % (11.5-14.5)
[2019-12-20] MEDS ORDERED: LORazepam 1 MG TABLET PO ONE (18:30)
[2019-12-20] MEDS ORDERED: HALOPERIDOL 5 MG TABLET PO ONE (18:30)
[2019-12-20 18:32] LABS: ANION GAP 12 mmol/L (8-16); CALCIUM, TOTAL 8.9 mg/dL (8.8-10.5); CARBON DIOXIDE 26 mmol/L (22-29); CHLORIDE 99 mmol/L (98-107); CREATININE 0.59 mg/dL (0.60-1.30); GLOMERULAR FILTR. RATE CALC > 60 mL/min (>60); GLUCOSE,RANDOM 236 mg/dL (70-110); POTASSIUM 3.7 mmol/L (3.5-5.1); SODIUM SERUM 137 mmol/L (136-145); UREA NITROGEN, BLOOD 7 mg/dL (7-18)
[2019-12-20 18:38] LABS: ALANINE AMINOTRANSFERASE 28 U/L (12-78); ALBUMIN 3.5 g/dL (3.4-5.0); ALKALINE PHOSPHATASE 112 U/L (46-116); ASPARTATE AMINOTRANSFERASE 18 U/L (15-37); BILIRUBIN,TOTAL 0.2 mg/dL (0.1-1.0); TOTAL PROTEIN, SERUM 7.4 g/dL (6.4-8.2)
[2019-12-20 18:39] VITALS: BP 149/88
[2019-12-20 20:29] LABS: GLUCOMETER DEV NAME(LOC) AHU.; GLUCOSE,POINT OF CARE 251 MG/DL (70-110)
== END 2019-12-20 19:23 | disposition home or self-care (01) ==
LOC: EMS 17:23
DX: F25.9 Schizoaffective disorder, unspecified (principal); E11.9 Type 2 diabetes mellitus without complications; E78.00 Pure hypercholesterolemia, unspecified; I10 Essential (primary) hypertension; Z79.4 Long term (current) use of insulin; Z79.84 Long term (current) use of oral hypoglycemic drugs; Z88.0 Allergy status to penicillin
CPT/HCPCS: 36415; 80053; 82962; 85025; 99284; G0480

== ENCOUNTER 2019-12-24 10:59 | Emergency (ER) | payer MEDICARE, OTHER ==
[~2019-12-24] VITALS: Ht 157.5 cm; Wt 77.3 kg
[~2019-12-24 10:59] MED LIST changes: -GABA-531 PO; +LISI-660 PO; -METO25 PO; -ROPI2TAB26 PO
[2019-12-24] MEDS ORDERED: ATOR10TA84 PO (11:14)
[2019-12-24 13:15] LABS: BASOPHILS % (AUTO) 0.9 % (0.0-2.0); EOSINOPHILS % (AUTO) 1.3 % (1.0-6.0); HEMATOCRIT 35.6 % (36-46); HEMOGLOBIN 11.8 g/dL (12.0-16.0); LYMPHOCYTES # (AUTO) 1.4 K/uL (1.0-4.8); MEAN CORPUSCULAR HEMOGLOBIN 27.2 pg (26.0-34.0); MEAN CORPUSCULAR HGB CONC 33.2 G/dL (31.0-37.0); MEAN CORPUSCULAR VOLUME 82 fL (80-100); MONOCYTES # (AUTO) 0.5 K/uL (0.1-1.0); MONOCYTES % (AUTO) 6.9 % (2.0-9.0); NEUTROPHILS % (AUTO) 70.9 % (40.0-70.0); PLATELET COUNT (AUTO) 422 K/uL (150-450); RED BLOOD CELL COUNT(AUTO) 4.33 MIL/uL (4.00-5.20); RED CELL DISTRIBUTION WIDTH 14.4 % (11.5-14.5)
[2019-12-24 13:28] LABS: ANION GAP 10 mmol/L (8-16); CALCIUM, TOTAL 9.1 mg/dL (8.8-10.5); CARBON DIOXIDE 29 mmol/L (22-29); CHLORIDE 100 mmol/L (98-107); CREATININE 0.74 mg/dL (0.60-1.30); GLOMERULAR FILTR. RATE CALC > 60 mL/min (>60); GLUCOSE,RANDOM 386 mg/dL (70-110); SODIUM SERUM 139 mmol/L (136-145); UREA NITROGEN, BLOOD 10 mg/dL (7-18)
[2019-12-24 13:34] LABS: ALANINE AMINOTRANSFERASE 37 U/L (12-78); ALBUMIN 3.5 g/dL (3.4-5.0); ALKALINE PHOSPHATASE 139 U/L (46-116); ASPARTATE AMINOTRANSFERASE 23 U/L (15-37); BILIRUBIN,TOTAL 0.2 mg/dL (0.1-1.0); TOTAL PROTEIN, SERUM 7.7 g/dL (6.4-8.2)
[2019-12-24 14:02] VITALS: BP 123/81
== END 2019-12-24 14:11 | disposition home or self-care (01) ==
LOC: EMS 11:09
DX: F32.9 Major depressive disorder, single episode, unspecified (principal); F41.9 Anxiety disorder, unspecified; E11.9 Type 2 diabetes mellitus without complications; E78.00 Pure hypercholesterolemia, unspecified; I10 Essential (primary) hypertension; F25.9 Schizoaffective disorder, unspecified; Z79.84 Long term (current) use of oral hypoglycemic drugs; Z79.4 Long term (current) use of insulin; Z88.1 Allergy status to other antibiotic agents
CPT/HCPCS: 80053; 85025; 99284; G0480

== ENCOUNTER 2019-12-28 09:15 | Inpatient (IN) | payer MEDICARE, MEDICAID ==
[~2019-12-28] VITALS: Ht 157.5 cm; Wt 78.4 kg
[~2019-12-28 09:15] MED LIST changes: +ATOR10TA84 PO
[2019-12-28] MEDS ORDERED: MAG HYDROX/AL HYDROX/SIMETH ES 30 ML SUSPENSION UDCUP PO PRN (10:00)
[2019-12-28] MEDS ORDERED: LORazepam 2 MG TABLET PO PRN (10:00)
[2019-12-28] MEDS ORDERED: TUBERCULIN, PURIFIED PROTEIN DERIVATIVE 5 TU/0.1 ML SYRINGE ID ONE ×2 (10:00→14:45)
[2019-12-28] MEDS ORDERED: PALIPERIDONE 1.5 MG ER TABLET PO PRN (10:00)
[2019-12-28] MEDS ORDERED: GuaiFENesin/D-METHORPHAN [SUGAR-FREE] 200-20MG/10 ML SYRUP UDCUP PO PRN (10:00)
[2019-12-28] MEDS ORDERED: ACETAMINOPHEN 325 MG TABLET PO PRN (10:00)
[2019-12-28] MEDS ORDERED: ZOLPIDEM TARTRATE 10 MG TABLET PO PRN (10:00)
[2019-12-28] MEDS ORDERED: MAGNESIUM HYDROXIDE SUSPENSION 30 ML UDCUP PO PRN (10:00)
[2019-12-28] MEDS ORDERED: PROMETHAZINE HCL 25 MG TABLET PO PRN (10:00)
[2019-12-28] MEDS ORDERED: HydrOXYzine PAMOATE 50 MG CAPSULE PO PRN (10:00)
[2019-12-28] MEDS ORDERED: LOPERAMIDE HCL 2 MG CAPSULE PO PRN (10:00)
[2019-12-28 10:22] VITALS: BP 140/78
[2019-12-28 11:00] VITALS: BP 138/81
[2019-12-28 11:48] LABS: GLUCOMETER DEV NAME(LOC) BV2X.; GLUCOSE,POINT OF CARE 332 MG/DL (70-110)
[2019-12-28] MEDS ORDERED: GABAPENTIN 300 MG CAPSULE PO SCH (13:00)
[2019-12-28] MEDS: GABAPENTIN 300 MG CAPSULE PO SCH ×2 (13:08→16:29)
[2019-12-28] MEDS: INSULIN LISPRO 100 UNITS/ML SQ PRN ×3 (13:27→20:43)
[2019-12-28] MEDS ORDERED: DEXTROSE 50%-WATER 25 GM/50 ML SYRINGE IVP PRN (13:30)
[2019-12-28 16:09] VITALS: BP 142/78
[2019-12-28 16:25] LABS: GLUCOMETER DEV NAME(LOC) BV2X.; GLUCOSE,POINT OF CARE 386 MG/DL (70-110)
[2019-12-28] MEDS: THIAMINE 100 MG TABLET PO SCH (16:29)
[2019-12-28] MEDS: MetFORMIN HCL 500 MG TABLET PO SCH (16:29)
[2019-12-28 20:13] LABS: GLUCOMETER DEV NAME(LOC) BV2X.; GLUCOSE,POINT OF CARE 267 MG/DL (70-110)
[2019-12-28 20:37] VITALS: BP 144/82
[2019-12-28] MEDS ORDERED: ROPINIRole HCL 1 MG TABLET PO SCH ×2 (21:00)
[2019-12-28] MEDS ORDERED: METOPROLOL TARTRATE 25 MG TABLET PO SCH (21:00)
[2019-12-28] MEDS ORDERED: PALIPERIDONE 3 MG ER TABLET PO SCH (21:00)
[2019-12-28] MEDS ORDERED: INSULIN GLARGINE,HUM.REC.ANLOG 100 UNITS/ML SQ SCH (21:00)
[2019-12-29 00:11] VITALS: BP 139/82
[2019-12-29] MEDS ORDERED: GLUCAGON,HUMAN RECOMBINANT 1 MG VIAL IM PRN (04:45)
[2019-12-29 06:02] LABS: GLUCOMETER DEV NAME(LOC) BV2X.; GLUCOSE,POINT OF CARE 194 MG/DL (70-110)
[2019-12-29] MEDS: MetFORMIN HCL 500 MG TABLET PO SCH ×2 (06:23→16:22)
[2019-12-29] MEDS: INSULIN LISPRO 100 UNITS/ML SQ PRN ×3 (06:25→16:27)
[2019-12-29 08:01] VITALS: BP 135/78
[2019-12-29 08:06] LABS: BASOPHILS % (AUTO) 1.1 % (0.0-2.0); EOSINOPHILS % (AUTO) 2.4 % (1.0-6.0); HEMATOCRIT 35.6 % (36-46); HEMOGLOBIN 11.8 g/dL (12.0-16.0); LYMPHOCYTES # (AUTO) 1.7 K/uL (1.0-4.8); LYMPHOCYTES % (AUTO) 32.6 % (22.0-44.0); MEAN CORPUSCULAR HEMOGLOBIN 27.3 pg (26.0-34.0); MEAN CORPUSCULAR HGB CONC 33.1 G/dL (31.0-37.0); MEAN CORPUSCULAR VOLUME 83 fL (80-100); MONOCYTES # (AUTO) 0.3 K/uL (0.1-1.0); MONOCYTES % (AUTO) 6.1 % (2.0-9.0); NEUTROPHILS # (AUTO) 3.1 K/uL (1.8-7.7); NEUTROPHILS % (AUTO) 57.8 % (40.0-70.0); PLATELET COUNT (AUTO) 458 K/uL (150-450); RED BLOOD CELL COUNT(AUTO) 4.32 MIL/uL (4.00-5.20); RED CELL DISTRIBUTION WIDTH 14.3 % (11.5-14.5)
[2019-12-29] MEDS: GABAPENTIN 300 MG CAPSULE PO SCH ×3 (08:15→16:22)
[2019-12-29] MEDS: THIAMINE 100 MG TABLET PO SCH ×2 (08:15→16:22)
[2019-12-29 08:28] LABS: HEMOGLOBIN A1C 11.1 % (3.8-5.6)
[2019-12-29 08:46] LABS: ALANINE AMINOTRANSFERASE 29 U/L (12-78); ALBUMIN 3.6 g/dL (3.4-5.0); ALKALINE PHOSPHATASE 120 U/L (46-116); ANION GAP 11 mmol/L (8-16); ASPARTATE AMINOTRANSFERASE 16 U/L (15-37); BILIRUBIN,TOTAL 0.3 mg/dL (0.1-1.0); CARBON DIOXIDE 26 mmol/L (22-29); CHLORIDE 100 mmol/L (98-107); CHOL/HDL RATIO 3.5 (3.9-5.7); CHOLESTEROL 163 mg/dL (131-200); GLOMERULAR FILTR. RATE CALC > 60 mL/min (>60); GLUCOSE,RANDOM 236 mg/dL (70-110); HDL CHOLESTEROL 46 mg/dL (40-60); LDL CHOL (CALC.) 95 mg/dL (0-130); POTASSIUM 3.9 mmol/L (3.5-5.1); SODIUM SERUM 137 mmol/L (136-145); THYROID STIMULATING HORMONE 3.42 uIU/mL (0.36-3.74); TRIGLYCERIDES 110 mg/dL (15-150); UREA NITROGEN, BLOOD 13 mg/dL (7-18)
[2019-12-29] MEDS ORDERED: LISINOPRIL 5 MG TABLET PO SCH (09:00)
[2019-12-29] MEDS ORDERED: FOLIC ACID 1 MG TABLET PO SCH (09:00)
[2019-12-29] MEDS ORDERED: DULoxetine HCL 20 MG CAPSULE PO SCH ×3 (09:00)
[2019-12-29] MEDS ORDERED: MULTIVITAMINS WITH MINERALS, THERAPEUTIC TABLET PO SCH (09:00)
[2019-12-29 12:15] LABS: GLUCOMETER DEV NAME(LOC) BV2X.; GLUCOSE,POINT OF CARE 293 MG/DL (70-110)
[2019-12-29] MEDS ORDERED: DULO20CA30 PO (14:34)
[2019-12-29] MEDS ORDERED: PALI3TAB14 PO (14:34)
[2019-12-29] MEDS ORDERED: ROPI1TAB46 PO (14:34)
[2019-12-29] MEDS ORDERED: PALI117D IM (14:34)
[2019-12-29] MEDS ORDERED: GABA-1181 PO (14:34)
[2019-12-29] MEDS ORDERED: LISI-660 PO (14:39)
[2019-12-29] MEDS ORDERED: METO25 PO (14:39)
[2019-12-29] MEDS ORDERED: CHOL125C2 PO (14:52)
[2019-12-29] MEDS ORDERED: MAGN64TA13 PO (14:52)
[2019-12-29 16:12] LABS: GLUCOMETER DEV NAME(LOC) BV2X.; GLUCOSE,POINT OF CARE 231 MG/DL (70-110)
[2019-12-29 16:21] VITALS: BP 108/74
[2019-12-30] MEDS ORDERED: MAGNESIUM CHLORIDE 64 MG ER TABLET PO SCH (09:00)
[2019-12-30] MEDS ORDERED: CHOLECALCIFEROL (VIT D3) 5,000 [125 MCG] UNITS CAPSULE PO SCH (09:00)
[2020-01-25] MEDS ORDERED: PALIPERIDONE PALMITATE 117 MG/0.75 ML SYRINGE IM SCH ×2 (09:00)
== END 2019-12-29 21:42 | disposition home or self-care (01) | DRG 885 ==
LOC: B2X 09:52
PROVIDERS: ADMIT Psychiatry & Neurology Psychiatry; ATTEND Psychiatry & Neurology Psychiatry
DX: F25.0 Schizoaffective disorder, bipolar type (principal); R45.851 Suicidal ideations; Z88.1 Allergy status to other antibiotic agents; E11.42 Type 2 diabetes mellitus with diabetic polyneuropathy; Z79.84 Long term (current) use of oral hypoglycemic drugs; Z79.899 Other long term (current) drug therapy; Z91.19 Patient's noncompliance with other medical treatment and regimen; R03.0 Elevated blood-pressure reading, without diagnosis of hypertension
CPT/HCPCS: 83036; 84439; 84443; J1815

== ENCOUNTER 2020-03-10 18:01 | Emergency (ER) | payer MEDICARE, OTHER ==
[~2020-03-10] VITALS: Ht 157.5 cm; Wt 80.5 kg
[~2020-03-10 18:01] MED LIST changes: -ATOR10TA84 PO; +CHOL125C2 PO; +DULO20CA27 PO; -DULO20CA30 PO; +MAGN64TA13 PO; +METO25 PO; +PALI3TAB14 PO; -ROPI1TAB13 PO; +ROPI1TAB46 PO
[2020-03-10] MEDS ORDERED: GLIP5 PO (18:09)
[2020-03-10] MEDS ORDERED: CEPH-581 PO (18:09)
[2020-03-10 19:31] LABS: EOSINOPHILS % (AUTO) 3.1 % (1.0-6.0); HEMATOCRIT 35.6 % (36-46); HEMOGLOBIN 11.4 g/dL (12.0-16.0); LYMPHOCYTES # (AUTO) 1.8 K/uL (1.0-4.8); LYMPHOCYTES % (AUTO) 28.1 % (22.0-44.0); MEAN CORPUSCULAR HEMOGLOBIN 26.2 pg (26.0-34.0); MEAN CORPUSCULAR VOLUME 82 fL (80-100); MONOCYTES # (AUTO) 0.5 K/uL (0.1-1.0); MONOCYTES % (AUTO) 8.4 % (2.0-9.0); NEUTROPHILS # (AUTO) 3.7 K/uL (1.8-7.7); NEUTROPHILS % (AUTO) 58.4 % (40.0-70.0); PLATELET COUNT (AUTO) 406 K/uL (150-450); RED BLOOD CELL COUNT(AUTO) 4.36 MIL/uL (4.00-5.20); RED CELL DISTRIBUTION WIDTH 15.5 % (11.5-14.5)
[2020-03-10 19:41] LABS: ANION GAP 11 mmol/L (8-16); CALCIUM, TOTAL 8.9 mg/dL (8.8-10.5); CARBON DIOXIDE 25 mmol/L (22-29); CHLORIDE 99 mmol/L (98-107); CREATININE 0.67 mg/dL (0.60-1.30); GLOMERULAR FILTR. RATE CALC > 60 mL/min (>60); GLUCOSE,RANDOM 181 mg/dL (70-110); POTASSIUM 3.5 mmol/L (3.5-5.1); SODIUM SERUM 135 mmol/L (136-145); UREA NITROGEN, BLOOD 10 mg/dL (7-18)
[2020-03-10 19:54] LABS: ALANINE AMINOTRANSFERASE 37 U/L (12-78); ALBUMIN 3.8 g/dL (3.4-5.0); ALKALINE PHOSPHATASE 104 U/L (46-116); ASPARTATE AMINOTRANSFERASE 25 U/L (15-37); BILIRUBIN,TOTAL 0.2 mg/dL (0.1-1.0); HCG,QUANTITATIVE 3 mIU/mL (0-6); TOTAL PROTEIN, SERUM 7.5 g/dL (6.4-8.2)
[2020-03-10] MEDS ORDERED: DiphenhydrAMINE HCL 50 MG CAPSULE PO ONE (20:15)
[2020-03-10 20:52] LABS: APPEARANCE,URINE CLEAR (CLEAR); BILIRUBIN,URINE NEGATIVE (NEGATIVE); GLUCOSE, URINE (UA) NEGATIVE (NEGATIVE); KETONES,URINE NEGATIVE (NEGATIVE); LEUKOCYTE ESTERASE ,URINE NEGATIVE (NEGATIVE); NITRATE,URINE NEGATIVE (NEGATIVE); OCCULT BLOOD,URINE NEGATIVE (NEGATIVE); PH,URINE 5.5 (5.0-8.0); PROTEIN,URINE NEGATIVE (NEGATIVE); UROBILINOGEN,URINE 0.2 mg/dL (<=1.0)
[2020-03-10 21:00] LABS: AMPHET/METH SCREEN,URINE NEGATIVE (NEGATIVE); BARBITURATE SCREEN, URINE NEGATIVE (NEGATIVE); BENZODIAZEPINES SCREEN,URINE NEGATIVE (NEGATIVE); CANNABINOID SCREEN,URINE NEGATIVE (NEGATIVE); COCAINE SCREEN,URINE NEGATIVE (NEGATIVE); METHADONE SCREEN, URINE NEGATIVE (NEGATIVE); OPIATE SCREEN,URINE NEGATIVE (NEGATIVE)
[2020-03-10 21:01] LABS: PHENCYCLIDINE SCREEN,URINE NEGATIVE (NEGATIVE)
[2020-03-10 21:04] VITALS: BP 129/76
== END 2020-03-10 21:22 | disposition home or self-care (01) ==
LOC: EMS 18:02
DX: F25.9 Schizoaffective disorder, unspecified (principal); F32.9 Major depressive disorder, single episode, unspecified; F41.9 Anxiety disorder, unspecified; E11.9 Type 2 diabetes mellitus without complications; E78.00 Pure hypercholesterolemia, unspecified; I10 Essential (primary) hypertension; Z88.1 Allergy status to other antibiotic agents; Z79.899 Other long term (current) drug therapy; Z79.84 Long term (current) use of oral hypoglycemic drugs; Z79.4 Long term (current) use of insulin
CPT/HCPCS: 36415; 80053; 80307; 81003; 82962; 84702; 85025; 99284; G0480

== ENCOUNTER 2020-04-27 13:11 | Inpatient (IN) | payer MEDICARE, MEDICAID ==
[~2020-04-27] VITALS: Ht 162.6 cm; Wt 79.9 kg
[~2020-04-27 13:11] MED LIST changes: -CHOL125C2 PO; -MAGN64TA13 PO; -METO25 PO; +OMEG-135 PO
[2020-04-27] MEDS ORDERED: ZOLPIDEM TARTRATE 5 MG TABLET PO PRN (14:00)
[2020-04-27] MEDS ORDERED: LORazepam 0.5 MG TABLET PO PRN (14:00)
[2020-04-27] MEDS ORDERED: ChlorproMAZINE HCL 100 MG TABLET PO PRN (14:00)
[2020-04-27 19:13] VITALS: BP 149/89
[2020-04-27] MEDS ORDERED: INFLUENZA VIRUS VACCINE QVS 2020-21 (6MO+)/PF 60 MCG/0.5 ML SYRINGE IM ONE (19:30)
[2020-04-27] MEDS ORDERED: -PHARMACY VACCINE NOTE- MISC ONE (19:30)
[2020-04-27 19:47] LABS: GLUCOMETER DEV NAME(LOC) BV2X.; GLUCOSE,POINT OF CARE 139 MG/DL (70-110)
[2020-04-27] MEDS ORDERED: GLUCAGON,HUMAN RECOMBINANT 1 MG VIAL IM PRN (20:00)
[2020-04-27] MEDS: METOPROLOL SUCCINATE 25 MG ER TABLET PO SCH (21:24)
[2020-04-28] VITALS: BP 116/61
[2020-04-28 06:31] LABS: GLUCOMETER DEV NAME(LOC) BV2X.; GLUCOSE,POINT OF CARE 251 MG/DL (70-110)
[2020-04-28] MEDS: MetFORMIN HCL 500 MG TABLET PO SCH ×2 (06:48→16:45)
[2020-04-28] MEDS: INSULIN LISPRO 100 UNITS/ML SQ PRN ×4 (06:50→20:30)
[2020-04-28 07:48] LABS: EOSINOPHILS % (AUTO) 3.6 % (1.0-6.0); HEMATOCRIT 40.8 % (36-46); HEMOGLOBIN 13.1 g/dL (12.0-16.0); LYMPHOCYTES # (AUTO) 1.1 K/uL (1.0-4.8); LYMPHOCYTES % (AUTO) 19.2 % (22.0-44.0); MEAN CORPUSCULAR HEMOGLOBIN 26.2 pg (26.0-34.0); MEAN CORPUSCULAR HGB CONC 32.2 G/dL (31.0-37.0); MEAN CORPUSCULAR VOLUME 82 fL (80-100); MONOCYTES # (AUTO) 0.3 K/uL (0.1-1.0); MONOCYTES % (AUTO) 5.5 % (2.0-9.0); NEUTROPHILS # (AUTO) 4.1 K/uL (1.8-7.7); NEUTROPHILS % (AUTO) 70.7 % (40.0-70.0); PLATELET COUNT (AUTO) 394 K/uL (150-450); RED BLOOD CELL COUNT(AUTO) 5.01 MIL/uL (4.00-5.20); RED CELL DISTRIBUTION WIDTH 15.1 % (11.5-14.5)
[2020-04-28 08:10] LABS: ALANINE AMINOTRANSFERASE 38 U/L (12-78); ALBUMIN 3.9 g/dL (3.4-5.0); ALKALINE PHOSPHATASE 132 U/L (46-116); ANION GAP 7 mmol/L (8-16); ASPARTATE AMINOTRANSFERASE 24 U/L (15-37); BILIRUBIN,TOTAL 0.4 mg/dL (0.1-1.0); CALCIUM, TOTAL 9.6 mg/dL (8.8-10.5); CARBON DIOXIDE 29 mmol/L (22-29); CHLORIDE 96 mmol/L (98-107); CHOL/HDL RATIO 3.7 (3.9-5.7); CHOLESTEROL 179 mg/dL (131-200); CREATININE 0.76 mg/dL (0.60-1.30); FREE T4 (FREE THYROXINE) 1.11 ng/dL (0.76-1.46); GLOMERULAR FILTR. RATE CALC > 60 mL/min (>60); GLUCOSE,RANDOM 270 mg/dL (70-110); HCG,QUANTITATIVE 4 mIU/mL (0-6); HDL CHOLESTEROL 48 mg/dL (40-60); LDL CHOL (CALC.) 109 mg/dL (0-130); POTASSIUM 4.1 mmol/L (3.5-5.1); SODIUM SERUM 132 mmol/L (136-145); THYROID STIMULATING HORMONE 1.99 uIU/mL (0.36-3.74); TRIGLYCERIDES 109 mg/dL (15-150); UREA NITROGEN, BLOOD 10 mg/dL (7-18)
[2020-04-28 08:49] VITALS: BP 134/87
[2020-04-28] MEDS: LISINOPRIL 5 MG TABLET PO SCH (08:58)
[2020-04-28] MEDS: DULoxetine HCL 20 MG CAPSULE PO SCH (08:58)
[2020-04-28] MEDS: GABAPENTIN 300 MG CAPSULE PO SCH ×3 (08:58→16:45)
[2020-04-28 11:56] LABS: GLUCOMETER DEV NAME(LOC) BV2X.; GLUCOSE,POINT OF CARE 370 MG/DL (70-110)
[2020-04-28] MEDS ORDERED: ACETAMINOPHEN 325 MG TABLET PO PRN (14:30)
[2020-04-28 16:19] LABS: GLUCOMETER DEV NAME(LOC) BV2X.; GLUCOSE,POINT OF CARE 302 MG/DL (70-110)
[2020-04-28 16:40] VITALS: BP 119/78
[2020-04-28 20:19] LABS: GLUCOMETER DEV NAME(LOC) BV2X.; GLUCOSE,POINT OF CARE 310 MG/DL (70-110)
[2020-04-28 20:26] VITALS: BP 128/79
[2020-04-28] MEDS: METOPROLOL SUCCINATE 25 MG ER TABLET PO SCH (20:27)
[2020-04-28] MEDS ORDERED: ROPINIRole HCL 1 MG TABLET PO SCH (21:00)
[2020-04-28] MEDS ORDERED: INSULIN GLARGINE,HUM.REC.ANLOG 100 UNITS/ML SQ SCH (21:00)
[2020-04-28] MEDS ORDERED: PALIPERIDONE 3 MG ER TABLET PO SCH (21:00)
[2020-04-29 00:03] VITALS: BP 124/76
[2020-04-29] MEDS: MetFORMIN HCL 500 MG TABLET PO SCH ×2 (06:33→16:27)
[2020-04-29] MEDS: INSULIN LISPRO 100 UNITS/ML SQ PRN ×3 (06:35→16:28)
[2020-04-29 06:41] LABS: GLUCOMETER DEV NAME(LOC) BV2X.; GLUCOSE,POINT OF CARE 301 MG/DL (70-110)
[2020-04-29 08:07] VITALS: BP 124/71
[2020-04-29] MEDS: DULoxetine HCL 20 MG CAPSULE PO SCH (10:30)
[2020-04-29] MEDS: LISINOPRIL 5 MG TABLET PO SCH (10:31)
[2020-04-29] MEDS: GABAPENTIN 300 MG CAPSULE PO SCH ×3 (10:31→16:27)
[2020-04-29 11:51] LABS: GLUCOMETER DEV NAME(LOC) BV2X.; GLUCOSE,POINT OF CARE 307 MG/DL (70-110)
[2020-04-29] MEDS ORDERED: PALIPERIDONE 1.5 MG ER TABLET PO PRN (12:00)
[2020-04-29] MEDS ORDERED: PALI3TAB14 PO (15:01)
[2020-04-29] MEDS ORDERED: ROPI1TAB46 PO (15:01)
[2020-04-29] MEDS ORDERED: GABA-1181 PO (15:01)
[2020-04-29] MEDS ORDERED: OMEG-135 PO (15:01)
[2020-04-29] MEDS ORDERED: DULO20CA27 PO (15:01)
[2020-04-29 16:01] VITALS: BP 129/78
[2020-04-29 16:22] LABS: GLUCOMETER DEV NAME(LOC) BV2X.; GLUCOSE,POINT OF CARE 359 MG/DL (70-110)
[2020-04-29] MEDS ORDERED: METO25XL PO (17:03)
== END 2020-04-29 18:15 | disposition home or self-care (01) | DRG 885 ==
LOC: B2X 19:18
PROVIDERS: ADMIT Psychiatry & Neurology Psychiatry; ATTEND Psychiatry & Neurology Psychiatry
DX: F25.9 Schizoaffective disorder, unspecified (principal); R45.851 Suicidal ideations; E78.5 Hyperlipidemia, unspecified; E03.9 Hypothyroidism, unspecified; K21.9 Gastro-esophageal reflux disease without esophagitis; E10.9 Type 1 diabetes mellitus without complications; Z88.0 Allergy status to penicillin; Z91.14 Patient's other noncompliance with medication regimen; Z23 Encounter for immunization; Z79.899 Other long term (current) drug therapy; Z88.8 Allergy status to other drugs, medicaments and biological substances
CPT/HCPCS: 84436; 84439; 84443; 90686; J1815

== ENCOUNTER 2020-04-27 15:07 | Emergency (ER) | payer MEDICARE, MEDICAID ==
[~2020-04-27] VITALS: Ht 157.5 cm; Wt 77.3 kg
[2020-04-27 15:45] LABS: GLUCOSE,POINT OF CARE 318 MG/DL (70-110)
[2020-04-27] MEDS ORDERED: INSULIN REGULAR, HUMAN 100 UNITS/ML SQ ONE (16:00)
[2020-04-27 16:21] LABS: COVID AG,FIA SOURCE NASOPHARYNGEAL
[2020-04-27 17:49] VITALS: BP 144/90
== END 2020-04-27 17:49 | disposition home or self-care (01) ==
LOC: EMS 15:09
DX: Z20.828 Contact with and (suspected) exposure to other viral communicable diseases (principal); F41.9 Anxiety disorder, unspecified; F31.9 Bipolar disorder, unspecified; E11.9 Type 2 diabetes mellitus without complications; E78.00 Pure hypercholesterolemia, unspecified; I10 Essential (primary) hypertension; Z79.4 Long term (current) use of insulin; Z79.899 Other long term (current) drug therapy; Z88.1 Allergy status to other antibiotic agents
CPT/HCPCS: 82962; 87426; 96372; 99283; J1815

== ENCOUNTER 2020-07-27 11:01 | Inpatient (IN) | payer MEDICARE, MEDICAID, SELFPAY ==
[~2020-07-27] VITALS: Ht 157.5 cm; Wt 78.2 kg
[~2020-07-27 11:01] MED LIST changes: -INSLAN SQ; +METO25XL PO; -PALI117D IM
[2020-07-27] MEDS ORDERED: ZOLPIDEM TARTRATE 10 MG TABLET PO PRN (12:45)
[2020-07-27] MEDS ORDERED: ChlorproMAZINE HCL 100 MG TABLET PO PRN (12:45)
[2020-07-27] MEDS: LORazepam 0.5 MG TABLET PO PRN (18:09)
[2020-07-27 18:15] VITALS: BP 132/80
[2020-07-27 18:26] LABS: GLUCOMETER DEV NAME(LOC) BV2X.; GLUCOSE,POINT OF CARE 153 MG/DL (70-110)
[2020-07-27] MEDS ORDERED: GLUCAGON,HUMAN RECOMBINANT 1 MG VIAL IM PRN (19:15)
[2020-07-27] MEDS: GABAPENTIN 300 MG CAPSULE PO SCH (19:40)
[2020-07-27] MEDS: ROPINIRole HCL 1 MG TABLET PO SCH (20:20)
[2020-07-27] MEDS: PALIPERIDONE 3 MG ER TABLET PO SCH (20:20)
[2020-07-27] MEDS: METOPROLOL SUCCINATE 25 MG ER TABLET PO SCH (20:21)
[2020-07-27] MEDS: ACETAMINOPHEN 325 MG TABLET PO PRN (20:21)
[2020-07-27] MEDS: INSULIN LISPRO 100 UNITS/ML SQ PRN (20:40)
[2020-07-27 20:59] LABS: GLUCOMETER DEV NAME(LOC) BV2X.; GLUCOSE,POINT OF CARE 267 MG/DL (70-110)
[2020-07-27] MEDS ORDERED: INSULIN GLARGINE,HUM.REC.ANLOG 100 UNITS/ML SQ SCH (21:00)
[2020-07-28 00:15] VITALS: BP 138/90
[2020-07-28] MEDS: MetFORMIN HCL 500 MG TABLET PO SCH ×2 (05:55→16:40)
[2020-07-28] MEDS: ACETAMINOPHEN 325 MG TABLET PO PRN (06:07)
[2020-07-28 06:11] LABS: GLUCOMETER DEV NAME(LOC) BV2X.; GLUCOSE,POINT OF CARE 292 MG/DL (70-110)
[2020-07-28] MEDS: INSULIN LISPRO 100 UNITS/ML SQ PRN ×4 (06:25→20:57)
[2020-07-28 08:07] VITALS: BP 140/90
[2020-07-28] MEDS: LISINOPRIL 5 MG TABLET PO SCH (08:31)
[2020-07-28] MEDS: DULoxetine HCL 20 MG CAPSULE PO SCH (08:31)
[2020-07-28] MEDS: GABAPENTIN 300 MG CAPSULE PO SCH ×3 (08:31→16:39)
[2020-07-28 11:24] LABS: GLUCOMETER DEV NAME(LOC) BV2X.; GLUCOSE,POINT OF CARE 328 MG/DL (70-110)
[2020-07-28 16:13] VITALS: BP 127/82
[2020-07-28 18:14] LABS: GLUCOMETER DEV NAME(LOC) BV2X.; GLUCOSE,POINT OF CARE 290 MG/DL (70-110)
[2020-07-28] MEDS: ROPINIRole HCL 1 MG TABLET PO SCH (20:32)
[2020-07-28] MEDS: PALIPERIDONE 3 MG ER TABLET PO SCH (20:32)
[2020-07-28] MEDS: METOPROLOL SUCCINATE 25 MG ER TABLET PO SCH (20:34)
[2020-07-28] MEDS: INSULIN GLARGINE,HUM.REC.ANLOG 100 UNITS/ML SQ SCH (20:58)
[2020-07-28 21:26] LABS: GLUCOMETER DEV NAME(LOC) BV2X.; GLUCOSE,POINT OF CARE 310 MG/DL (70-110)
[2020-07-29 05:42] VITALS: BP 134/83
[2020-07-29 06:24] LABS: GLUCOMETER DEV NAME(LOC) BV2X.; GLUCOSE,POINT OF CARE 306 MG/DL (70-110)
[2020-07-29] MEDS: INSULIN LISPRO 100 UNITS/ML SQ PRN ×4 (06:36→20:46)
[2020-07-29] MEDS: MetFORMIN HCL 500 MG TABLET PO SCH ×2 (06:36→16:31)
[2020-07-29 08:14] VITALS: BP 120/80
[2020-07-29] MEDS: LISINOPRIL 5 MG TABLET PO SCH (09:47)
[2020-07-29] MEDS: DULoxetine HCL 20 MG CAPSULE PO SCH (09:47)
[2020-07-29] MEDS: GABAPENTIN 300 MG CAPSULE PO SCH ×3 (09:47→16:32)
[2020-07-29] MEDS: CHOLECALCIFEROL (VIT D3) 5,000 [125 MCG] UNITS CAPSULE PO SCH (09:48)
[2020-07-29 11:45] LABS: GLUCOMETER DEV NAME(LOC) BV2X.; GLUCOSE,POINT OF CARE 266 MG/DL (70-110)
[2020-07-29] MEDS: ACETAMINOPHEN 325 MG TABLET PO PRN (13:03)
[2020-07-29 13:04] VITALS: BP 125/71
[2020-07-29] MEDS: LORazepam 0.5 MG TABLET PO PRN (13:04)
[2020-07-29 16:10] VITALS: BP 120/80
[2020-07-29 16:29] LABS: GLUCOMETER DEV NAME(LOC) BV2X.; GLUCOSE,POINT OF CARE 326 MG/DL (70-110)
[2020-07-29] MEDS ORDERED: ACETAMINOPHEN 325 MG TABLET PO PRN (18:00)
[2020-07-29] MEDS ORDERED: HydrOXYzine PAMOATE 50 MG CAPSULE PO PRN (18:00)
[2020-07-29] MEDS ORDERED: MAG HYDROX/AL HYDROX/SIMETH ES 30 ML SUSPENSION UDCUP PO PRN (18:00)
[2020-07-29] MEDS ORDERED: LOPERAMIDE HCL 2 MG CAPSULE PO PRN (18:00)
[2020-07-29] MEDS ORDERED: PROMETHAZINE HCL 25 MG TABLET PO PRN (18:00)
[2020-07-29] MEDS ORDERED: GuaiFENesin/D-METHORPHAN [SUGAR-FREE] 200-20MG/10 ML SYRUP UDCUP PO PRN (18:00)
[2020-07-29] MEDS ORDERED: MAGNESIUM HYDROXIDE SUSPENSION 30 ML UDCUP PO PRN (18:00)
[2020-07-29 20:20] VITALS: BP 122/72
[2020-07-29 20:38] LABS: GLUCOMETER DEV NAME(LOC) BV2X.; GLUCOSE,POINT OF CARE 284 MG/DL (70-110)
[2020-07-29] MEDS: METOPROLOL SUCCINATE 25 MG ER TABLET PO SCH (20:39)
[2020-07-29] MEDS: ROPINIRole HCL 1 MG TABLET PO SCH (20:39)
[2020-07-29] MEDS: INSULIN GLARGINE,HUM.REC.ANLOG 100 UNITS/ML SQ SCH (20:46)
[2020-07-29] MEDS ORDERED: MELATONIN 5 MG TABLET PO SCH (21:00)
[2020-07-29] MEDS ORDERED: PALIPERIDONE 6 MG ER TABLET PO SCH (21:00)
[2020-07-30 06:16] LABS: GLUCOMETER DEV NAME(LOC) BV2X.; GLUCOSE,POINT OF CARE 297 MG/DL (70-110)
[2020-07-30 06:30] VITALS: BP 108/66
[2020-07-30] MEDS: MetFORMIN HCL 500 MG TABLET PO SCH ×2 (06:41→16:23)
[2020-07-30] MEDS: INSULIN LISPRO 100 UNITS/ML SQ PRN ×3 (06:43→16:31)
[2020-07-30 07:33] LABS: BASOPHILS % (AUTO) 0.9 % (0.0-2.0); EOSINOPHILS % (AUTO) 2.3 % (1.0-6.0); HEMATOCRIT 34.6 % (36-46); HEMOGLOBIN 11.3 g/dL (12.0-16.0); LYMPHOCYTES # (AUTO) 1.6 K/uL (1.0-4.8); LYMPHOCYTES % (AUTO) 21.5 % (22.0-44.0); MEAN CORPUSCULAR HEMOGLOBIN 26.5 pg (26.0-34.0); MEAN CORPUSCULAR HGB CONC 32.6 G/dL (31.0-37.0); MEAN CORPUSCULAR VOLUME 81 fL (80-100); MONOCYTES # (AUTO) 0.4 K/uL (0.1-1.0); MONOCYTES % (AUTO) 5.6 % (2.0-9.0); NEUTROPHILS # (AUTO) 5.2 K/uL (1.8-7.7); NEUTROPHILS % (AUTO) 69.7 % (40.0-70.0); PLATELET COUNT (AUTO) 433 K/uL (150-450); RED BLOOD CELL COUNT(AUTO) 4.25 MIL/uL (4.00-5.20); RED CELL DISTRIBUTION WIDTH 14.8 % (11.5-14.5)
[2020-07-30 07:56] LABS: FREE T4 (FREE THYROXINE) 1.03 ng/dL (0.76-1.46); THYROID STIMULATING HORMONE 2.11 uIU/mL (0.36-3.74)
[2020-07-30 08:14] VITALS: BP 125/73
[2020-07-30] MEDS: THIAMINE 100 MG TABLET PO SCH ×2 (08:56→16:24)
[2020-07-30] MEDS: DULoxetine HCL 20 MG CAPSULE PO SCH (08:57)
[2020-07-30] MEDS: GABAPENTIN 300 MG CAPSULE PO SCH ×3 (08:57→16:24)
[2020-07-30] MEDS: LISINOPRIL 5 MG TABLET PO SCH (08:57)
[2020-07-30] MEDS: CHOLECALCIFEROL (VIT D3) 5,000 [125 MCG] UNITS CAPSULE PO SCH (08:57)
[2020-07-30] MEDS ORDERED: FOLIC ACID 1 MG TABLET PO SCH (09:00)
[2020-07-30] MEDS ORDERED: MULTIVITAMINS WITH MINERALS, THERAPEUTIC TABLET PO SCH (09:00)
[2020-07-30] MEDS ORDERED: OMEGA-3/DHA/EPA/FISH OIL 1,000 MG CAPSULE PO SCH (09:00)
[2020-07-30 12:00] LABS: GLUCOMETER DEV NAME(LOC) BV2X.; GLUCOSE,POINT OF CARE 281 MG/DL (70-110)
[2020-07-30] MEDS ORDERED: ROPI1TAB46 PO (15:43)
[2020-07-30] MEDS ORDERED: DULO20CA27 PO (15:43)
[2020-07-30] MEDS ORDERED: GABA-1181 PO (15:43)
[2020-07-30] MEDS ORDERED: PALI6TAB15 PO (15:43)
[2020-07-30] MEDS ORDERED: OMEG-135 PO (15:43)
[2020-07-30] MEDS ORDERED: MELA5TAB3 PO (15:43)
[2020-07-30 16:20] LABS: GLUCOMETER DEV NAME(LOC) BV2X.; GLUCOSE,POINT OF CARE 298 MG/DL (70-110)
[2020-07-30 16:25] VITALS: BP 120/76
[2020-07-30] MEDS ORDERED: INSULIN GLARGINE,HUM.REC.ANLOG 100 UNITS/ML SQ SCH (21:00)
== END 2020-07-30 17:00 | disposition home or self-care (01) | DRG 885 ==
LOC: B2X 15:14
PROVIDERS: ADMIT Psychiatry & Neurology Psychiatry; ATTEND Psychiatry & Neurology Psychiatry
DX: F25.1 Schizoaffective disorder, depressive type (principal); R45.851 Suicidal ideations; I10 Essential (primary) hypertension; E11.9 Type 2 diabetes mellitus without complications; F41.9 Anxiety disorder, unspecified; Z88.0 Allergy status to penicillin; Z91.19 Patient's noncompliance with other medical treatment and regimen; Z55.9 Problems related to education and literacy, unspecified; Z59.9 Problem related to housing and economic circumstances, unspecified; Z65.3 Problems related to other legal circumstances
CPT/HCPCS: 84436; 84439; 84443; J1815

== ENCOUNTER 2020-07-27 13:34 | Emergency (ER) | payer MEDICARE, OTHER ==
[~2020-07-27] VITALS: Ht 157.5 cm; Wt 77.3 kg
[2020-07-27 15:03] VITALS: BP 173/99
[2020-07-27 15:31] LABS: COVID AG,FIA SOURCE NASOPHARYNGEAL
[2020-07-27 17:16] LABS: GLUCOSE,POINT OF CARE 182 MG/DL (70-110)
== END 2020-07-27 17:08 | disposition short-term general hospital (02) ==
LOC: EMS 13:38
DX: Z20.822 Contact with and (suspected) exposure to COVID-19 (principal); F41.9 Anxiety disorder, unspecified; F31.9 Bipolar disorder, unspecified; E11.9 Type 2 diabetes mellitus without complications; E78.00 Pure hypercholesterolemia, unspecified; I10 Essential (primary) hypertension; F25.9 Schizoaffective disorder, unspecified; Z88.1 Allergy status to other antibiotic agents; Z79.84 Long term (current) use of oral hypoglycemic drugs; Z79.899 Other long term (current) drug therapy
CPT/HCPCS: 87426

== ENCOUNTER 2020-12-26 06:23 | Emergency (ER) | payer MEDICARE, OTHER ==
[~2020-12-26] VITALS: Ht 157.5 cm; Wt 80.0 kg
[~2020-12-26 06:23] MED LIST changes: -LISI-660 PO; +LISI-892 PO; +MELA5TAB3 PO; -PALI3TAB14 PO; +PALI6TAB15 PO
[2020-12-26] MEDS ORDERED: ACETAMINOPHEN 500 MG TABLET PO ONE (06:45)
[2020-12-26 07:06] LABS: BASOPHILS % (AUTO) 1.2 % (0.0-2.0); HEMATOCRIT 37.5 % (36-46); HEMOGLOBIN 12.3 g/dL (12.0-16.0); LYMPHOCYTES % (AUTO) 15.7 % (22.0-44.0); MEAN CORPUSCULAR HEMOGLOBIN 26.8 pg (26.0-34.0); MEAN CORPUSCULAR HGB CONC 32.8 G/dL (31.0-37.0); MEAN CORPUSCULAR VOLUME 82 fL (80-100); MONOCYTES # (AUTO) 0.4 K/uL (0.1-1.0); MONOCYTES % (AUTO) 6.9 % (2.0-9.0); NEUTROPHILS # (AUTO) 4.7 K/uL (1.8-7.7); NEUTROPHILS % (AUTO) 73.2 % (40.0-70.0); PLATELET COUNT (AUTO) 389 K/uL (150-450); RED BLOOD CELL COUNT(AUTO) 4.59 MIL/uL (4.00-5.20)
[2020-12-26 07:14] LABS: ANION GAP 10 mmol/L (8-16); CALCIUM, TOTAL 9.5 mg/dL (8.8-10.5); CARBON DIOXIDE 29 mmol/L (22-29); CHLORIDE 98 mmol/L (98-107); CREATININE 0.77 mg/dL (0.60-1.30); GLOMERULAR FILTR. RATE CALC > 60 mL/min (>60); GLUCOSE,RANDOM 177 mg/dL (70-110); POTASSIUM 3.9 mmol/L (3.5-5.1); SODIUM SERUM 137 mmol/L (136-145); UREA NITROGEN, BLOOD 11 mg/dL (7-18)
[2020-12-26 07:18] VITALS: BP 134/77
[2020-12-26 07:43] LABS: CREATINE KINASE, TOTAL ONLY 165 U/L (26-192)
== END 2020-12-26 08:04 | disposition home or self-care (01) ==
LOC: EMS 06:25
DX: R53.1 Weakness (principal); R51.9 Headache, unspecified; F41.9 Anxiety disorder, unspecified; F31.9 Bipolar disorder, unspecified; E11.9 Type 2 diabetes mellitus without complications; E78.00 Pure hypercholesterolemia, unspecified; I10 Essential (primary) hypertension; Z88.1 Allergy status to other antibiotic agents; Z88.8 Allergy status to other drugs, medicaments and biological substances; Z79.899 Other long term (current) drug therapy; Z79.84 Long term (current) use of oral hypoglycemic drugs
CPT/HCPCS: 70450; 80048; 82550; 82962; 85025; 99284

== ENCOUNTER 2021-05-23 17:30 | Emergency (ER) | payer MEDICARE, MEDICAID ==
[~2021-05-23] VITALS: Ht 157.5 cm; Wt 77.3 kg
[~2021-05-23 17:30] MED LIST changes: -DULO20CA27 PO; +DULO60CA45 PO; -GABA-1181 PO; +GABA-1201 PO; +GLIP10 PO; -LISI-892 PO; -MELA5TAB3 PO; +MELA5TAB40 PO; +METF-1211 PO; -METF-960 PO; -METO25XL PO; +PRAZ2 PO; -ROPI1TAB46 PO; +ROPI2TAB26 PO; +SITA50 PO
[2021-05-23 18:00] LABS: GLUCOSE,POINT OF CARE 201 MG/DL (70-110)
[2021-05-23 18:18] LABS: BASOPHILS % (AUTO) 0.7 % (0.0-2.0); EOSINOPHILS % (AUTO) 2.4 % (1.0-6.0); HEMATOCRIT 34.7 % (36-46); HEMOGLOBIN 11.3 g/dL (12.0-16.0); LYMPHOCYTES # (AUTO) 2.3 K/uL (1.0-4.8); LYMPHOCYTES % (AUTO) 30.1 % (22.0-44.0); MEAN CORPUSCULAR HGB CONC 32.7 G/dL (31.0-37.0); MEAN CORPUSCULAR VOLUME 83 fL (80-100); MONOCYTES # (AUTO) 0.5 K/uL (0.1-1.0); MONOCYTES % (AUTO) 6.1 % (2.0-9.0); NEUTROPHILS # (AUTO) 4.7 K/uL (1.8-7.7); NEUTROPHILS % (AUTO) 60.7 % (40.0-70.0); PLATELET COUNT (AUTO) 393 K/uL (150-450); RED CELL DISTRIBUTION WIDTH 15.3 % (11.5-14.5)
[2021-05-23 18:43] LABS: ANION GAP 9 mmol/L (8-16); CALCIUM, TOTAL 8.8 mg/dL (8.8-10.5); CARBON DIOXIDE 29 mmol/L (22-29); CHLORIDE 102 mmol/L (98-107); CREATININE 0.76 mg/dL (0.60-1.30); GLOMERULAR FILTR. RATE CALC > 60 mL/min (>60); GLUCOSE,RANDOM 211 mg/dL (70-110); POTASSIUM 3.9 mmol/L (3.5-5.1); SODIUM SERUM 140 mmol/L (136-145); UREA NITROGEN, BLOOD 8 mg/dL (7-18)
[2021-05-23 18:49] LABS: ALANINE AMINOTRANSFERASE 38 U/L (12-78); ALBUMIN 3.6 g/dL (3.4-5.0); ALKALINE PHOSPHATASE 114 U/L (46-116); ASPARTATE AMINOTRANSFERASE 27 U/L (15-37); BILIRUBIN,TOTAL 0.2 mg/dL (0.1-1.0); TOTAL PROTEIN, SERUM 7.3 g/dL (6.4-8.2)
[2021-05-23 19:47] VITALS: BP 171/90
== END 2021-05-23 20:43 | disposition home or self-care (01) ==
LOC: EMS 20:38
DX: R07.9 Chest pain, unspecified (principal); R14.0 Abdominal distension (gaseous)
CPT/HCPCS: 71046; 80053; 82962; 84484; 85025; 93005; 99284; 99285; 36415-L1; 36415-TC

== ENCOUNTER 2021-06-07 10:43 | Inpatient (IN) | payer MEDICARE, OTHER ==
[~2021-06-07] VITALS: Ht 157.5 cm; Wt 65.0 kg
[2021-06-07] MEDS ORDERED: ACETAMINOPHEN 500 MG TABLET PO ONE (11:00)
[2021-06-07] MEDS ORDERED: SODIUM CHLORIDE 0.9% 1,000 ML IV ONE (11:00)
[2021-06-07] MEDS ORDERED: DEXAMETHASONE SOD PHOS 4 MG/ML 5 ML VIAL IVP ONE (11:00)
[2021-06-07] MEDS ORDERED: KETOROLAC TROMETHAMINE 30 MG/ML VIAL IVP ONE (11:00)
[2021-06-07] MEDS ORDERED: METOCLOPRAMIDE HCL 5 MG/ML 2 ML VIAL IVP ONE (11:00)
[2021-06-07 11:06] LABS: COVID AG,FIA SOURCE NASOPHARYNGEAL
[2021-06-07 11:30] LABS: BASOPHILS % (AUTO) 1.4 % (0.0-2.0); EOSINOPHILS % (AUTO) 2.5 % (1.0-6.0); HEMATOCRIT 37.9 % (36-46); HEMOGLOBIN 12.2 g/dL (12.0-16.0); LYMPHOCYTES # (AUTO) 1.4 K/uL (1.0-4.8); LYMPHOCYTES % (AUTO) 25.5 % (22.0-44.0); MEAN CORPUSCULAR HGB CONC 32.3 G/dL (31.0-37.0); MEAN CORPUSCULAR VOLUME 84 fL (80-100); MONOCYTES # (AUTO) 0.3 K/uL (0.1-1.0); MONOCYTES % (AUTO) 5.3 % (2.0-9.0); NEUTROPHILS # (AUTO) 3.6 K/uL (1.8-7.7); NEUTROPHILS % (AUTO) 65.3 % (40.0-70.0); PLATELET COUNT (AUTO) 380 K/uL (150-450); RED BLOOD CELL COUNT(AUTO) 4.52 MIL/uL (4.00-5.20); RED CELL DISTRIBUTION WIDTH 15.4 % (11.5-14.5)
[2021-06-07 11:36] LABS: INFLUENZA TYPE A NEGATIVE FOR TYPE A (NEGATIVE); INFLUENZA TYPE B NEGATIVE FOR TYPE B (NEGATIVE)
[2021-06-07 12:27] LABS: ANION GAP 9 mmol/L (8-16); CARBON DIOXIDE 28 mmol/L (22-29); CHLORIDE 102 mmol/L (98-107); CREATININE 0.69 mg/dL (0.60-1.30); GLOMERULAR FILTR. RATE CALC > 60 mL/min (>60); GLUCOSE,RANDOM 199 mg/dL (70-110); LIPASE 104 U/L (73-393); POTASSIUM 3.8 mmol/L (3.5-5.1); SODIUM SERUM 139 mmol/L (136-145); UREA NITROGEN, BLOOD 6 mg/dL (7-18)
[2021-06-07] MEDS ORDERED: ASPIRIN 325 MG TABLET PO ONE (12:30)
[2021-06-07] MEDS ORDERED: MORPHINE SULFATE 2 MG/ML SYRINGE IVP PRN (12:45)
[2021-06-07] MEDS ORDERED: ACETAMINOPHEN 325 MG TABLET PO PRN (12:45)
[2021-06-07] MEDS ORDERED: IPRATROPIUM BROMIDE 0.5 MG/2.5 ML NEB SOLUTION NEB PRN (12:45)
[2021-06-07] MEDS ORDERED: 0.9% SODIUM CHLORIDE 10 ML SYRINGE IVP PRN (12:45)
[2021-06-07] MEDS ORDERED: INSULIN LISPRO 100 UNITS/ML SQ PRN (12:45)
[2021-06-07] MEDS ORDERED: ALBUTEROL SULFATE 2.5 MG/0.5 ML NEB SOLUTION NEB PRN (12:45)
[2021-06-07] MEDS ORDERED: ONDANSETRON HCL 4 MG/2 ML VIAL IVP PRN (12:45)
[2021-06-07] MEDS ORDERED: BISACODYL 10 MG RECTAL RECTAL SUPPOSITORY PR PRN (12:45)
[2021-06-07] MEDS ORDERED: DEXTROSE 50%-WATER 25 GM/50 ML SYRINGE IVP PRN (12:45)
[2021-06-07] MEDS ORDERED: NITROGLYCERIN 0.4 MG SUBLINGUAL TABLET #25 SL PRN (13:00)
[2021-06-07 13:26] LABS: HEMOGLOBIN A1C 9.5 % (3.8-5.6)
[2021-06-07] MEDS: PANTOPRAZOLE SODIUM 40 MG DR TABLET PO SCH (13:33)
[2021-06-07 13:58] VITALS: BP 142/96
[2021-06-07] MEDS ORDERED: BARIUM SULFATE 0.1% SUSPENSION 450 ML BOTTLE ONE (14:12)
[2021-06-07 14:34] LABS: APPEARANCE,URINE CLEAR (CLEAR); BILIRUBIN,URINE NEGATIVE (NEGATIVE); GLUCOSE, URINE (UA) NEGATIVE (NEGATIVE); KETONES,URINE NEGATIVE (NEGATIVE); LEUKOCYTE ESTERASE ,URINE NEGATIVE (NEGATIVE); NITRATE,URINE NEGATIVE (NEGATIVE); OCCULT BLOOD,URINE NEGATIVE (NEGATIVE); PROTEIN,URINE NEGATIVE (NEGATIVE); UROBILINOGEN,URINE 0.2 mg/dL (<=1.0)
[2021-06-07 14:35] LABS: BACTERIA,URINE None Seen /HPF (None Seen); RBC,URINE None Seen /HPF (0-2); WBC,URINE None Seen /HPF (0-5)
[2021-06-07 15:51] VITALS: BP 155/89
[2021-06-07] MEDS: GABAPENTIN 300 MG CAPSULE PO SCH ×2 (17:10→21:10)
[2021-06-07] MEDS: HEPARIN SODIUM,PORCINE 5,000 UNITS/ML VIAL SQ SCH ×2 (17:11→23:39)
[2021-06-07 18:41] LABS: GLUCOMETER DEV NAME(LOC) 5S.1; GLUCOSE,POINT OF CARE 380 MG/DL (70-110)
[2021-06-07 19:20] VITALS: BP 149/85
[2021-06-07] MEDS ORDERED: MELATONIN 5 MG TABLET PO SCH (21:00)
[2021-06-07] MEDS ORDERED: LISINOPRIL 5 MG TABLET PO SCH (21:00)
[2021-06-07] MEDS: DOCUSATE SODIUM 100 MG CAPSULE PO SCH (21:00)
[2021-06-07] MEDS ORDERED: PALIPERIDONE 6 MG ER TABLET PO SCH (21:00)
[2021-06-07] MEDS ORDERED: METOPROLOL TARTRATE 25 MG TABLET PO SCH (21:00)
[2021-06-07] MEDS: METOPROLOL TARTRATE 25 MG TABLET PO SCH (21:10)
[2021-06-07] MEDS: LISINOPRIL 10 MG TABLET PO SCH (21:10)
[2021-06-07] MEDS ORDERED: INSULIN GLARGINE,HUM.REC.ANLOG 100 UNITS/ML SQ SCH (22:45)
[2021-06-07] MEDS ORDERED: INSULIN LISPRO 100 UNITS/ML SQ ONE (22:45)
[2021-06-07 23:47] VITALS: BP 134/66
[2021-06-08 03:59] VITALS: BP 154/95
[2021-06-08] MEDS ORDERED: DEXTROSE 50%-WATER 25 GM/50 ML SYRINGE IVP PRN (06:00)
[2021-06-08] MEDS: INSULIN LISPRO 100 UNITS/ML SQ PRN ×2 (06:03→12:05)
[2021-06-08 06:42] LABS: BASOPHILS % (AUTO) 0.1 % (0.0-2.0); EOSINOPHILS % (AUTO) 0 % (1.0-6.0); HEMATOCRIT 35.9 % (36-46); LYMPHOCYTES # (AUTO) 1.3 K/uL (1.0-4.8); LYMPHOCYTES % (AUTO) 12.2 % (22.0-44.0); MEAN CORPUSCULAR HEMOGLOBIN 27.7 pg (26.0-34.0); MEAN CORPUSCULAR HGB CONC 33.3 G/dL (31.0-37.0); MEAN CORPUSCULAR VOLUME 83 fL (80-100); MONOCYTES # (AUTO) 0.5 K/uL (0.1-1.0); MONOCYTES % (AUTO) 4.9 % (2.0-9.0); NEUTROPHILS # (AUTO) 8.7 K/uL (1.8-7.7); NEUTROPHILS % (AUTO) 82.8 % (40.0-70.0); PLATELET COUNT (AUTO) 443 K/uL (150-450); RED BLOOD CELL COUNT(AUTO) 4.33 MIL/uL (4.00-5.20); RED CELL DISTRIBUTION WIDTH 15.8 % (11.5-14.5)
[2021-06-08 06:47] LABS: ALANINE AMINOTRANSFERASE 37 U/L (12-78); ALBUMIN 3.5 g/dL (3.4-5.0); ALKALINE PHOSPHATASE 121 U/L (46-116); ANION GAP 10 mmol/L (8-16); ASPARTATE AMINOTRANSFERASE 20 U/L (15-37); BILIRUBIN,TOTAL 0.3 mg/dL (0.1-1.0); CALCIUM, TOTAL 9.4 mg/dL (8.8-10.5); CARBON DIOXIDE 28 mmol/L (22-29); CHLORIDE 98 mmol/L (98-107); CHOL/HDL RATIO 2.7 (3.9-5.7); CHOLESTEROL 152 mg/dL (131-200); CREATININE 0.81 mg/dL (0.60-1.30); GLOMERULAR FILTR. RATE CALC > 60 mL/min (>60); GLUCOSE,RANDOM 317 mg/dL (70-110); HDL CHOLESTEROL 57 mg/dL (40-60); LDL CHOL (CALC.) 79 mg/dL (0-130); POTASSIUM 4.1 mmol/L (3.5-5.1); SODIUM SERUM 136 mmol/L (136-145); TOTAL PROTEIN, SERUM 7.7 g/dL (6.4-8.2); TRIGLYCERIDES 78 mg/dL (15-150); UREA NITROGEN, BLOOD 12 mg/dL (7-18)
[2021-06-08 07:39] VITALS: BP 142/80
[2021-06-08] MEDS: DOCUSATE SODIUM 100 MG CAPSULE PO SCH (09:00)
[2021-06-08] MEDS ORDERED: DULoxetine HCL 60 MG CAPSULE PO SCH (09:00)
[2021-06-08] MEDS ORDERED: OMEGA-3/DHA/EPA/FISH OIL 1,000 MG CAPSULE PO SCH (09:00)
[2021-06-08] MEDS ORDERED: ASPIRIN 81 MG CHEWABLE TABLET PO SCH (09:00)
[2021-06-08] MEDS: HEPARIN SODIUM,PORCINE 5,000 UNITS/ML VIAL SQ SCH (09:37)
[2021-06-08] MEDS: METOPROLOL TARTRATE 25 MG TABLET PO SCH (09:38)
[2021-06-08] MEDS: LISINOPRIL 10 MG TABLET PO SCH (09:38)
[2021-06-08] MEDS: PANTOPRAZOLE SODIUM 40 MG DR TABLET PO SCH (09:38)
[2021-06-08] MEDS: GABAPENTIN 300 MG CAPSULE PO SCH (09:38)
[2021-06-08 11:09] VITALS: BP 139/60
[2021-06-08 11:52] VITALS: BP 155/82
[2021-06-08 12:04] LABS: GLUCOMETER DEV NAME(LOC) 5N.3; GLUCOSE,POINT OF CARE 260 MG/DL (70-110)
[2021-06-08 12:04] LABS: GLUCOMETER DEV NAME(LOC) 5N.3; GLUCOSE,POINT OF CARE 296 MG/DL (70-110)
[2021-06-08 12:04] LABS: GLUCOMETER DEV NAME(LOC) 5N.3; GLUCOSE,POINT OF CARE 428 MG/DL (70-110)
[2021-06-08 12:04] LABS: GLUCOMETER DEV NAME(LOC) 5N.3; GLUCOSE,POINT OF CARE 344 MG/DL (70-110)
[2021-06-08] MEDS ORDERED: GLIP10 PO (12:32)
[2021-06-08] MEDS ORDERED: METO25 PO (12:32)
[2021-06-08] MEDS ORDERED: LISI-893 PO (12:32)
[2021-06-08] MEDS ORDERED: PRAZ2 PO (12:33)
[2021-06-08] MEDS ORDERED: SITA50 PO (12:33)
[2021-06-08] MEDS ORDERED: METF-1211 PO (12:33)
[2021-06-08] MEDS ORDERED: OMEG-136 PO (12:34)
[2021-06-08] MEDS ORDERED: MELA1TAB16 PO (12:34)
[2021-06-08] MEDS ORDERED: PALI6TAB15 PO (12:34)
[2021-06-08] MEDS ORDERED: ROPI2TAB26 PO (12:34)
[2021-06-08] MEDS ORDERED: DULO60CA98 PO (12:35)
[2021-06-08] MEDS ORDERED: GABA-1181 PO (12:35)
[2021-06-08 14:09] LABS: GLUCOMETER DEV NAME(LOC) 5S.1; GLUCOSE,POINT OF CARE 361 MG/DL (70-110)
== END 2021-06-08 13:20 | disposition home or self-care (01) | DRG 311 ==
LOC: EMS 10:46 → 5S 12:40
PROVIDERS: ADMIT Internal Medicine; ATTEND Internal Medicine
DX: I20.0 Unstable angina (principal); E11.9 Type 2 diabetes mellitus without complications; E66.01 Morbid (severe) obesity due to excess calories; E78.00 Pure hypercholesterolemia, unspecified; E78.5 Hyperlipidemia, unspecified; F25.9 Schizoaffective disorder, unspecified; F31.9 Bipolar disorder, unspecified; R07.89 Other chest pain; F41.9 Anxiety disorder, unspecified; I11.9 Hypertensive heart disease without heart failure; Z20.822 Contact with and (suspected) exposure to COVID-19; Z79.4 Long term (current) use of insulin; Z79.84 Long term (current) use of oral hypoglycemic drugs; Z79.899 Other long term (current) drug therapy; Z88.8 Allergy status to other drugs, medicaments and biological substances; Z68.26 Body mass index [BMI] 26.0-26.9, adult
CPT/HCPCS: 70450; 71045; 74176; 80048; 80053; 80061; 81001; 82962; 83036; 83690; 84145; 84484; 85025; 87804; 93005; 93306; 99285; G0378; J1100; J1644; J1815; J1885; J2765; J7030; Q9967; 36415-L1; 36415-TC

== ENCOUNTER 2021-06-12 21:40 | Emergency (ER) | payer MEDICARE, OTHER ==
[~2021-06-12] VITALS: Ht 157.5 cm; Wt 72.7 kg
[~2021-06-12 21:40] MED LIST changes: -DULO60CA45 PO; +DULO60CA98 PO; +GABA-1181 PO; -GABA-1201 PO; +LISI-893 PO; +MELA1TAB16 PO; -MELA5TAB40 PO; +METO25 PO
[2021-06-12] MEDS ORDERED: LORazepam 2 MG/ML VIAL IVP ONE (23:00)
[2021-06-12] MEDS ORDERED: LORazepam 1 MG TABLET ONE (23:19)
[2021-06-12] MEDS ORDERED: LORazepam 1 MG TABLET PO ONE (23:30)
[2021-06-13 00:33] VITALS: BP 121/62
== END 2021-06-13 02:00 | disposition home or self-care (01) ==
LOC: EMS 21:43
DX: F41.9 Anxiety disorder, unspecified (principal); F31.9 Bipolar disorder, unspecified; E11.9 Type 2 diabetes mellitus without complications; E78.00 Pure hypercholesterolemia, unspecified; I10 Essential (primary) hypertension; Z79.899 Other long term (current) drug therapy; Z88.0 Allergy status to penicillin; Z79.84 Long term (current) use of oral hypoglycemic drugs
CPT/HCPCS: 99283

== ENCOUNTER 2021-06-22 03:10 | Emergency (ER) | payer MEDICARE, OTHER ==
[~2021-06-22] VITALS: Ht 157.5 cm; Wt 76.4 kg
[2021-06-22] MEDS ORDERED: GABA-1201 PO (04:13)
[2021-06-22] MEDS ORDERED: PALI9TAB15 PO (04:13)
[2021-06-22] MEDS ORDERED: ROPI1TAB46 PO (04:13)
[2021-06-22] MEDS ORDERED: NAPR-1025 PO (04:13)
[2021-06-22] MEDS ORDERED: BUSP5TAB20 PO (04:13)
[2021-06-22] MEDS ORDERED: ASPI-1444 PO (04:13)
[2021-06-22] MEDS ORDERED: PRAZ1 PO (04:13)
[2021-06-22] MEDS: ASPIRIN 81 MG CHEWABLE TABLET PO ONE (04:17)
[2021-06-22 04:24] LABS: BASOPHILS % (AUTO) 1.1 % (0.0-2.0); EOSINOPHILS % (AUTO) 3.2 % (1.0-6.0); HEMATOCRIT 34.6 % (36-46); HEMOGLOBIN 11.3 g/dL (12.0-16.0); LYMPHOCYTES # (AUTO) 1.1 K/uL (1.0-4.8); MEAN CORPUSCULAR HEMOGLOBIN 27.2 pg (26.0-34.0); MEAN CORPUSCULAR HGB CONC 32.5 G/dL (31.0-37.0); MEAN CORPUSCULAR VOLUME 84 fL (80-100); MONOCYTES # (AUTO) 0.4 K/uL (0.1-1.0); MONOCYTES % (AUTO) 6.2 % (2.0-9.0); NEUTROPHILS # (AUTO) 4.1 K/uL (1.8-7.7); NEUTROPHILS % (AUTO) 70.5 % (40.0-70.0); PLATELET COUNT (AUTO) 385 K/uL (150-450); RED BLOOD CELL COUNT(AUTO) 4.15 MIL/uL (4.00-5.20); RED CELL DISTRIBUTION WIDTH 15.9 % (11.5-14.5)
[2021-06-22 04:36] LABS: ANION GAP 5 mmol/L (8-16); CARBON DIOXIDE 29 mmol/L (22-29); CHLORIDE 102 mmol/L (98-107); CREATININE 0.66 mg/dL (0.60-1.30); GLOMERULAR FILTR. RATE CALC > 60 mL/min (>60); GLUCOSE,RANDOM 304 mg/dL (70-110); POTASSIUM 4.3 mmol/L (3.5-5.1); SODIUM SERUM 136 mmol/L (136-145); UREA NITROGEN, BLOOD 8 mg/dL (7-18)
[2021-06-22 04:42] LABS: ALANINE AMINOTRANSFERASE 32 U/L (12-78); ALBUMIN 3.6 g/dL (3.4-5.0); ALKALINE PHOSPHATASE 151 U/L (46-116); ASPARTATE AMINOTRANSFERASE 15 U/L (15-37); BILIRUBIN,TOTAL 0.3 mg/dL (0.1-1.0); TOTAL PROTEIN, SERUM 7.2 g/dL (6.4-8.2)
[2021-06-22 04:59] LABS: COVID AG,FIA SOURCE NASOPHARYNGEAL
[2021-06-22] MEDS: LORazepam 1 MG TABLET PO ONE (06:06)
[2021-06-22 06:12] LABS: GLUCOMETER DEV NAME(LOC) ERT.5; GLUCOSE,POINT OF CARE 251 MG/DL (70-110)
[2021-06-22 08:31] VITALS: BP 138/69
== END 2021-06-22 08:47 | disposition home or self-care (01) ==
LOC: EMS 03:14
DX: R07.89 Other chest pain (principal); I10 Essential (primary) hypertension; E11.9 Type 2 diabetes mellitus without complications; E78.00 Pure hypercholesterolemia, unspecified; F31.9 Bipolar disorder, unspecified; F41.9 Anxiety disorder, unspecified; Z88.1 Allergy status to other antibiotic agents; Z88.8 Allergy status to other drugs, medicaments and biological substances; Z79.899 Other long term (current) drug therapy; Z79.84 Long term (current) use of oral hypoglycemic drugs; Z20.822 Contact with and (suspected) exposure to COVID-19
CPT/HCPCS: 71045; 80053; 82962; 84484; 85025; 93005; 99285; 36415-L1; 36415-TC

== ENCOUNTER 2021-07-06 09:57 | Emergency (ER) | payer MEDICARE, OTHER ==
[~2021-07-06] VITALS: Ht 157.5 cm; Wt 79.0 kg
[~2021-07-06 09:57] MED LIST changes: +ASPI-1444 PO; +BUSP5TAB20 PO; -GABA-1181 PO; +GABA-1201 PO; -MELA1TAB16 PO; +NAPR-1025 PO; -PALI6TAB15 PO; +PALI9TAB15 PO; +PRAZ1 PO; -PRAZ2 PO; +ROPI1TAB46 PO; -ROPI2TAB26 PO; -SITA50 PO
[2021-07-06 10:45] LABS: BASOPHILS % (AUTO) 0.8 % (0.0-2.0); EOSINOPHILS % (AUTO) 1.7 % (1.0-6.0); HEMATOCRIT 36.1 % (36-46); HEMOGLOBIN 11.9 g/dL (12.0-16.0); LYMPHOCYTES # (AUTO) 1.2 K/uL (1.0-4.8); LYMPHOCYTES % (AUTO) 20.8 % (22.0-44.0); MEAN CORPUSCULAR HEMOGLOBIN 27.4 pg (26.0-34.0); MEAN CORPUSCULAR VOLUME 83 fL (80-100); MONOCYTES # (AUTO) 0.3 K/uL (0.1-1.0); MONOCYTES % (AUTO) 6.2 % (2.0-9.0); NEUTROPHILS # (AUTO) 3.9 K/uL (1.8-7.7); NEUTROPHILS % (AUTO) 70.5 % (40.0-70.0); PLATELET COUNT (AUTO) 393 K/uL (150-450); RED BLOOD CELL COUNT(AUTO) 4.34 MIL/uL (4.00-5.20); RED CELL DISTRIBUTION WIDTH 15.2 % (11.5-14.5)
[2021-07-06 10:56] LABS: PROTHROMBIN TIME 11.1 SEC (9.4-11.6)
[2021-07-06] MEDS ORDERED: LORazepam 1 MG TABLET PO ONE (11:00)
[2021-07-06 11:08] LABS: B-TYPE NATRIURETIC PEPTIDE 31 pg/mL (0-100)
[2021-07-06 11:22] LABS: ALANINE AMINOTRANSFERASE 34 U/L (12-78); ALKALINE PHOSPHATASE 118 U/L (46-116); ANION GAP 7 mmol/L (8-16); ASPARTATE AMINOTRANSFERASE 26 U/L (15-37); BILIRUBIN,TOTAL 0.4 mg/dL (0.1-1.0); CALCIUM, TOTAL 9.6 mg/dL (8.8-10.5); CARBON DIOXIDE 29 mmol/L (22-29); CHLORIDE 100 mmol/L (98-107); CREATINE KINASE, TOTAL ONLY 230 U/L (26-192); CREATININE 0.86 mg/dL (0.60-1.30); GLOMERULAR FILTR. RATE CALC > 60 mL/min (>60); POTASSIUM 4.4 mmol/L (3.5-5.1); SODIUM SERUM 136 mmol/L (136-145); TOTAL PROTEIN, SERUM 7.9 g/dL (6.4-8.2); UREA NITROGEN, BLOOD 10 mg/dL (7-18)
[2021-07-06 11:23] LABS: GLUCOSE,RANDOM 444 mg/dL (70-110)
[2021-07-06] MEDS ORDERED: INSLAN SQ (11:41)
[2021-07-06] MEDS ORDERED: INSULIN REGULAR, HUMAN 100 UNITS/ML IVP ONE (11:45)
[2021-07-06] MEDS ORDERED: SODIUM CHLORIDE 0.9% 1,000 ML IV ONE (11:45)
[2021-07-06 12:46] LABS: GLUCOSE,POINT OF CARE 263 MG/DL (70-110)
[2021-07-06 13:41] LABS: GLUCOSE,POINT OF CARE 260 MG/DL (70-110)
[2021-07-06] MEDS ORDERED: METOPROLOL TARTRATE 50 MG TABLET PO ONE (13:45)
[2021-07-06] MEDS ORDERED: LISINOPRIL 10 MG TABLET PO ONE (13:45)
[2021-07-06 14:26] VITALS: BP 164/98
== END 2021-07-06 14:46 | disposition home or self-care (01) ==
LOC: EMS 09:57
DX: F41.9 Anxiety disorder, unspecified (principal); R07.89 Other chest pain; F25.9 Schizoaffective disorder, unspecified; E11.65 Type 2 diabetes mellitus with hyperglycemia; I10 Essential (primary) hypertension; Z88.1 Allergy status to other antibiotic agents; Z88.8 Allergy status to other drugs, medicaments and biological substances; Z79.84 Long term (current) use of oral hypoglycemic drugs; Z79.899 Other long term (current) drug therapy
CPT/HCPCS: 36415; 71045; 80053; 82550; 82962; 83880; 84484; 85025; 85610; 85730; 93005; 96361; 96374; 99285; J1815; J7030

== ENCOUNTER 2021-07-09 09:47 | Emergency (ER) | payer MEDICARE, OTHER ==
[~2021-07-09] VITALS: Ht 157.5 cm; Wt 79.1 kg
[~2021-07-09 09:47] MED LIST changes: +INSLAN SQ
[2021-07-09 10:04] VITALS: BP 143/74
[2021-07-09] MEDS ORDERED: FLUCONAZOLE 150 MG TABLET PO ONE (10:45)
[2021-07-09 10:56] LABS: GLUCOSE,POINT OF CARE 231 MG/DL (70-110)
[2021-07-09] MEDS ORDERED: ZINC OXIDE 40%/COD LIVER OIL 57 GM PASTE TP ONE (12:00)
== END 2021-07-09 12:26 | disposition home or self-care (01) ==
LOC: EMS 10:09
DX: L22 Diaper dermatitis (principal); E11.65 Type 2 diabetes mellitus with hyperglycemia; I10 Essential (primary) hypertension; F41.9 Anxiety disorder, unspecified; F20.9 Schizophrenia, unspecified; Z88.1 Allergy status to other antibiotic agents; Z88.8 Allergy status to other drugs, medicaments and biological substances; Z79.84 Long term (current) use of oral hypoglycemic drugs; Z79.899 Other long term (current) drug therapy
CPT/HCPCS: 82962; 99283

== ENCOUNTER 2021-07-13 14:55 | Emergency (ER) | payer MEDICARE, OTHER ==
[~2021-07-13] VITALS: Ht 157.5 cm; Wt 77.3 kg
[2021-07-13 16:40] VITALS: BP 146/80
[2021-07-13] MEDS ORDERED: ACETAMINOPHEN 500 MG TABLET PO ONE (16:45)
[2021-07-14] MEDS ORDERED: MIRA25TA PO (17:16)
[2021-07-14] MEDS ORDERED: BUSP15 PO (17:16)
== END 2021-07-13 16:48 | disposition home or self-care (01) ==
LOC: EMS 14:55
DX: R07.89 Other chest pain (principal); F41.9 Anxiety disorder, unspecified; F25.9 Schizoaffective disorder, unspecified; I10 Essential (primary) hypertension; E78.00 Pure hypercholesterolemia, unspecified; E11.9 Type 2 diabetes mellitus without complications; F32.9 Major depressive disorder, single episode, unspecified; Z88.1 Allergy status to other antibiotic agents; Z88.8 Allergy status to other drugs, medicaments and biological substances; Z79.4 Long term (current) use of insulin; Z79.899 Other long term (current) drug therapy
CPT/HCPCS: 93005; 99283

== ENCOUNTER 2021-07-23 19:33 | Emergency (ER) | payer MEDICARE, MEDICAID ==
[~2021-07-23] VITALS: Ht 157.5 cm; Wt 77.3 kg
[~2021-07-23 19:33] MED LIST changes: +BUSP15 PO; -BUSP5TAB20 PO; +MIRA25TA PO
[2021-07-23] MEDS ORDERED: SODIUM CHLORIDE 0.9% 1,000 ML IV ONE (21:00)
[2021-07-23 21:17] LABS: EOSINOPHILS % (AUTO) 2.8 % (1.0-6.0); HEMATOCRIT 33.8 % (36-46); HEMOGLOBIN 11.3 g/dL (12.0-16.0); LYMPHOCYTES % (AUTO) 27.9 % (22.0-44.0); MEAN CORPUSCULAR HGB CONC 33.4 G/dL (31.0-37.0); MEAN CORPUSCULAR VOLUME 84 fL (80-100); MONOCYTES # (AUTO) 0.4 K/uL (0.1-1.0); NEUTROPHILS # (AUTO) 4.6 K/uL (1.8-7.7); NEUTROPHILS % (AUTO) 62.3 % (40.0-70.0); PLATELET COUNT (AUTO) 385 K/uL (150-450); RED BLOOD CELL COUNT(AUTO) 4.04 MIL/uL (4.00-5.20); RED CELL DISTRIBUTION WIDTH 15.3 % (11.5-14.5)
[2021-07-23 21:25] LABS: ANION GAP 8 mmol/L (8-16); CALCIUM, TOTAL 8.6 mg/dL (8.8-10.5); CARBON DIOXIDE 28 mmol/L (22-29); CHLORIDE 100 mmol/L (98-107); CREATININE 0.76 mg/dL (0.60-1.30); GLOMERULAR FILTR. RATE CALC > 60 mL/min (>60); GLUCOSE,RANDOM 291 mg/dL (70-110); SODIUM SERUM 136 mmol/L (136-145); UREA NITROGEN, BLOOD 12 mg/dL (7-18)
[2021-07-23 21:25] LABS: COVID AG,FIA SOURCE NASAL SWAB
[2021-07-23 21:31] LABS: ALANINE AMINOTRANSFERASE 36 U/L (12-78); ALBUMIN 3.5 g/dL (3.4-5.0); ALKALINE PHOSPHATASE 120 U/L (46-116); ASPARTATE AMINOTRANSFERASE 16 U/L (15-37); BILIRUBIN,TOTAL 0.2 mg/dL (0.1-1.0); TOTAL PROTEIN, SERUM 7.3 g/dL (6.4-8.2)
[2021-07-23 21:56] LABS: INFLUENZA TYPE A NEGATIVE FOR TYPE A (NEGATIVE); INFLUENZA TYPE B NEGATIVE FOR TYPE B (NEGATIVE)
[2021-07-24 02:30] VITALS: BP 122/75
== END 2021-07-24 02:50 | disposition home or self-care (01) ==
LOC: EMS 19:37
DX: B34.9 Viral infection, unspecified (principal); F32.9 Major depressive disorder, single episode, unspecified; E11.9 Type 2 diabetes mellitus without complications; E78.00 Pure hypercholesterolemia, unspecified; I10 Essential (primary) hypertension; F20.9 Schizophrenia, unspecified; Z20.822 Contact with and (suspected) exposure to COVID-19; Z88.1 Allergy status to other antibiotic agents; Z88.6 Allergy status to analgesic agent; Z79.899 Other long term (current) drug therapy; Z79.84 Long term (current) use of oral hypoglycemic drugs
CPT/HCPCS: 80053; 85025; 87426; 87804; 96360; 99285; J7030; 36415-L1; 36415-TC

== ENCOUNTER 2021-08-19 07:53 | Emergency (ER) | payer MEDICARE, OTHER ==
[~2021-08-19] VITALS: Ht 157.5 cm; Wt 79.1 kg
[2021-08-19 07:57] VITALS: BP 126/61
[2021-08-19 08:28] LABS: BASOPHILS % (AUTO) 1.1 % (0.0-2.0); EOSINOPHILS % (AUTO) 3.4 % (1.0-6.0); HEMATOCRIT 37.1 % (36-46); HEMOGLOBIN 12.2 g/dL (12.0-16.0); LYMPHOCYTES # (AUTO) 1.3 K/uL (1.0-4.8); LYMPHOCYTES % (AUTO) 22.2 % (22.0-44.0); MEAN CORPUSCULAR HEMOGLOBIN 27.2 pg (26.0-34.0); MEAN CORPUSCULAR HGB CONC 32.8 G/dL (31.0-37.0); MEAN CORPUSCULAR VOLUME 83 fL (80-100); MONOCYTES # (AUTO) 0.3 K/uL (0.1-1.0); MONOCYTES % (AUTO) 5.6 % (2.0-9.0); NEUTROPHILS # (AUTO) 4.1 K/uL (1.8-7.7); NEUTROPHILS % (AUTO) 67.7 % (40.0-70.0); PLATELET COUNT (AUTO) 435 K/uL (150-450); RED BLOOD CELL COUNT(AUTO) 4.47 MIL/uL (4.00-5.20); RED CELL DISTRIBUTION WIDTH 14.3 % (11.5-14.5)
[2021-08-19 08:42] LABS: ANION GAP 10 mmol/L (8-16); CALCIUM, TOTAL 9.7 mg/dL (8.8-10.5); CARBON DIOXIDE 28 mmol/L (22-29); CHLORIDE 102 mmol/L (98-107); GLOMERULAR FILTR. RATE CALC > 60 mL/min (>60); GLUCOSE,RANDOM 96 mg/dL (70-110); POTASSIUM 3.5 mmol/L (3.5-5.1); SODIUM SERUM 140 mmol/L (136-145); UREA NITROGEN, BLOOD 8 mg/dL (7-18)
[2021-08-19 08:48] LABS: ALANINE AMINOTRANSFERASE 31 U/L (12-78); ALKALINE PHOSPHATASE 116 U/L (46-116); ASPARTATE AMINOTRANSFERASE 21 U/L (15-37); BILIRUBIN,TOTAL 0.4 mg/dL (0.1-1.0); LIPASE 137 U/L (73-393); TOTAL PROTEIN, SERUM 8.5 g/dL (6.4-8.2)
[2021-08-19 09:22] LABS: APPEARANCE,URINE CLEAR (CLEAR); BILIRUBIN,URINE NEGATIVE (NEGATIVE); GLUCOSE, URINE (UA) NEGATIVE (NEGATIVE); KETONES,URINE NEGATIVE (NEGATIVE); LEUKOCYTE ESTERASE ,URINE NEGATIVE (NEGATIVE); NITRATE,URINE NEGATIVE (NEGATIVE); OCCULT BLOOD,URINE NEGATIVE (NEGATIVE); PROTEIN,URINE NEGATIVE (NEGATIVE); UROBILINOGEN,URINE 0.2 mg/dL (<=1.0)
[2021-08-19] MEDS ORDERED: ACETAMINOPHEN 500 MG TABLET PO ONE (09:45)
== END 2021-08-19 11:12 | disposition home or self-care (01) ==
LOC: EMS 07:57
DX: R07.89 Other chest pain (principal); F41.9 Anxiety disorder, unspecified; E11.9 Type 2 diabetes mellitus without complications; F32.9 Major depressive disorder, single episode, unspecified; E78.00 Pure hypercholesterolemia, unspecified; I10 Essential (primary) hypertension; F20.9 Schizophrenia, unspecified; Z88.0 Allergy status to penicillin; Z88.6 Allergy status to analgesic agent; Z79.84 Long term (current) use of oral hypoglycemic drugs; Z79.4 Long term (current) use of insulin
CPT/HCPCS: 80053; 81003; 82962; 83690; 84484; 85025; 93005; 99284

== ENCOUNTER 2021-08-28 17:12 | Emergency (ER) | payer MEDICARE, OTHER ==
[~2021-08-28] VITALS: Ht 152.4 cm; Wt 79.5 kg
[2021-08-28] MEDS ORDERED: ACETAMINOPHEN 500 MG TABLET PO ONE (17:30)
[2021-08-28 19:48] VITALS: BP 112/62
== END 2021-08-28 20:00 | disposition home or self-care (01) ==
LOC: EMS 17:16
DX: F25.9 Schizoaffective disorder, unspecified (principal); I10 Essential (primary) hypertension; E11.9 Type 2 diabetes mellitus without complications; E78.00 Pure hypercholesterolemia, unspecified; F32.9 Major depressive disorder, single episode, unspecified; F41.9 Anxiety disorder, unspecified; Z88.1 Allergy status to other antibiotic agents; Z88.8 Allergy status to other drugs, medicaments and biological substances; Z79.84 Long term (current) use of oral hypoglycemic drugs; Z79.899 Other long term (current) drug therapy
CPT/HCPCS: 82962; 99284

== ENCOUNTER 2021-09-12 07:04 | Emergency (ER) | payer MEDICARE, OTHER ==
[~2021-09-12] VITALS: Ht 157.5 cm; Wt 77.3 kg
[~2021-09-12 07:04] MED LIST changes: +OMEG-108 PO; -OMEG-135 PO
[2021-09-12 07:36] VITALS: BP 106/67
[2021-09-12] MEDS ORDERED: IBUPROFEN 400 MG TABLET PO ONE (08:00)
== END 2021-09-12 08:49 | disposition home or self-care (01) ==
LOC: EMS 07:04
DX: S09.90XA Unspecified injury of head, initial encounter (principal); F41.9 Anxiety disorder, unspecified; F32.9 Major depressive disorder, single episode, unspecified; E11.9 Type 2 diabetes mellitus without complications; E78.00 Pure hypercholesterolemia, unspecified; I10 Essential (primary) hypertension; F20.9 Schizophrenia, unspecified; Z79.4 Long term (current) use of insulin; Z79.84 Long term (current) use of oral hypoglycemic drugs; Z88.0 Allergy status to penicillin; Z88.6 Allergy status to analgesic agent; W06.XXXA Fall from bed, initial encounter; Y93.89 Activity, other specified; Y92.89 Other specified places as the place of occurrence of the external cause; Y99.8 Other external cause status
CPT/HCPCS: 70450; 99284

== ENCOUNTER 2021-09-15 14:07 | Emergency (ER) | payer MEDICARE, OTHER ==
[~2021-09-15] VITALS: Ht 157.5 cm; Wt 77.0 kg
[2021-09-15 15:00] LABS: BASOPHILS % (AUTO) 0.9 % (0.0-2.0); EOSINOPHILS % (AUTO) 2.7 % (1.0-6.0); HEMATOCRIT 36.4 % (36-46); HEMOGLOBIN 11.9 g/dL (12.0-16.0); LYMPHOCYTES # (AUTO) 2.1 K/uL (1.0-4.8); LYMPHOCYTES % (AUTO) 33.3 % (22.0-44.0); MEAN CORPUSCULAR HGB CONC 32.6 G/dL (31.0-37.0); MEAN CORPUSCULAR VOLUME 83 fL (80-100); MONOCYTES # (AUTO) 0.5 K/uL (0.1-1.0); NEUTROPHILS # (AUTO) 3.4 K/uL (1.8-7.7); NEUTROPHILS % (AUTO) 55.1 % (40.0-70.0); PLATELET COUNT (AUTO) 427 K/uL (150-450); RED BLOOD CELL COUNT(AUTO) 4.41 MIL/uL (4.00-5.20); RED CELL DISTRIBUTION WIDTH 14.5 % (11.5-14.5)
[2021-09-15] MEDS ORDERED: LORazepam 2 MG/ML VIAL IM ONE (15:00)
[2021-09-15 15:10] LABS: ANION GAP 11 mmol/L (8-16); CALCIUM, TOTAL 9.5 mg/dL (8.8-10.5); CARBON DIOXIDE 27 mmol/L (22-29); CHLORIDE 99 mmol/L (98-107); CREATININE 0.86 mg/dL (0.60-1.30); GLOMERULAR FILTR. RATE CALC > 60 mL/min (>60); GLUCOSE,RANDOM 137 mg/dL (70-110); POTASSIUM 4.2 mmol/L (3.5-5.1); SODIUM SERUM 137 mmol/L (136-145); UREA NITROGEN, BLOOD 11 mg/dL (7-18)
[2021-09-15 15:16] LABS: ALANINE AMINOTRANSFERASE 25 U/L (12-78); ALBUMIN 3.8 g/dL (3.4-5.0); ALKALINE PHOSPHATASE 101 U/L (46-116); ASPARTATE AMINOTRANSFERASE 18 U/L (15-37); BILIRUBIN,TOTAL 0.3 mg/dL (0.1-1.0); TOTAL PROTEIN, SERUM 7.7 g/dL (6.4-8.2)
[2021-09-15 16:35] VITALS: BP 159/82
[2021-09-15] MEDS ORDERED: LORA-999 PO (16:55)
== END 2021-09-15 17:23 | disposition home or self-care (01) ==
LOC: EMS 14:07
DX: F41.9 Anxiety disorder, unspecified (principal); F25.9 Schizoaffective disorder, unspecified; R07.89 Other chest pain; E11.9 Type 2 diabetes mellitus without complications; Z88.1 Allergy status to other antibiotic agents; Z79.899 Other long term (current) drug therapy
CPT/HCPCS: 36415; 71045; 80053; 84484; 85025; 93005; 96372; 99285; J2060

== ENCOUNTER 2021-10-06 02:14 | Emergency (ER) | payer MEDICARE, OTHER ==
[~2021-10-06] VITALS: Ht 157.5 cm; Wt 77.3 kg
[~2021-10-06 02:14] MED LIST changes: +LORA-999 PO
[2021-10-06 02:32] VITALS: BP 100/55
[2021-10-06 03:00] LABS: EOSINOPHILS % (AUTO) 3.7 % (1.0-6.0); HEMATOCRIT 34.1 % (36-46); HEMOGLOBIN 11.4 g/dL (12.0-16.0); LYMPHOCYTES # (AUTO) 1.8 K/uL (1.0-4.8); LYMPHOCYTES % (AUTO) 30.5 % (22.0-44.0); MEAN CORPUSCULAR HEMOGLOBIN 27.5 pg (26.0-34.0); MEAN CORPUSCULAR HGB CONC 33.3 G/dL (31.0-37.0); MEAN CORPUSCULAR VOLUME 83 fL (80-100); MONOCYTES # (AUTO) 0.4 K/uL (0.1-1.0); MONOCYTES % (AUTO) 6.4 % (2.0-9.0); NEUTROPHILS # (AUTO) 3.4 K/uL (1.8-7.7); NEUTROPHILS % (AUTO) 58.4 % (40.0-70.0); PLATELET COUNT (AUTO) 371 K/uL (150-450); RED BLOOD CELL COUNT(AUTO) 4.13 MIL/uL (4.00-5.20); RED CELL DISTRIBUTION WIDTH 14.9 % (11.5-14.5)
[2021-10-06 03:08] LABS: ANION GAP 9 mmol/L (8-16); CARBON DIOXIDE 29 mmol/L (22-29); CHLORIDE 100 mmol/L (98-107); CREATININE 0.64 mg/dL (0.60-1.30); GLOMERULAR FILTR. RATE CALC > 60 mL/min (>60); GLUCOSE,RANDOM 145 mg/dL (70-110); POTASSIUM 3.9 mmol/L (3.5-5.1); SODIUM SERUM 138 mmol/L (136-145); UREA NITROGEN, BLOOD 11 mg/dL (7-18)
[2021-10-06 03:13] LABS: ALANINE AMINOTRANSFERASE 29 U/L (12-78); ALBUMIN 3.7 g/dL (3.4-5.0); ALKALINE PHOSPHATASE 128 U/L (46-116); ASPARTATE AMINOTRANSFERASE 15 U/L (15-37); BILIRUBIN,TOTAL 0.3 mg/dL (0.1-1.0); TOTAL PROTEIN, SERUM 7.8 g/dL (6.4-8.2)
[2021-10-06] MEDS ORDERED: MECLIZINE HCL 25 MG TABLET PO ONE (04:00)
[2021-10-06] MEDS ORDERED: ACETAMINOPHEN 500 MG TABLET PO ONE (04:00)
[2021-10-06] MEDS ORDERED: ONDANSETRON HCL 4 MG TABLET PO ONE (04:00)
[2021-10-06] MEDS ORDERED: MECL-134 PO (04:26)
== END 2021-10-06 04:34 | disposition home or self-care (01) ==
LOC: EMS 02:15
DX: R07.89 Other chest pain (principal); R42 Dizziness and giddiness; F25.9 Schizoaffective disorder, unspecified; E11.9 Type 2 diabetes mellitus without complications; F41.9 Anxiety disorder, unspecified; Z88.1 Allergy status to other antibiotic agents; Z88.8 Allergy status to other drugs, medicaments and biological substances; Z79.899 Other long term (current) drug therapy; Z79.4 Long term (current) use of insulin
CPT/HCPCS: 36415; 80053; 82962; 84484; 85025; 93005; 99284; Q0162

== ENCOUNTER 2021-10-11 18:49 | Emergency (ER) | payer MEDICARE, OTHER ==
[~2021-10-11] VITALS: Ht 157.5 cm; Wt 86.4 kg
[~2021-10-11 18:49] MED LIST changes: +MECL-134 PO
[2021-10-11] MEDS ORDERED: SODIUM CHLORIDE 0.9% 1,000 ML IV ONE (20:15)
[2021-10-11 20:21] LABS: BASOPHILS % (AUTO) 1.1 % (0.0-2.0); EOSINOPHILS % (AUTO) 2.6 % (1.0-6.0); HEMOGLOBIN 12.1 g/dL (12.0-16.0); LYMPHOCYTES # (AUTO) 2.2 K/uL (1.0-4.8); LYMPHOCYTES % (AUTO) 33.9 % (22.0-44.0); MEAN CORPUSCULAR HEMOGLOBIN 27.6 pg (26.0-34.0); MEAN CORPUSCULAR HGB CONC 33.6 G/dL (31.0-37.0); MEAN CORPUSCULAR VOLUME 82 fL (80-100); MONOCYTES # (AUTO) 0.5 K/uL (0.1-1.0); MONOCYTES % (AUTO) 7.5 % (2.0-9.0); NEUTROPHILS # (AUTO) 3.5 K/uL (1.8-7.7); NEUTROPHILS % (AUTO) 54.9 % (40.0-70.0); PLATELET COUNT (AUTO) 363 K/uL (150-450); RED BLOOD CELL COUNT(AUTO) 4.38 MIL/uL (4.00-5.20); RED CELL DISTRIBUTION WIDTH 15.1 % (11.5-14.5)
[2021-10-11 20:22] LABS: COVID AG,FIA SOURCE NASOPHARYNGEAL
[2021-10-11 20:33] LABS: PROTHROMBIN TIME 10.5 SEC (9.4-11.6)
[2021-10-11 20:38] LABS: ANION GAP 9 mmol/L (8-16); B-TYPE NATRIURETIC PEPTIDE 24 pg/mL (0-100); CARBON DIOXIDE 29 mmol/L (22-29); CHLORIDE 99 mmol/L (98-107); CREATININE 0.61 mg/dL (0.60-1.30); GLOMERULAR FILTR. RATE CALC > 60 mL/min (>60); GLUCOSE,RANDOM 175 mg/dL (70-110); POTASSIUM 3.6 mmol/L (3.5-5.1); SODIUM SERUM 137 mmol/L (136-145); UREA NITROGEN, BLOOD 10 mg/dL (7-18)
[2021-10-11 20:44] LABS: ALANINE AMINOTRANSFERASE 25 U/L (12-78); ALBUMIN 3.8 g/dL (3.4-5.0); ALKALINE PHOSPHATASE 122 U/L (46-116); ASPARTATE AMINOTRANSFERASE 15 U/L (15-37); BILIRUBIN,TOTAL 0.3 mg/dL (0.1-1.0); CREATINE KINASE, TOTAL ONLY 158 U/L (26-192); TOTAL PROTEIN, SERUM 7.9 g/dL (6.4-8.2)
[2021-10-11 20:44] LABS: INFLUENZA TYPE A NEGATIVE FOR TYPE A (NEGATIVE); INFLUENZA TYPE B NEGATIVE FOR TYPE B (NEGATIVE)
[2021-10-11 22:51] LABS: APPEARANCE,URINE CLEAR (CLEAR); BILIRUBIN,URINE NEGATIVE (NEGATIVE); GLUCOSE, URINE (UA) 150-200 mg/dL (NEGATIVE); KETONES,URINE NEGATIVE (NEGATIVE); LEUKOCYTE ESTERASE ,URINE NEGATIVE (NEGATIVE); NITRATE,URINE NEGATIVE (NEGATIVE); OCCULT BLOOD,URINE NEGATIVE (NEGATIVE); PH,URINE 6.5 (5.0-8.0); PROTEIN,URINE NEGATIVE (NEGATIVE); SPECIFIC GRAVITIY, URINE 1.008 (1.003-1.030); UROBILINOGEN,URINE <=1.0 mg/dL (<=1.0)
[2021-10-11 22:59] LABS: BACTERIA,URINE Rare /HPF (None Seen); RBC,URINE 0-2 /HPF (0-2); SQUAMOUS EPITHELIAL CELL,UR Few /LPF (None Seen); WBC,URINE 0-2 /HPF (0-5)
[2021-10-11 23:16] VITALS: BP 132/87
== END 2021-10-11 23:32 | disposition home or self-care (01) ==
LOC: EMS 18:54
DX: B34.9 Viral infection, unspecified (principal); R07.89 Other chest pain; F41.9 Anxiety disorder, unspecified; E11.9 Type 2 diabetes mellitus without complications; Z88.1 Allergy status to other antibiotic agents; Z88.8 Allergy status to other drugs, medicaments and biological substances; Z79.84 Long term (current) use of oral hypoglycemic drugs; Z79.899 Other long term (current) drug therapy; Z20.822 Contact with and (suspected) exposure to COVID-19
CPT/HCPCS: 71045; 80053; 81001; 82550; 83880; 84484; 85025; 85610; 85730; 87804; 93005; 96360; 96361; 99285; 36415-L1; 36415-TC

== ENCOUNTER 2021-10-17 17:45 | Emergency (ER) | payer MEDICARE, MEDICAID ==
[~2021-10-17] VITALS: Ht 165.1 cm; Wt 79.0 kg
[2021-10-17 21:21] LABS: COVID AG,FIA SOURCE NASAL SWAB
[2021-10-17 22:11] LABS: EOSINOPHILS % (AUTO) 2.6 % (1.0-6.0); HEMATOCRIT 36.7 % (36-46); HEMOGLOBIN 12.2 g/dL (12.0-16.0); LYMPHOCYTES # (AUTO) 2.5 K/uL (1.0-4.8); LYMPHOCYTES % (AUTO) 36.8 % (22.0-44.0); MEAN CORPUSCULAR HEMOGLOBIN 27.4 pg (26.0-34.0); MEAN CORPUSCULAR HGB CONC 33.3 G/dL (31.0-37.0); MEAN CORPUSCULAR VOLUME 82 fL (80-100); MONOCYTES # (AUTO) 0.5 K/uL (0.1-1.0); MONOCYTES % (AUTO) 7.2 % (2.0-9.0); NEUTROPHILS # (AUTO) 3.6 K/uL (1.8-7.7); NEUTROPHILS % (AUTO) 52.4 % (40.0-70.0); PLATELET COUNT (AUTO) 401 K/uL (150-450); RED BLOOD CELL COUNT(AUTO) 4.46 MIL/uL (4.00-5.20); RED CELL DISTRIBUTION WIDTH 14.8 % (11.5-14.5)
[2021-10-17 22:20] LABS: ANION GAP 5 mmol/L (8-16); CALCIUM, TOTAL 8.8 mg/dL (8.8-10.5); CARBON DIOXIDE 30 mmol/L (22-29); CHLORIDE 97 mmol/L (98-107); CREATININE 0.73 mg/dL (0.60-1.30); GLOMERULAR FILTR. RATE CALC > 60 mL/min (>60); GLUCOSE,RANDOM 262 mg/dL (70-110); POTASSIUM 3.7 mmol/L (3.5-5.1); SODIUM SERUM 132 mmol/L (136-145); UREA NITROGEN, BLOOD 10 mg/dL (7-18)
[2021-10-17 22:44] LABS: CREATINE KINASE, TOTAL ONLY 165 U/L (26-192)
[2021-10-17] MEDS ORDERED: ACETAMINOPHEN 500 MG TABLET PO ONE (23:00)
[2021-10-17] MEDS ORDERED: IBUPROFEN 400 MG TABLET PO ONE (23:00)
[2021-10-17 23:17] VITALS: BP 141/86
== END 2021-10-17 23:27 | disposition home or self-care (01) ==
LOC: EMS 17:52
DX: M79.18 Myalgia, other site (principal); J34.89 Other specified disorders of nose and nasal sinuses; E11.9 Type 2 diabetes mellitus without complications; F41.9 Anxiety disorder, unspecified; Z88.1 Allergy status to other antibiotic agents; Z88.8 Allergy status to other drugs, medicaments and biological substances; Z79.899 Other long term (current) drug therapy; Z20.822 Contact with and (suspected) exposure to COVID-19
CPT/HCPCS: 80048; 82550; 85025; 99283

== ENCOUNTER 2021-10-22 20:02 | Emergency (ER) | payer MEDICARE, OTHER ==
[~2021-10-22] VITALS: Ht 165.1 cm; Wt 79.0 kg
[~2021-10-22 20:02] MED LIST changes: +DULO-113 PO; -DULO60CA98 PO
[2021-10-22 23:22] LABS: BASOPHILS % (AUTO) 1.2 % (0.0-2.0); HEMATOCRIT 33.6 % (36-46); HEMOGLOBIN 11.2 g/dL (12.0-16.0); LYMPHOCYTES # (AUTO) 1.8 K/uL (1.0-4.8); LYMPHOCYTES % (AUTO) 30.5 % (22.0-44.0); MEAN CORPUSCULAR HEMOGLOBIN 27.5 pg (26.0-34.0); MEAN CORPUSCULAR HGB CONC 33.3 G/dL (31.0-37.0); MEAN CORPUSCULAR VOLUME 83 fL (80-100); MONOCYTES # (AUTO) 0.4 K/uL (0.1-1.0); MONOCYTES % (AUTO) 6.8 % (2.0-9.0); NEUTROPHILS # (AUTO) 3.5 K/uL (1.8-7.7); NEUTROPHILS % (AUTO) 58.5 % (40.0-70.0); PLATELET COUNT (AUTO) 379 K/uL (150-450); RED BLOOD CELL COUNT(AUTO) 4.07 MIL/uL (4.00-5.20); RED CELL DISTRIBUTION WIDTH 15.3 % (11.5-14.5)
[2021-10-22 23:32] LABS: ANION GAP 10 mmol/L (8-16); CARBON DIOXIDE 29 mmol/L (22-29); CHLORIDE 98 mmol/L (98-107); CREATININE 0.68 mg/dL (0.60-1.30); GLUCOSE,RANDOM 209 mg/dL (70-110); POTASSIUM 3.9 mmol/L (3.5-5.1); SODIUM SERUM 137 mmol/L (136-145); UREA NITROGEN, BLOOD 10 mg/dL (7-18)
[2021-10-22 23:33] LABS: CALCIUM, TOTAL 8.6 mg/dL (8.8-10.5); GLOMERULAR FILTR. RATE CALC > 60 mL/min (>60)
[2021-10-22 23:45] LABS: ALANINE AMINOTRANSFERASE 26 U/L (12-78); ALBUMIN 3.7 g/dL (3.4-5.0); ALKALINE PHOSPHATASE 148 U/L (46-116); ASPARTATE AMINOTRANSFERASE 16 U/L (15-37); BILIRUBIN,TOTAL 0.3 mg/dL (0.1-1.0); TOTAL PROTEIN, SERUM 7.7 g/dL (6.4-8.2)
[2021-10-23 00:51] VITALS: BP 110/73
[2021-10-23 01:06] LABS: COVID AG,FIA SOURCE NASAL SWAB
== END 2021-10-23 02:32 | disposition home or self-care (01) ==
LOC: EMS 20:03
DX: F25.9 Schizoaffective disorder, unspecified (principal); F41.9 Anxiety disorder, unspecified; E11.9 Type 2 diabetes mellitus without complications; Z88.1 Allergy status to other antibiotic agents; Z88.8 Allergy status to other drugs, medicaments and biological substances; Z79.4 Long term (current) use of insulin; Z79.899 Other long term (current) drug therapy; Z20.822 Contact with and (suspected) exposure to COVID-19
CPT/HCPCS: 36415; 80053; 82962; 85025; 87426; 99284; G0480

== ENCOUNTER 2021-11-24 05:49 | Emergency (ER) | payer MEDICARE, OTHER ==
[~2021-11-24] VITALS: Ht 165.1 cm; Wt 79.3 kg
[2021-11-24 06:31] LABS: EOSINOPHILS % (AUTO) 2.3 % (1.0-6.0); HEMATOCRIT 33.9 % (36-46); HEMOGLOBIN 11.2 g/dL (12.0-16.0); LYMPHOCYTES # (AUTO) 1.1 K/uL (1.0-4.8); LYMPHOCYTES % (AUTO) 21.7 % (22.0-44.0); MEAN CORPUSCULAR HEMOGLOBIN 27.5 pg (26.0-34.0); MEAN CORPUSCULAR HGB CONC 32.9 G/dL (31.0-37.0); MEAN CORPUSCULAR VOLUME 84 fL (80-100); MONOCYTES # (AUTO) 0.3 K/uL (0.1-1.0); MONOCYTES % (AUTO) 6.4 % (2.0-9.0); NEUTROPHILS # (AUTO) 3.6 K/uL (1.8-7.7); NEUTROPHILS % (AUTO) 68.6 % (40.0-70.0); PLATELET COUNT (AUTO) 404 K/uL (150-450); RED BLOOD CELL COUNT(AUTO) 4.06 MIL/uL (4.00-5.20); RED CELL DISTRIBUTION WIDTH 14.6 % (11.5-14.5)
[2021-11-24 06:56] LABS: ANION GAP 6 mmol/L (8-16); CARBON DIOXIDE 31 mmol/L (22-29); CHLORIDE 101 mmol/L (98-107); CREATININE 0.69 mg/dL (0.60-1.30); GLOMERULAR FILTR. RATE CALC > 60 mL/min (>60); GLUCOSE,RANDOM 94 mg/dL (70-110); POTASSIUM 3.6 mmol/L (3.5-5.1); SODIUM SERUM 138 mmol/L (136-145); UREA NITROGEN, BLOOD 11 mg/dL (7-18)
[2021-11-24 07:00] LABS: ALANINE AMINOTRANSFERASE 28 U/L (12-78); ALBUMIN 3.6 g/dL (3.4-5.0); ALKALINE PHOSPHATASE 109 U/L (46-116); ASPARTATE AMINOTRANSFERASE 19 U/L (15-37); BILIRUBIN,TOTAL 0.2 mg/dL (0.1-1.0); HCG,QUANTITATIVE 2 mIU/mL (0-6); LIPASE 97 U/L (73-393); TOTAL PROTEIN, SERUM 7.5 g/dL (6.4-8.2)
[2021-11-24] MEDS ORDERED: FAMOTIDINE 20 MG TABLET PO ONE (07:00)
[2021-11-24] MEDS ORDERED: ACETAMINOPHEN 500 MG TABLET PO ONE (07:00)
[2021-11-24] MEDS ORDERED: MAG HYDROX/AL HYDROX/SIMETH 30 ML SUSP UDCUP PO ONE (07:00)
[2021-11-24 07:45] LABS: COVID AG,FIA SOURCE NASOPHARYNGEAL
[2021-11-24 07:47] VITALS: BP 139/95
[2021-11-24 08:16] LABS: INFLUENZA TYPE A NEGATIVE FOR TYPE A (NEGATIVE); INFLUENZA TYPE B NEGATIVE FOR TYPE B (NEGATIVE)
== END 2021-11-24 07:49 | disposition home or self-care (01) ==
LOC: EMS 05:51
DX: R10.13 Epigastric pain (principal); R10.12 Left upper quadrant pain; M79.10 Myalgia, unspecified site; F41.9 Anxiety disorder, unspecified; E11.9 Type 2 diabetes mellitus without complications; Z20.822 Contact with and (suspected) exposure to COVID-19; Z79.84 Long term (current) use of oral hypoglycemic drugs; Z79.4 Long term (current) use of insulin; Z88.1 Allergy status to other antibiotic agents; Z88.6 Allergy status to analgesic agent
CPT/HCPCS: 36415; 80053; 83690; 84702; 85025; 87426; 87804; 99284; C9803; G0480

== ENCOUNTER 2021-11-27 08:17 | Emergency (ER) | payer MEDICARE, OTHER ==
[~2021-11-27] VITALS: Ht 154.9 cm; Wt 68.2 kg
[2021-11-27 08:56] LABS: BASOPHILS % (AUTO) 1.2 % (0.0-2.0); EOSINOPHILS % (AUTO) 3.7 % (1.0-6.0); HEMOGLOBIN 11.6 g/dL (12.0-16.0); LYMPHOCYTES # (AUTO) 1.2 K/uL (1.0-4.8); LYMPHOCYTES % (AUTO) 22.8 % (22.0-44.0); MEAN CORPUSCULAR HEMOGLOBIN 27.8 pg (26.0-34.0); MEAN CORPUSCULAR HGB CONC 33.2 G/dL (31.0-37.0); MEAN CORPUSCULAR VOLUME 84 fL (80-100); MONOCYTES # (AUTO) 0.3 K/uL (0.1-1.0); MONOCYTES % (AUTO) 6.1 % (2.0-9.0); NEUTROPHILS # (AUTO) 3.4 K/uL (1.8-7.7); NEUTROPHILS % (AUTO) 66.2 % (40.0-70.0); PLATELET COUNT (AUTO) 383 K/uL (150-450); RED BLOOD CELL COUNT(AUTO) 4.19 MIL/uL (4.00-5.20); RED CELL DISTRIBUTION WIDTH 14.5 % (11.5-14.5)
[2021-11-27 09:05] LABS: ANION GAP 10 mmol/L (8-16); CALCIUM, TOTAL 9.3 mg/dL (8.8-10.5); CARBON DIOXIDE 29 mmol/L (22-29); CHLORIDE 101 mmol/L (98-107); CREATININE 0.67 mg/dL (0.60-1.30); GLOMERULAR FILTR. RATE CALC > 60 mL/min (>60); GLUCOSE,RANDOM 276 mg/dL (70-110); POTASSIUM 3.9 mmol/L (3.5-5.1); SODIUM SERUM 140 mmol/L (136-145); UREA NITROGEN, BLOOD 10 mg/dL (7-18)
[2021-11-27 09:11] LABS: ALANINE AMINOTRANSFERASE 29 U/L (12-78); ALBUMIN 3.6 g/dL (3.4-5.0); ALKALINE PHOSPHATASE 111 U/L (46-116); ASPARTATE AMINOTRANSFERASE 22 U/L (15-37); BILIRUBIN,TOTAL 0.3 mg/dL (0.1-1.0); TOTAL PROTEIN, SERUM 7.9 g/dL (6.4-8.2)
[2021-11-27 10:00] VITALS: BP 140/88
== END 2021-11-27 10:09 | disposition home or self-care (01) ==
LOC: EMS 08:17
DX: R07.89 Other chest pain (principal); F25.9 Schizoaffective disorder, unspecified; F41.9 Anxiety disorder, unspecified; E11.9 Type 2 diabetes mellitus without complications; Z79.899 Other long term (current) drug therapy; Z79.4 Long term (current) use of insulin; Z88.1 Allergy status to other antibiotic agents; Z88.6 Allergy status to analgesic agent
CPT/HCPCS: 71045; 80053; 82962; 84484; 85025; 93005; 99285; 36415-L1; 36415-TC

== ENCOUNTER 2021-12-30 18:32 | Inpatient (IN) | payer MEDICARE, OTHER ==
[~2021-12-30] VITALS: Ht 154.9 cm; Wt 70.1 kg
[~2021-12-30 18:32] MED LIST changes: +ACET325T51 PO; +ATOR40TA71 PO; +CHOL500043 PO; +DICY20TA95 PO; +DULO-114 PO; -GLIP10 PO; +GLIP10TA10 PO; +INSU100I3 SQ; -LORA-999 PO; +NITR0.4T50 PO; +OMEP20CA12 PO; +PALI6TAB15 PO; +SITA25 PO
[2021-12-30 19:20] LABS: BASOPHILS % (AUTO) 1.3 % (0.0-2.0); HEMATOCRIT 34.5 % (36-46); HEMOGLOBIN 11.4 g/dL (12.0-16.0); LYMPHOCYTES # (AUTO) 1.7 K/uL (1.0-4.8); LYMPHOCYTES % (AUTO) 22.9 % (22.0-44.0); MEAN CORPUSCULAR HEMOGLOBIN 27.4 pg (26.0-34.0); MEAN CORPUSCULAR HGB CONC 33.1 G/dL (31.0-37.0); MEAN CORPUSCULAR VOLUME 83 fL (80-100); MONOCYTES # (AUTO) 0.5 K/uL (0.1-1.0); MONOCYTES % (AUTO) 6.6 % (2.0-9.0); NEUTROPHILS # (AUTO) 4.9 K/uL (1.8-7.7); NEUTROPHILS % (AUTO) 67.2 % (40.0-70.0); PLATELET COUNT (AUTO) 366 K/uL (150-450); RED BLOOD CELL COUNT(AUTO) 4.17 MIL/uL (4.00-5.20)
[2021-12-30 19:29] LABS: ANION GAP 8 mmol/L (8-16); CALCIUM, TOTAL 9.2 mg/dL (8.8-10.5); CARBON DIOXIDE 30 mmol/L (22-29); CHLORIDE 94 mmol/L (98-107); CREATININE 0.77 mg/dL (0.60-1.30); GLOMERULAR FILTR. RATE CALC > 60 mL/min (>60); GLUCOSE,RANDOM 381 mg/dL (70-110); POTASSIUM 4.1 mmol/L (3.5-5.1); SODIUM SERUM 132 mmol/L (136-145); UREA NITROGEN, BLOOD 11 mg/dL (7-18)
[2021-12-30] MEDS ORDERED: NITROGLYCERIN 0.4 MG SUBLINGUAL TABLET #25 SL ONE (19:30)
[2021-12-30] MEDS ORDERED: INSULIN REGULAR, HUMAN 100 UNITS/ML IVP ONE (19:45)
[2021-12-30] MEDS ORDERED: 0.9% SODIUM CHLORIDE 10 ML SYRINGE IVP PRN (19:45)
[2021-12-30] MEDS ORDERED: SODIUM CHLORIDE 0.9% 1,000 ML IV ONE (19:45)
[2021-12-30 19:54] LABS: ALANINE AMINOTRANSFERASE 25 U/L (12-78); ALBUMIN 3.6 g/dL (3.4-5.0); ALKALINE PHOSPHATASE 131 U/L (46-116); ASPARTATE AMINOTRANSFERASE 16 U/L (15-37); BILIRUBIN,TOTAL 0.3 mg/dL (0.1-1.0); CREATINE KINASE, TOTAL ONLY 178 U/L (26-192)
[2021-12-30] MEDS ORDERED: BISACODYL 10 MG RECTAL RECTAL SUPPOSITORY PR PRN (20:45)
[2021-12-30] MEDS ORDERED: ZOLPIDEM TARTRATE 5 MG TABLET PO PRN (20:45)
[2021-12-30] MEDS ORDERED: DEXTROSE 50%-WATER 25 GM/50 ML SYRINGE IVP PRN (20:45)
[2021-12-30] MEDS ORDERED: INSULIN LISPRO 100 UNITS/ML SQ PRN (20:45)
[2021-12-30] MEDS ORDERED: MORPHINE SULFATE 2 MG/ML SYRINGE IVP PRN (20:45)
[2021-12-30] MEDS ORDERED: HYDROCODONE/ACETAMINOPHEN 5-325 MG TABLET PO PRN (20:45)
[2021-12-30] MEDS ORDERED: ONDANSETRON HCL 4 MG/2 ML VIAL IVP PRN (20:45)
[2021-12-30] MEDS ORDERED: MAGNESIUM HYDROXIDE SUSPENSION 30 ML UDCUP PO PRN (20:45)
[2021-12-30] MEDS: DOCUSATE SODIUM 100 MG CAPSULE PO SCH (20:59)
[2021-12-30] MEDS: GABAPENTIN 400 MG CAPSULE PO SCH (20:59)
[2021-12-30] MEDS: LISINOPRIL 10 MG TABLET PO SCH (20:59)
[2021-12-30] MEDS ORDERED: ATORVASTATIN CALCIUM 40 MG TABLET PO SCH (21:00)
[2021-12-30] MEDS: METOPROLOL TARTRATE 25 MG TABLET PO SCH (21:01)
[2021-12-30] MEDS: DICYCLOMINE HCL 20 MG TABLET PO SCH (21:01)
[2021-12-30 22:05] VITALS: BP 157/84
[2021-12-30] MEDS: ACETAMINOPHEN 325 MG TABLET PO PRN (22:15)
[2021-12-30] MEDS: BusPIRone HCL 15 MG TABLET PO SCH (22:18)
[2021-12-31] MEDS: HEPARIN SODIUM,PORCINE 5,000 UNITS/ML VIAL SQ SCH ×2 (00:08→08:36)
[2021-12-31 04:19] VITALS: BP 149/86
[2021-12-31] MEDS: ACETAMINOPHEN 325 MG TABLET PO PRN ×2 (04:30→10:05)
[2021-12-31 06:35] LABS: BASOPHILS % (AUTO) 0.8 % (0.0-2.0); EOSINOPHILS % (AUTO) 1.4 % (1.0-6.0); HEMATOCRIT 34.8 % (36-46); HEMOGLOBIN 11.6 g/dL (12.0-16.0); LYMPHOCYTES % (AUTO) 14.1 % (22.0-44.0); MEAN CORPUSCULAR HEMOGLOBIN 27.3 pg (26.0-34.0); MEAN CORPUSCULAR HGB CONC 33.3 G/dL (31.0-37.0); MEAN CORPUSCULAR VOLUME 82 fL (80-100); MONOCYTES # (AUTO) 0.5 K/uL (0.1-1.0); MONOCYTES % (AUTO) 6.5 % (2.0-9.0); NEUTROPHILS # (AUTO) 5.7 K/uL (1.8-7.7); NEUTROPHILS % (AUTO) 77.2 % (40.0-70.0); PLATELET COUNT (AUTO) 393 K/uL (150-450); RED BLOOD CELL COUNT(AUTO) 4.24 MIL/uL (4.00-5.20); RED CELL DISTRIBUTION WIDTH 13.7 % (11.5-14.5)
[2021-12-31 06:41] LABS: GLUCOMETER DEV NAME(LOC) 5S.2B; GLUCOSE,POINT OF CARE 275 MG/DL (70-110)
[2021-12-31 06:53] LABS: ALANINE AMINOTRANSFERASE 22 U/L (12-78); ALBUMIN 3.4 g/dL (3.4-5.0); ALKALINE PHOSPHATASE 114 U/L (46-116); ANION GAP 9 mmol/L (8-16); ASPARTATE AMINOTRANSFERASE 12 U/L (15-37); BILIRUBIN,TOTAL 0.6 mg/dL (0.1-1.0); CARBON DIOXIDE 28 mmol/L (22-29); CHLORIDE 98 mmol/L (98-107); CREATININE 0.72 mg/dL (0.60-1.30); GLOMERULAR FILTR. RATE CALC > 60 mL/min (>60); GLUCOSE,RANDOM 313 mg/dL (70-110); POTASSIUM 4.1 mmol/L (3.5-5.1); SODIUM SERUM 135 mmol/L (136-145); TOTAL PROTEIN, SERUM 7.6 g/dL (6.4-8.2); UREA NITROGEN, BLOOD 8 mg/dL (7-18)
[2021-12-31 07:35] VITALS: BP 145/88
[2021-12-31] MEDS: LISINOPRIL 10 MG TABLET PO SCH (08:35)
[2021-12-31] MEDS: BusPIRone HCL 15 MG TABLET PO SCH (08:35)
[2021-12-31] MEDS: DICYCLOMINE HCL 20 MG TABLET PO SCH ×2 (08:35→13:21)
[2021-12-31] MEDS: METOPROLOL TARTRATE 25 MG TABLET PO SCH (08:35)
[2021-12-31] MEDS: DOCUSATE SODIUM 100 MG CAPSULE PO SCH (08:38)
[2021-12-31] MEDS: GABAPENTIN 400 MG CAPSULE PO SCH (08:38)
[2021-12-31] MEDS ORDERED: DULoxetine HCL 30 MG CAPSULE PO SCH (09:00)
[2021-12-31] MEDS ORDERED: PANTOPRAZOLE SODIUM 40 MG DR TABLET PO SCH (09:00)
[2021-12-31] MEDS ORDERED: ASPIRIN 81 MG DR TABLET PO SCH (09:00)
[2021-12-31 09:35] LABS: BASOPHILS % (AUTO) 0.8 % (0.0-2.0); EOSINOPHILS % (AUTO) 1.2 % (1.0-6.0); HEMATOCRIT 35.9 % (36-46); LYMPHOCYTES # (AUTO) 1.3 K/uL (1.0-4.8); MEAN CORPUSCULAR HEMOGLOBIN 27.5 pg (26.0-34.0); MEAN CORPUSCULAR HGB CONC 33.5 G/dL (31.0-37.0); MEAN CORPUSCULAR VOLUME 82 fL (80-100); MONOCYTES # (AUTO) 0.5 K/uL (0.1-1.0); MONOCYTES % (AUTO) 7.1 % (2.0-9.0); NEUTROPHILS # (AUTO) 5.4 K/uL (1.8-7.7); NEUTROPHILS % (AUTO) 72.9 % (40.0-70.0); PLATELET COUNT (AUTO) 384 K/uL (150-450); RED BLOOD CELL COUNT(AUTO) 4.38 MIL/uL (4.00-5.20); RED CELL DISTRIBUTION WIDTH 13.8 % (11.5-14.5)
[2021-12-31 11:45] VITALS: BP 150/92
[2021-12-31] MEDS ORDERED: INSULIN LISPRO 100 UNITS/ML SQ PRN (12:45)
[2021-12-31] MEDS ORDERED: DEXTROSE 50%-WATER 25 GM/50 ML SYRINGE IVP PRN (12:45)
[2021-12-31 13:31] LABS: GLUCOMETER DEV NAME(LOC) 5S.2B; GLUCOSE,POINT OF CARE 287 MG/DL (70-110)
[2021-12-31] MEDS ORDERED: INSULIN GLARGINE,HUM.REC.ANLOG 100 UNITS/ML SQ SCH (21:00)
[2022-01-06] MEDS ORDERED: CHOLECALCIFEROL (VIT D3) 50,000 UNITS [1,250 MCG] CAPSULE PO SCH (09:00)
== END 2021-12-31 14:38 | disposition left against medical advice (07) | DRG 313 ==
LOC: EMS 19:00 → 5S 20:03
PROVIDERS: ADMIT Internal Medicine; ATTEND Internal Medicine
DX: R07.9 Chest pain, unspecified (principal); E87.1 Hypo-osmolality and hyponatremia; D64.9 Anemia, unspecified; E11.9 Type 2 diabetes mellitus without complications; E66.3 Overweight; E78.5 Hyperlipidemia, unspecified; G25.81 Restless legs syndrome; I10 Essential (primary) hypertension
CPT/HCPCS: 80053; 82550; 82962; 84484; 85025; 93005; 99285; J1644; J1815; J2270; J2405; J7030

== ENCOUNTER 2022-01-05 12:35 | Inpatient (IN) | payer MEDICARE, OTHER ==
[~2022-01-05] VITALS: Ht 157.5 cm; Wt 75.8 kg
[~2022-01-05 12:35] MED LIST changes: -DULO-113 PO; -PALI9TAB15 PO
[2022-01-05 14:02] LABS: BASOPHILS % (AUTO) 1.2 % (0.0-2.0); EOSINOPHILS % (AUTO) 3.1 % (1.0-6.0); HEMATOCRIT 34.8 % (36-46); HEMOGLOBIN 11.4 g/dL (12.0-16.0); LYMPHOCYTES # (AUTO) 1.6 K/uL (1.0-4.8); LYMPHOCYTES % (AUTO) 30.4 % (22.0-44.0); MEAN CORPUSCULAR HEMOGLOBIN 27.3 pg (26.0-34.0); MEAN CORPUSCULAR HGB CONC 32.7 G/dL (31.0-37.0); MEAN CORPUSCULAR VOLUME 83 fL (80-100); MONOCYTES # (AUTO) 0.4 K/uL (0.1-1.0); MONOCYTES % (AUTO) 7.8 % (2.0-9.0); NEUTROPHILS # (AUTO) 2.9 K/uL (1.8-7.7); NEUTROPHILS % (AUTO) 57.5 % (40.0-70.0); PLATELET COUNT (AUTO) 421 K/uL (150-450); RED BLOOD CELL COUNT(AUTO) 4.19 MIL/uL (4.00-5.20); RED CELL DISTRIBUTION WIDTH 13.9 % (11.5-14.5)
[2022-01-05 14:13] LABS: ANION GAP 10 mmol/L (8-16); CALCIUM, TOTAL 9.5 mg/dL (8.8-10.5); CARBON DIOXIDE 27 mmol/L (22-29); CHLORIDE 100 mmol/L (98-107); CREATININE 0.62 mg/dL (0.60-1.30); GLUCOSE,RANDOM 178 mg/dL (70-110); POTASSIUM 3.7 mmol/L (3.5-5.1); SODIUM SERUM 137 mmol/L (136-145); UREA NITROGEN, BLOOD 10 mg/dL (7-18)
[2022-01-05 14:14] LABS: GLOMERULAR FILTR. RATE CALC > 60 mL/min (>60)
[2022-01-05] MEDS ORDERED: ONDANSETRON HCL 4 MG/2 ML VIAL IVP PRN ×2 (14:15→14:45)
[2022-01-05] MEDS ORDERED: ACETAMINOPHEN 325 MG TABLET PO PRN ×2 (14:15→14:45)
[2022-01-05] MEDS ORDERED: *CLINICAL-LEVOFLOXACIN IVPB DOSING CLINICAL ONE (14:45)
[2022-01-05] MEDS ORDERED: BISACODYL 10 MG RECTAL RECTAL SUPPOSITORY PR PRN (14:45)
[2022-01-05] MEDS ORDERED: ZOLPIDEM TARTRATE 5 MG TABLET PO PRN (14:45)
[2022-01-05] MEDS ORDERED: MORPHINE SULFATE 2 MG/ML SYRINGE IVP PRN (14:45)
[2022-01-05] MEDS ORDERED: MAGNESIUM HYDROXIDE SUSPENSION 30 ML UDCUP PO PRN (14:45)
[2022-01-05] MEDS: HEPARIN SODIUM,PORCINE 5,000 UNITS/ML VIAL SQ SCH ×2 (16:00→23:49)
[2022-01-05 17:00] VITALS: BP 131/61
[2022-01-05] MEDS ORDERED: GlipiZIDE 10 MG TABLET PO SCH (17:30)
[2022-01-05] MEDS ORDERED: SODIUM CHLORIDE 0.9% 250 ML IV ONE (18:14)
[2022-01-05] MEDS: LEVOFLOXACIN 750 MG/D5% WATER 150 ML IV SCH (18:27)
[2022-01-05] MEDS: BusPIRone HCL 15 MG TABLET PO SCH ×2 (18:31→23:49)
[2022-01-05] MEDS: DICYCLOMINE HCL 20 MG TABLET PO SCH ×2 (18:32→23:49)
[2022-01-05] MEDS: GABAPENTIN 400 MG CAPSULE PO SCH ×2 (18:32→20:41)
[2022-01-05 20:05] VITALS: BP 140/78
[2022-01-05] MEDS: DOCUSATE SODIUM 100 MG CAPSULE PO SCH (20:41)
[2022-01-05] MEDS: ATORVASTATIN CALCIUM 40 MG TABLET PO SCH (20:41)
[2022-01-05] MEDS: LISINOPRIL 10 MG TABLET PO SCH (20:41)
[2022-01-05] MEDS: METOPROLOL TARTRATE 25 MG TABLET PO SCH (20:41)
[2022-01-05] MEDS: HYDROCODONE/ACETAMINOPHEN 5-325 MG TABLET PO PRN (20:42)
[2022-01-05] MEDS ORDERED: DEXTROSE 50%-WATER 25 GM/50 ML SYRINGE IVP PRN (21:30)
[2022-01-05] MEDS: INSULIN LISPRO 100 UNITS/ML SQ PRN (23:48)
[2022-01-05] MEDS: INSULIN GLARGINE,HUM.REC.ANLOG 100 UNITS/ML SQ SCH (23:48)
[2022-01-06] VITALS (7 sets, daily range): BP systolic 131–160; BP diastolic 72–81
[2022-01-06 05:50] LABS: BASOPHILS % (AUTO) 1.3 % (0.0-2.0); EOSINOPHILS % (AUTO) 3.5 % (1.0-6.0); HEMATOCRIT 34.6 % (36-46); HEMOGLOBIN 11.4 g/dL (12.0-16.0); LYMPHOCYTES # (AUTO) 1.3 K/uL (1.0-4.8); LYMPHOCYTES % (AUTO) 25.2 % (22.0-44.0); MEAN CORPUSCULAR HEMOGLOBIN 27.2 pg (26.0-34.0); MEAN CORPUSCULAR HGB CONC 32.8 G/dL (31.0-37.0); MEAN CORPUSCULAR VOLUME 83 fL (80-100); MONOCYTES # (AUTO) 0.4 K/uL (0.1-1.0); MONOCYTES % (AUTO) 7.7 % (2.0-9.0); NEUTROPHILS # (AUTO) 3.3 K/uL (1.8-7.7); NEUTROPHILS % (AUTO) 62.3 % (40.0-70.0); PLATELET COUNT (AUTO) 441 K/uL (150-450); RED BLOOD CELL COUNT(AUTO) 4.17 MIL/uL (4.00-5.20); RED CELL DISTRIBUTION WIDTH 13.8 % (11.5-14.5)
[2022-01-06 05:57] LABS: ANION GAP 8 mmol/L (8-16); CALCIUM, TOTAL 9.9 mg/dL (8.8-10.5); CARBON DIOXIDE 29 mmol/L (22-29); CHLORIDE 97 mmol/L (98-107); CREATININE 0.73 mg/dL (0.60-1.30); GLUCOSE,RANDOM 358 mg/dL (70-110); POTASSIUM 4.4 mmol/L (3.5-5.1); SODIUM SERUM 134 mmol/L (136-145); UREA NITROGEN, BLOOD 10 mg/dL (7-18)
[2022-01-06 05:58] LABS: GLOMERULAR FILTR. RATE CALC > 60 mL/min (>60)
[2022-01-06] MEDS: INSULIN LISPRO 100 UNITS/ML SQ PRN ×4 (06:03→20:14)
[2022-01-06] MEDS: PANTOPRAZOLE SODIUM 40 MG DR TABLET PO SCH (08:06)
[2022-01-06] MEDS: DICYCLOMINE HCL 20 MG TABLET PO SCH ×4 (08:06→20:04)
[2022-01-06] MEDS: METOPROLOL TARTRATE 25 MG TABLET PO SCH ×2 (08:06→20:04)
[2022-01-06] MEDS: OMEGA-3/DHA/EPA/FISH OIL 1,000 MG CAPSULE PO SCH (08:06)
[2022-01-06] MEDS: ASPIRIN 81 MG DR TABLET PO SCH (08:06)
[2022-01-06] MEDS: BusPIRone HCL 15 MG TABLET PO SCH ×3 (08:06→20:05)
[2022-01-06] MEDS: HEPARIN SODIUM,PORCINE 5,000 UNITS/ML VIAL SQ SCH ×3 (08:06→23:49)
[2022-01-06] MEDS: DOCUSATE SODIUM 100 MG CAPSULE PO SCH ×3 (08:06→20:17)
[2022-01-06] MEDS: DULoxetine HCL 30 MG CAPSULE PO SCH (08:07)
[2022-01-06] MEDS: GABAPENTIN 400 MG CAPSULE PO SCH ×3 (08:07→20:05)
[2022-01-06] MEDS: LISINOPRIL 10 MG TABLET PO SCH ×2 (08:07→20:05)
[2022-01-06] MEDS: LEVOFLOXACIN 750 MG/D5% WATER 150 ML IV SCH (15:35)
[2022-01-06 16:10] LABS: APPEARANCE,URINE CLEAR (CLEAR); BILIRUBIN,URINE NEGATIVE (NEGATIVE); GLUCOSE, URINE (UA) >=1000 mg/dL (NEGATIVE); KETONES,URINE NEGATIVE (NEGATIVE); LEUKOCYTE ESTERASE ,URINE NEGATIVE (NEGATIVE); NITRATE,URINE NEGATIVE (NEGATIVE); OCCULT BLOOD,URINE NEGATIVE (NEGATIVE); PH,URINE 6.5 (5.0-8.0); PROTEIN,URINE NEGATIVE (NEGATIVE); UROBILINOGEN,URINE <=1.0 mg/dL (<=1.0)
[2022-01-06 16:30] LABS: BACTERIA,URINE None Seen /HPF (None Seen); RBC,URINE None Seen /HPF (0-2); SQUAMOUS EPITHELIAL CELL,UR Few /LPF (None Seen); WBC,URINE 0-2 /HPF (0-5)
[2022-01-06] MEDS: ATORVASTATIN CALCIUM 40 MG TABLET PO SCH (20:04)
[2022-01-06] MEDS: INSULIN GLARGINE,HUM.REC.ANLOG 100 UNITS/ML SQ SCH (20:15)
[2022-01-06] MEDS: HYDROCODONE/ACETAMINOPHEN 5-325 MG TABLET PO PRN (20:28)
[2022-01-07 04:18] VITALS: BP 141/89
[2022-01-07] MEDS: INSULIN LISPRO 100 UNITS/ML SQ PRN (05:53)
[2022-01-07 07:38] VITALS: BP 130/84
[2022-01-07] MEDS ORDERED: LEVO-72 PO (07:45)
[2022-01-07] MEDS: DOCUSATE SODIUM 100 MG CAPSULE PO SCH (08:40)
[2022-01-07] MEDS: BusPIRone HCL 15 MG TABLET PO SCH (08:40)
[2022-01-07] MEDS: DICYCLOMINE HCL 20 MG TABLET PO SCH (08:40)
[2022-01-07] MEDS: HEPARIN SODIUM,PORCINE 5,000 UNITS/ML VIAL SQ SCH (08:40)
[2022-01-07] MEDS: PANTOPRAZOLE SODIUM 40 MG DR TABLET PO SCH (08:41)
[2022-01-07] MEDS: METOPROLOL TARTRATE 25 MG TABLET PO SCH (08:41)
[2022-01-07] MEDS: GABAPENTIN 400 MG CAPSULE PO SCH (08:41)
[2022-01-07] MEDS: OMEGA-3/DHA/EPA/FISH OIL 1,000 MG CAPSULE PO SCH (08:41)
[2022-01-07] MEDS: DULoxetine HCL 30 MG CAPSULE PO SCH (08:41)
[2022-01-07] MEDS: ASPIRIN 81 MG DR TABLET PO SCH (08:41)
[2022-01-07] MEDS: LISINOPRIL 10 MG TABLET PO SCH (08:41)
[2022-01-07] MEDS: HYDROCODONE/ACETAMINOPHEN 5-325 MG TABLET PO PRN (08:46)
[2022-01-07 11:09] VITALS: BP 117/65
[2022-01-12] MEDS ORDERED: CHOLECALCIFEROL (VIT D3) 50,000 UNITS [1,250 MCG] CAPSULE PO SCH (09:00)
== END 2022-01-07 11:50 | disposition home or self-care (01) | DRG 690 ==
LOC: EMS 12:35 → 5S 14:14
PROVIDERS: ADMIT Internal Medicine; ATTEND Internal Medicine
DX: N39.0 Urinary tract infection, site not specified (principal); D63.8 Anemia in other chronic diseases classified elsewhere; E11.65 Type 2 diabetes mellitus with hyperglycemia; E66.9 Obesity, unspecified; E78.5 Hyperlipidemia, unspecified; I10 Essential (primary) hypertension; G25.81 Restless legs syndrome; F25.9 Schizoaffective disorder, unspecified; I25.10 Atherosclerotic heart disease of native coronary artery without angina pectoris; Z53.29 Procedure and treatment not carried out because of patient's decision for other reasons; F41.9 Anxiety disorder, unspecified; R07.89 Other chest pain; Z88.8 Allergy status to other drugs, medicaments and biological substances; Z79.899 Other long term (current) drug therapy; Z68.30 Body mass index [BMI] 30.0-30.9, adult
CPT/HCPCS: 80048; 81001; 84484; 85025; 87081; 93005; 99285; J1644; J1815; J1956; J7050

== ENCOUNTER 2022-01-29 18:33 | Emergency (ER) | payer MEDICARE, OTHER ==
[~2022-01-29] VITALS: Ht 157.5 cm; Wt 77.3 kg
[~2022-01-29 18:33] MED LIST changes: +LEVO-72 PO
[2022-01-29 18:40] VITALS: BP 106/57
[2022-01-29 18:56] LABS: GLUCOMETER DEV NAME(LOC) ERT.5; GLUCOSE,POINT OF CARE 280 MG/DL (70-110)
[2022-01-29] MEDS ORDERED: ACETAMINOPHEN 500 MG TABLET PO ONE (22:45)
[2022-01-29] MEDS ORDERED: ONDANSETRON HCL 4 MG TABLET PO ONE (22:45)
[2022-01-29 22:57] LABS: COVID AG,FIA SOURCE NASOPHARYNGEAL
[2022-01-29 23:04] LABS: BASOPHILS % (AUTO) 1.2 % (0.0-2.0); EOSINOPHILS % (AUTO) 3.9 % (1.0-6.0); HEMATOCRIT 34.4 % (36-46); HEMOGLOBIN 11.5 g/dL (12.0-16.0); LYMPHOCYTES # (AUTO) 2.6 K/uL (1.0-4.8); LYMPHOCYTES % (AUTO) 38.4 % (22.0-44.0); MEAN CORPUSCULAR HEMOGLOBIN 27.6 pg (26.0-34.0); MEAN CORPUSCULAR HGB CONC 33.3 G/dL (31.0-37.0); MEAN CORPUSCULAR VOLUME 83 fL (80-100); MONOCYTES # (AUTO) 0.4 K/uL (0.1-1.0); MONOCYTES % (AUTO) 6.5 % (2.0-9.0); NEUTROPHILS # (AUTO) 3.4 K/uL (1.8-7.7); PLATELET COUNT (AUTO) 352 K/uL (150-450); RED BLOOD CELL COUNT(AUTO) 4.15 MIL/uL (4.00-5.20); RED CELL DISTRIBUTION WIDTH 14.1 % (11.5-14.5)
[2022-01-29 23:20] LABS: ANION GAP 11 mmol/L (8-16); CARBON DIOXIDE 23 mmol/L (22-29); CHLORIDE 97 mmol/L (98-107); CREATININE 0.98 mg/dL (0.60-1.30); GLUCOSE,RANDOM 255 mg/dL (70-110); POTASSIUM 4.2 mmol/L (3.5-5.1); SODIUM SERUM 131 mmol/L (136-145); UREA NITROGEN, BLOOD 21 mg/dL (7-18)
[2022-01-29 23:25] LABS: GLOMERULAR FILTR. RATE CALC 60 mL/min (>60)
[2022-01-29 23:32] LABS: ALANINE AMINOTRANSFERASE 25 U/L (12-78); ALBUMIN 3.4 g/dL (3.4-5.0); ALKALINE PHOSPHATASE 116 U/L (46-116); ASPARTATE AMINOTRANSFERASE 13 U/L (15-37); BILIRUBIN,TOTAL 0.3 mg/dL (0.1-1.0); HCG,QUANTITATIVE 3 mIU/mL (0-6); LIPASE 124 U/L (73-393); TOTAL PROTEIN, SERUM 7.5 g/dL (6.4-8.2)
[2022-01-30 00:01] LABS: INFLUENZA TYPE A NEGATIVE FOR TYPE A (NEGATIVE); INFLUENZA TYPE B NEGATIVE FOR TYPE B (NEGATIVE)
== END 2022-01-30 | disposition home or self-care (01) ==
LOC: EMS 18:33
DX: F32.9 Major depressive disorder, single episode, unspecified (principal); I10 Essential (primary) hypertension; E11.9 Type 2 diabetes mellitus without complications; F20.9 Schizophrenia, unspecified; F41.9 Anxiety disorder, unspecified; Z79.84 Long term (current) use of oral hypoglycemic drugs; Z88.1 Allergy status to other antibiotic agents; Z88.8 Allergy status to other drugs, medicaments and biological substances; Z79.899 Other long term (current) drug therapy; Z20.822 Contact with and (suspected) exposure to COVID-19
CPT/HCPCS: 99284; 87426; 80053; 82962; 83690; 84702; 85025; 87804; 36415; G0480; Q0162

== ENCOUNTER 2022-02-15 06:41 | Emergency (ER) | payer MEDICARE, OTHER ==
[~2022-02-15] VITALS: Ht 160 cm; Wt 74.5 kg
[~2022-02-15 06:41] MED LIST changes: -ACET325T51 PO; -DICY20TA95 PO; -INSU100I3 SQ; -LEVO-72 PO; -MECL-134 PO; -MIRA25TA PO; -NAPR-1025 PO; -NITR0.4T50 PO; -SITA25 PO
[2022-02-15 07:16] LABS: BASOPHILS % (AUTO) 1.3 % (0.0-2.0); EOSINOPHILS % (AUTO) 3.9 % (1.0-6.0); HEMATOCRIT 32.8 % (36-46); HEMOGLOBIN 10.9 g/dL (12.0-16.0); LYMPHOCYTES # (AUTO) 1.4 K/uL (1.0-4.8); LYMPHOCYTES % (AUTO) 24.2 % (22.0-44.0); MEAN CORPUSCULAR HEMOGLOBIN 27.2 pg (26.0-34.0); MEAN CORPUSCULAR HGB CONC 33.2 G/dL (31.0-37.0); MEAN CORPUSCULAR VOLUME 82 fL (80-100); MONOCYTES # (AUTO) 0.3 K/uL (0.1-1.0); MONOCYTES % (AUTO) 5.6 % (2.0-9.0); NEUTROPHILS # (AUTO) 3.8 K/uL (1.8-7.7); PLATELET COUNT (AUTO) 405 K/uL (150-450); RED BLOOD CELL COUNT(AUTO) 4.01 MIL/uL (4.00-5.20); RED CELL DISTRIBUTION WIDTH 14.7 % (11.5-14.5)
[2022-02-15 07:26] LABS: ANION GAP 11 mmol/L (8-16); CALCIUM, TOTAL 8.4 mg/dL (8.8-10.5); CARBON DIOXIDE 24 mmol/L (22-29); CHLORIDE 98 mmol/L (98-107); CREATININE 0.78 mg/dL (0.60-1.30); GLUCOSE,RANDOM 372 mg/dL (70-110); POTASSIUM 3.9 mmol/L (3.5-5.1); SODIUM SERUM 133 mmol/L (136-145); UREA NITROGEN, BLOOD 7 mg/dL (7-18)
[2022-02-15 07:27] LABS: GLOMERULAR FILTR. RATE CALC > 60 mL/min (>60)
[2022-02-15 07:33] LABS: ALANINE AMINOTRANSFERASE 19 U/L (12-78); ALBUMIN 3.2 g/dL (3.4-5.0); ALKALINE PHOSPHATASE 131 U/L (46-116); ASPARTATE AMINOTRANSFERASE 10 U/L (15-37); BILIRUBIN,TOTAL 0.3 mg/dL (0.1-1.0); TOTAL PROTEIN, SERUM 7.4 g/dL (6.4-8.2)
[2022-02-15] MEDS ORDERED: ASPIRIN 81 MG CHEWABLE TABLET PO ONE (08:15)
[2022-02-15 10:11] VITALS: BP 106/69
== END 2022-02-15 10:14 | disposition left against medical advice (07) ==
LOC: EMS 06:42
DX: R07.9 Chest pain, unspecified (principal); E11.9 Type 2 diabetes mellitus without complications; F41.9 Anxiety disorder, unspecified; F20.9 Schizophrenia, unspecified; I10 Essential (primary) hypertension; I25.10 Atherosclerotic heart disease of native coronary artery without angina pectoris; Z88.0 Allergy status to penicillin
CPT/HCPCS: 71045; 80053; 84484; 85025; 93005; 99285; 36415-L1; 36415-TC

== ENCOUNTER 2022-02-15 15:44 | Emergency (ER) | payer MEDICARE, OTHER ==
[~2022-02-15] VITALS: Ht 157.5 cm; Wt 74.5 kg
[2022-02-15 17:40] LABS: BASOPHILS % (AUTO) 0.9 % (0.0-2.0); EOSINOPHILS % (AUTO) 2.2 % (1.0-6.0); HEMATOCRIT 33.1 % (36-46); HEMOGLOBIN 10.8 g/dL (12.0-16.0); LYMPHOCYTES % (AUTO) 28.7 % (22.0-44.0); MEAN CORPUSCULAR HEMOGLOBIN 26.6 pg (26.0-34.0); MEAN CORPUSCULAR HGB CONC 32.5 G/dL (31.0-37.0); MEAN CORPUSCULAR VOLUME 82 fL (80-100); MONOCYTES # (AUTO) 0.4 K/uL (0.1-1.0); NEUTROPHILS # (AUTO) 4.4 K/uL (1.8-7.7); NEUTROPHILS % (AUTO) 62.2 % (40.0-70.0); PLATELET COUNT (AUTO) 418 K/uL (150-450); RED BLOOD CELL COUNT(AUTO) 4.04 MIL/uL (4.00-5.20); RED CELL DISTRIBUTION WIDTH 14.2 % (11.5-14.5)
[2022-02-15 17:48] LABS: ANION GAP 9 mmol/L (8-16); CALCIUM, TOTAL 9.2 mg/dL (8.8-10.5); CARBON DIOXIDE 30 mmol/L (22-29); CHLORIDE 100 mmol/L (98-107); CREATININE 0.65 mg/dL (0.60-1.30); GLUCOSE,RANDOM 216 mg/dL (70-110); POTASSIUM 3.5 mmol/L (3.5-5.1); SODIUM SERUM 139 mmol/L (136-145); UREA NITROGEN, BLOOD 8 mg/dL (7-18)
[2022-02-15 17:49] LABS: GLOMERULAR FILTR. RATE CALC > 60 mL/min (>60)
[2022-02-15 17:54] LABS: ALANINE AMINOTRANSFERASE 23 U/L (12-78); ALBUMIN 3.5 g/dL (3.4-5.0); ALKALINE PHOSPHATASE 137 U/L (46-116); ASPARTATE AMINOTRANSFERASE 15 U/L (15-37); BILIRUBIN,TOTAL 0.2 mg/dL (0.1-1.0); TOTAL PROTEIN, SERUM 7.8 g/dL (6.4-8.2)
[2022-02-15 22:30] VITALS: BP 124/69
== END 2022-02-15 23:17 | disposition home or self-care (01) ==
LOC: EMS 15:50
DX: R07.89 Other chest pain (principal); F41.9 Anxiety disorder, unspecified; E11.9 Type 2 diabetes mellitus without complications; I10 Essential (primary) hypertension; F20.9 Schizophrenia, unspecified; I25.10 Atherosclerotic heart disease of native coronary artery without angina pectoris; Z88.0 Allergy status to penicillin
CPT/HCPCS: 80053; 84484; 85025; 93005; 99284

== ENCOUNTER 2022-02-22 13:59 | Emergency (ER) | payer MEDICARE, OTHER ==
[~2022-02-22] VITALS: Ht 157.5 cm; Wt 74.5 kg
[~2022-02-22 13:59] MED LIST changes: -OMEG-108 PO; +OMEG-135 PO
[2022-02-22 14:41] LABS: GLUCOMETER DEV NAME(LOC) ERT.5; GLUCOSE,POINT OF CARE 206 MG/DL (70-110)
[2022-02-22 14:46] LABS: BASOPHILS % (AUTO) 1.5 % (0.0-2.0); EOSINOPHILS % (AUTO) 3.4 % (1.0-6.0); HEMATOCRIT 33.6 % (36-46); HEMOGLOBIN 11.2 g/dL (12.0-16.0); LYMPHOCYTES # (AUTO) 1.4 K/uL (1.0-4.8); LYMPHOCYTES % (AUTO) 25.7 % (22.0-44.0); MEAN CORPUSCULAR HEMOGLOBIN 26.9 pg (26.0-34.0); MEAN CORPUSCULAR HGB CONC 33.2 G/dL (31.0-37.0); MEAN CORPUSCULAR VOLUME 81 fL (80-100); MONOCYTES # (AUTO) 0.4 K/uL (0.1-1.0); MONOCYTES % (AUTO) 7.3 % (2.0-9.0); NEUTROPHILS # (AUTO) 3.5 K/uL (1.8-7.7); NEUTROPHILS % (AUTO) 62.1 % (40.0-70.0); PLATELET COUNT (AUTO) 418 K/uL (150-450); RED BLOOD CELL COUNT(AUTO) 4.15 MIL/uL (4.00-5.20); RED CELL DISTRIBUTION WIDTH 14.4 % (11.5-14.5)
[2022-02-22 14:56] LABS: ANION GAP 12 mmol/L (8-16); CALCIUM, TOTAL 9.1 mg/dL (8.8-10.5); CARBON DIOXIDE 24 mmol/L (22-29); CHLORIDE 101 mmol/L (98-107); CREATININE 0.69 mg/dL (0.60-1.30); GLUCOSE,RANDOM 213 mg/dL (70-110); SODIUM SERUM 137 mmol/L (136-145); UREA NITROGEN, BLOOD 10 mg/dL (7-18)
[2022-02-22 14:57] LABS: GLOMERULAR FILTR. RATE CALC > 60 mL/min (>60)
[2022-02-22 15:02] LABS: ALANINE AMINOTRANSFERASE 21 U/L (12-78); ALBUMIN 3.4 g/dL (3.4-5.0); ALKALINE PHOSPHATASE 114 U/L (46-116); ASPARTATE AMINOTRANSFERASE 13 U/L (15-37); BILIRUBIN,TOTAL 0.3 mg/dL (0.1-1.0); TOTAL PROTEIN, SERUM 7.9 g/dL (6.4-8.2)
[2022-02-22] MEDS ORDERED: LORazepam 1 MG TABLET PO ONE (16:15)
[2022-02-22 17:51] VITALS: BP 111/68
== END 2022-02-22 17:55 | disposition home or self-care (01) ==
LOC: EMS 13:59
DX: F41.9 Anxiety disorder, unspecified (principal); R07.89 Other chest pain; I25.10 Atherosclerotic heart disease of native coronary artery without angina pectoris; E11.9 Type 2 diabetes mellitus without complications; I10 Essential (primary) hypertension; F20.9 Schizophrenia, unspecified; Z88.1 Allergy status to other antibiotic agents; Z88.8 Allergy status to other drugs, medicaments and biological substances
CPT/HCPCS: 71045; 80053; 82962; 84484; 85025; 93005; 99285; 36415-L1; 36415-TC

== ENCOUNTER 2022-03-04 22:05 | Emergency (ER) | payer MEDICARE, OTHER ==
[~2022-03-04] VITALS: Ht 157.5 cm; Wt 77.2 kg
[2022-03-05] MEDS ORDERED: IBUPROFEN 400 MG TABLET PO ONE (01:15)
[2022-03-05 01:35] VITALS: BP 103/65
== END 2022-03-05 01:35 | disposition home or self-care (01) ==
LOC: EMS 22:06
DX: M17.0 Bilateral primary osteoarthritis of knee (principal); I10 Essential (primary) hypertension; E11.9 Type 2 diabetes mellitus without complications; F41.9 Anxiety disorder, unspecified; F20.9 Schizophrenia, unspecified; Z88.1 Allergy status to other antibiotic agents; Z79.899 Other long term (current) drug therapy
CPT/HCPCS: 93005; 99283

== ENCOUNTER 2022-03-13 20:24 | Emergency (ER) | payer MEDICARE, OTHER ==
[~2022-03-13] VITALS: Ht 157.5 cm; Wt 77.0 kg
[2022-03-13] MEDS ORDERED: ACETAMINOPHEN 500 MG TABLET PO ONE (22:15)
[2022-03-13] MEDS ORDERED: KETOROLAC TROMETHAMINE 30 MG/ML VIAL IM ONE (22:15)
[2022-03-13 23:00] VITALS: BP 134/77
[2022-03-13 23:03] LABS: COVID AG,FIA SOURCE NASOPHARYNGEAL
== END 2022-03-14 04:12 | disposition home or self-care (01) ==
LOC: EMS 20:29
DX: R52 Pain, unspecified (principal); T50.B95A Adverse effect of other viral vaccines, initial encounter; Z20.822 Contact with and (suspected) exposure to COVID-19; E11.9 Type 2 diabetes mellitus without complications; F20.9 Schizophrenia, unspecified; F41.9 Anxiety disorder, unspecified; I10 Essential (primary) hypertension; I25.10 Atherosclerotic heart disease of native coronary artery without angina pectoris; Y92.89 Other specified places as the place of occurrence of the external cause; Z88.0 Allergy status to penicillin
CPT/HCPCS: 99283; 87426; 96372; J1885

== ENCOUNTER 2022-03-29 10:29 | Emergency (ER) | payer MEDICARE, OTHER ==
[~2022-03-29] VITALS: Ht 160 cm; Wt 75.0 kg
[2022-03-29 11:21] LABS: GLUCOSE,POINT OF CARE 240 MG/DL (70-110)
[2022-03-29 12:35] LABS: RED BLOOD CELL COUNT(AUTO) 4.16 MIL/uL (4.00-5.20)
[2022-03-29 12:36] LABS: BASOPHILS % (AUTO) 1.1 % (0.0-2.0); EOSINOPHILS % (AUTO) 2.5 % (1.0-6.0); HEMATOCRIT 33.6 % (36-46); LYMPHOCYTES # (AUTO) 1.8 K/uL (1.0-4.8); LYMPHOCYTES % (AUTO) 29.6 % (22.0-44.0); MEAN CORPUSCULAR HEMOGLOBIN 26.3 pg (26.0-34.0); MEAN CORPUSCULAR HGB CONC 32.6 G/dL (31.0-37.0); MEAN CORPUSCULAR VOLUME 81 fL (80-100); MONOCYTES # (AUTO) 0.4 K/uL (0.1-1.0); MONOCYTES % (AUTO) 5.8 % (2.0-9.0); NEUTROPHILS # (AUTO) 3.7 K/uL (1.8-7.7); PLATELET COUNT (AUTO) 387 K/uL (150-450); RED CELL DISTRIBUTION WIDTH 15.1 % (11.5-14.5)
[2022-03-29 12:44] LABS: ANION GAP 8 mmol/L (8-16); CALCIUM, TOTAL 9.3 mg/dL (8.8-10.5); CARBON DIOXIDE 27 mmol/L (22-29); CHLORIDE 102 mmol/L (98-107); GLUCOSE,RANDOM 250 mg/dL (70-110); POTASSIUM 3.8 mmol/L (3.5-5.1); SODIUM SERUM 137 mmol/L (136-145); UREA NITROGEN, BLOOD 8 mg/dL (7-18)
[2022-03-29 12:50] LABS: ALANINE AMINOTRANSFERASE 18 U/L (12-78); ALBUMIN 3.5 g/dL (3.4-5.0); ALKALINE PHOSPHATASE 105 U/L (46-116); ASPARTATE AMINOTRANSFERASE 14 U/L (15-37); BILIRUBIN,TOTAL 0.3 mg/dL (0.1-1.0); GLOMERULAR FILTR. RATE CALC > 60 mL/min (>60); TOTAL PROTEIN, SERUM 7.6 g/dL (6.4-8.2)
[2022-03-29 12:52] LABS: B-TYPE NATRIURETIC PEPTIDE 43 pg/mL (0-100)
[2022-03-29 12:57] LABS: COVID AG,FIA SOURCE NASAL SWAB
[2022-03-29 15:37] VITALS: BP 127/65
== END 2022-03-29 15:51 | disposition home or self-care (01) ==
LOC: EMS 10:29
DX: F41.9 Anxiety disorder, unspecified (principal); R07.89 Other chest pain; I25.10 Atherosclerotic heart disease of native coronary artery without angina pectoris; E11.9 Type 2 diabetes mellitus without complications; I10 Essential (primary) hypertension; F25.9 Schizoaffective disorder, unspecified; F32.A Depression, unspecified; Z88.1 Allergy status to other antibiotic agents; Z88.8 Allergy status to other drugs, medicaments and biological substances; Z20.822 Contact with and (suspected) exposure to COVID-19
CPT/HCPCS: 71045; 80053; 82962; 83880; 84484; 85025; 93005; 99285; 36415-L1; 36415-TC

== ENCOUNTER 2022-04-05 11:05 | Emergency (ER) | payer MEDICARE, OTHER ==
[~2022-04-05] VITALS: Ht 154.9 cm; Wt 77.3 kg
[2022-04-05 11:10] VITALS: BP 158/97
[2022-04-05] MEDS ORDERED: KETOROLAC TROMETHAMINE 30 MG/ML VIAL IM ONE (12:00)
[2022-04-05 12:06] LABS: GLUCOMETER DEV NAME(LOC) ERT.5; GLUCOSE,POINT OF CARE 249 MG/DL (70-110)
[2022-04-05] MEDS ORDERED: CYCL-448 PO (12:48)
== END 2022-04-05 13:13 | disposition home or self-care (01) ==
LOC: EMS 11:05
DX: M54.32 Sciatica, left side (principal); E11.65 Type 2 diabetes mellitus with hyperglycemia; F41.9 Anxiety disorder, unspecified; I25.10 Atherosclerotic heart disease of native coronary artery without angina pectoris; I10 Essential (primary) hypertension; F20.9 Schizophrenia, unspecified; Z88.1 Allergy status to other antibiotic agents; Z88.8 Allergy status to other drugs, medicaments and biological substances
CPT/HCPCS: 99283; 82962; 96372; J1885; 82948

== ENCOUNTER 2022-04-08 00:41 | Emergency (ER) | payer MEDICARE, OTHER ==
[~2022-04-08] VITALS: Ht 154.9 cm; Wt 77.3 kg
[~2022-04-08 00:41] MED LIST changes: +CYCL-448 PO
[2022-04-08] MEDS ORDERED: DICL100G51 TP (02:32)
[2022-04-08 02:49] VITALS: BP 138/74
== END 2022-04-08 04:22 | disposition home or self-care (01) ==
LOC: EMS 00:43
DX: M25.562 Pain in left knee (principal); F41.9 Anxiety disorder, unspecified; E11.9 Type 2 diabetes mellitus without complications; I10 Essential (primary) hypertension; F20.9 Schizophrenia, unspecified; I25.10 Atherosclerotic heart disease of native coronary artery without angina pectoris; Z88.8 Allergy status to other drugs, medicaments and biological substances
CPT/HCPCS: 99283

== ENCOUNTER 2022-04-16 00:06 | Emergency (ER) | payer MEDICARE, OTHER ==
[~2022-04-16] VITALS: Ht 154.9 cm; Wt 77.0 kg
[~2022-04-16 00:06] MED LIST changes: +DICL100G51 TP
[2022-04-16] MEDS ORDERED: KETOROLAC TROMETHAMINE 60 MG/2 ML VIAL IM ONE (02:00)
[2022-04-16] MEDS ORDERED: OxyCODONE HCL/ACETAMINOPHEN 5-325 MG TABLET PO ONE (02:00)
[2022-04-16 02:53] VITALS: BP 128/71
== END 2022-04-16 03:19 | disposition home or self-care (01) ==
LOC: EMS 00:06
DX: M25.562 Pain in left knee (principal); E11.9 Type 2 diabetes mellitus without complications; F20.9 Schizophrenia, unspecified; F41.9 Anxiety disorder, unspecified; I10 Essential (primary) hypertension; I25.10 Atherosclerotic heart disease of native coronary artery without angina pectoris; Z88.0 Allergy status to penicillin
CPT/HCPCS: 99283; 96372; J1885

== ENCOUNTER 2022-05-01 22:30 | Emergency (ER) | payer MEDICARE, OTHER ==
[~2022-05-01] VITALS: Ht 154.9 cm; Wt 67.0 kg
[2022-05-02] MEDS ORDERED: KETOROLAC TROMETHAMINE 30 MG/ML VIAL IM ONE (01:00)
[2022-05-02 03:00] VITALS: BP 128/71
== END 2022-05-02 05:34 | disposition home or self-care (01) ==
LOC: EMS 22:31
DX: M25.562 Pain in left knee (principal); M17.9 Osteoarthritis of knee, unspecified; E11.9 Type 2 diabetes mellitus without complications; F20.9 Schizophrenia, unspecified; F41.9 Anxiety disorder, unspecified; I10 Essential (primary) hypertension; I25.10 Atherosclerotic heart disease of native coronary artery without angina pectoris; Z88.0 Allergy status to penicillin
CPT/HCPCS: 99283; 73562; 96372; J1885

== ENCOUNTER 2022-05-29 19:59 | Emergency (ER) | payer MEDICARE, OTHER ==
[~2022-05-29] VITALS: Ht 154.9 cm; Wt 77.0 kg
[2022-05-29 20:11] VITALS: BP 138/80
[2022-05-29] MEDS ORDERED: ACETAMINOPHEN 500 MG TABLET PO ONE (20:30)
[2022-05-29] MEDS ORDERED: MAG HYDROX/AL HYDROX/SIMETH ES 30 ML SUSPENSION UDCUP PO ONE (20:30)
[2022-05-29] MEDS ORDERED: LORazepam 1 MG TABLET PO ONE (20:30)
== END 2022-05-29 22:15 | disposition home or self-care (01) ==
LOC: EMS 20:13
DX: F41.9 Anxiety disorder, unspecified (principal); I25.10 Atherosclerotic heart disease of native coronary artery without angina pectoris; I10 Essential (primary) hypertension; E11.9 Type 2 diabetes mellitus without complications; F20.9 Schizophrenia, unspecified; Z88.8 Allergy status to other drugs, medicaments and biological substances
CPT/HCPCS: 99284; Z7502; Z7610

== ENCOUNTER 2022-08-15 15:42 | Emergency (ER) | payer MEDICARE, OTHER ==
[~2022-08-15] VITALS: Ht 154.9 cm; Wt 75.9 kg
[2022-08-15 16:16] LABS: GLUCOMETER DEV NAME(LOC) ERT.5; GLUCOSE,POINT OF CARE 177 MG/DL (70-110)
[2022-08-15 17:58] VITALS: BP 155/85
== END 2022-08-15 20:00 | disposition left against medical advice (07) ==
LOC: EMS 15:44
DX: M79.605 Pain in left leg (principal); M79.604 Pain in right leg; Z53.21 Procedure and treatment not carried out due to patient leaving prior to being seen by health care provider
CPT/HCPCS: 82962

== ENCOUNTER 2023-01-04 16:26 | Emergency (ER) | payer MEDICARE, OTHER ==
[~2023-01-04] VITALS: Ht 154.9 cm; Wt 76.4 kg
[~2023-01-04 16:26] MED LIST changes: -DICL100G51 TP; +DICL100G60 TP
[2023-01-04 16:28] VITALS: TEMP 98.6
[2023-01-04] MEDS ORDERED: ZOLP-280 PO (16:59)
[2023-01-04] MEDS ORDERED: TRI115O TP (16:59)
[2023-01-04] MEDS ORDERED: RISP2TAB45 PO (16:59)
[2023-01-04] MEDS ORDERED: GLIP5TAB11 PO (16:59)
[2023-01-04] MEDS ORDERED: LISI20TA24 PO (16:59)
[2023-01-04] MEDS ORDERED: CARI3CAP PO (16:59)
[2023-01-04] MEDS ORDERED: DICY20TA95 PO (16:59)
[2023-01-04] MEDS ORDERED: PRAZ5 PO (16:59)
[2023-01-04] MEDS ORDERED: MIRA25TA PO (16:59)
[2023-01-04] MEDS ORDERED: NAPR-1025 PO (16:59)
[2023-01-04] MEDS ORDERED: DULO-113 PO (16:59)
[2023-01-04] MEDS ORDERED: OLAN5TAB77 PO (16:59)
[2023-01-04] MEDS ORDERED: KETOROLAC TROMETHAMINE 30 MG/ML VIAL IM ONE (17:00)
[2023-01-04] MEDS ORDERED: LIDOCAINE 5% TRANSDERMAL PATCH TD ONE (17:00)
[2023-01-04 18:01] VITALS: BP 125/80; PULSE 86; RESP 20
== END 2023-01-04 18:02 | disposition home or self-care (01) ==
LOC: EMS 16:27
DX: M19.90 Unspecified osteoarthritis, unspecified site (principal); F41.9 Anxiety disorder, unspecified; I25.10 Atherosclerotic heart disease of native coronary artery without angina pectoris; I10 Essential (primary) hypertension; E11.9 Type 2 diabetes mellitus without complications; F20.9 Schizophrenia, unspecified; Z88.8 Allergy status to other drugs, medicaments and biological substances
CPT/HCPCS: 99283; 82962; 96372; J1885

== ENCOUNTER 2023-01-14 11:39 | Emergency (ER) | payer MEDICARE, OTHER ==
[~2023-01-14] VITALS: Ht 152.4 cm; Wt 72.7 kg
[~2023-01-14 11:39] MED LIST changes: +CARI3CAP PO; +DICY20TA95 PO; +DULO-113 PO; -DULO-114 PO; -GLIP10TA10 PO; +GLIP5TAB11 PO; -LISI-893 PO; +LISI20TA24 PO; +MIRA25TA PO; +NAPR-1025 PO; +OLAN5TAB77 PO; -PALI6TAB15 PO; -PRAZ1 PO; +PRAZ5 PO; +RISP2TAB45 PO; +TRI115O TP; +ZOLP-280 PO
[2023-01-14 11:44] VITALS: TEMP 98.6
[2023-01-14] MEDS ORDERED: SODIUM CHLORIDE 0.9% 1,000 ML IV ONE (13:00)
[2023-01-14 13:19] LABS: BASOPHILS % (AUTO) 0.6 % (0.0-2.0); HEMATOCRIT 34.8 % (36-46); HEMOGLOBIN 11.6 g/dL (12.0-16.0); LYMPHOCYTES # (AUTO) 1.9 K/uL (1.0-4.8); LYMPHOCYTES % (AUTO) 22.9 % (22.0-44.0); MEAN CORPUSCULAR HEMOGLOBIN 27.3 pg (26.0-34.0); MEAN CORPUSCULAR HGB CONC 33.4 G/dL (31.0-37.0); MEAN CORPUSCULAR VOLUME 82 fL (80-100); MONOCYTES # (AUTO) 0.4 K/uL (0.1-1.0); MONOCYTES % (AUTO) 4.6 % (2.0-9.0); NEUTROPHILS # (AUTO) 5.8 K/uL (1.8-7.7); NEUTROPHILS % (AUTO) 70.9 % (40.0-70.0); PLATELET COUNT (AUTO) 383 K/uL (150-450); RED BLOOD CELL COUNT(AUTO) 4.25 MIL/uL (4.00-5.20); RED CELL DISTRIBUTION WIDTH 15.3 % (11.5-14.5)
[2023-01-14 13:33] LABS: PROTHROMBIN TIME 10.5 SEC (9.4-11.6)
[2023-01-14 13:34] LABS: ANION GAP 9 mmol/L (8-16); CALCIUM, TOTAL 9.7 mg/dL (8.8-10.5); CARBON DIOXIDE 31 mmol/L (22-29); CHLORIDE 97 mmol/L (98-107); CREATININE 0.71 mg/dL (0.60-1.30); GLOMERULAR FILTR. RATE CALC > 60 mL/min (>60); GLUCOSE,RANDOM 143 mg/dL (70-110); POTASSIUM 4.1 mmol/L (3.5-5.1); SODIUM SERUM 137 mmol/L (136-145)
[2023-01-14 13:40] LABS: ALANINE AMINOTRANSFERASE 22 U/L (12-78); ALBUMIN 3.9 g/dL (3.4-5.0); ALKALINE PHOSPHATASE 107 U/L (46-116); ASPARTATE AMINOTRANSFERASE 14 U/L (15-37); BILIRUBIN,TOTAL 0.3 mg/dL (0.1-1.0); TOTAL PROTEIN, SERUM 8.4 g/dL (6.4-8.2)
[2023-01-14 13:41] LABS: B-TYPE NATRIURETIC PEPTIDE 12 pg/mL (0-100)
[2023-01-14 16:30] VITALS: BP 142/89; PULSE 84; RESP 18
== END 2023-01-14 16:44 | disposition home or self-care (01) ==
LOC: EMS 11:59
DX: R42 Dizziness and giddiness (principal); E11.65 Type 2 diabetes mellitus with hyperglycemia; F41.9 Anxiety disorder, unspecified; M19.90 Unspecified osteoarthritis, unspecified site; I25.10 Atherosclerotic heart disease of native coronary artery without angina pectoris; I10 Essential (primary) hypertension; E78.00 Pure hypercholesterolemia, unspecified; F20.9 Schizophrenia, unspecified
CPT/HCPCS: 99285; 96360; 71045; 80053; 82962; 83880; 84484; 85025; 85610; 85730; 36415; 93005; J7030

== ENCOUNTER 2023-01-27 06:11 | Emergency (ER) | payer MEDICARE, OTHER ==
[~2023-01-27] VITALS: Ht 154.9 cm; Wt 76.0 kg
[~2023-01-27 06:11] MED LIST changes: -CYCL-448 PO; -DICL100G60 TP; -DICY20TA95 PO; -OLAN5TAB77 PO; -RISP2TAB45 PO; -TRI115O TP; -ZOLP-280 PO
[2023-01-27 06:18] VITALS: TEMP 98.1
[2023-01-27 06:47] LABS: BASOPHILS % (AUTO) 1.1 % (0.0-2.0); EOSINOPHILS % (AUTO) 2.9 % (1.0-6.0); HEMATOCRIT 35.6 % (36-46); HEMOGLOBIN 11.6 g/dL (12.0-16.0); LYMPHOCYTES # (AUTO) 2.3 K/uL (1.0-4.8); LYMPHOCYTES % (AUTO) 35.7 % (22.0-44.0); MEAN CORPUSCULAR HEMOGLOBIN 26.8 pg (26.0-34.0); MEAN CORPUSCULAR HGB CONC 32.5 G/dL (31.0-37.0); MEAN CORPUSCULAR VOLUME 83 fL (80-100); MONOCYTES # (AUTO) 0.3 K/uL (0.1-1.0); MONOCYTES % (AUTO) 5.3 % (2.0-9.0); NEUTROPHILS # (AUTO) 3.5 K/uL (1.8-7.7); PLATELET COUNT (AUTO) 477 K/uL (150-450); RED BLOOD CELL COUNT(AUTO) 4.32 MIL/uL (4.00-5.20); RED CELL DISTRIBUTION WIDTH 15.5 % (11.5-14.5)
[2023-01-27 06:56] LABS: ANION GAP 8 mmol/L (8-16); CALCIUM, TOTAL 9.9 mg/dL (8.8-10.5); CARBON DIOXIDE 29 mmol/L (22-29); CHLORIDE 98 mmol/L (98-107); CREATININE 0.72 mg/dL (0.60-1.30); GLOMERULAR FILTR. RATE CALC > 60 mL/min (>60); GLUCOSE,RANDOM 156 mg/dL (70-110); POTASSIUM 4.3 mmol/L (3.5-5.1); SODIUM SERUM 135 mmol/L (136-145)
[2023-01-27 07:02] LABS: ALANINE AMINOTRANSFERASE 27 U/L (12-78); ALBUMIN 3.9 g/dL (3.4-5.0); ALKALINE PHOSPHATASE 141 U/L (46-116); ASPARTATE AMINOTRANSFERASE 15 U/L (15-37); BILIRUBIN,TOTAL 0.2 mg/dL (0.1-1.0); TOTAL PROTEIN, SERUM 8.1 g/dL (6.4-8.2)
[2023-01-27 08:48] VITALS: BP 110/72; PULSE 87; RESP 18
== END 2023-01-27 09:44 | disposition home or self-care (01) ==
LOC: EMS 06:12
DX: R07.89 Other chest pain (principal); E11.9 Type 2 diabetes mellitus without complications; I25.10 Atherosclerotic heart disease of native coronary artery without angina pectoris; I10 Essential (primary) hypertension; F20.9 Schizophrenia, unspecified; Z88.8 Allergy status to other drugs, medicaments and biological substances
CPT/HCPCS: 71045; 80053; 84484; 85025; 93005; 99285; 36415-L1; 36415-TC

== ENCOUNTER 2023-02-22 08:12 | Emergency (ER) | payer MEDICARE, OTHER ==
[~2023-02-22] VITALS: Ht 154.9 cm; Wt 71.4 kg
[2023-02-22 08:16] VITALS: TEMP 98.4
[2023-02-22] MEDS ORDERED: SODIUM CHLORIDE 0.9% 1,000 ML IV ONE (08:30)
[2023-02-22 08:59] LABS: BASOPHILS % (AUTO) 0.8 % (0.0-2.0); EOSINOPHILS % (AUTO) 2.7 % (1.0-6.0); HEMATOCRIT 32.5 % (36-46); HEMOGLOBIN 10.5 g/dL (12.0-16.0); LYMPHOCYTES # (AUTO) 1.7 K/uL (1.0-4.8); LYMPHOCYTES % (AUTO) 30.9 % (22.0-44.0); MEAN CORPUSCULAR HEMOGLOBIN 27.2 pg (26.0-34.0); MEAN CORPUSCULAR HGB CONC 32.2 G/dL (31.0-37.0); MEAN CORPUSCULAR VOLUME 85 fL (80-100); MONOCYTES # (AUTO) 0.3 K/uL (0.1-1.0); MONOCYTES % (AUTO) 5.2 % (2.0-9.0); NEUTROPHILS # (AUTO) 3.3 K/uL (1.8-7.7); NEUTROPHILS % (AUTO) 60.4 % (40.0-70.0); PLATELET COUNT (AUTO) 400 K/uL (150-450); RED BLOOD CELL COUNT(AUTO) 3.85 MIL/uL (4.00-5.20); RED CELL DISTRIBUTION WIDTH 15.4 % (11.5-14.5)
[2023-02-22 09:06] LABS: ANION GAP 8 mmol/L (8-16); CALCIUM, TOTAL 9.3 mg/dL (8.8-10.5); CARBON DIOXIDE 28 mmol/L (22-29); CHLORIDE 101 mmol/L (98-107); CREATININE 0.81 mg/dL (0.60-1.30); GLOMERULAR FILTR. RATE CALC > 60 mL/min (>60); GLUCOSE,RANDOM 202 mg/dL (70-110); POTASSIUM 3.7 mmol/L (3.5-5.1); SODIUM SERUM 137 mmol/L (136-145)
[2023-02-22 09:12] LABS: ALANINE AMINOTRANSFERASE 28 U/L (12-78); ALBUMIN 3.4 g/dL (3.4-5.0); ALKALINE PHOSPHATASE 105 U/L (46-116); ASPARTATE AMINOTRANSFERASE 18 U/L (15-37); BILIRUBIN,TOTAL 0.3 mg/dL (0.1-1.0); TOTAL PROTEIN, SERUM 7.2 g/dL (6.4-8.2)
[2023-02-22 09:41] VITALS: BP 116/69; PULSE 77; RESP 20
[2023-02-22 17:16] LABS: GLUCOMETER DEV NAME(LOC) ER.6
== END 2023-02-22 09:55 | disposition home or self-care (01) ==
LOC: EMS 08:13
DX: F41.9 Anxiety disorder, unspecified (principal); E11.9 Type 2 diabetes mellitus without complications; I10 Essential (primary) hypertension; F20.9 Schizophrenia, unspecified; Z88.8 Allergy status to other drugs, medicaments and biological substances
CPT/HCPCS: 99285; 96360; 71045; 80053; 82962; 84484; 85025; 36415; 93005; J7030

== ENCOUNTER 2023-03-08 17:29 | Emergency (ER) | payer MEDICARE, OTHER ==
[~2023-03-08] VITALS: Ht 160 cm; Wt 74.1 kg
[2023-03-08 17:43] VITALS: BP 154/92; PULSE 93; RESP 18; TEMP 98.3
[2023-03-08] MEDS ORDERED: LORazepam 1 MG TABLET PO ONE (19:00)
[2023-03-08] MEDS ORDERED: ACETAMINOPHEN 500 MG TABLET PO ONE (19:00)
[2023-03-08 21:12] LABS: BASOPHILS % (AUTO) 0.4 % (0.0-2.0); EOSINOPHILS % (AUTO) 1.9 % (1.0-6.0); HEMATOCRIT 34.1 % (36-46); HEMOGLOBIN 11.3 g/dL (12.0-16.0); LYMPHOCYTES # (AUTO) 2.1 K/uL (1.0-4.8); LYMPHOCYTES % (AUTO) 22.7 % (22.0-44.0); MEAN CORPUSCULAR HEMOGLOBIN 28.1 pg (26.0-34.0); MEAN CORPUSCULAR HGB CONC 33.3 G/dL (31.0-37.0); MEAN CORPUSCULAR VOLUME 84 fL (80-100); MONOCYTES # (AUTO) 0.4 K/uL (0.1-1.0); MONOCYTES % (AUTO) 4.2 % (2.0-9.0); NEUTROPHILS # (AUTO) 6.6 K/uL (1.8-7.7); NEUTROPHILS % (AUTO) 70.8 % (40.0-70.0); PLATELET COUNT (AUTO) 426 K/uL (150-450); RED BLOOD CELL COUNT(AUTO) 4.04 MIL/uL (4.00-5.20); RED CELL DISTRIBUTION WIDTH 15.2 % (11.5-14.5)
[2023-03-08 21:22] LABS: CHLORIDE 100 mmol/L (98-107); SODIUM SERUM 139 mmol/L (136-145)
[2023-03-08 21:27] LABS: ANION GAP 10 mmol/L (8-16); CALCIUM, TOTAL 8.9 mg/dL (8.8-10.5); CARBON DIOXIDE 29 mmol/L (22-29); CREATININE 0.66 mg/dL (0.60-1.30); GLOMERULAR FILTR. RATE CALC > 60 mL/min (>60); GLUCOSE,RANDOM 134 mg/dL (70-110)
== END 2023-03-08 23:00 | disposition home or self-care (01) ==
LOC: EMS 18:05
DX: F41.9 Anxiety disorder, unspecified (principal); F25.9 Schizoaffective disorder, unspecified; E11.9 Type 2 diabetes mellitus without complications; I25.10 Atherosclerotic heart disease of native coronary artery without angina pectoris; Z88.8 Allergy status to other drugs, medicaments and biological substances
CPT/HCPCS: 99283; 80048; 85025; 36415; G0480

== ENCOUNTER 2023-04-24 09:52 | Emergency (ER) | payer MEDICARE, OTHER ==
[~2023-04-24] VITALS: Ht 152.4 cm; Wt 68.2 kg
[~2023-04-24 09:52] MED LIST changes: -GLIP5TAB11 PO; +GLIP5TAB15 PO
[2023-04-24] MEDS ORDERED: LISI10TA24 PO (09:59)
[2023-04-24] MEDS ORDERED: ISOS30TA92 PO (09:59)
[2023-04-24 10:00] VITALS: TEMP 98.5
[2023-04-24 10:54] LABS: BASOPHILS % (AUTO) 0.9 % (0.0-2.0); EOSINOPHILS % (AUTO) 1.7 % (1.0-6.0); HEMATOCRIT 35.4 % (36-46); HEMOGLOBIN 11.6 g/dL (12.0-16.0); LYMPHOCYTES # (AUTO) 1.7 K/uL (1.0-4.8); LYMPHOCYTES % (AUTO) 22.6 % (22.0-44.0); MEAN CORPUSCULAR HEMOGLOBIN 27.5 pg (26.0-34.0); MEAN CORPUSCULAR HGB CONC 32.9 G/dL (31.0-37.0); MEAN CORPUSCULAR VOLUME 84 fL (80-100); MONOCYTES # (AUTO) 0.4 K/uL (0.1-1.0); MONOCYTES % (AUTO) 5.6 % (2.0-9.0); NEUTROPHILS # (AUTO) 5.3 K/uL (1.8-7.7); NEUTROPHILS % (AUTO) 69.2 % (40.0-70.0); PLATELET COUNT (AUTO) 373 K/uL (150-450); RED BLOOD CELL COUNT(AUTO) 4.23 MIL/uL (4.00-5.20); RED CELL DISTRIBUTION WIDTH 14.6 % (11.5-14.5); WHITE BLOOD COUNT (AUTO) 7.6 K/uL (4.5-11.0)
[2023-04-24 11:07] LABS: ANION GAP 7 mmol/L (8-16); CALCIUM, TOTAL 8.6 mg/dL (8.8-10.5); CARBON DIOXIDE 27 mmol/L (22-29); CHLORIDE 99 mmol/L (98-107); CREATININE 0.74 mg/dL (0.60-1.30); GLOMERULAR FILTR. RATE CALC > 60 mL/min (>60); GLUCOSE,RANDOM 336 mg/dL (70-110); POTASSIUM 3.9 mmol/L (3.5-5.1); SODIUM SERUM 133 mmol/L (136-145); UREA NITROGEN, BLOOD 16 mg/dL (7-18)
[2023-04-24 11:08] LABS: B-TYPE NATRIURETIC PEPTIDE 56 pg/mL (0-100)
[2023-04-24 11:15] LABS: TROPONIN I-HIGH SENSITIVITY 41 ng/L (<51)
[2023-04-24 11:26] LABS: ALANINE AMINOTRANSFERASE 28 U/L (12-78); ALBUMIN 3.5 g/dL (3.4-5.0); ALKALINE PHOSPHATASE 114 U/L (46-116); ASPARTATE AMINOTRANSFERASE 17 U/L (15-37); BILIRUBIN,TOTAL 0.3 mg/dL (0.1-1.0); CREATINE KINASE, TOTAL ONLY 156 U/L (26-192); TOTAL PROTEIN, SERUM 7.6 g/dL (6.4-8.2)
[2023-04-24 12:15] LABS: APPEARANCE,URINE CLEAR (CLEAR); BILIRUBIN,URINE NEGATIVE (NEGATIVE); COLOR,URINE LIGHT YELLOW (YELLOW); GLUCOSE, URINE (UA) >=1000 mg/dL (NEGATIVE); KETONES,URINE NEGATIVE (NEGATIVE); LEUKOCYTE ESTERASE ,URINE SMALL (NEGATIVE); NITRATE,URINE POSITIVE (NEGATIVE); OCCULT BLOOD,URINE NEGATIVE (NEGATIVE); PH,URINE 5.5 (5.0-8.0); PROTEIN,URINE NEGATIVE (NEGATIVE); SPECIFIC GRAVITIY, URINE 1.032 (1.003-1.030); UROBILINOGEN,URINE <=1.0 mg/dL (<=1.0)
[2023-04-24 12:25] LABS: BACTERIA,URINE Few /HPF (None Seen); RBC,URINE None Seen /HPF (0-2); SQUAMOUS EPITHELIAL CELL,UR Few /LPF (None Seen)
[2023-04-24] MEDS ORDERED: NYST15PO4 TP (12:40)
[2023-04-24] MEDS ORDERED: OLAN5TAB77 PO (12:40)
[2023-04-24] MEDS ORDERED: SEMA0.258 SQ (12:40)
[2023-04-24] MEDS ORDERED: ARIP20TA21 PO (12:40)
[2023-04-24] MEDS ORDERED: LIDOCAINE/PF 1% 2 ML VIAL IM ONE (12:45)
[2023-04-24] MEDS ORDERED: LORazepam 1 MG TABLET PO ONE (12:45)
[2023-04-24] MEDS ORDERED: CefTRIAXone SODIUM 1 GM/VIAL IM ONE (12:45)
[2023-04-24] MEDS ORDERED: SULF-261 PO (14:05)
[2023-04-24 14:46] VITALS: BP 128/76; PULSE 88; RESP 16
== END 2023-04-24 14:58 | disposition home or self-care (01) ==
LOC: EMS 10:00
DX: N39.0 Urinary tract infection, site not specified (principal); F41.9 Anxiety disorder, unspecified; I25.10 Atherosclerotic heart disease of native coronary artery without angina pectoris; I10 Essential (primary) hypertension; E11.9 Type 2 diabetes mellitus without complications; F20.9 Schizophrenia, unspecified
CPT/HCPCS: 99285; 71045; 80053; 81001; 82550; 82962; 83880; 84484; 85025; 36415; 87086; 87186; 93005; 96372; J0696; J3490

== ENCOUNTER 2023-05-20 17:15 | Emergency (ER) | payer MEDICARE, OTHER ==
[~2023-05-20] VITALS: Ht 154.9 cm; Wt 75.9 kg
[~2023-05-20 17:15] MED LIST changes: +ARIP20TA21 PO; +ISOS30TA92 PO; +LISI10TA24 PO; -LISI20TA24 PO; +NYST15PO4 TP; +OLAN5TAB77 PO; +SEMA0.258 SQ
[2023-05-20 17:25] VITALS: TEMP 97.6
[2023-05-20] MEDS ORDERED: KETOROLAC TROMETHAMINE 30 MG/ML VIAL IM ONE (19:15)
[2023-05-20] MEDS ORDERED: CYCL-448 PO (19:30)
[2023-05-20] MEDS ORDERED: NAPR-1025 PO (19:30)
[2023-05-20 19:47] VITALS: BP 125/78; PULSE 82; RESP 16
== END 2023-05-20 19:48 | disposition still patient (30) ==
LOC: EMS 17:16
DX: M25.562 Pain in left knee (principal); F41.9 Anxiety disorder, unspecified; E11.9 Type 2 diabetes mellitus without complications; F20.9 Schizophrenia, unspecified; I25.10 Atherosclerotic heart disease of native coronary artery without angina pectoris; I10 Essential (primary) hypertension; Z88.8 Allergy status to other drugs, medicaments and biological substances
CPT/HCPCS: 99283; 82962; 96372; J1885

== ENCOUNTER 2023-05-31 11:21 | Emergency (ER) | payer MEDICARE, OTHER ==
[~2023-05-31] VITALS: Ht 154.9 cm; Wt 72.7 kg
[~2023-05-31 11:21] MED LIST changes: +CYCL-448 PO; -NYST15PO4 TP; -OLAN5TAB77 PO
[2023-05-31 11:32] VITALS: TEMP 98.3
[2023-05-31 12:11] LABS: BASOPHILS % (AUTO) 0.9 % (0.0-2.0); HEMATOCRIT 30.9 % (36-46); HEMOGLOBIN 10.4 g/dL (12.0-16.0); LYMPHOCYTES # (AUTO) 1.8 K/uL (1.0-4.8); MEAN CORPUSCULAR HGB CONC 33.6 G/dL (31.0-37.0); MEAN CORPUSCULAR VOLUME 83 fL (80-100); MONOCYTES # (AUTO) 0.4 K/uL (0.1-1.0); MONOCYTES % (AUTO) 6.9 % (2.0-9.0); NEUTROPHILS % (AUTO) 56.2 % (40.0-70.0); PLATELET COUNT (AUTO) 340 K/uL (150-450); RED BLOOD CELL COUNT(AUTO) 3.72 MIL/uL (4.00-5.20); WHITE BLOOD COUNT (AUTO) 5.4 K/uL (4.5-11.0)
[2023-05-31 12:19] LABS: ANION GAP 9 mmol/L (8-16); CALCIUM, TOTAL 9.1 mg/dL (8.8-10.5); CARBON DIOXIDE 29 mmol/L (22-29); CHLORIDE 97 mmol/L (98-107); CREATININE 0.75 mg/dL (0.60-1.30); GLOMERULAR FILTR. RATE CALC > 60 mL/min (>60); GLUCOSE,RANDOM 306 mg/dL (70-110); POTASSIUM 3.8 mmol/L (3.5-5.1); SODIUM SERUM 135 mmol/L (136-145); UREA NITROGEN, BLOOD 10 mg/dL (7-18)
[2023-05-31 12:25] LABS: ALANINE AMINOTRANSFERASE 29 U/L (12-78); ALBUMIN 3.1 g/dL (3.4-5.0); ALKALINE PHOSPHATASE 128 U/L (46-116); ASPARTATE AMINOTRANSFERASE 14 U/L (15-37); BILIRUBIN,TOTAL 0.2 mg/dL (0.1-1.0)
[2023-05-31 12:27] LABS: ACETONE,BLOOD NEGATIVE (NEGATIVE)
[2023-05-31 12:53] LABS: APPEARANCE,URINE CLEAR (CLEAR); BILIRUBIN,URINE NEGATIVE (NEGATIVE); COLOR,URINE COLORLESS (YELLOW); GLUCOSE, URINE (UA) >=1000 mg/dL (NEGATIVE); KETONES,URINE NEGATIVE (NEGATIVE); LEUKOCYTE ESTERASE ,URINE NEGATIVE (NEGATIVE); NITRATE,URINE NEGATIVE (NEGATIVE); OCCULT BLOOD,URINE NEGATIVE (NEGATIVE); PH,URINE 5.5 (5.0-8.0); PH,URINE DRUG SCREEN 5.5 (5.0-8.0); PROTEIN,URINE NEGATIVE (NEGATIVE); SPECIFIC GRAVITIY, URINE 1.021 (1.003-1.030); UROBILINOGEN,URINE <=1.0 mg/dL (<=1.0)
[2023-05-31 13:00] LABS: AMPHET/METH SCREEN,URINE NEGATIVE (NEGATIVE); BARBITURATE SCREEN, URINE NEGATIVE (NEGATIVE); BENZODIAZEPINES SCREEN,URINE NEGATIVE (NEGATIVE); CANNABINOID SCREEN,URINE NEGATIVE (NEGATIVE); COCAINE SCREEN,URINE NEGATIVE (NEGATIVE); METHADONE SCREEN, URINE NEGATIVE (NEGATIVE); OPIATE SCREEN,URINE NEGATIVE (NEGATIVE); PHENCYCLIDINE SCREEN,URINE NEGATIVE (NEGATIVE)
[2023-05-31] MEDS ORDERED: MECLIZINE HCL 25 MG TABLET PO ONE (13:00)
[2023-05-31] MEDS ORDERED: ACETAMINOPHEN 500 MG TABLET PO ONE (13:00)
[2023-05-31] MEDS ORDERED: ONDANSETRON HCL 4 MG TABLET PO ONE (13:00)
[2023-05-31 13:01] LABS: ALCOHOL, URINE DRUG SCREEN NEGATIVE (NEGATIVE)
[2023-05-31 13:15] LABS: BACTERIA,URINE None Seen /HPF (None Seen); RBC,URINE None Seen /HPF (0-2); SQUAMOUS EPITHELIAL CELL,UR Few /LPF (None Seen); WBC,URINE None Seen /HPF (0-5)
[2023-05-31] MEDS ORDERED: NAPR-1025 PO (13:38)
[2023-05-31] MEDS ORDERED: CYCL-448 PO (13:38)
[2023-05-31 13:45] VITALS: BP 117/69; PULSE 83; RESP 18
== END 2023-05-31 13:59 | disposition home or self-care (01) ==
LOC: EMS 11:27
DX: F25.9 Schizoaffective disorder, unspecified (principal); R42 Dizziness and giddiness; F41.9 Anxiety disorder, unspecified; E11.9 Type 2 diabetes mellitus without complications; I25.10 Atherosclerotic heart disease of native coronary artery without angina pectoris; I10 Essential (primary) hypertension; Z88.8 Allergy status to other drugs, medicaments and biological substances
CPT/HCPCS: 99284; 80053; 81001; 82009; 82962; 85025; 36415; 93005; 80307; Q0162

== ENCOUNTER 2023-06-10 00:19 | Emergency (ER) | payer MEDICARE, OTHER ==
[~2023-06-10] VITALS: Ht 154.9 cm; Wt 72.7 kg
[2023-06-10 00:28] VITALS: TEMP 98.1
[2023-06-10 00:30] VITALS: BP 158/74; PULSE 85; RESP 15
[2023-06-10 00:59] LABS: COVID AG,FIA SOURCE NASAL SWAB
[2023-06-10 01:07] LABS: BASOPHILS % (AUTO) 0.5 % (0.0-2.0); EOSINOPHILS % (AUTO) 1.6 % (1.0-6.0); HEMATOCRIT 33.6 % (36-46); HEMOGLOBIN 11.2 g/dL (12.0-16.0); LYMPHOCYTES # (AUTO) 1.4 K/uL (1.0-4.8); LYMPHOCYTES % (AUTO) 18.5 % (22.0-44.0); MEAN CORPUSCULAR HEMOGLOBIN 27.8 pg (26.0-34.0); MEAN CORPUSCULAR HGB CONC 33.3 G/dL (31.0-37.0); MEAN CORPUSCULAR VOLUME 83 fL (80-100); MONOCYTES # (AUTO) 0.6 K/uL (0.1-1.0); MONOCYTES % (AUTO) 7.3 % (2.0-9.0); NEUTROPHILS # (AUTO) 5.6 K/uL (1.8-7.7); NEUTROPHILS % (AUTO) 72.1 % (40.0-70.0); PLATELET COUNT (AUTO) 349 K/uL (150-450); RED BLOOD CELL COUNT(AUTO) 4.03 MIL/uL (4.00-5.20); RED CELL DISTRIBUTION WIDTH 14.8 % (11.5-14.5); WHITE BLOOD COUNT (AUTO) 7.8 K/uL (4.5-11.0)
[2023-06-10 01:10] LABS: APPEARANCE,URINE CLEAR (CLEAR); BILIRUBIN,URINE NEGATIVE (NEGATIVE); COLOR,URINE COLORLESS (YELLOW); GLUCOSE, URINE (UA) >=1000 mg/dL (NEGATIVE); KETONES,URINE NEGATIVE (NEGATIVE); LEUKOCYTE ESTERASE ,URINE NEGATIVE (NEGATIVE); NITRATE,URINE NEGATIVE (NEGATIVE); OCCULT BLOOD,URINE NEGATIVE (NEGATIVE); PH,URINE 5.5 (5.0-8.0); PROTEIN,URINE NEGATIVE (NEGATIVE); SPECIFIC GRAVITIY, URINE 1.037 (1.003-1.030); UROBILINOGEN,URINE <=1.0 mg/dL (<=1.0)
[2023-06-10 01:17] LABS: INFLUENZA TYPE A NEGATIVE FOR TYPE A (NEGATIVE); INFLUENZA TYPE B NEGATIVE FOR TYPE B (NEGATIVE); SARS-COV2 (COVID) ANTIGEN,FIA Negative (Negative)
[2023-06-10 01:22] LABS: TROPONIN I-HIGH SENSITIVITY 35 ng/L (<51)
[2023-06-10 01:27] LABS: B-TYPE NATRIURETIC PEPTIDE 60 pg/mL (0-100)
[2023-06-10 01:28] LABS: ALANINE AMINOTRANSFERASE 27 U/L (12-78); ALBUMIN 3.1 g/dL (3.4-5.0); ALKALINE PHOSPHATASE 187 U/L (46-116); ANION GAP 6 mmol/L (8-16); ASPARTATE AMINOTRANSFERASE 13 U/L (15-37); BILIRUBIN,TOTAL 0.2 mg/dL (0.1-1.0); CALCIUM, TOTAL 8.9 mg/dL (8.8-10.5); CARBON DIOXIDE 28 mmol/L (22-29); CHLORIDE 100 mmol/L (98-107); CREATINE KINASE, TOTAL ONLY 87 U/L (26-192); CREATININE 0.84 mg/dL (0.60-1.30); GLOMERULAR FILTR. RATE CALC > 60 mL/min (>60); POTASSIUM 4.2 mmol/L (3.5-5.1); SODIUM SERUM 134 mmol/L (136-145); TOTAL PROTEIN, SERUM 7.3 g/dL (6.4-8.2); UREA NITROGEN, BLOOD 11 mg/dL (7-18)
[2023-06-10 01:29] LABS: GLUCOSE,RANDOM 409 mg/dL (70-110)
[2023-06-10 01:46] LABS: BACTERIA,URINE None Seen /HPF (None Seen); RBC,URINE None Seen /HPF (0-2); SQUAMOUS EPITHELIAL CELL,UR Few /LPF (None Seen); WBC,URINE 0-2 /HPF (0-5)
[2023-06-10] MEDS ORDERED: BENZ-227 PO (01:49)
[2023-06-10] MEDS: INSULIN REGULAR, HUMAN 100 UNITS/ML SQ ONE (02:24)
[2023-06-10 03:26] LABS: GLUCOMETER DEV NAME(LOC) ER.6; GLUCOSE,POINT OF CARE 354 MG/DL (70-110)
== END 2023-06-10 03:36 | disposition home or self-care (01) ==
LOC: EMS 00:19
DX: E11.65 Type 2 diabetes mellitus with hyperglycemia (principal); R05.9 Cough, unspecified; F41.9 Anxiety disorder, unspecified; F20.9 Schizophrenia, unspecified; I25.10 Atherosclerotic heart disease of native coronary artery without angina pectoris; I10 Essential (primary) hypertension; Z88.8 Allergy status to other drugs, medicaments and biological substances; Z20.822 Contact with and (suspected) exposure to COVID-19
CPT/HCPCS: 99285; 71045; 87426; 80053; 81001; 82550; 82962; 83880; 84484; 85025; 87804; 36415; 93005; J1815

== ENCOUNTER 2023-07-25 08:06 | Emergency (ER) | payer MEDICARE, OTHER ==
[~2023-07-25] VITALS: Ht 157.5 cm; Wt 72.7 kg
[~2023-07-25 08:06] MED LIST changes: +BENZ-227 PO
[2023-07-25] MEDS ORDERED: IBUPROFEN 600 MG TABLET PO ONE (08:30)
[2023-07-25] MEDS ORDERED: FAMOTIDINE 20 MG TABLET PO ONE (08:30)
[2023-07-25] MEDS ORDERED: ONDANSETRON HCL 4 MG TABLET PO ONE (08:30)
[2023-07-25] MEDS ORDERED: MAG HYDROX/ALUMINUM HYD/SIMETH 30 ML SUSPENSION UDCUP PO ONE (08:30)
[2023-07-25 08:40] LABS: COVID AG,FIA SOURCE NASAL SWAB
[2023-07-25 08:41] LABS: GLUCOMETER DEV NAME(LOC) ER.6; GLUCOSE,POINT OF CARE 222 MG/DL (70-110)
[2023-07-25 08:42] LABS: BASOPHILS % (AUTO) 0.9 % (0.0-2.0); EOSINOPHILS % (AUTO) 1.9 % (1.0-6.0); HEMATOCRIT 36.4 % (36-46); HEMOGLOBIN 12.1 g/dL (12.0-16.0); LYMPHOCYTES # (AUTO) 1.5 K/uL (1.0-4.8); LYMPHOCYTES % (AUTO) 25.5 % (22.0-44.0); MEAN CORPUSCULAR HEMOGLOBIN 27.8 pg (26.0-34.0); MEAN CORPUSCULAR HGB CONC 33.2 G/dL (31.0-37.0); MEAN CORPUSCULAR VOLUME 84 fL (80-100); MONOCYTES # (AUTO) 0.3 K/uL (0.1-1.0); MONOCYTES % (AUTO) 4.8 % (2.0-9.0); NEUTROPHILS # (AUTO) 3.8 K/uL (1.8-7.7); NEUTROPHILS % (AUTO) 66.9 % (40.0-70.0); PLATELET COUNT (AUTO) 393 K/uL (150-450); RED BLOOD CELL COUNT(AUTO) 4.36 MIL/uL (4.00-5.20); RED CELL DISTRIBUTION WIDTH 15.4 % (11.5-14.5); WHITE BLOOD COUNT (AUTO) 5.7 K/uL (4.5-11.0)
[2023-07-25 08:52] LABS: ANION GAP 10 mmol/L (8-16); CALCIUM, TOTAL 9.1 mg/dL (8.8-10.5); CARBON DIOXIDE 28 mmol/L (22-29); CHLORIDE 100 mmol/L (98-107); CREATININE 0.72 mg/dL (0.60-1.30); GLOMERULAR FILTR. RATE CALC > 60 mL/min (>60); GLUCOSE,RANDOM 214 mg/dL (70-110); POTASSIUM 4.3 mmol/L (3.5-5.1); SODIUM SERUM 138 mmol/L (136-145); UREA NITROGEN, BLOOD 10 mg/dL (7-18)
[2023-07-25 08:58] LABS: ALANINE AMINOTRANSFERASE 25 U/L (12-78); ALBUMIN 3.8 g/dL (3.4-5.0); ALKALINE PHOSPHATASE 102 U/L (46-116); ASPARTATE AMINOTRANSFERASE 21 U/L (15-37); BILIRUBIN,TOTAL 0.3 mg/dL (0.1-1.0); LIPASE 33 U/L (16-77); TOTAL PROTEIN, SERUM 7.7 g/dL (6.4-8.2)
[2023-07-25 09:05] LABS: INFLUENZA TYPE B NEGATIVE FOR TYPE B (NEGATIVE); SARS-COV2 (COVID) ANTIGEN,FIA Negative (Negative)
[2023-07-25] MEDS ORDERED: ACETAMINOPHEN 500 MG TABLET PO ONE (09:15)
[2023-07-25 09:53] LABS: INFLUENZA TYPE A POSITIVE FOR TYPE A (NEGATIVE)
[2023-07-25 10:26] VITALS: BP 140/86; PULSE 85; RESP 16; TEMP 99.2
[2023-07-25 10:43] LABS: APPEARANCE,URINE CLEAR (CLEAR); BILIRUBIN,URINE NEGATIVE (NEGATIVE); COLOR,URINE LIGHT YELLOW (YELLOW); GLUCOSE, URINE (UA) 300-500 mg/dL (NEGATIVE); KETONES,URINE NEGATIVE (NEGATIVE); LEUKOCYTE ESTERASE ,URINE NEGATIVE (NEGATIVE); NITRATE,URINE NEGATIVE (NEGATIVE); OCCULT BLOOD,URINE NEGATIVE (NEGATIVE); PH,URINE 6.5 (5.0-8.0); PROTEIN,URINE NEGATIVE (NEGATIVE); SPECIFIC GRAVITIY, URINE 1.011 (1.003-1.030); UROBILINOGEN,URINE <=1.0 mg/dL (<=1.0)
[2023-07-25 10:51] LABS: BACTERIA,URINE None Seen /HPF (None Seen); RBC,URINE None Seen /HPF (0-2); WBC,URINE None Seen /HPF (0-5)
[2023-07-25 10:52] LABS: SQUAMOUS EPITHELIAL CELL,UR Few /LPF (None Seen)
== END 2023-07-25 10:27 | disposition home or self-care (01) ==
LOC: EMS 08:07
DX: J10.1 Influenza due to other identified influenza virus with other respiratory manifestations (principal); F41.9 Anxiety disorder, unspecified; E11.9 Type 2 diabetes mellitus without complications; F20.9 Schizophrenia, unspecified; I25.10 Atherosclerotic heart disease of native coronary artery without angina pectoris; I10 Essential (primary) hypertension; Z88.8 Allergy status to other drugs, medicaments and biological substances; Z20.822 Contact with and (suspected) exposure to COVID-19
CPT/HCPCS: 99284; 71045; 87426; 80053; 81001; 82962; 83690; 85025; 87804; 36415; Q0162

== ENCOUNTER 2023-09-23 07:04 | Emergency (ER) | payer MEDICARE, OTHER ==
[~2023-09-23] VITALS: Ht 154.9 cm; Wt 71.8 kg
[2023-09-23 08:38] VITALS: TEMP 98.4
[2023-09-23 09:02] LABS: BASOPHILS % (AUTO) 0.8 % (0.0-2.0); EOSINOPHILS % (AUTO) 3.1 % (1.0-6.0); HEMATOCRIT 38.1 % (36-46); HEMOGLOBIN 12.6 g/dL (12.0-16.0); LYMPHOCYTES # (AUTO) 1.7 K/uL (1.0-4.8); LYMPHOCYTES % (AUTO) 28.2 % (22.0-44.0); MEAN CORPUSCULAR HEMOGLOBIN 28.4 pg (26.0-34.0); MEAN CORPUSCULAR VOLUME 86 fL (80-100); MONOCYTES # (AUTO) 0.4 K/uL (0.1-1.0); MONOCYTES % (AUTO) 6.2 % (2.0-9.0); NEUTROPHILS # (AUTO) 3.7 K/uL (1.8-7.7); NEUTROPHILS % (AUTO) 61.7 % (40.0-70.0); PLATELET COUNT (AUTO) 379 K/uL (150-450); RED BLOOD CELL COUNT(AUTO) 4.44 MIL/uL (4.00-5.20); RED CELL DISTRIBUTION WIDTH 14.7 % (11.5-14.5); WHITE BLOOD COUNT (AUTO) 5.9 K/uL (4.5-11.0)
[2023-09-23] MEDS: DIPHENOXYLATE/ATROP 2.5-0.025 MG TABLET PO ONE (09:03)
[2023-09-23] MEDS: SODIUM CHLORIDE 0.9% 1,000 ML IV ONE (09:03)
[2023-09-23 09:09] VITALS: BP 146/79; PULSE 68; RESP 18
[2023-09-23 09:09] LABS: ANION GAP 10 mmol/L (8-16); CALCIUM, TOTAL 9.6 mg/dL (8.8-10.5); CARBON DIOXIDE 29 mmol/L (22-29); CHLORIDE 100 mmol/L (98-107); GLOMERULAR FILTR. RATE CALC > 60 mL/min (>60); GLUCOSE,RANDOM 182 mg/dL (70-110); POTASSIUM 4.1 mmol/L (3.5-5.1); SODIUM SERUM 139 mmol/L (136-145); UREA NITROGEN, BLOOD 13 mg/dL (7-18)
== END 2023-09-23 11:20 | disposition home or self-care (01) ==
LOC: EMS 07:08
DX: R19.7 Diarrhea, unspecified (principal); F41.9 Anxiety disorder, unspecified; E11.9 Type 2 diabetes mellitus without complications; I10 Essential (primary) hypertension; F20.9 Schizophrenia, unspecified; Z88.8 Allergy status to other drugs, medicaments and biological substances
CPT/HCPCS: 99283; 96360; 80048; 85025; 36415; J7030

== ENCOUNTER 2023-11-10 19:46 | Emergency (ER) | payer MEDICARE, OTHER ==
[~2023-11-10] VITALS: Ht 154.9 cm; Wt 80.0 kg
[~2023-11-10 19:46] MED LIST changes: -BENZ-227 PO
[2023-11-10 19:57] VITALS: BP 138/72; PULSE 92; RESP 15; TEMP 98.1
[2023-11-10] MEDS ORDERED: IBUP-1492 PO (22:52)
[2023-11-10] MEDS: IBUPROFEN 600 MG TABLET PO ONE (22:56)
== END 2023-11-10 23:30 | disposition still patient (30) ==
LOC: EMS 19:54
DX: T78.40XA Allergy, unspecified, initial encounter (principal); E11.9 Type 2 diabetes mellitus without complications; I10 Essential (primary) hypertension; F41.9 Anxiety disorder, unspecified; F20.9 Schizophrenia, unspecified; I25.10 Atherosclerotic heart disease of native coronary artery without angina pectoris; Z88.0 Allergy status to penicillin; X58.XXXA Exposure to other specified factors, initial encounter
CPT/HCPCS: 99282; Z7502; Z7610

== ENCOUNTER 2024-01-24 00:13 | Emergency (ER) | payer MEDICARE, OTHER ==
[~2024-01-24] VITALS: Ht 154.9 cm; Wt 71.8 kg
[~2024-01-24 00:13] MED LIST changes: -ARIP20TA21 PO; +ATOR-2 PO; -ATOR40TA71 PO; -CARI3CAP PO; +CARI4.5C PO; +CHOL200074 PO; -CHOL500043 PO; -CYCL-448 PO; -ISOS30TA92 PO; -LISI10TA24 PO; +LISI5TAB21 PO; -MIRA25TA PO; -NAPR-1025 PO; -OMEP20CA12 PO; +PRAZ1 PO; -PRAZ5 PO; -SEMA0.258 SQ; +SEMA7TAB2 PO
[2024-01-24 00:15] VITALS: BP 110/74; PULSE 73; RESP 18; TEMP 97.4
[2024-01-24] MEDS: KETOROLAC TROMETHAMINE 30 MG/ML VIAL IM ONE (01:00)
[2024-01-24] MEDS: LORazepam 1 MG TABLET PO ONE (01:00)
== END 2024-01-24 02:03 | disposition home or self-care (01) ==
LOC: EMS 00:15
DX: M13.861 Other specified arthritis, right knee (principal); M13.862 Other specified arthritis, left knee; F41.9 Anxiety disorder, unspecified; E11.9 Type 2 diabetes mellitus without complications; F20.9 Schizophrenia, unspecified; I25.10 Atherosclerotic heart disease of native coronary artery without angina pectoris; I10 Essential (primary) hypertension
CPT/HCPCS: 99283; 96372; J1885

== ENCOUNTER 2024-01-31 09:55 | Emergency (ER) | payer MEDICARE, OTHER ==
[~2024-01-31] VITALS: Ht 152.4 cm; Wt 68.2 kg
[2024-01-31 10:06] VITALS: BP 112/72; PULSE 79; RESP 18; TEMP 98.3
[2024-01-31] MEDS ORDERED: INSU100I15 SQ (10:11)
[2024-01-31] MEDS ORDERED: GABA800T9 PO (10:11)
[2024-01-31] MEDS ORDERED: DULO-114 PO (10:11)
[2024-01-31] MEDS ORDERED: METF-446 PO (10:11)
[2024-01-31] MEDS ORDERED: BUSP15TA3 PO (10:11)
[2024-01-31 13:40] LABS: ANION GAP 7 mmol/L (8-16); CALCIUM, TOTAL 9.4 mg/dL (8.8-10.5); CARBON DIOXIDE 30 mmol/L (22-29); CHLORIDE 98 mmol/L (98-107); CREATININE 0.71 mg/dL (0.60-1.30); GLOMERULAR FILTR. RATE CALC > 60 mL/min (>60); GLUCOSE,RANDOM 156 mg/dL (70-110); POTASSIUM 3.6 mmol/L (3.5-5.1); SODIUM SERUM 135 mmol/L (136-145); UREA NITROGEN, BLOOD 10 mg/dL (7-18)
[2024-01-31] MEDS: KETOROLAC TROMETHAMINE 30 MG/ML VIAL IM ONE (13:56)
[2024-02-01] MEDS ORDERED: OMEP20 PO (16:12)
[2024-02-01] MEDS ORDERED: MAG30ORA11 PO (16:12)
== END 2024-01-31 14:34 | disposition home or self-care (01) ==
LOC: EMS 09:55
DX: M25.561 Pain in right knee (principal); M25.562 Pain in left knee; E11.9 Type 2 diabetes mellitus without complications; I10 Essential (primary) hypertension; Z88.1 Allergy status to other antibiotic agents; Z88.8 Allergy status to other drugs, medicaments and biological substances; Z79.4 Long term (current) use of insulin
CPT/HCPCS: 99283; 80048; 36415; 82962; 96372; J1885

== ENCOUNTER → 2024-02-01 | Emergency (ER) | payer MEDICARE, OTHER ==
[~2024-02-01] VITALS: Ht 154.9 cm; Wt 72.7 kg
[~2024-02-01] MED LIST changes: -ASPI-1444 PO; -ATOR-2 PO; -BUSP15 PO; +BUSP15TA3 PO; -CARI4.5C PO; -CHOL200074 PO; +DULO-114 PO; -GABA-1201 PO; +GABA800T9 PO; -GLIP5TAB15 PO; +INSU100I15 SQ; +MAG30ORA11 PO; -METF-1211 PO; +METF-446 PO; -OMEG-135 PO; +OMEP20 PO; -ROPI1TAB46 PO
[2024-02-01 12:43] VITALS: BP 139/75; PULSE 76; RESP 18; TEMP 97.8
[2024-02-01 13:10] LABS: EOSINOPHILS % (AUTO) 3.3 % (1.0-6.0); HEMATOCRIT 35.1 % (36-46); HEMOGLOBIN 11.6 g/dL (12.0-16.0); LYMPHOCYTES # (AUTO) 1.5 K/uL (1.0-4.8); LYMPHOCYTES % (AUTO) 30.4 % (22.0-44.0); MEAN CORPUSCULAR HEMOGLOBIN 28.6 pg (26.0-34.0); MEAN CORPUSCULAR VOLUME 87 fL (80-100); MONOCYTES # (AUTO) 0.3 K/uL (0.1-1.0); NEUTROPHILS % (AUTO) 59.3 % (40.0-70.0); PLATELET COUNT (AUTO) 367 K/uL (150-450); RED BLOOD CELL COUNT(AUTO) 4.05 MIL/uL (4.00-5.20)
[2024-02-01 13:19] LABS: ANION GAP 8 mmol/L (8-16); CALCIUM, TOTAL 9.4 mg/dL (8.8-10.5); CARBON DIOXIDE 30 mmol/L (22-29); CHLORIDE 99 mmol/L (98-107); CREATININE 0.72 mg/dL (0.60-1.30); GLOMERULAR FILTR. RATE CALC > 60 mL/min (>60); GLUCOSE,RANDOM 253 mg/dL (70-110); POTASSIUM 3.8 mmol/L (3.5-5.1); SODIUM SERUM 137 mmol/L (136-145); UREA NITROGEN, BLOOD 9 mg/dL (7-18)
[2024-02-01 13:30] LABS: TROPONIN I-HIGH SENSITIVITY 64 ng/L (<51)
[2024-02-01] MEDS: KETOROLAC TROMETHAMINE 60 MG/2 ML VIAL IM ONE (15:00)
[2024-02-01] MEDS: LORazepam 1 MG TABLET PO ONE (15:00)
[2024-02-01] MEDS: MAG HYDROX/ALUMINUM HYD/SIMETH ES 30 ML SUSPENSION UDCUP PO ONE (15:01)
== END | disposition still patient (30) ==
LOC: EMS 12:34
DX: R07.89 Other chest pain (principal); E11.65 Type 2 diabetes mellitus with hyperglycemia; F25.9 Schizoaffective disorder, unspecified; F41.9 Anxiety disorder, unspecified; K21.9 Gastro-esophageal reflux disease without esophagitis; R79.89 Other specified abnormal findings of blood chemistry; I10 Essential (primary) hypertension; Z88.1 Allergy status to other antibiotic agents; Z88.8 Allergy status to other drugs, medicaments and biological substances; Z79.4 Long term (current) use of insulin
CPT/HCPCS: 99285; 71045; 80048; 84484; 85025; 36415; 82962; 93005; 96372; J1885

== ENCOUNTER 2024-02-06 08:19 | Emergency (ER) | payer MEDICARE, OTHER ==
[~2024-02-06] VITALS: Ht 154.9 cm; Wt 71.8 kg
[2024-02-06 08:26] VITALS: TEMP 97.9
[2024-02-06 08:46] LABS: GLUCOMETER DEV NAME(LOC) ER.7; GLUCOSE,POINT OF CARE 342 MG/DL (70-110)
[2024-02-06 09:32] LABS: BASOPHILS % (AUTO) 1.4 % (0.0-2.0); EOSINOPHILS % (AUTO) 2.7 % (1.0-6.0); HEMATOCRIT 33.7 % (36-46); HEMOGLOBIN 11.1 g/dL (12.0-16.0); LYMPHOCYTES % (AUTO) 24.1 % (22.0-44.0); MEAN CORPUSCULAR HEMOGLOBIN 28.5 pg (26.0-34.0); MEAN CORPUSCULAR HGB CONC 32.8 G/dL (31.0-37.0); MEAN CORPUSCULAR VOLUME 87 fL (80-100); MONOCYTES # (AUTO) 0.4 K/uL (0.1-1.0); MONOCYTES % (AUTO) 9.2 % (2.0-9.0); NEUTROPHILS # (AUTO) 2.5 K/uL (1.8-7.7); NEUTROPHILS % (AUTO) 62.6 % (40.0-70.0); PLATELET COUNT (AUTO) 343 K/uL (150-450); RED BLOOD CELL COUNT(AUTO) 3.89 MIL/uL (4.00-5.20); RED CELL DISTRIBUTION WIDTH 14.2 % (11.5-14.5)
[2024-02-06 09:39] LABS: ANION GAP 4 mmol/L (8-16); CARBON DIOXIDE 31 mmol/L (22-29); CHLORIDE 98 mmol/L (98-107); CREATININE 0.78 mg/dL (0.60-1.30); GLOMERULAR FILTR. RATE CALC > 60 mL/min (>60); GLUCOSE,RANDOM 339 mg/dL (70-110); POTASSIUM 4.2 mmol/L (3.5-5.1); SODIUM SERUM 133 mmol/L (136-145); UREA NITROGEN, BLOOD 8 mg/dL (7-18)
[2024-02-06] MEDS: DIPHENOXYLATE/ATROP 2.5-0.025 MG TABLET PO ONE (09:55)
[2024-02-06] MEDS: PHENOBARB/HYOSCY/ATROPINE/SCOP 5 ML UDCUP ELIXIR PO ONE (09:55)
[2024-02-06] MEDS: SODIUM CHLORIDE 0.9% 500 ML IV ONE (09:55)
[2024-02-06] MEDS: MetFORMIN HCL 500 MG TABLET PO ONE (10:13)
[2024-02-06] MEDS: GlipiZIDE 5 MG TABLET PO ONE (10:13)
[2024-02-06 10:33] VITALS: BP 133/75; PULSE 81; RESP 16
== END 2024-02-06 11:12 | disposition home or self-care (01) ==
LOC: EMS 08:20
DX: R19.7 Diarrhea, unspecified (principal); E11.65 Type 2 diabetes mellitus with hyperglycemia; I10 Essential (primary) hypertension; Z88.1 Allergy status to other antibiotic agents; Z88.8 Allergy status to other drugs, medicaments and biological substances; Z79.4 Long term (current) use of insulin
CPT/HCPCS: 99284; 80048; 82962; 85025; 36415; J7040

== ENCOUNTER 2024-02-08 08:07 | Emergency (ER) | payer MEDICARE, OTHER ==
[~2024-02-08] VITALS: Ht 154.9 cm; Wt 71.8 kg
[2024-02-08 08:13] VITALS: TEMP 98.1
[2024-02-08 08:35] LABS: GLUCOMETER DEV NAME(LOC) ER.7; GLUCOSE,POINT OF CARE 405 MG/DL (70-110)
[2024-02-08 08:37] LABS: BASOPHILS % (AUTO) 1.3 % (0.0-2.0); EOSINOPHILS % (AUTO) 3.2 % (1.0-6.0); HEMATOCRIT 32.4 % (36-46); HEMOGLOBIN 10.6 g/dL (12.0-16.0); LYMPHOCYTES # (AUTO) 0.7 K/uL (1.0-4.8); LYMPHOCYTES % (AUTO) 22.4 % (22.0-44.0); MEAN CORPUSCULAR HEMOGLOBIN 28.4 pg (26.0-34.0); MEAN CORPUSCULAR HGB CONC 32.7 G/dL (31.0-37.0); MEAN CORPUSCULAR VOLUME 87 fL (80-100); MONOCYTES # (AUTO) 0.4 K/uL (0.1-1.0); MONOCYTES % (AUTO) 10.6 % (2.0-9.0); NEUTROPHILS # (AUTO) 2.1 K/uL (1.8-7.7); NEUTROPHILS % (AUTO) 62.5 % (40.0-70.0); PLATELET COUNT (AUTO) 330 K/uL (150-450); RED BLOOD CELL COUNT(AUTO) 3.73 MIL/uL (4.00-5.20); RED CELL DISTRIBUTION WIDTH 14.2 % (11.5-14.5); WHITE BLOOD COUNT (AUTO) 3.3 K/uL (4.5-11.0)
[2024-02-08] MEDS: SODIUM CHLORIDE 0.9% 1,000 ML IV ONE (08:38)
[2024-02-08] MEDS: KETOROLAC TROMETHAMINE 30 MG/ML VIAL IVP ONE (08:39)
[2024-02-08 08:52] LABS: ALANINE AMINOTRANSFERASE 42 U/L (12-78); ALBUMIN 3.3 g/dL (3.4-5.0); ALKALINE PHOSPHATASE 106 U/L (46-116); ANION GAP 1 mmol/L (8-16); ASPARTATE AMINOTRANSFERASE 24 U/L (15-37); BILIRUBIN,TOTAL 0.4 mg/dL (0.1-1.0); CALCIUM, TOTAL 8.9 mg/dL (8.8-10.5); CARBON DIOXIDE 33 mmol/L (22-29); CHLORIDE 96 mmol/L (98-107); GLOMERULAR FILTR. RATE CALC > 60 mL/min (>60); LIPASE 32 U/L (16-77); POTASSIUM 4.4 mmol/L (3.5-5.1); SODIUM SERUM 130 mmol/L (136-145); TOTAL PROTEIN, SERUM 7.2 g/dL (6.4-8.2); UREA NITROGEN, BLOOD 11 mg/dL (7-18)
[2024-02-08 08:57] LABS: GLUCOSE,RANDOM 421 mg/dL (70-110)
[2024-02-08] MEDS: INSULIN REGULAR, HUMAN 100 UNITS/ML IVP ONE (09:11)
[2024-02-08 10:13] VITALS: BP 120/72; PULSE 76; RESP 18
== END 2024-02-08 10:43 | disposition home or self-care (01) ==
LOC: EMS 08:07
DX: R19.7 Diarrhea, unspecified (principal); E11.65 Type 2 diabetes mellitus with hyperglycemia; I10 Essential (primary) hypertension; Z88.1 Allergy status to other antibiotic agents; Z88.8 Allergy status to other drugs, medicaments and biological substances; Z79.4 Long term (current) use of insulin
CPT/HCPCS: 99284; 96374; 96361; 96375; 80048; 80076; 82962 ×2; 83690; 84703; 85025; J1815; J1885; J7030; 36415-L1; 36415-TC

== ENCOUNTER 2024-02-19 21:24 | Emergency (ER) | payer MEDICARE, OTHER ==
[~2024-02-19] VITALS: Ht 167.6 cm; Wt 75.0 kg
[2024-02-19 22:04] LABS: BASOPHILS % (AUTO) 0.8 % (0.0-2.0); HEMATOCRIT 34.2 % (36-46); HEMOGLOBIN 11.2 g/dL (12.0-16.0); MEAN CORPUSCULAR HEMOGLOBIN 28.1 pg (26.0-34.0); MEAN CORPUSCULAR HGB CONC 32.7 G/dL (31.0-37.0); MEAN CORPUSCULAR VOLUME 86 fL (80-100); MONOCYTES # (AUTO) 0.5 K/uL (0.1-1.0); MONOCYTES % (AUTO) 7.6 % (2.0-9.0); NEUTROPHILS # (AUTO) 3.3 K/uL (1.8-7.7); NEUTROPHILS % (AUTO) 54.6 % (40.0-70.0); PLATELET COUNT (AUTO) 383 K/uL (150-450); RED BLOOD CELL COUNT(AUTO) 3.98 MIL/uL (4.00-5.20)
[2024-02-19 22:15] LABS: ANION GAP 10 mmol/L (8-16); CALCIUM, TOTAL 8.4 mg/dL (8.8-10.5); CARBON DIOXIDE 27 mmol/L (22-29); CHLORIDE 97 mmol/L (98-107); CREATININE 0.71 mg/dL (0.60-1.30); GLOMERULAR FILTR. RATE CALC > 60 mL/min (>60); GLUCOSE,RANDOM 273 mg/dL (70-110); POTASSIUM 3.7 mmol/L (3.5-5.1); SODIUM SERUM 134 mmol/L (136-145); UREA NITROGEN, BLOOD 10 mg/dL (7-18)
[2024-02-20 01:15] VITALS: TEMP 98.3
[2024-02-20 02:00] VITALS: BP 116/65; PULSE 65; RESP 15
[2024-02-20] MEDS: LORazepam 1 MG TABLET PO ONE (02:06)
[2024-02-20] MEDS: TraMADol HCL 50 MG TABLET PO ONE (02:06)
== END 2024-02-20 02:59 | disposition home or self-care (01) ==
LOC: EMS 21:24
DX: F41.9 Anxiety disorder, unspecified (principal); M79.652 Pain in left thigh; E11.9 Type 2 diabetes mellitus without complications; I10 Essential (primary) hypertension; I25.10 Atherosclerotic heart disease of native coronary artery without angina pectoris; F25.9 Schizoaffective disorder, unspecified; Z88.0 Allergy status to penicillin
CPT/HCPCS: 80048; 85025; 99283

== ENCOUNTER 2024-02-24 14:38 | Emergency (ER) | payer MEDICARE, OTHER ==
[~2024-02-24] VITALS: Ht 154.9 cm; Wt 52.7 kg
[2024-02-24 14:45] VITALS: TEMP 98.1
[2024-02-24] MEDS: KETOROLAC TROMETHAMINE 30 MG/ML VIAL IM ONE (19:17)
[2024-02-24 19:33] VITALS: BP 118/59; PULSE 75; RESP 18
== END 2024-02-24 19:35 | disposition home or self-care (01) ==
LOC: EMS 14:38
DX: M13.861 Other specified arthritis, right knee (principal); G89.29 Other chronic pain; M25.561 Pain in right knee; E11.9 Type 2 diabetes mellitus without complications; I10 Essential (primary) hypertension; Z88.1 Allergy status to other antibiotic agents; Z88.8 Allergy status to other drugs, medicaments and biological substances; Z79.4 Long term (current) use of insulin
CPT/HCPCS: 99283; 82962; 96372; J1885

== ENCOUNTER 2024-03-14 01:36 | Emergency (ER) | payer MEDICARE, OTHER ==
[~2024-03-14] VITALS: Ht 154.9 cm; Wt 77.3 kg
[2024-03-14 01:46] VITALS: TEMP 98.7
[2024-03-14 01:59] LABS: COVID AG,FIA SOURCE NASAL SWAB
[2024-03-14 02:27] LABS: INFLUENZA TYPE A NEGATIVE FOR TYPE A (NEGATIVE); INFLUENZA TYPE B NEGATIVE FOR TYPE B (NEGATIVE)
[2024-03-14 02:40] LABS: SARS-COV2 (COVID) ANTIGEN,FIA Positive (Negative)
[2024-03-14 02:53] VITALS: BP 141/77; PULSE 90; RESP 16; O2SAT 98
[2024-03-14] MEDS ORDERED: NIRM1TAB10 PO (04:03)
== END 2024-03-14 05:32 | disposition home or self-care (01) ==
LOC: EMS 01:36
DX: U07.1 COVID-19 (principal); E11.9 Type 2 diabetes mellitus without complications; I10 Essential (primary) hypertension; F20.9 Schizophrenia, unspecified; F41.9 Anxiety disorder, unspecified; I25.10 Atherosclerotic heart disease of native coronary artery without angina pectoris
CPT/HCPCS: 87804; 99283

== ENCOUNTER 2024-04-05 23:26 | Emergency (ER) | payer MEDICARE, OTHER ==
[~2024-04-05] VITALS: Ht 154.9 cm; Wt 72.7 kg
[~2024-04-05 23:26] MED LIST changes: +GABA-1554 PO; -GABA800T9 PO; +NIRM1TAB10 PO
[2024-04-06 00:24] VITALS: TEMP 99.5
[2024-04-06 01:08] LABS: BASOPHILS % (AUTO) 1.1 % (0.0-2.0); EOSINOPHILS % (AUTO) 4.1 % (1.0-6.0); HEMOGLOBIN 11.3 g/dL (12.0-16.0); LYMPHOCYTES # (AUTO) 1.8 K/uL (1.0-4.8); LYMPHOCYTES % (AUTO) 32.6 % (22.0-44.0); MEAN CORPUSCULAR HEMOGLOBIN 28.8 pg (26.0-34.0); MEAN CORPUSCULAR HGB CONC 33.3 G/dL (31.0-37.0); MEAN CORPUSCULAR VOLUME 86 fL (80-100); MONOCYTES # (AUTO) 0.4 K/uL (0.1-1.0); MONOCYTES % (AUTO) 6.9 % (2.0-9.0); NEUTROPHILS # (AUTO) 3.1 K/uL (1.8-7.7); NEUTROPHILS % (AUTO) 55.3 % (40.0-70.0); PLATELET COUNT (AUTO) 352 K/uL (150-450); RED BLOOD CELL COUNT(AUTO) 3.95 MIL/uL (4.00-5.20); RED CELL DISTRIBUTION WIDTH 14.2 % (11.5-14.5); WHITE BLOOD COUNT (AUTO) 5.7 K/uL (4.5-11.0)
[2024-04-06 01:21] LABS: PROTHROMBIN TIME 10.1 SEC (9.4-11.6)
[2024-04-06 01:30] LABS: ANION GAP 10 mmol/L (8-16); CALCIUM, TOTAL 8.8 mg/dL (8.8-10.5); CARBON DIOXIDE 27 mmol/L (22-29); CHLORIDE 101 mmol/L (98-107); CREATININE 0.64 mg/dL (0.60-1.30); GLOMERULAR FILTR. RATE CALC > 60 mL/min (>60); GLUCOSE,RANDOM 192 mg/dL (70-110); POTASSIUM 3.9 mmol/L (3.5-5.1); SODIUM SERUM 138 mmol/L (136-145); UREA NITROGEN, BLOOD 10 mg/dL (7-18)
[2024-04-06 01:43] LABS: B-TYPE NATRIURETIC PEPTIDE 10 pg/mL (0-100)
[2024-04-06 01:54] LABS: TROPONIN I-HIGH SENSITIVITY 55 ng/L (<51)
[2024-04-06 01:55] LABS: ALANINE AMINOTRANSFERASE 31 U/L (12-78); ALBUMIN 3.6 g/dL (3.4-5.0); ALKALINE PHOSPHATASE 125 U/L (46-116); ASPARTATE AMINOTRANSFERASE 21 U/L (15-37); BILIRUBIN,TOTAL 0.4 mg/dL (0.1-1.0); CREATINE KINASE, TOTAL ONLY 161 U/L (26-192); TOTAL PROTEIN, SERUM 7.3 g/dL (6.4-8.2)
[2024-04-06 05:21] LABS: TROPONIN I-HIGH SENSITIVITY 57 ng/L (<51)
[2024-04-06 06:38] VITALS: BP 146/73; PULSE 70; RESP 16; O2SAT 98
== END 2024-04-06 06:37 | disposition home or self-care (01) ==
LOC: EMS 23:27
DX: R07.89 Other chest pain (principal); E11.9 Type 2 diabetes mellitus without complications; I10 Essential (primary) hypertension; Z88.1 Allergy status to other antibiotic agents; Z88.8 Allergy status to other drugs, medicaments and biological substances; Z79.4 Long term (current) use of insulin
CPT/HCPCS: 71045; 80053; 82550; 83880; 84484; 85025; 85610; 85730; 93005; 99285; 36415-L1; 36415-TC

== ENCOUNTER 2024-07-01 18:09 | Emergency (ER) | payer MEDICARE, OTHER ==
[~2024-07-01] VITALS: Ht 157.5 cm; Wt 68.2 kg
[2024-07-01 18:32] LABS: COVID AG,FIA SOURCE NASAL SWAB
[2024-07-01 18:59] LABS: SARS-COV2 (COVID) ANTIGEN,FIA Negative (Negative)
[2024-07-01 19:01] LABS: INFLUENZA TYPE A NEGATIVE FOR TYPE A (NEGATIVE); INFLUENZA TYPE B NEGATIVE FOR TYPE B (NEGATIVE)
[2024-07-01 19:41] VITALS: BP 136/84; PULSE 16; RESP 16; TEMP 95; O2SAT 100
[2024-07-01] MEDS: ONDANSETRON 4 MG TABLET PO ONE (20:09)
== END 2024-07-01 20:56 | disposition home or self-care (01) ==
LOC: EMS 18:09
DX: J06.9 Acute upper respiratory infection, unspecified (principal); B97.89 Other viral agents as the cause of diseases classified elsewhere; F41.9 Anxiety disorder, unspecified; E11.9 Type 2 diabetes mellitus without complications; I10 Essential (primary) hypertension; F25.9 Schizoaffective disorder, unspecified; Z79.4 Long term (current) use of insulin; Z88.0 Allergy status to penicillin; Z20.822 Contact with and (suspected) exposure to COVID-19
CPT/HCPCS: 99283; 87426; 87804; Q0162

== ENCOUNTER 2024-07-29 20:32 | Inpatient (IN) | payer MEDICARE, OTHER ==
[~2024-07-29] VITALS: Ht 162.6 cm; Wt 69.2 kg
[~2024-07-29 20:32] MED LIST changes: -NIRM1TAB10 PO
[2024-07-29 22:18] LABS: BASOPHILS % (AUTO) 0.8 % (0.0-2.0); EOSINOPHILS % (AUTO) 2.1 % (1.0-6.0); HEMATOCRIT 36.8 % (36-46); LYMPHOCYTES # (AUTO) 1.8 K/uL (1.0-4.8); LYMPHOCYTES % (AUTO) 23.4 % (22.0-44.0); MEAN CORPUSCULAR HEMOGLOBIN 28.4 pg (26.0-34.0); MEAN CORPUSCULAR HGB CONC 32.7 G/dL (31.0-37.0); MEAN CORPUSCULAR VOLUME 87 fL (80-100); MONOCYTES # (AUTO) 0.7 K/uL (0.1-1.0); MONOCYTES % (AUTO) 8.4 % (2.0-9.0); NEUTROPHILS # (AUTO) 5.1 K/uL (1.8-7.7); NEUTROPHILS % (AUTO) 65.3 % (40.0-70.0); PLATELET COUNT (AUTO) 329 K/uL (150-450); RED BLOOD CELL COUNT(AUTO) 4.24 MIL/uL (4.00-5.20); RED CELL DISTRIBUTION WIDTH 13.4 % (11.5-14.5); WHITE BLOOD COUNT (AUTO) 7.8 K/uL (4.5-11.0)
[2024-07-29 22:39] LABS: APPEARANCE,URINE CLEAR (CLEAR); BILIRUBIN,URINE NEGATIVE (NEGATIVE); COLOR,URINE LIGHT YELLOW (YELLOW); GLUCOSE, URINE (UA) >=1000 mg/dL (NEGATIVE); KETONES,URINE NEGATIVE (NEGATIVE); LEUKOCYTE ESTERASE ,URINE NEGATIVE (NEGATIVE); NITRATE,URINE NEGATIVE (NEGATIVE); OCCULT BLOOD,URINE NEGATIVE (NEGATIVE); PH,URINE 7.5 (5.0-8.0); PROTEIN,URINE NEGATIVE (NEGATIVE); SPECIFIC GRAVITIY, URINE 1.029 (1.003-1.030); UROBILINOGEN,URINE <=1.0 mg/dL (<=1.0)
[2024-07-29 22:42] LABS: TROPONIN I-HIGH SENSITIVITY 59 ng/L (<51)
[2024-07-29 22:45] LABS: ANION GAP 8 mmol/L (8-16); CALCIUM, TOTAL 9.1 mg/dL (8.8-10.5); CARBON DIOXIDE 30 mmol/L (22-29); CHLORIDE 96 mmol/L (98-107); CREATININE 0.76 mg/dL (0.60-1.30); GLOMERULAR FILTR. RATE CALC > 60 mL/min (>60); GLUCOSE,RANDOM 361 mg/dL (70-110); SODIUM SERUM 134 mmol/L (136-145); UREA NITROGEN, BLOOD 11 mg/dL (7-18)
[2024-07-29] MEDS: SODIUM CHLORIDE 0.9% 1,000 ML IV ONE (22:55)
[2024-07-29] MEDS: ACETAMINOPHEN 500 MG TABLET PO ONE (22:56)
[2024-07-29 22:57] LABS: BACTERIA,URINE Rare /HPF (None Seen); RBC,URINE 0-2 /HPF (0-2); SQUAMOUS EPITHELIAL CELL,UR Few /LPF (None Seen); WBC,URINE 0-2 /HPF (0-5)
[2024-07-29 23:06] LABS: INFLUENZA A-RTPCR,COMBO NEGATIVE (NEGATIVE); INFLUENZA B-RTPCR,COMBO NEGATIVE (NEGATIVE); RESPIRATORY SYNCYTIAL VRS-PCR NEGATIVE (NEGATIVE); SARS COVID19 RTPCR, COMBO NEGATIVE (NEGATIVE)
[2024-07-29 23:11] LABS: ALANINE AMINOTRANSFERASE 38 U/L (12-78); ALBUMIN 3.6 g/dL (3.4-5.0); ALKALINE PHOSPHATASE 183 U/L (46-116); ASPARTATE AMINOTRANSFERASE 21 U/L (15-37); BILIRUBIN,TOTAL 0.4 mg/dL (0.1-1.0); CREATINE KINASE, TOTAL ONLY 142 U/L (26-192); TOTAL PROTEIN, SERUM 7.5 g/dL (6.4-8.2)
[2024-07-29] MEDS: INSULIN REGULAR, HUMAN 100 UNITS/ML IVP ONE (23:15)
[2024-07-30] MEDS ORDERED: ONDANSETRON HCL 4 MG/2 ML VIAL IVP PRN
[2024-07-30] MEDS ORDERED: DEXTROSE 50%-WATER 25 GM/50 ML SYRINGE IVP PRN
[2024-07-30] MEDS ORDERED: ALBUTEROL SULFATE 2.5 MG/0.5 ML NEB SOLUTION NEB PRN
[2024-07-30] MEDS ORDERED: IPRATROPIUM BROMIDE 0.5 MG/2.5 ML NEB SOLUTION NEB PRN
[2024-07-30] MEDS ORDERED: SODIUM CHLORIDE 0.9% 100 ML ONE (00:13)
[2024-07-30] MEDS ORDERED: IOHEXOL 350 MG/ML 100 ML VIAL ONE (00:13)
[2024-07-30 01:18] LABS: TROPONIN I-HIGH SENSITIVITY 56 ng/L (<51)
[2024-07-30] MEDS: ASPIRIN 81 MG CHEWABLE TABLET PO ONE (02:06)
[2024-07-30] MEDS: ATORVASTATIN CALCIUM 40 MG TABLET PO ONE (02:07)
[2024-07-30] MEDS: HEPARIN SODIUM,PORCINE 5,000 UNITS/ML VIAL SQ SCH (02:07)
[2024-07-30] MEDS: INSULIN GLARGINE,HUM.REC.ANLOG 100 UNITS/ML SQ SCH ×2 (02:09→20:53)
[2024-07-30 04:05] LABS: TROPONIN I-HIGH SENSITIVITY 58 ng/L (<51)
[2024-07-30 05:59] LABS: BASOPHILS % (AUTO) 1.2 % (0.0-2.0); EOSINOPHILS % (AUTO) 3.2 % (1.0-6.0); HEMATOCRIT 35.6 % (36-46); HEMOGLOBIN 12.2 g/dL (12.0-16.0); LYMPHOCYTES # (AUTO) 1.6 K/uL (1.0-4.8); LYMPHOCYTES % (AUTO) 24.2 % (22.0-44.0); MEAN CORPUSCULAR HEMOGLOBIN 29.3 pg (26.0-34.0); MEAN CORPUSCULAR HGB CONC 34.2 G/dL (31.0-37.0); MEAN CORPUSCULAR VOLUME 86 fL (80-100); MONOCYTES # (AUTO) 0.6 K/uL (0.1-1.0); MONOCYTES % (AUTO) 9.1 % (2.0-9.0); NEUTROPHILS # (AUTO) 4.1 K/uL (1.8-7.7); NEUTROPHILS % (AUTO) 62.3 % (40.0-70.0); PLATELET COUNT (AUTO) 347 K/uL (150-450); RED BLOOD CELL COUNT(AUTO) 4.15 MIL/uL (4.00-5.20); RED CELL DISTRIBUTION WIDTH 13.9 % (11.5-14.5); WHITE BLOOD COUNT (AUTO) 6.6 K/uL (4.5-11.0)
[2024-07-30 06:09] LABS: ANION GAP 7 mmol/L (8-16); CALCIUM, TOTAL 8.9 mg/dL (8.8-10.5); CARBON DIOXIDE 32 mmol/L (22-29); CHLORIDE 97 mmol/L (98-107); CREATININE 0.68 mg/dL (0.60-1.30); GLOMERULAR FILTR. RATE CALC > 60 mL/min (>60); GLUCOSE,RANDOM 161 mg/dL (70-110); POTASSIUM 3.9 mmol/L (3.5-5.1); SODIUM SERUM 136 mmol/L (136-145); UREA NITROGEN, BLOOD 9 mg/dL (7-18)
[2024-07-30 06:18] LABS: TROPONIN I-HIGH SENSITIVITY 44 ng/L (<51)
[2024-07-30 08:10] VITALS: BP 134/82; PULSE 84; RESP 18; TEMP 98.6
[2024-07-30] MEDS ORDERED: DULoxetine HCL 60 MG CAPSULE PO SCH (09:00)
[2024-07-30 11:21] LABS: GLUCOMETER DEV NAME(LOC) ER.7; GLUCOSE,POINT OF CARE 273 MG/DL (70-110)
[2024-07-30 12:00] VITALS: BP 137/84; PULSE 86; RESP 16; TEMP 99; O2SAT 98
[2024-07-30] MEDS: INSULIN LISPRO 100 UNITS/ML SQ PRN (12:04)
[2024-07-30] MEDS: OMEPRAZOLE 20 MG CAPSULE PO SCH (12:04)
[2024-07-30] MEDS: ASPIRIN 81 MG CHEWABLE TABLET PO SCH (12:05)
[2024-07-30] MEDS: LISINOPRIL 5 MG TABLET PO SCH (12:05)
[2024-07-30] MEDS: METOPROLOL TARTRATE 25 MG TABLET PO SCH (12:05)
[2024-07-30] MEDS: DOCUSATE SODIUM 100 MG CAPSULE PO SCH (12:05)
[2024-07-30 12:36] LABS: GLUCOMETER DEV NAME(LOC) 5N.2C; GLUCOSE,POINT OF CARE 348 MG/DL (70-110)
[2024-07-30] MEDS ORDERED: POTASSIUM CHL 10 MEQ/WATER 50 ML IV PRN (13:00)
[2024-07-30] MEDS ORDERED: MAGNESIUM SULFATE 2 GM/WATER 50 ML IV PRN (13:00)
[2024-07-30] MEDS ORDERED: POTASSIUM CHLORIDE 20 MEQ ER TABLET PO PRN (13:00)
[2024-07-30] MEDS ORDERED: MAGNESIUM SULFATE 4 GM/WATER 100 ML IV PRN (13:00)
[2024-07-30 13:09] LABS: ALBUMIN 3.4 g/dL (3.4-5.0)
[2024-07-30] MEDS: BusPIRone HCL 15 MG TABLET PO SCH (13:32)
[2024-07-30] MEDS: GABAPENTIN 400 MG CAPSULE PO SCH (13:32)
[2024-07-30] MEDS: PRAZOSIN HCL 1 MG CAPSULE PO SCH (13:33)
[2024-07-30] MEDS: DULoxetine HCL 30 MG CAPSULE PO SCH (13:45)
[2024-07-30] MEDS: BENZONATATE 100 MG CAPSULE PO PRN (13:56)
[2024-07-30 15:15] VITALS: BP 120/80; PULSE 76; RESP 18; TEMP 98.2; O2SAT 97
[2024-07-30 16:00] VITALS: BP 123/84; PULSE 82; RESP 18; TEMP 98.4; O2SAT 97
[2024-07-30] MEDS: MAGNESIUM OXIDE 400 MG TABLET PO PRN (16:23)
[2024-07-30 18:50] LABS: GLUCOMETER DEV NAME(LOC) 5S.2D; GLUCOSE,POINT OF CARE 375 MG/DL (70-110)
[2024-07-30 19:56] VITALS: BP 103/68; PULSE 75; RESP 17; TEMP 97.9; O2SAT 96
[2024-07-30] MEDS: ATORVASTATIN CALCIUM 40 MG TABLET PO SCH (20:55)
[2024-07-30] MEDS ORDERED: INSULIN GLARGINE,HUM.REC.ANLOG 100 UNITS/ML SQ SCH (21:00)
[2024-07-30 22:31] LABS: GLUCOMETER DEV NAME(LOC) 5N.2C; GLUCOSE,POINT OF CARE 320 MG/DL (70-110)
[2024-07-30 23:19] VITALS: BP 92/63; PULSE 78; RESP 16; TEMP 98.2; O2SAT 95
[2024-07-31 03:27] VITALS: BP 97/57; PULSE 68; RESP 17; TEMP 98.5; O2SAT 95
[2024-07-31] MEDS: ACETAMINOPHEN 325 MG TABLET PO PRN (03:48)
[2024-07-31 06:11] LABS: GLUCOMETER DEV NAME(LOC) 5S.2D; GLUCOSE,POINT OF CARE 354 MG/DL (70-110)
[2024-07-31 07:13] VITALS: BP 143/83; PULSE 71; RESP 18; TEMP 98; O2SAT 98
[2024-07-31 11:28] VITALS: BP 114/70; PULSE 68; RESP 18; TEMP 98; O2SAT 96
[2024-07-31] MEDS ORDERED: ATOR40TA71 PO (12:38)
[2024-07-31] MEDS ORDERED: ASPI-1450 PO (12:38)
[2024-07-31] MEDS ORDERED: BENZ-227 PO (12:38)
[2024-07-31 14:40] LABS: GLUCOMETER DEV NAME(LOC) 5N.2C; GLUCOSE,POINT OF CARE 340 MG/DL (70-110)
[2024-07-31 14:40] LABS: GLUCOMETER DEV NAME(LOC) 5N.2C; GLUCOSE,POINT OF CARE 101 MG/DL (70-110)
[2024-07-31 15:18] VITALS: BP 134/65; PULSE 90; RESP 18; TEMP 98.1; O2SAT 97
== END 2024-07-31 15:35 | disposition home or self-care (01) | DRG 281 ==
LOC: EMS 20:33 → EDH 23:56 → EMS 07-30 08:08 → 5S 07-30 11:29
PROVIDERS: ADMIT Internal Medicine; ATTEND Internal Medicine
PROC: 5A09357 Assistance with Respiratory Ventilation, Less than 24 Consecutive Hours, Continuous Positive Airway Pressure (ICD-10-PCS; principal; 2024-07-29)
DX: I25.10 Atherosclerotic heart disease of native coronary artery without angina pectoris (principal); E87.1 Hypo-osmolality and hyponatremia; I21.A1 Myocardial infarction type 2; E78.5 Hyperlipidemia, unspecified; F25.9 Schizoaffective disorder, unspecified; E11.65 Type 2 diabetes mellitus with hyperglycemia; J06.9 Acute upper respiratory infection, unspecified; I10 Essential (primary) hypertension; Z20.822 Contact with and (suspected) exposure to COVID-19; M19.90 Unspecified osteoarthritis, unspecified site; F41.9 Anxiety disorder, unspecified; Z79.4 Long term (current) use of insulin; Z79.82 Long term (current) use of aspirin; Z79.84 Long term (current) use of oral hypoglycemic drugs; Z79.899 Other long term (current) drug therapy; Z82.49 Family history of ischemic heart disease and other diseases of the circulatory system; Z83.3 Family history of diabetes mellitus; Z88.0 Allergy status to penicillin
CPT/HCPCS: 0241U; 71045; 71275; 80048; 80076; 81001; 82040; 82550; 82962; 83735; 83880; 84484; 85025; 93005; 93306; 99285; G0378; J1644; J1815; J7030; J7050; 36415-L1; 36415-TC

== ENCOUNTER 2024-08-11 22:19 | Emergency (ER) | payer MEDICARE, OTHER ==
[~2024-08-11] VITALS: Ht 160 cm; Wt 75.0 kg
[~2024-08-11 22:19] MED LIST changes: +ASPI-1450 PO; +ATOR40TA71 PO; +BENZ-227 PO
[2024-08-11 22:29] VITALS: TEMP 98.2
[2024-08-12 00:58] LABS: BASOPHILS % (AUTO) 0.8 % (0.0-2.0); EOSINOPHILS % (AUTO) 2.4 % (1.0-6.0); HEMATOCRIT 34.3 % (36-46); HEMOGLOBIN 11.6 g/dL (12.0-16.0); LYMPHOCYTES # (AUTO) 2.8 K/uL (1.0-4.8); LYMPHOCYTES % (AUTO) 31.4 % (22.0-44.0); MEAN CORPUSCULAR HEMOGLOBIN 28.7 pg (26.0-34.0); MEAN CORPUSCULAR HGB CONC 33.7 G/dL (31.0-37.0); MEAN CORPUSCULAR VOLUME 85 fL (80-100); MONOCYTES # (AUTO) 0.5 K/uL (0.1-1.0); MONOCYTES % (AUTO) 6.1 % (2.0-9.0); NEUTROPHILS # (AUTO) 5.3 K/uL (1.8-7.7); NEUTROPHILS % (AUTO) 59.3 % (40.0-70.0); PLATELET COUNT (AUTO) 451 K/uL (150-450); RED BLOOD CELL COUNT(AUTO) 4.03 MIL/uL (4.00-5.20); RED CELL DISTRIBUTION WIDTH 13.6 % (11.5-14.5); WHITE BLOOD COUNT (AUTO) 8.9 K/uL (4.5-11.0)
[2024-08-12] MEDS: ACETAMINOPHEN 500 MG TABLET PO ONE (01:17)
[2024-08-12 01:20] LABS: ANION GAP 7 mmol/L (8-16); CALCIUM, TOTAL 8.6 mg/dL (8.8-10.5); CARBON DIOXIDE 30 mmol/L (22-29); CHLORIDE 98 mmol/L (98-107); GLOMERULAR FILTR. RATE CALC > 60 mL/min (>60); GLUCOSE,RANDOM 266 mg/dL (70-110); POTASSIUM 3.7 mmol/L (3.5-5.1); SODIUM SERUM 135 mmol/L (136-145); UREA NITROGEN, BLOOD 11 mg/dL (7-18)
[2024-08-12 01:30] LABS: TROPONIN I-HIGH SENSITIVITY 57 ng/L (<51)
[2024-08-12 04:03] LABS: TROPONIN I-HIGH SENSITIVITY 68 ng/L (<51)
[2024-08-12 05:13] VITALS: BP 143/87; PULSE 73; RESP 18; O2SAT 97
[2024-08-12] MEDS: IBUPROFEN 400 MG TABLET PO ONE (05:51)
== END 2024-08-12 06:25 | disposition home or self-care (01) ==
LOC: EMS 22:19
DX: R07.89 Other chest pain (principal); R51.9 Headache, unspecified; F41.9 Anxiety disorder, unspecified; M19.90 Unspecified osteoarthritis, unspecified site; E11.65 Type 2 diabetes mellitus with hyperglycemia; F25.9 Schizoaffective disorder, unspecified; I10 Essential (primary) hypertension; I25.10 Atherosclerotic heart disease of native coronary artery without angina pectoris; Z79.4 Long term (current) use of insulin; Z79.899 Other long term (current) drug therapy; Z88.0 Allergy status to penicillin
CPT/HCPCS: 71045; 80048; 84484; 85025; 93005; 99285; 36415-L1; 36415-TC

== ENCOUNTER 2024-10-26 01:02 | Emergency (ER) | payer MEDICARE, OTHER ==
[~2024-10-26] VITALS: Ht 160 cm; Wt 65.9 kg
[~2024-10-26 01:02] MED LIST changes: -DULO-113 PO; +DULO60CA98 PO; +OMEP-148 PO; -OMEP20 PO
[2024-10-26 01:11] VITALS: TEMP 97
[2024-10-26 02:11] LABS: BASOPHILS % (AUTO) 1.1 % (0.0-2.0); EOSINOPHILS % (AUTO) 2.7 % (1.0-6.0); HEMATOCRIT 34.4 % (36-46); HEMOGLOBIN 11.5 g/dL (12.0-16.0); LYMPHOCYTES # (AUTO) 2.7 K/uL (1.0-4.8); LYMPHOCYTES % (AUTO) 44.8 % (22.0-44.0); MEAN CORPUSCULAR HEMOGLOBIN 28.5 pg (26.0-34.0); MEAN CORPUSCULAR HGB CONC 33.4 G/dL (31.0-37.0); MEAN CORPUSCULAR VOLUME 85 fL (80-100); MONOCYTES # (AUTO) 0.5 K/uL (0.1-1.0); NEUTROPHILS # (AUTO) 2.6 K/uL (1.8-7.7); NEUTROPHILS % (AUTO) 43.4 % (40.0-70.0); PLATELET COUNT (AUTO) 359 K/uL (150-450); RED BLOOD CELL COUNT(AUTO) 4.03 MIL/uL (4.00-5.20); RED CELL DISTRIBUTION WIDTH 13.3 % (11.5-14.5)
[2024-10-26 02:25] LABS: PROTHROMBIN TIME 9.8 SEC (9.4-11.6)
[2024-10-26 02:29] LABS: ANION GAP 5 mmol/L (8-16); CALCIUM, TOTAL 9.8 mg/dL (8.8-10.5); CARBON DIOXIDE 30 mmol/L (22-29); CHLORIDE 101 mmol/L (98-107); CREATININE 0.81 mg/dL (0.60-1.30); GLOMERULAR FILTR. RATE CALC > 60 mL/min (>60); GLUCOSE,RANDOM 127 mg/dL (70-110); POTASSIUM 3.7 mmol/L (3.5-5.1); SODIUM SERUM 136 mmol/L (136-145); UREA NITROGEN, BLOOD 12 mg/dL (7-18)
[2024-10-26 02:40] LABS: CREATINE KINASE, TOTAL ONLY 184 U/L (26-192)
[2024-10-26 02:43] LABS: TROPONIN I-HIGH SENSITIVITY 60 ng/L (<51)
[2024-10-26] MEDS: KETOROLAC TROMETHAMINE 30 MG/ML VIAL IVP ONE (04:16)
[2024-10-26 04:52] LABS: TROPONIN I-HIGH SENSITIVITY 60 ng/L (<51)
[2024-10-26 05:54] VITALS: BP 119/69; PULSE 73; RESP 17; O2SAT 96
== END 2024-10-26 15:48 | disposition home or self-care (01) ==
LOC: EMS 01:04
DX: R07.89 Other chest pain (principal); I10 Essential (primary) hypertension; I25.10 Atherosclerotic heart disease of native coronary artery without angina pectoris; F25.9 Schizoaffective disorder, unspecified; E11.9 Type 2 diabetes mellitus without complications; F41.9 Anxiety disorder, unspecified; Z79.899 Other long term (current) drug therapy; Z79.4 Long term (current) use of insulin; Z88.1 Allergy status to other antibiotic agents
CPT/HCPCS: 99285; 96374; 71045; 80048; 82550; 84484; 85025; 85610; 85730; 36415; 93005; J1885

== ENCOUNTER 2024-12-29 07:29 | Emergency (ER) | payer MEDICARE, OTHER ==
[~2024-12-29] VITALS: Ht 154.9 cm; Wt 60.5 kg
[~2024-12-29 07:29] MED LIST changes: -DULO-114 PO; +DULO30CA89 PO
[2024-12-29 07:37] VITALS: TEMP 98.1
[2024-12-29] MEDS ORDERED: IBUP-1492 PO (07:51)
[2024-12-29] MEDS ORDERED: ACET-2247 PO (07:51)
[2024-12-29 07:56] VITALS: BP 118/68; PULSE 82; RESP 18; O2SAT 99
[2024-12-29] MEDS: IBUPROFEN 600 MG TABLET PO ONE (07:56)
[2024-12-29 07:57] LABS: COVID AG,FIA SOURCE NASAL SWAB
[2024-12-29 08:24] LABS: INFLUENZA TYPE A NEGATIVE FOR TYPE A (NEGATIVE); INFLUENZA TYPE B NEGATIVE FOR TYPE B (NEGATIVE); SARS-COV2 (COVID) ANTIGEN,FIA Negative (Negative)
== END 2024-12-29 08:50 | disposition home or self-care (01) ==
LOC: EMS 07:35
DX: B34.9 Viral infection, unspecified (principal); F41.9 Anxiety disorder, unspecified; M19.90 Unspecified osteoarthritis, unspecified site; I25.10 Atherosclerotic heart disease of native coronary artery without angina pectoris; E11.9 Type 2 diabetes mellitus without complications; F25.9 Schizoaffective disorder, unspecified; I10 Essential (primary) hypertension; Z79.4 Long term (current) use of insulin; Z88.0 Allergy status to penicillin; Z79.899 Other long term (current) drug therapy; Z20.822 Contact with and (suspected) exposure to COVID-19
CPT/HCPCS: 82962; 87804; 99283

== ENCOUNTER 2025-01-12 18:09 | Emergency (ER) | payer MEDICARE, OTHER ==
[~2025-01-12] VITALS: Ht 152.4 cm; Wt 77.3 kg
[~2025-01-12 18:09] MED LIST changes: +ACET-2247 PO; +IBUP-1492 PO
[2025-01-12 18:29] VITALS: BP 143/97; PULSE 78; RESP 16; TEMP 98.2; O2SAT 98
[2025-01-12 19:20] LABS: COVID AG,FIA SOURCE NASAL SWAB
[2025-01-12 19:40] LABS: INFLUENZA TYPE A NEGATIVE FOR TYPE A (NEGATIVE); INFLUENZA TYPE B NEGATIVE FOR TYPE B (NEGATIVE)
[2025-01-12 19:41] LABS: SARS-COV2 (COVID) ANTIGEN,FIA Negative (Negative)
== END 2025-01-12 23:24 | disposition home or self-care (01) ==
LOC: EMS 18:09
DX: J06.9 Acute upper respiratory infection, unspecified (principal); B97.89 Other viral agents as the cause of diseases classified elsewhere; E11.9 Type 2 diabetes mellitus without complications; I10 Essential (primary) hypertension; F25.9 Schizoaffective disorder, unspecified; F41.9 Anxiety disorder, unspecified; Z79.4 Long term (current) use of insulin; Z88.0 Allergy status to penicillin; Z88.8 Allergy status to other drugs, medicaments and biological substances; Z79.899 Other long term (current) drug therapy; Z20.822 Contact with and (suspected) exposure to COVID-19
CPT/HCPCS: 82962; 87804; 99283

== ENCOUNTER 2025-01-17 22:02 | Emergency (ER) | payer MEDICARE, OTHER ==
[~2025-01-17] VITALS: Ht 154.9 cm; Wt 69.5 kg
[2025-01-17 22:35] VITALS: TEMP 97.905272
[2025-01-17 23:29] LABS: PLATELET COUNT (AUTO) 352 K/uL (150-450); RED BLOOD CELL COUNT(AUTO) 3.99 MIL/uL (4.00-5.20); RED CELL DISTRIBUTION WIDTH 13.9 % (11.5-14.5); WHITE BLOOD COUNT (AUTO) 5.7 K/uL (4.5-11.0)
[2025-01-17 23:50] LABS: SODIUM SERUM 136 mmol/L (136-145)
[2025-01-17 23:51] LABS: CALCIUM, TOTAL 8.8 mg/dL (8.8-10.5); CREATININE 0.83 mg/dL (0.60-1.30); GLOMERULAR FILTR. RATE CALC > 60 mL/min (>60); GLUCOSE,RANDOM 323 mg/dL (70-110); UREA NITROGEN, BLOOD 15 mg/dL (7-18)
[2025-01-17 23:58] LABS: TROPONIN I-HIGH SENSITIVITY 57 ng/L (<51)
[2025-01-18 01:48] LABS: TROPONIN I-HIGH SENSITIVITY 45 ng/L (<51)
[2025-01-18 02:29] VITALS: BP 116/75; PULSE 65; RESP 18; O2SAT 98
== END 2025-01-18 04:02 | disposition home or self-care (01) ==
LOC: EMS 22:03
DX: F41.9 Anxiety disorder, unspecified (principal); I10 Essential (primary) hypertension; E11.9 Type 2 diabetes mellitus without complications; I25.10 Atherosclerotic heart disease of native coronary artery without angina pectoris; F25.9 Schizoaffective disorder, unspecified; Z79.4 Long term (current) use of insulin; Z88.0 Allergy status to penicillin; Z88.8 Allergy status to other drugs, medicaments and biological substances; Z79.899 Other long term (current) drug therapy
CPT/HCPCS: 80048; 82962; 83690; 84484; 85025; 93005; 99284

== ENCOUNTER 2025-01-24 18:04 | Emergency (ER) | payer MEDICARE, OTHER ==
[~2025-01-24] VITALS: Ht 154.9 cm; Wt 69.5 kg
[2025-01-24 18:23] LABS: COVID AG,FIA SOURCE NASAL SWAB
[2025-01-24 18:30] LABS: GLUCOMETER DEV NAME(LOC) ER.7; GLUCOSE,POINT OF CARE 261 MG/DL (70-110)
[2025-01-24 18:52] LABS: INFLUENZA TYPE A NEGATIVE FOR TYPE A (NEGATIVE); INFLUENZA TYPE B NEGATIVE FOR TYPE B (NEGATIVE); SARS-COV2 (COVID) ANTIGEN,FIA Negative (Negative)
[2025-01-24 21:12] VITALS: TEMP 97.9
[2025-01-24 22:55] VITALS: BP 119/60; PULSE 91; RESP 18; O2SAT 99
== END 2025-01-24 22:56 | disposition home or self-care (01) ==
LOC: EMS 18:04
DX: E11.65 Type 2 diabetes mellitus with hyperglycemia (principal); I10 Essential (primary) hypertension; F41.9 Anxiety disorder, unspecified; F25.9 Schizoaffective disorder, unspecified; R51.9 Headache, unspecified; I25.10 Atherosclerotic heart disease of native coronary artery without angina pectoris; Z79.4 Long term (current) use of insulin; Z88.0 Allergy status to penicillin; Z79.899 Other long term (current) drug therapy; Z20.822 Contact with and (suspected) exposure to COVID-19
CPT/HCPCS: 82962; 87804; 99283

== ENCOUNTER 2025-02-03 14:24 | Emergency (ER) | payer MEDICARE, OTHER ==
[~2025-02-03] VITALS: Ht 154.9 cm; Wt 69.5 kg
[2025-02-03 14:28] VITALS: BP 114/71; PULSE 83; RESP 20; TEMP 98.4; O2SAT 96
[2025-02-03] MEDS: KETOROLAC TROMETHAMINE 30 MG/ML VIAL IM ONE (15:08)
[2025-02-03 15:30] LABS: PLATELET COUNT (AUTO) 387 K/uL (150-450); RED BLOOD CELL COUNT(AUTO) 3.96 MIL/uL (4.00-5.20); RED CELL DISTRIBUTION WIDTH 13.9 % (11.5-14.5); WHITE BLOOD COUNT (AUTO) 4.5 K/uL (4.5-11.0)
[2025-02-03 15:35] LABS: CALCIUM, TOTAL 8.8 mg/dL (8.8-10.5); CREATININE 0.69 mg/dL (0.60-1.30); GLOMERULAR FILTR. RATE CALC > 60 mL/min (>60); GLUCOSE,RANDOM 191 mg/dL (70-110); SODIUM SERUM 138 mmol/L (136-145); UREA NITROGEN, BLOOD 7 mg/dL (7-18)
== END 2025-02-03 16:11 | disposition home or self-care (01) ==
LOC: EMS 14:24
DX: M17.0 Bilateral primary osteoarthritis of knee (principal); E11.9 Type 2 diabetes mellitus without complications; F25.9 Schizoaffective disorder, unspecified; F41.9 Anxiety disorder, unspecified; I10 Essential (primary) hypertension; I25.10 Atherosclerotic heart disease of native coronary artery without angina pectoris; Z88.0 Allergy status to penicillin; Z79.4 Long term (current) use of insulin; Z79.899 Other long term (current) drug therapy
CPT/HCPCS: 99283; 80048; 85025; 85379; 36415; 96372; J1885

== ENCOUNTER 2025-02-23 02:00 | Emergency (ER) | payer MEDICARE, OTHER ==
[~2025-02-23] VITALS: Ht 154.9 cm; Wt 70.9 kg
[~2025-02-23 02:00] MED LIST changes: +DULO30CA62 PO; -DULO30CA89 PO; +DULO60CA73 PO; -DULO60CA98 PO
[2025-02-23] MEDS: ACETAMINOPHEN 500 MG TABLET PO ONE (02:24)
[2025-02-23] MEDS: ONDANSETRON 4 MG TABLET PO ONE (02:24)
[2025-02-23 02:30] VITALS: TEMP 97.705256
[2025-02-23 02:33] LABS: PLATELET COUNT (AUTO) 408 K/uL (150-450); RED BLOOD CELL COUNT(AUTO) 4.20 MIL/uL (4.00-5.20); RED CELL DISTRIBUTION WIDTH 14.0 % (11.5-14.5); WHITE BLOOD COUNT (AUTO) 6.5 K/uL (4.5-11.0)
[2025-02-23 02:42] LABS: CALCIUM, TOTAL 9.4 mg/dL (8.8-10.5); CREATININE 0.72 mg/dL (0.60-1.30); GLOMERULAR FILTR. RATE CALC > 60 mL/min (>60); GLUCOSE,RANDOM 205 mg/dL (70-110); SODIUM SERUM 134 mmol/L (136-145); UREA NITROGEN, BLOOD 12 mg/dL (7-18)
[2025-02-23 02:54] LABS: COVID AG,FIA SOURCE NASAL SWAB
[2025-02-23 02:56] LABS: TROPONIN I-HIGH SENSITIVITY 62 ng/L (<51)
[2025-02-23 03:01] LABS: SARS-COV2 (COVID) ANTIGEN,FIA Negative (Negative)
[2025-02-23 05:04] LABS: TROPONIN I-HIGH SENSITIVITY 53 ng/L (<51)
[2025-02-23 05:05] VITALS: BP 115/67; PULSE 66; RESP 17; O2SAT 96
== END 2025-02-23 05:56 | disposition home or self-care (01) ==
LOC: EMS 03:54
DX: R07.89 Other chest pain (principal); F25.9 Schizoaffective disorder, unspecified; F41.9 Anxiety disorder, unspecified; I10 Essential (primary) hypertension; I25.10 Atherosclerotic heart disease of native coronary artery without angina pectoris; M19.90 Unspecified osteoarthritis, unspecified site; E11.9 Type 2 diabetes mellitus without complications; Z79.4 Long term (current) use of insulin; Z79.899 Other long term (current) drug therapy; Z88.0 Allergy status to penicillin; Z20.822 Contact with and (suspected) exposure to COVID-19
CPT/HCPCS: 99285; 71045; 87426; 80048; 83880; 84484; 85025; 36415; 93005; Q0162

== ENCOUNTER 2025-03-01 09:57 | Emergency (ER) | payer MEDICARE, OTHER ==
[~2025-03-01] VITALS: Ht 154.9 cm; Wt 70.0 kg
[2025-03-01 10:01] VITALS: TEMP 98.4
[2025-03-01] MEDS ORDERED: FAMO20 PO (10:10)
[2025-03-01] MEDS ORDERED: CARI3CAP PO (10:10)
[2025-03-01 10:28] LABS: PLATELET COUNT (AUTO) 363 K/uL (150-450); RED BLOOD CELL COUNT(AUTO) 4.22 MIL/uL (4.00-5.20); RED CELL DISTRIBUTION WIDTH 13.6 % (11.5-14.5); WHITE BLOOD COUNT (AUTO) 5.5 K/uL (4.5-11.0)
[2025-03-01 10:36] LABS: CALCIUM, TOTAL 9.7 mg/dL (8.8-10.5); CREATININE 0.91 mg/dL (0.60-1.30); GLOMERULAR FILTR. RATE CALC > 60 mL/min (>60); GLUCOSE,RANDOM 400 mg/dL (70-110); SODIUM SERUM 131 mmol/L (136-145); UREA NITROGEN, BLOOD 15 mg/dL (7-18)
[2025-03-01 10:47] LABS: TROPONIN I-HIGH SENSITIVITY 65 ng/L (<51)
[2025-03-01] MEDS: ASPIRIN 325 MG TABLET PO ONE (11:55)
[2025-03-01] MEDS: NITROGLYCERIN 2% (1 GM=INCH) OINTMENT PACKET TP ONE (11:55)
[2025-03-01] MEDS: LORazepam 2 MG/ML VIAL IVP ONE (12:01)
[2025-03-01] MEDS: INSULIN REGULAR, HUMAN 100 UNITS/ML IVP ONE (12:03)
[2025-03-01 13:21] LABS: GLUCOMETER DEV NAME(LOC) ERT.7; GLUCOSE,POINT OF CARE 169 MG/DL (70-110)
[2025-03-01 13:31] VITALS: BP 132/75; PULSE 89; RESP 16; O2SAT 96
== END 2025-03-01 13:33 | disposition admitted as inpatient to this hospital (09) ==
LOC: EMS 10:02 → EDH 13:03 → UNDOADMIN 13:03 → UNDODISIN 13:30
DX: R07.89 Other chest pain (principal); E11.65 Type 2 diabetes mellitus with hyperglycemia; F25.9 Schizoaffective disorder, unspecified; I10 Essential (primary) hypertension; I25.10 Atherosclerotic heart disease of native coronary artery without angina pectoris; F41.9 Anxiety disorder, unspecified; Z53.29 Procedure and treatment not carried out because of patient's decision for other reasons; Z88.1 Allergy status to other antibiotic agents; Z88.8 Allergy status to other drugs, medicaments and biological substances
CPT/HCPCS: 99285; 96374; 71045; 96375; 80048; 82962; 84484; 85025; 36415; 93005; J1815; J2060; G0378